=== PATIENT | female | born 1960 | race Caucasian/White ===

== ENCOUNTER → 2016-04-04 | Outpatient (CLI) | payer BC ==
[~2016-04-04] MED LIST: ACET-749 PO; ACET1TAB84 PO; ALBUAER2 INH; AMOX500C3 PO; ASCA500 PO; CALC500C3 PO; CEPH500C2 PO; CHOL2000 PO; CRAN1CAP15 PO; CYAN10005 SQ; DICL1GEL12 TOP; DIPH25CA65 PO; DULO60CA44 PO; FLUT0.15 NAE; FLVHFA110 INH; FRRG PO; IPRASOL4 INH; LEVO150T9 PO; LEVO1TAB34 PO; LVNIS30 PO; LVNIS30 SQ; MOME50SP5; OXYC-57 PO; PLMINSR25 INH; VITA400C49 PO
--- NOTE | 2016-04-04 11:36 | DIAGNOSTIC IMAGING REPORT ---
CHEST 2 VIEWS ROUTINE HISTORY: Atypical chest pain. COMPARISON: Chest 04/23/2011. FINDINGS: The lungs are clear. Cardiac silhouette is normal in size. No pleural effusions. No pneumothorax. IMPRESSION: No acute process. Electronically signed by: Parker Doan M.D. 04/04/2016 11:34 AM Dictated Date/Time: 04/04/2016 11:31 AM
== END | disposition home or self-care (01) ==
LOC: C.RAD1850 11:02
PROVIDERS: ATTEND Nurse Practitioner Family
DX: J45.41 Moderate persistent asthma with (acute) exacerbation (principal); R06.02 Shortness of breath; R05 Cough; R07.9 Chest pain, unspecified

== ENCOUNTER 2016-04-06 14:21 | Emergency (ER) | payer BC ==
[~2016-04-06] VITALS: Ht 180.3 cm; Wt 104.2 kg
[~2016-04-06 14:21] MED LIST changes: -ACET1TAB84 PO; -AMOX500C3 PO; -ASCA500 PO; -CALC500C3 PO; -CEPH500C2 PO; -CHOL2000 PO; -CRAN1CAP15 PO; -CYAN10005 SQ; -DICL1GEL12 TOP; -DULO60CA44 PO; -FLUT0.15 NAE; -FRRG PO; -IPRASOL4 INH; -LEVO150T9 PO; -LEVO1TAB34 PO; -LVNIS30 PO; -LVNIS30 SQ; -OXYC-57 PO; -PLMINSR25 INH; -VITA400C49 PO
[2016-04-06 14:25] VITALS: TEMP 36.6; Ht 180.3 cm; Wt 104.2 kg
[2016-04-06] MEDS ORDERED: MAGNESIUM SULFATE 1GM / D5W 1 GM BAG IV STA (15:32)
[2016-04-06] MEDS ORDERED: SODIUM CHLORIDE 0.9% 1000ML 1,000 ML IV STA (15:32)
[2016-04-06] MEDS ORDERED: METHYLPREDNISOLONE 125 MG VIAL IV STA (15:32)
--- NOTE | 2016-04-06 15:35 | EMERGENCY ROOM VISIT NOTE ---
History Report prepared by Manuel: Choco Gallo Under the Supervision of: Dr. Liam Quiñonez M.D. First contact with patient: 15:26 Chief Complaint: RESPIRATORY PROBLEMS Stated Complaint: DIAGNOSED WITH PNEUMONIA Nursing Triage Summary: left side pnemonia dx on , placed on antibiotics at that time. I dont feel like I am getting any better History of Present Illness The patient is a 56 year old female who presents to the Emergency Room with complaints of respiratory problems that began four days ago. The patient began having a fever, rhinorrhea, a cough, body aches, chest pain, and shortness of breath. The next day she was prescribed Levaquin 500 mg for ten days and Prednisone 40 mg. The patient states that she does not feel better. She thinks the medications are not helping. Her breathing worsens with deep breaths. She denies nausea, vomiting, and diarrhea. She took two Tylenol this morning without relief. Source of History: patient Onset: four days ago Position: other (lungs) Symptom Intensity: moderate Quality: other (shortness of breath) Timing: worsening Modifying Factors (Worsening): breathing (deep breaths) Associated Symptoms: + SOB, + chest pain, + cough, + fatigue, + fevers, + weakness, No diarrhea, No nausea, No vomiting Note: She has generalized aches and rhinorrhea. Review of Systems See HPI for pertinent positives & negatives. A total of 10 systems reviewed and were otherwise negative. Past Medical & Surgical Medical Problems: (1) Asthma, Unspecified (2) bladder tack (3) Depression (4) Esophageal Reflux (5) Hx Of Lymphoid Leukemia (6) Hypertension Nos (7) Vomiting Surgical Problems: (1) Cystocele with rectocele (2) Gastric bypass status for obesity (3) History of colonoscopy (4) History of esophagogastroduodenoscopy (5) History of hysterectomy (6) History of orthopedic surgery (7) History of tonsillectomy (8) Intestinal Bypass Status Social History Problems: (1) Gastric bypass status for obesity Family History Patient reports no known family medical history. Social History Smoking Status: Never Smoker Alcohol Use: none Drug Use: none Marital Status: Housing Status: lives with family Occupation Status: employed Current/Historical Medications Scheduled Amoxicillin (Amoxil), 500 MG PO TID Budesonide (Pulmicort Respules 0.25MG/2ML), 2 ML INH BID Duloxetine Hcl (Cymbalta), 60 MG PO DAILY Levofloxacin (Levaquin), 500 MG PO DAILY Levothyroxine Sodium (Levothyroxine Sodium), 1 TAB PO DAILY Scheduled PRN Acetaminophen (Tylenol Arthritis Ext Rel), 1,300 MG PO Q8H PRN for pain/fever/gomez Albuterol (Ventolin), 2 PUFFS INH QID PRN for SOB/Wheezing Diphenhydramine Hcl (Benadryl Allergy), 25 MG PO HS PRN for Sleep Fluticasone Propionate (Flovent Hfa), 2 PUFF INH BID PRN for SOB/Wheezing Fluticasone Propionate (Nasal) (Flonase Allergy Relief), 2 SPRAY TOMER DAILY PRN for allergies Ipratropium-Albuterol (Duoneb), 1 TREATMENT INH TID PRN for SOB/Wheezing Allergies Coded Allergies: Doxycycline (Verified Allergy, Mild, RASH, 03/17/15) Dextromethorphan (Verified Allergy, Unknown, ITCHY, REDNESS, 04/06/16) Doxylamine (Verified Allergy, Unknown, ITCHY, REDNESS, 04/06/16) NSAIDs (Verified Allergy, Unknown, itchy, stomach ulcers, 03/17/15) Pseudoephedrine (Verified Allergy, Unknown, ITCHY, REDNESS, 04/06/16) Soybean (Verified Allergy, Unknown, TESTING = ALLERGIC; PATIENT EATS SOYBEANS AND DOES OKAY., 02/23/14) Uncoded Allergies: NYQUIL (Allergy, Unknown, Anxiety, 10/21/13) Physical Exam Vital Signs Date Time Temp Pulse Resp B/P Pulse Ox O2 Delivery O2 Flow Rate FiO2 04/06/16 16:53 89 18 152/87 100 Room Air 04/06/16 16:11 73 04/06/16 15:54 68 16 99 Room Air 04/06/16 15:41 100 Room Air 04/06/16 14:27 99 Room Air 04/06/16 14:25 36.6 81 20 139/87 98 Physical Exam GENERAL: Patient is a healthy-appearing well-nourished HEAD: Normocephalic atraumatic EYES: Ocular movements intact pupils equal and react to light OROPHARYNX mucous membranes are moist no exudates present no erythema or edema present NECK: Supple no nuchal rigidity CHEST: Good equal expansion LUNGS: Distant breath sounds bilaterally. CARDIAC: Normal S1 and S2 ABDOMEN: Soft nontender no guarding BACK: No CVA tenderness EXTREMITIES: No pain upon palpation normal muscle strength in all groups no clubbing cyanosis or edema NEURO: Patient is following commands is answering questions appropriately. Alert and oriented x3 Cranial Nerves 2-12 grossly intact Medical Decision & Procedures ER Provider Diagnostic Interpretation: Radiology results are stated below per my review and radiologist interpretation: CHEST ONE VIEW PORTABLE CLINICAL HISTORY: Shortness of breath COMPARISON STUDY: 04/04/2016 FINDINGS: The cardiac and mediastinal contours are normal. There is no evidence of focal pulmonary consolidation. There is no evidence of failure. No pleural effusions are visualized.[ IMPRESSION: No active disease in the chest. Electronically signed by: Alex Cortes M.D. 04/06/2016 4:06 PM Dictated Date/Time: 04/06/2016 4:[address] ANGIOGRAM OF THE CHEST CLINICAL HISTORY: Shortness of breath. Suspected pulmonary embolism. COMPARISON STUDY: Chest x-ray dated 04/06/2016, CT scan of chest dated 12/10/2013 TECHNIQUE: Following the IV administration of 96 mL of Optiray-320, CT angiogram of the thorax was performed from the thoracic inlet to the lung bases utilizing the pulmonary embolus protocol. Images are reviewed in the axial, sagittal, and coronal planes. IV contrast was administered without complication. MIP imaging was performed. CT DOSE: 346.19 mGy.cm FINDINGS: There is a partially calcified 1 cm right lobe thyroid nodule, similar to the prior examination No pathologically enlarged axillary mediastinal or hilar lymph nodes were visualized. There was no evidence of thoracic aortic dilatation. There were no pulmonary artery filling defects to indicate acute pulmonary embolism. No pleural effusions are visualized. There is a stable 6 mm right lower lobe pulmonary nodule as visualized in image #[id number]. The stability indicates a benign process. IMPRESSION: 1. No CT evidence of acute pulmonary embolism 2. No evidence of pathologic adenopathy 3. No evidence of focal pulmonary consolidation Electronically signed by: Alxe Cortes M.D. 04/06/2016 5:31 PM Dictated Date/Time: 04/06/2016 5:26 PM Laboratory Results 04/06/16 15:45 Red Blood Count 4.82, Mean Corpuscular Volume 83.6, Mean Corpuscular Hemoglobin 27.4, Mean Corpuscular Hemoglobin Concent 32.8, Mean Platelet Volume 9.6, Neutrophils (%) (Auto) 34.1, Lymphocytes (%) (Auto) 58.4, Monocytes (%) (Auto) 4.3, Eosinophils (%) (Auto) 2.7, Basophils (%) (Auto) 0.3, Neutrophils # (Auto) 5.15, Lymphocytes # (Auto) 8.79, Monocytes # (Auto) 0.64, Eosinophils # (Auto) 0.40, Basophils # (Auto) 0.04 04/06/16 15:45 Test 04/06/16 15:45 04/06/16 15:47 04/06/16 15:52 04/06/16 16:10 White Blood Count 15.05 K/uL (4.8-10.8) Red Blood Count 4.82 M/uL (4.2-5.4) Hemoglobin 13.2 g/dL (12.0-16.0) Hematocrit 40.3 % (37-47) Mean Corpuscular Volume 83.6 fL (80-100) Mean Corpuscular Hemoglobin 27.4 pg (25-34) Mean Corpuscular Hemoglobin Concent 32.8 g/dl (32-36) Platelet Count 324 K/uL (130-400) Mean Platelet Volume 9.6 fL (7.4-10.4) Neutrophils (%) (Auto) 34.1 % Lymphocytes (%) (Auto) 58.4 % Monocytes (%) (Auto) 4.3 % Eosinophils (%) (Auto) 2.7 % Basophils (%) (Auto) 0.3 % Neutrophils # (Auto) 5.15 K/uL (1.4-6.5) Lymphocytes # (Auto) 8.79 K/uL (1.2-3.4) Monocytes # (Auto) 0.64 K/uL (0.11-0.59) Eosinophils # (Auto) 0.40 K/uL (0-0.5) Basophils # (Auto) 0.04 K/uL (0-0.2) RDW Standard Deviation 43.0 fL (36.4-46.3) RDW Coefficient of Variation 14.0 % (11.5-14.5) Immature Granulocyte % (Auto) 0.2 % Immature Granulocyte # (Auto) 0.03 K/uL (0.00-0.02) Nucleated RBC Absolute Count (auto) 0.18 K/uL (0-0) Nucleated Red Blood Cells % 1.2 % Smudge Cells PRESENT Ovalocytes 1+ Est Creatinine Clear Calc Drug Dose 113.9 ml/min Estimated GFR () 104.7 Estimated GFR (Non- 90.4 BUN/Creatinine Ratio 18.9 (10-20) Calcium Level 8.8 mg/dl (8.5-10.1) Total Bilirubin 0.2 mg/dl (0.2-1) Aspartate Amino Transf (AST/SGOT) 21 U/L (15-37) Alanine Aminotransferase (ALT/SGPT) 34 U/L (12-78) Alkaline Phosphatase 163 U/L (45-117) Total Creatine Kinase 68 U/L (26-192) Creatine Kinase MB < 0.5 ng/ml (0.5-3.6) Creatine Kinase MB Ratio (0-3.0) Troponin I < 0.015 ng/ml (0-0.045) Total Protein 7.3 gm/dl (6.4-8.2) Albumin 3.7 gm/dl (3.4-5.0) Globulin 3.6 gm/dl (2.5-4.0) Albumin/Globulin Ratio 1.0 (0.9-2) Bedside D-Dimer > 450 ng/mlFEU (0-450) Bedside Hemoglobin 13.9 g/dl (12.0-16.0) Bedside Hematocrit 41 % (37-47) Bedside Sodium 140 mEq/L (135-144) Bedside Potassium 4.4 mEq/L (3.3-5.0) Bedside Chloride 102 mEq/L (101-112) Bedside Total CO2 27 mEq/l (24-31) Anion Gap 17.0 mmol/L (16-25) Bedside Blood Urea Nitrogen 14 mg/dl (7-18) Bedside Creatinine 0.7 mg/dl (0.6-1.3) Bedside Glucose (other) 99 mg/dl (70-99) Bedside Ionized Calcium (Jen) 1.14 mmol/l (1.12-1.32) Influenza Type A (RT-PCR) Neg for Influ A (NEG) Influenza Type B (RT-PCR) Neg for Influ B (NEG) Test 04/06/16 17:15 Urine Color YELLOW Urine Appearance CLEAR (CLEAR) Urine pH 6.5 (4.5-7.5) Urine Specific [place] 1.004 (1.000-1.030) Urine Protein NEG (NEG) Urine Glucose (UA) NEG (NEG) Urine Ketones NEG (NEG) Urine Occult Blood NEG (NEG) Urine Nitrite NEG (NEG) Urine Bilirubin NEG (NEG) Urine Urobilinogen NEG (NEG) Urine Leukocyte Esterase NEG (NEG) Labs reviewed by ED physician. Medications Administered Medications (Trade) Dose Ordered Sig/Tariq Route Start Time Stop Time Status Last Admin Dose Admin Sodium Chloride (Nss 1000ml) 1,000 ml @ 999 mls/hr Q1H1M STAT IV 04/06/16 15:32 04/06/16 16:32 DC 04/06/16 15:48 999 MLS/HR Albuterol/ Ipratropium (Duoneb) 12 ml ONE ONCE INH 04/06/16 15:45 04/06/16 15:46 DC 04/06/16 15:53 12 ML Methylprednisolone Sodium Succinate (Solu-Medrol IV) 60 mg NOW STAT IV 04/06/16 15:32 04/06/16 15:37 DC 04/06/16 15:49 60 MG Magnesium Sulfate (Magnesium Sulfate) 1 gm NOW STAT IV 04/06/16 15:32 04/06/16 15:37 DC 04/06/16 15:49 1 GM Acetaminophen (Tylenol Tab) 1,000 mg NOW STAT PO 04/06/16 17:06 04/06/16 17:08 DC 04/06/16 17:15 1,000 MG Amoxicillin (Amoxil Cap) 1,000 mg NOW STAT PO 04/06/16 18:25 04/06/16 18:26 DC 04/06/16 18:52 1,000 MG ECG Indication: SOB/dyspnea Rate (beats per minute): 77 Rhythm: normal sinus Findings: no acute ischemic change, no ectopy ED Course 1526: Past medical records reviewed. The patient was evaluated in room A3. A complete history and physical examination was performed. 1532: Magnesium Sulfate 1 gm IV, Solu-Medrol IV 60 mg IV, Sodium Chloride 1000 ml @ 999 mls/hr 1545: Duoneb 12 ml 1706: Acetaminophen 1000 mg PO 1730: I offered the patient admission. She declined and stated that she would like to go home. 1824: Amoxil Cap 1000 mg PO 1833: Upon reexamination the patient is resting. I discussed results and treatment plan with the patient. She verbalizes agreement and understanding. The patient is ready for discharge. Medical Decision Etiologies such as infections, reactive airway disease, pneumonia, pneumothorax , COPD, CHF, cardiac ischemia, pulmonary embolism, musculoskeletal, gastrointestinal, as well as others were entertained. This is a 56-year-old female with a history of asthma who was placed on steroids as well as Levaquin 2 days ago. The patient reports emergency Department with worsening symptoms. She was given an hour-long breathing treatment in the emergency department and given more Tylenol as the patient is allergic to NSAIDs. Her last dose of Tylenol was at 11 AM therefore she was given more at 5 PM. The patient was also given normal saline bolus as well as magnesium. The patient does have an elevation in her d-dimer therefore sent for CAT scan of the chest has a chest x-ray is clear. I did give this patient the option of being admitted however she wishes to try it at home. As she is allergic to doxycycline I will place the patient on amoxicillin to open up her antibiotic coverage. She does have an elevation in her white blood count that will be consistent with starting steroids. Impression Primary Impression: Asthma exacerbation Scribe Attestation The scribe's documentation has been prepared under my direction and personally reviewed by me in its entirety. I confirm that the note above accurately reflects all work, treatment, procedures, and medical decision making performed by me. Departure Information Dispostion Home / Self-Care Prescriptions Amoxicillin (AMOXIL) 500 Mg Cap 500 MG PO TID, #30 CAP Prov: Liam Quiñonez MD 04/06/16 Referrals Teri Parker M.D. (PCP) Forms HOME CARE DOCUMENTATION FORM, IMPORTANT VISIT INFORMATION, WORK / SCHOOL INSTRUCTIONS Patient Instructions ED Bronchitis Asthmatic, My [facility] Additional Instructions Add amox to Levaquin Return if symptoms worsen You have been examined and treated today on an emergency basis only. This is not a substitute for, or an effort to provide, complete comprehensive medical care. It is impossible to recognize and treat all injuries or illnesses in a single emergency department visit. It is therefore important that you follow up closely with Dr Parker. Call as soon as possible for an appointment. Thank you for your time and consideration. I look forward to speaking with you again soon. Please don't hesitate to call us if you have any questions.
[2016-04-06] MEDS ORDERED: FLUT0.15 NAE (15:39)
[2016-04-06] MEDS ORDERED: LEVO150T9 PO (15:39)
[2016-04-06] MEDS ORDERED: PLMINSR25 INH (15:39)
[2016-04-06] MEDS ORDERED: ACET1TAB84 PO (15:39)
[2016-04-06] MEDS ORDERED: LEVO1TAB34 PO (15:39)
[2016-04-06] MEDS ORDERED: IPRASOL4 INH (15:39)
[2016-04-06] MEDS ORDERED: DULO60CA44 PO (15:39)
[2016-04-06 15:41] VITALS: O2SAT 100
[2016-04-06] MEDS ORDERED: ALBUT/IPRATROP 3MG/0.5MG NEB 3 ML VIAL INH ONE (15:45)
[2016-04-06 15:54] VITALS: PULSE 68; O2SAT 99
[2016-04-06 16:05] LABS: ISTAT CREATININE 0.7 mg/dl (0.6-1.3); ISTAT HEMOGLOBIN 13.9 g/dl (12.0-16.0); ISTAT IONIZED CALCIUM 1.14 mmol/l (1.12-1.32)
[2016-04-06 16:07] LABS: HEMATOCRIT 40.3 % (37-47); MEAN CELL VOLUME 83.6 fL (80-100); MEAN CORPUSCULAR HEMOGLOBIN 27.4 pg (25-34); MEAN CORPUSCULAR HGB CONC 32.8 g/dl (32-36); MEAN PLATELET VOLUME 9.6 fL (7.4-10.4); PLATELET COUNT 324 K/uL (130-400); RED BLOOD COUNT 4.82 M/uL (4.2-5.4); WHITE BLOOD COUNT 15.05 K/uL (4.8-10.8)
--- NOTE | 2016-04-06 16:08 | DIAGNOSTIC IMAGING REPORT ---
CHEST ONE VIEW PORTABLE CLINICAL HISTORY: Shortness of breath COMPARISON STUDY: 04/04/2016 FINDINGS: The cardiac and mediastinal contours are normal. There is no evidence of focal pulmonary consolidation. There is no evidence of failure. No pleural effusions are visualized.[ IMPRESSION: No active disease in the chest. Electronically signed by: Alex Cortes M.D. 04/06/2016 4:06 PM Dictated Date/Time: 04/06/2016 4:05 PM
[2016-04-06] MEDS ORDERED: OPTIRAY 320 IV PRN (16:15)
[2016-04-06 16:26] LABS: ALT/SGPT 34 U/L (12-78); AST/SGOT 21 U/L (15-37); BLOOD UREA NITROGEN 14 mg/dl (7-18); BUN/CREATININE RATIO 18.9 (10-20); CALCIUM 8.8 mg/dl (8.5-10.1); CARBON DIOXIDE 29 mmol/L (21-32); CHLORIDE 103 mmol/L (98-107); CREATININE 0.75 mg/dl (0.60-1.20); GLUCOSE 98 mg/dl (70-99); POTASSIUM 4.4 mmol/L (3.5-5.1); SODIUM 140 mmol/L (136-145)
[2016-04-06 16:31] LABS: ALKALINE PHOSPHATASE 163 U/L (45-117)
[2016-04-06] MEDS ORDERED: ACETAMINOPHEN 500 MG TAB PO STA (17:06)
[2016-04-06 17:11] LABS: BASO % 0.3 %; BASO ABS # 0.04 K/uL (0-0.2); COMPLETE YES; EOS % 2.7 %; IG% 0.2 %; LYMPH % 58.4 %; LYMPH ABS # 8.79 K/uL (1.2-3.4); MONO % 4.3 %; NEUT % 34.1 %; OVALOCYTES 1+; SMUDGE CELLS PRESENT
[2016-04-06 17:33] LABS: URINE APPEARANCE CLEAR (CLEAR); URINE BILIRUBIN NEG (NEG); URINE COLOR YELLOW; URINE NITRITE NEG (NEG); URINE PH 6.5 (4.5-7.5); URINE SPECIFIC GRAVITY 1.004 (1.000-1.030); UROBILINOGEN NEG (NEG)
--- NOTE | 2016-04-06 17:33 | DIAGNOSTIC IMAGING REPORT ---
CT ANGIOGRAM OF THE CHEST CLINICAL HISTORY: Shortness of breath. Suspected pulmonary embolism. COMPARISON STUDY: Chest x-ray dated 04/06/2016, CT scan of chest dated 12/10/2013 TECHNIQUE: Following the IV administration of 96 mL of Optiray-320, CT angiogram of the thorax was performed from the thoracic inlet to the lung bases utilizing the pulmonary embolus protocol. Images are reviewed in the axial, sagittal, and coronal planes. IV contrast was administered without complication. MIP imaging was performed. CT DOSE: 346.19 mGy.cm FINDINGS: There is a partially calcified 1 cm right lobe thyroid nodule, similar to the prior examination No pathologically enlarged axillary mediastinal or hilar lymph nodes were visualized. There was no evidence of thoracic aortic dilatation. There were no pulmonary artery filling defects to indicate acute pulmonary embolism. No pleural effusions are visualized. There is a stable 6 mm right lower lobe pulmonary nodule as visualized in image #[id number]. The stability indicates a benign process. IMPRESSION: 1. No CT evidence of acute pulmonary embolism 2. No evidence of pathologic adenopathy 3. No evidence of focal pulmonary consolidation Electronically signed by: Alex Cortes M.D. 04/06/2016 5:31 PM Dictated Date/Time: 04/06/2016 5:26 PM
[2016-04-06 17:40] LABS: MANUAL MICROSCOPIC REQUIRED? NO; REVIEW REQ? NO
[2016-04-06 17:57] LABS: INFLUENZA A PCR Neg for Influ A (NEG); INFLUENZA B PCR Neg for Influ B (NEG)
[2016-04-06] MEDS ORDERED: AMOXICILLIN 250 MG CAP PO STA (18:25)
[2016-04-06] MEDS ORDERED: AMOX500C3 PO (18:31)
[2016-04-06 19:10] VITALS: BP 122/71; PULSE 82; O2SAT 98
[2016-06-03] MEDS ORDERED: VITA400C49 PO (15:12)
[2016-06-03] MEDS ORDERED: DICL1GEL12 TOP (15:12)
[2016-06-03] MEDS ORDERED: CRAN1CAP15 PO (15:12)
[2016-06-03] MEDS ORDERED: CHOL2000 PO (15:12)
[2016-06-03] MEDS ORDERED: CALC500C3 PO (15:12)
[2016-06-03] MEDS ORDERED: CYAN10005 SQ (15:12)
== END 2016-04-06 19:11 | disposition home or self-care (01) ==
LOC: C.EDB 14:22 → C.EDA 19:11
DX: J45.901 Unspecified asthma with (acute) exacerbation (principal); R79.1 Abnormal coagulation profile; F32.9 Major depressive disorder, single episode, unspecified; K21.9 Gastro-esophageal reflux disease without esophagitis; E66.9 Obesity, unspecified; Z68.32 Body mass index [BMI] 32.0-32.9, adult; Z98.84 Bariatric surgery status; E04.1 Nontoxic single thyroid nodule; R91.1 Solitary pulmonary nodule; I10 Essential (primary) hypertension

== ENCOUNTER → 2016-05-07 | Outpatient (CLI) | payer BC ==
[~2016-05-07] MED LIST changes: -ACET-749 PO; +ACET1TAB84 PO; +ASCA500 PO; +CALC500C3 PO; +CEPH500C2 PO; +CHOL2000 PO; +CRAN1CAP15 PO; +CYAN10005 SQ; +DICL1GEL12 TOP; +DULO60CA44 PO; +FLUT0.15 NAE; +FRRG PO; +IPRASOL4 INH; +LEVO150T9 PO; +LEVO1TAB34 PO; +LVNIS30 PO; +LVNIS30 SQ; -MOME50SP5; +OXYC-57 PO; +PLMINSR25 INH; +VITA400C49 PO
--- NOTE | 2016-05-07 16:45 | MAMMOGRAPHY REPORT ---
BILATERAL DIGITAL SCREENING MAMMOGRAM TOMOSYNTHESIS WITH CAD: 05/07/2016 TECHNIQUE: Breast tomosynthesis in addition to standard 2D mammography was performed. Current study was also evaluated with a Computer Aided Detection (CAD) system. COMPARISON: Comparison is made to exams dated: 10/04/2014 mammogram, 09/17/2013 mammogram, 06/19/2012 mammogram, 06/19/2011 mammogram, and 05/15/2010 mammogram - [facility]. BREAST COMPOSITION: There are scattered areas of fibroglandular density in both breasts. FINDINGS: No suspicious masses, calcifications, or areas of architectural distortion are noted in e ither breast. There has been no significant interval change compared to prior exams. A biopsy marke r clip is again noted in the right central breast. Bilateral benign-appearing calcifications do not appear significantly changed when accounting for differences in mammographic technique between the current and prior exams. IMPRESSION: ACR BI-RADS CATEGORY 2: BENIGN There is no mammographic evidence of malignancy. A 1 year screening mammogram is recommended. The p atient will receive written notification of the results. Approximately 10% of breast cancers are not detected with mammography. A negative mammographic repor t should not delay biopsy if a clinically suggestive mass is present. Bibi Chu M.D. ah/:05/07/2016 14:47:12 Equal Employment Opportunity Officer: Debbie DANG)(Camille), [facility] letter sent: Normal 1/2 BI-RADS Code: ACR BI-RADS Category 2: Benign
--- NOTE | 2016-05-14 12:49 | CODING QUERY MEDICAL NECESSITY ---
SUPPORTING DIAGNOSIS NEEDED A supporting diagnosis is required for the test/procedure performed on this patient in order for us to be reimbursed by the patient's insurance. Please provide a supporting diagnosis for the following test/procedure listed below next to the test name along with your signature. *If there is no additional diagnosis for this patient that would support the following test/procedure please document that below next to the test/procedure. Test(s)/Procedure(s) that require a supporting diagnosis: * DXA BONE DENSITY DIAGNOSIS: * DOS: 05/07/16 Provider Signature: Date: Thank you Talisha Dale Health Information Management Once completed, please kindly fax back to [phone] For questions please call [phone]
== END | disposition home or self-care (01) ==
LOC: C.MAMM 13:48
PROVIDERS: ATTEND Family Medicine
DX: Z12.31 Encounter for screening mammogram for malignant neoplasm of breast (principal); M85.80 Other specified disorders of bone density and structure, unspecified site

== ENCOUNTER 2016-06-11 05:11 | Inpatient (IN) | payer BC ==
--- NOTE | 2016-05-30 17:14 | HISTORY & PHYSICAL EXAMINATION ---
DATE OF ADMISSION: 06/11/2016 ATTENDING PHYSICIAN: Dr. Marvin Huddleston from [facility]. CHIEF COMPLAINT: Left knee pain. HISTORY OF PRESENT ILLNESS: Gerda is a 56-year-old female patient of Dr. Betts from [facility] with a longstanding history of left knee pain that has failed conservative treatment such as intraarticular joint injections, physical therapy, clyn-bby-admulol analgesics, behavior modification, thermal modalities and rest. She admits to pain with activity and at rest. She states that her pain affects her life on a daily basis and with certain activities of daily living. She denies any recent injuries or falls. No numbness or tingling distally. Denies any calf pain. PAST MEDICAL HISTORY: 1. Asthma. 2. Hypothyroid. 3. Osteoarthritis. 4. Obesity. PAST SURGICAL HISTORY: 1. Tonsillectomy. 2. Right shoulder arthroscopy and rotator cuff repair. 3. Gastric bypass surgery. 4. Partial hysterectomy. 5. Bilateral bunionectomy. 6. Bladder surgery x2. 7. Right ankle ORIF. 8. LASIK surgery. SOCIAL HISTORY: The patient lives at home in a safe environment. Denies any alcohol, tobacco or illegal drug use. FAMILY HISTORY: Noncontributory. MEDICATIONS: 1. Calcium 500 mg tab daily. 2. Cymbalta 60 mg tab daily. 3. Voltaren gel 1% topically as needed for pain. 4. Flonase 50 mcg INH 2 sprays daily. 5. Levothyroxine 150 mcg daily. 6. Multivitamin daily. 7. ProAir HFA 90 mcg INH 2 puffs 4 times daily as needed for wheezing. 8. Tylenol 1000 mg q. 6 hours. 9. Vitamin D3. 10. Vitamin E daily. ALLERGIES: 1. DOXYCYCLINE. 2. NYQUIL. REVIEW OF SYSTEMS: The patient denies headache, chest pain, shortness of breath, fevers, chills or night sweats. PHYSICAL EXAMINATION: GENERAL: The patient is alert and oriented x3 female. She is in no acute distress, pleasant, appears her currently-stated age. HEENT: Head is atraumatic, normocephalic. Eyes are equal, round react to light and accommodation. NECK: Supple. No JVD. No lymphadenopathy. Oral and nasal cavities are patent without exudates or erythema. Good dentition. No obvious infections or dental caries or abscesses. CARDIAC: Regular rate and rhythm. S1 greater than S2. No murmurs, rubs or gallops appreciated. RESPIRATORY: Lungs are clear to auscultation bilaterally all lung veneg[place]. No rales, rhonchi or wheezing. GASTROINTESTINAL: Abdomen is soft, nontender, nondistended. Normal active bowel sounds all 4 quadrants. SKIN: Exam of the patient's left knee does not reveal any erythema, effusion, ecchymosis, abrasions, lacerations or skin breakdown. NEUROVASCULAR: Exam of the left lower extremity distally pulses +2. Capillary refill under 2 seconds. Good sensation with light touch. Toes freely mobile. +5 strength in dorsi and plantarflexion. Calf is supple, nontender. MUSCULOSKELETAL: Exam of the left knee reveals range of motion 0, 0, 110 degrees with pain at end points of flexion and extension. She has pain both medially and laterally. She has crepitation noted in the patellofemoral joint, ligamentously stable regarding cruciate and collateral ligaments. Extensor mechanism intact. No obvious cystic changes or masses in the popliteal fossa. She has an antalgic gait. RADIOGRAPHS: Plain film x-rays of the patient's left knee reveal advanced periarticular osteophytosis, joint space narrowing, sclerotic change; there is no obvious evidence of subchondral cyst formation fracture or dislocation. IMPRESSION: Left knee osteoarthritis. PLAN: Gerda will undergo a left total knee arthroplasty by Dr. Huddleston from [facility] at the [facility] on 06/11/2016. The patient has already obtained preoperative medical clearance through her PCP, Teri Parker on 05/23/2016 from [facility]. Gerda has a preadmission testing appointment at the [facility] on 06/04/2016 and will obtain preoperative labs, EKG, chest x-ray, CBC, electrolytes, BUN, creatinine, PT/INR, and urinalysis. Gerda will use a walker postoperatively for ambulation. At this point, she has outpatient physical therapy is scheduled 1 week postoperatively at [facility] on 06/18/2016. Will follow up with Dr. Huddleston on 06/25/2016 for staple removal. Gerda will use Lovenox 30 mg b.i.d. for 3 weeks for DVT prophylaxis followed by an additional 3 weeks of aspirin 325 mg b.i.d. Percocet will be used for pain control postoperatively and will be prescribed after once she is discharged from the hospital. Any other questions or concerns, notify [facility] at [phone].
[2016-06-03 15:12] VITALS: BMI 33.0
--- NOTE | 2016-06-03 15:47 | PAT Medication Instructions ---
Service Date Jun 03, 2016. Current Home Medication List Acetaminophen (Tylenol Arthritis Ext Rel), 1,300 MG PO Q8H PRN for pain/fever/gomez Albuterol (Ventolin), 2 PUFFS INH QID PRN for SOB/Wheezing Calcium Carbonate (Tums), 1 TAB PO BID Cholecalciferol (Vitamin D3), 1 CAP PO QAM Cranberry-Vitamin C-Vitamin E (Cranberry), 1 CAP PO QAM Cyanocobalamin (Vitamin B-12), 1,000 MCG SQ Q 3 MONTHS Diclofenac Sodium (Topical) (Voltaren 1% Top Gel), 1 DOSE TOP DAILY Duloxetine Hcl (Cymbalta), 60 MG PO QAM Fluticasone Propionate (Nasal) (Flonase Allergy Relief), 2 SPRAY TOMER DAILY PRN for allergies Levothyroxine Sodium (Levothyroxine Sodium), 1 TAB PO QAM Vitamin E (Vitamin E), 1 TAB PO QAM Medication Instructions For Your Scheduled Surgery Cyanocobalamin (Vitamin B-12), 1,000 MCG SQ Q 3 MONTHS (continue as directed) - Hold the following medications starting 06/04/16: Vitamin E (Vitamin E), 1 TAB PO QAM Cranberry-Vitamin C-Vitamin E (Cranberry), 1 CAP PO QAM - Hold the following medications 24 hours prior to surgery: Diclofenac Sodium (Topical) (Voltaren 1% Top Gel), 1 DOSE TOP DAILY - Hold the following medications the morning of surgery: Cholecalciferol (Vitamin D3), 1 CAP PO QAM Calcium Carbonate (Tums), 1 TAB PO BID - Take the following medications the morning of surgery with a sip of water: Levothyroxine Sodium (Levothyroxine Sodium), 1 TAB PO QAM Fluticasone Propionate (Nasal) (Flonase Allergy Relief), 2 SPRAY TOMER DAILY PRN for allergies Duloxetine Hcl (Cymbalta), 60 MG PO QAM Albuterol (Ventolin), 2 PUFFS INH QID PRN for SOB/Wheezing (bring with you to hospital morning of surgery) Acetaminophen (Tylenol Arthritis Ext Rel), 1,300 MG PO Q8H PRN for pain/fever/gomez - Take the following medications as scheduled the night before surgery: Fluticasone Propionate (Nasal) (Flonase Allergy Relief), 2 SPRAY TOMER DAILY PRN for allergies Calcium Carbonate (Tums), 1 TAB PO BID Albuterol (Ventolin), 2 PUFFS INH QID PRN for SOB/Wheezing Acetaminophen (Tylenol Arthritis Ext Rel), 1,300 MG PO Q8H PRN for pain/fever/gomez If you have any questions please call us at [phone] (Janene Engel PA-C ) or [phone] or [phone]
[2016-06-03 16:20] LABS: MEAN CELL VOLUME 82.8 fL (80-100); MEAN CORPUSCULAR HEMOGLOBIN 26.8 pg (25-34); MEAN CORPUSCULAR HGB CONC 32.4 g/dl (32-36); MEAN PLATELET VOLUME 9.6 fL (7.4-10.4); PLATELET COUNT 309 K/uL (130-400); RED BLOOD COUNT 4.47 M/uL (4.2-5.4); WHITE BLOOD COUNT 15.18 K/uL (4.8-10.8)
[2016-06-03 16:21] LABS: URINE APPEARANCE CLEAR (CLEAR); URINE BILIRUBIN NEG (NEG); URINE COLOR YELLOW; URINE NITRITE NEG (NEG); UROBILINOGEN NEG (NEG)
[2016-06-03 16:28] LABS: INR 0.9 (0.9-1.1); PARTIAL THROMBOPLASTIN RATIO 0.9; PROTHROMBIN TIME (PATIENT) 9.7 SECONDS (9.0-12.0)
[2016-06-03 16:44] LABS: MANUAL MICROSCOPIC REQUIRED? NO; REVIEW REQ? NO
[2016-06-03 16:46] LABS: CREATININE 0.7 mg/dl (0.60-1.20); POTASSIUM 4.2 mmol/L (3.5-5.1)
[2016-06-03 17:20] LABS: SMUDGE CELLS PRESENT
[2016-06-03 17:21] LABS: BASO % 0.4 %; BASO ABS # 0.06 K/uL (0-0.2); COMPLETE YES; IG% 0.1 %; LYMPH % 55.3 %; LYMPH ABS # 8.39 K/uL (1.2-3.4); MONO % 4.2 %
[2016-06-11] VITALS (7 sets, daily range): BP systolic 116–148; BP diastolic 74–96; PULSE 68–79; TEMP 36.4–37.1; O2SAT 98–100; Ht 180.3 cm; Wt 107.9 kg
[~2016-06-11] VITALS: Ht 180.3 cm; Wt 107.9 kg
[~2016-06-11 05:11] MED LIST changes: -ASCA500 PO; -CEPH500C2 PO; -DIPH25CA65 PO; -FLVHFA110 INH; -FRRG PO; -IPRASOL4 INH; -LEVO1TAB34 PO; -LVNIS30 PO; -LVNIS30 SQ; -OXYC-57 PO; -PLMINSR25 INH
[2016-06-11] MEDS ORDERED: LACTATED RINGER'S 1000ML 1,000 ML IV SCH (06:00)
[2016-06-11] MEDS ORDERED: CEFAZOLIN 2000 MG/60 ML D5W 60 ML IV SCH (06:00)
[2016-06-11] MEDS ORDERED: LACTATED RINGER'S 1000ML IV SCH (06:00)
[2016-06-11] MEDS ORDERED: TRANEXAMIC ACID INJ 1,000 MG in SODIUM CHLORIDE 0.9% 100ML 100 ML IV SCH ×2 (06:00→17:00)
[2016-06-11] MEDS ORDERED: ROPIVACAINE 5MG/ML 30 ML 150 MG, BUPIVACAINE 0.5% MPF INJ 30 ML, KETOROLAC TROMETHAMINE... INFIL SCH ×7 (06:00)
[2016-06-11] MEDS: TRANEXAMIC ACID INJ 1,000 MG in SODIUM CHLORIDE 0.9% 100ML 100 ML IV SCH ×2 (06:00→06:30)
[2016-06-11] MEDS ORDERED: LACTATED RINGER'S 1000ML 500 ML IV ONE (06:00)
[2016-06-11] MEDS ORDERED: BUPIVACAINE LIPOSOME 266 MG, BUPIVACAINE/EPINEPHRINE INJ 50 ML, SODIUM CHLORIDE 0.9% PF... INFIL SCH ×3 (06:00)
[2016-06-11] MEDS ORDERED: BUPIVACAINE 0.5 % 5 MG/1 ML PF 10ML VIAL ONE (06:29)
[2016-06-11] MEDS ORDERED: BUPIVACAINE 0.25% 30 ML VIAL ONE (06:29)
[2016-06-11] MEDS ORDERED: ORTHO JOINT ANESTHETIC ONE (06:30)
[2016-06-11] MEDS ORDERED: POVIDONE-IODINE OP SOLN 30 ML BTL ONE (06:30)
[2016-06-11] MEDS ORDERED: MIDAZOLAM HCL 1 MG/ML 2ML VIAL ONE ×2 (06:33→07:03)
[2016-06-11] MEDS ORDERED: FENTANYL CITRATE INJ 50 MCG/1 ML 2 ML VIAL ONE (06:33)
[2016-06-11] MEDS ORDERED: LIDOCAINE HCL 2% 2 ML VIAL (20MG/ML) ONE (06:33)
[2016-06-11] MEDS ORDERED: PROPOFOL IV EMULSION 10 MG/ML 20 ML VIAL IV ONE ×8 (06:33→10:43)
--- NOTE | 2016-06-11 06:40 | History & Physical Bridge Note ---
H&P Re-Evaluation Bridge Note: I have examined the patient, reviewed the History & Physical and in the interval since the performance of the History & Physical I have noted the following changes of clinical significance: No changes noted
[2016-06-11] MEDS ORDERED: ONDANSETRON INJ 2 MG/ML 2 ML VIAL ONE (07:45)
[2016-06-11] MEDS ORDERED: FENTANYL CITRATE INJ 50 MCG/1 ML 2 ML VIAL IV PRN (07:45)
[2016-06-11] MEDS ORDERED: ATROPINE SULFATE 0.1 MG/ML 5ML SYR IV PRN (07:45)
[2016-06-11] MEDS ORDERED: ONDANSETRON INJ 2 MG/ML 2 ML VIAL IV PRN ×2 (07:45→10:30)
[2016-06-11] MEDS ORDERED: BISACODYL 10 MG SUPP PR PRN (10:30)
[2016-06-11] MEDS ORDERED: METOCLOPRAMIDE HCL INJ 5 MG/ML 2 ML VIAL IV PRN (10:30)
[2016-06-11] MEDS ORDERED: ALUMINUM/MAGNESIUM/SIMETH (MAALOX MAX) 30 ML UDC PO PRN (10:30)
[2016-06-11] MEDS ORDERED: SOD PHOSPHATE/SOD BIPHOSPHATE ENEMA 132 ML BTL PR PRN (10:30)
[2016-06-11] MEDS ORDERED: ALBUTEROL HFA 8 GM INHALER INH PRN (10:45)
[2016-06-11] MEDS ORDERED: FLUTICASONE PROPIONATE NA SPR 16 GM BTL NAE PRN (10:45)
--- NOTE | 2016-06-11 10:47 | [facility] Post Operative Brief Note ---
Immediate Operative Summary Operative Date Jun 11, 2016. Pre-Operative Diagnosis Left knee osteoarthritis Post-Operative Diagnosis Left knee osteoarthritis Procedure(s) Performed Left Total Knee Arthroplasty, cemented Surgeon Dr Huddleston Facility Attendant Surgeon(s) Ronak Multani, Resident ; Adeel Golden PA-C, Valerio Cameron Estimated Blood Loss 220ML Findings same Specimens A: Left knee bone and tissue Drains none Anesthesia block, sedation Complication(s) None Disposition Recovery Room / PACU
--- NOTE | 2016-06-11 10:48 | [facility] Operative Report ---
Operative Report Operative Date Jun 11, 2016. Pre-Operative Diagnosis Left knee osteoarthritis Post-Operative Diagnosis same Procedure(s) Performed Left total knee arthroplasty Surgeon Dr Huddleston Applications Instructor Surgeon(s) Ronak Multani, Resident MD; Adeel Golden PA-C, Valerio Cameron Estimated Blood Loss 220ML Findings Left knee osteoarthritis Specimens A: Left knee bone and tissue Drains none Anesthesia block, sedation Complication(s) None Disposition Recovery Room / PACU Indications continued left knee pain that failed conservative treatment, surgery recommended , consents signed Description of Procedure taken to the OR, prepped and draped, I was present the entire case, please see Dr. Huddleston's op note for further detail I attest to the content of the Intraoperative Record and any orders documented therein. Any exceptions are noted below.
--- NOTE | 2016-06-11 10:56 | [facility] Operative Report ---
Operative Report Operative Date Jun 11, 2016. Pre-Operative Diagnosis Left knee osteoarthritis Post-Operative Diagnosis same Procedure(s) Performed Left Total knee Replacement, cemented Surgeon Dr Huddleston Municipal Firefighter Surgeon(s) Ronak Multani, Resident ; Adeel Golden PA-C, Valerio Cameron Estimated Blood Loss 220ML Findings Examined Under Anesthesia: ROM -- There was 2 degrees to 110 degrees of flexion Ligamentous examination -- revealed stable Rodney, posterior drawer, varus and valgus stress at 0 and 30 degrees. Outerbridge Type 4 changes of patellofemoral and medial compartments, with eburnation of the medial femoral condyle, and severe along the trochlea and patella. The lateral compartment mostly with type III changes, small area on the femur with type IV changes. Fluids 1600 Specimens A: Left knee bone and tissue Drains none Anesthesia block, sedation Complication(s) None Disposition Recovery Room / PACU Indications This is a 56-year-old female who has clinical and radiographic findings consistent with end-stage osteoarthritis of the a left knee. I recommended that a left total knee replacement be performed. The patient understands the risks of surgery, which include but not limited to: bleeding, infection, re- operation, damage to nerves and arteries, continued knee pain, knee stiffness, DVT, and . The patient understands all of these instructions and explanations, all of his questions have been satisfactorily addressed and the patient has elected to proceed. Informed consent was signed. Description of Procedure IMPLANTS: 1. Femur: Triathlon #5 Right PS. 2. Tibia: Triathlon #5 primary. 3. Insert: Triathlon #11 x 9 mm PS X3 poly. 4. Patella: Triathlon A35 x 10 mm X3 poly. 5. 3 batches Simplex, cement. PROCEDURE: The patient was taken to the Operating Room and placed in the supine position after spinal and adductor nerve block was administered. My initials and a multidisciplinary time-out were used to identify the left leg as the correct operative limb. A tourniquet was placed high in the thigh. Prior to the incision, 2 grams of intravenous Ancef were given. The left leg was then prepped and draped in a standard sterile fashion. An Esmarch was used to exsanguinate the leg and the tourniquet was inflated to 250 mmHg. The planned mid-line 12 cm incision was created exposing the extensor mechanism. The medial parapatellar arthrotomy was made and the patella was everted. The synovitis and large loose body in the suprapatellar pouch were removed with electrocautery and aqua mantis. There appeared to be a venous tourniquet and it was released. The patella was prepared first month to allow for better exposure of the femur. All osteophytes were removed after using the Bovie to remove any synovitis and to gain better exposure to the edges of the patella. By reaming from 22mm down to 12mm. A 35 button was found to fit best. The peg holes were made in the standard fashion. The femur was addressed next and the guide chuck was placed intramedullary. The initial cutting block was placed with 5 degrees of valgus and removing 8 mm for the anterior cut. The cut was made and the 4-in-1 cutting block for a size 5 femur was placed. These cuts and the cuts to place the box were made in the standard fashion. Our attention was then drawn to the tibia cut with the external cutting guide, taking 2mm from the medial, low side plus an additional 2 mm. A #5 Tibial baseplate fit well and was pinned in place. The baseplate was slightly lateralized to provide better patellar tracking and the excess bone medially was removed with a Rongeur. A trial with a 13mm spacer showed excellent stability in both flexion and extension, with good ligament balance. Range of motion of 0-130 degrees. The tibial baseplate was prepared for the keel. All the trial components were tested again, with good stability and thumbs free tracking of the patella. All components were removed. 80 ml of [facility] joint juice was injected into the soft tissues and periosteum. The limb was exsanguinated again and the tourniquet was re-inflated. All surfaces were copiously irrigated prior to placement of the components. The Tibial baseplate and patellar button were placed using the first batch of cement. A bone plug was placed in the femur and covered with bone wax. The femur was placed using the second batch. An 11mm trial poly was placed, as a 13 mm poly would not allow the knee to be reduced, and the range of motion was unchanged, and stability showed only minimal medial laxity. Once the cement had cured, the 11mm X3 poly was placed. The extensor mechanism was closed with 1-0 and 0 Vicryl with the knee bent approximately 60 degrees in a standard fashion. The peritenon and deep fascia was closed with 2-0 Vicryl. The subcutaneous layer was closed with 3-0 Vicryl. The skin was closed with paula. The limb was cleaned and dried. Xeroform was placed over top followed by 4x4's, ABDs, sterile Webril, and a foot to thigh Dagoberto bandage. The patient was then transferred to the Recovery Room in stable condition. The sponge and needle counts were correct. POST-OP INSTRUCTIONS: The patient will be WBAT. The patient will be admitted to the hospital. The patient will use the knee immobilizer when ambulating and standing until good quad control is achieved. Labs will be obtained during her stay. DVT prophylaxis will included Lovenox, starting tomorrow a.m., for 3 weeks then switching to aspirin for 3 more weeks, TEDs, and mechanical foot pumps. I attest to the content of the Intraoperative Record and any orders documented therein. Any exceptions are noted below.
--- NOTE | 2016-06-11 11:18 | DIAGNOSTIC IMAGING REPORT ---
LEFT KNEE 1 OR 2 VIEWS ROUTINE CLINICAL HISTORY: AP/LATERAL IN PACU LEFT KNEE joint replacement COMPARISON: None. DISCUSSION: Patient is status post total left knee replacement. There is good contact between prosthetic and the Bone. There is expected soft tissue postoperative change IMPRESSION: Anatomic alignment status post total left knee replacement Electronically signed by: Gunner Pearce M.D. 06/11/2016 11:16 AM Dictated Date/Time: 06/11/2016 11:13 AM
--- NOTE | 2016-06-11 11:51 | Anesthesiology Progress Note ---
Anesthesia Post Op Note Date & Time Jun 11, 2016 at 11:51 Vital Signs Pain Intensity: 0 Vital Signs Past 12 Hours Date Time Temp Pulse Resp B/P Pulse Ox O2 Delivery O2 Flow Rate FiO2 06/11/16 11:35 37.1 66 16 126/77 100 Nasal Cannula 2 06/11/16 11:25 65 16 132/80 100 Nasal Cannula 2 06/11/16 11:15 67 16 130/82 100 Nasal Cannula 2 06/11/16 11:06 36.7 66 16 141/70 100 Nasal Cannula 2 06/11/16 05:47 36.7 70 20 140/96 100 Room Air Notes Mental Status: alert / awake / arousable, participated in evaluation Pt Amnestic to Procedure: Yes Nausea / Vomiting: adequately controlled Pain: adequately controlled Airway Patency, RR, SpO2: stable & adequate BP & HR: stable & adequate Hydration State: stable & adequate Neuraxial Anesthesia: was administered, sensory block is resolving Anesthetic Complications: no major complications apparent
[2016-06-11] MEDS: FERROUS GLUCONATE 324 MG TAB PO SCH ×2 (14:12→19:12)
[2016-06-11] MEDS: D5W AND 1/2NSS + 20MEQ KCL 1,000 ML IV SCH ×2 (14:13→22:31)
[2016-06-11] MEDS: ACETAMINOPHEN 500 MG TAB PO SCH ×2 (14:13→21:26)
[2016-06-11] MEDS: CEFAZOLIN IV 2,000 MG in DEXTROSE 5% 50ML 50 ML IV SCH ×2 (14:14→22:31)
[2016-06-11] MEDS: MoRPHine SULFATE 4 MG/ML 1 ML CARP\\VIAL IV PRN (14:16)
--- NOTE | 2016-06-11 17:03 | Orthopedic Progress Note ---
Orthopedic Progress Note Date of Service Jun 11, 2016. Subjective Post OP Day: POD #0 Reports: feeling well, Denies: complaints Objective calves soft nontender, N/V intact, A&O x3 Dressing with evidence of bloody drainage. Able to perform straight leg raise. Date Time Temp Pulse Resp B/P Pulse Ox O2 Delivery O2 Flow Rate FiO2 06/11/16 15:09 36.5 73 16 147/83 100 Nasal Cannula 2.0 06/11/16 14:10 36.4 79 142/81 100 06/11/16 12:58 36.7 73 17 148/90 100 Nasal Cannula 06/11/16 12:00 36.7 68 16 145/79 100 Nasal Cannula 06/11/16 12:00 100 Nasal Cannula 2.0 06/11/16 12:00 100 Nasal Cannula 2.0 06/11/16 12:00 36.7 68 16 138/85 100 Nasal Cannula 2.0 06/11/16 11:35 37.1 66 16 126/77 100 Nasal Cannula 2 06/11/16 11:25 65 16 132/80 100 Nasal Cannula 2 06/11/16 11:15 67 16 130/82 100 Nasal Cannula 2 06/11/16 11:06 36.7 66 16 141/70 100 Nasal Cannula 2 06/11/16 05:47 36.7 70 20 140/96 100 Room Air Additional Notes: RADIOGRAPHS: AP & lat L knee, shows components in good position. Assessment & Plan Assessment: POD #0 s/p L TKA. Plan: Continue pain control. Resume diet. WBAT with immobilizer until demonstrates good quad control. PT/OT. OOB/Activity ad jefferson. Benadryl for itching and insomnia. Check labs in am. D/C Rizvi 3 am. Re-enforce dressing. Change dressing 3 am. DVT prophylaxis: TEDs and Foot pumps, start Lovenox 3 am and continue BID for 3 weeks, then convert to ASA 325 BID for another 3 weeks. D/C planning.
[2016-06-11] MEDS: OXYCODONE HCL IR 5 MG TAB (IMMEDIATE RELEASE) PO PRN ×2 (19:08→19:39)
[2016-06-11] MEDS: CALCIUM CARBONATE 500 MG CHEWABLE PO SCH (20:55)
[2016-06-11] MEDS: DOCUSATE SODIUM 100 MG CAP PO SCH (21:26)
[2016-06-11] MEDS: SENNA 8.6 MG TAB PO SCH (21:26)
[2016-06-12 03:15] VITALS: BP 147/81; PULSE 87; TEMP 36.9; O2SAT 99
[2016-06-12] MEDS: OXYCODONE HCL IR 5 MG TAB (IMMEDIATE RELEASE) PO PRN ×3 (05:35→22:31)
[2016-06-12] MEDS: LEVOTHYROXINE 150 MCG TAB PO SCH (05:41)
[2016-06-12] MEDS: ACETAMINOPHEN 500 MG TAB PO SCH ×3 (05:42→21:11)
[2016-06-12 06:40] LABS: HEMATOCRIT 25.3 % (37-47); MEAN CELL VOLUME 80.8 fL (80-100); MEAN CORPUSCULAR HEMOGLOBIN 26.2 pg (25-34); MEAN CORPUSCULAR HGB CONC 32.4 g/dl (32-36); MEAN PLATELET VOLUME 9.2 fL (7.4-10.4); PLATELET COUNT 247 K/uL (130-400); RED BLOOD COUNT 3.13 M/uL (4.2-5.4); WHITE BLOOD COUNT 17.22 K/uL (4.8-10.8)
[2016-06-12 07:10] LABS: BUN/CREATININE RATIO 10.6 (10-20); CALCIUM 7.9 mg/dl (8.5-10.1); CREATININE 0.64 mg/dl (0.60-1.20); POTASSIUM 3.8 mmol/L (3.5-5.1)
[2016-06-12] MEDS ORDERED: DEXAMETHASONE INJ 10 MG in SYRINGE 0 ML IV ONE (07:30)
[2016-06-12 07:58] VITALS: BP 141/82; PULSE 80; TEMP 37.4; O2SAT 97
--- NOTE | 2016-06-12 08:14 | Orthopedic Progress Note ---
Orthopedic Progress Note Date of Service Jun 12, 2016. Subjective Post OP Day: 1 Reports: feeling well, Denies: SOB, chest pain, complaints Objective calves soft nontender, dressing C/D/I, A&O x3 Date Time Temp Pulse Resp B/P Pulse Ox O2 Delivery O2 Flow Rate FiO2 06/12/16 07:58 37.4 80 20 141/82 97 Room Air 06/12/16 03:15 36.9 87 15 147/81 99 Room Air 06/12/16 00:15 Room Air 06/11/16 22:50 37.1 73 14 116/74 98 Room Air 06/11/16 19:10 36.7 70 16 121/80 100 Room Air 06/11/16 16:10 Nasal Cannula 2.0 06/11/16 15:09 36.5 73 16 147/83 100 Nasal Cannula 2.0 06/11/16 14:10 36.4 79 142/81 100 06/11/16 12:58 36.7 73 17 148/90 100 Nasal Cannula 06/11/16 12:00 36.7 68 16 145/79 100 Nasal Cannula 06/11/16 12:00 100 Nasal Cannula 2.0 06/11/16 12:00 100 Nasal Cannula 2.0 06/11/16 12:00 36.7 68 16 138/85 100 Nasal Cannula 2.0 06/11/16 11:35 37.1 66 16 126/77 100 Nasal Cannula 2 06/11/16 11:25 65 16 132/80 100 Nasal Cannula 2 06/11/16 11:15 67 16 130/82 100 Nasal Cannula 2 06/11/16 11:06 36.7 66 16 141/70 100 Nasal Cannula 2 Laboratory Results 24 Hours: Test 06/12/16 06:16 Hematocrit 25.3 % Hemoglobin 8.2 g/dL Assessment & Plan Assessment: POD #1 s/p L TKA. Acute anemia blood loss, Hgb 8.2. Plan: Continue pain control. Resume diet. WBAT with immobilizer until demonstrates good quad control. PT/OT. OOB/Activity ad jefferson. Benadryl for itching and insomnia. Labs: Hgb 8.2 will continue to monitor. D/C Rizvi 06/12/16 am. Change dressing 06/12/16 am, change daily as needed. DVT prophylaxis: TEDs and Foot pumps, start Lovenox 3/22/17 am and continue BID for 3 weeks, then convert to ASA 325 BID for another 3 weeks. D/C planning.
--- NOTE | 2016-06-12 08:24 | Progress Note ---
Orthopedic SOAP Note Subjective Date of Service: Jun 12, 2016. Post OP Day: 1 Reports: feeling well, pain controlled w PO medications (states she has some pain in the back of her knee but overall very pleased with how minimal her pain currently rates), Denies: SOB, calf pain, chest pain, complaints, light headedness, nausea / vomiting, using MEDICAL BILLING AND CODING SPECIALIST Problem List Medical Problems: (1) Asthma exacerbation Status: Acute (2) Asthma, Unspecified Status: Chronic (3) Depression Status: Chronic (4) Esophageal Reflux Status: Chronic Surgical Problems: (1) Intestinal Bypass Status Status: Chronic Objective calves soft nontender, N/V intact, capillary refill less than 2 sec., dressing C /D/I (dressing fairly saturated with blood, no current bleeding at this time, dressing changed and reinforced), incision C/D/I, A&O x3, toes mobile, CMS intact (patient is able to perform straight leg) Date Time Temp Pulse Resp B/P Pulse Ox O2 Delivery O2 Flow Rate FiO2 06/12/16 07:58 37.4 80 20 141/82 97 Room Air 06/12/16 03:15 36.9 87 15 147/81 99 Room Air 06/12/16 00:15 Room Air 06/11/16 22:50 37.1 73 14 116/74 98 Room Air 06/11/16 19:10 36.7 70 16 121/80 100 Room Air 06/11/16 16:10 Nasal Cannula 2.0 06/11/16 15:09 36.5 73 16 147/83 100 Nasal Cannula 2.0 06/11/16 14:10 36.4 79 142/81 100 06/11/16 12:58 36.7 73 17 148/90 100 Nasal Cannula 06/11/16 12:00 36.7 68 16 145/79 100 Nasal Cannula 06/11/16 12:00 100 Nasal Cannula 2.0 06/11/16 12:00 100 Nasal Cannula 2.0 06/11/16 12:00 36.7 68 16 138/85 100 Nasal Cannula 2.0 06/11/16 11:35 37.1 66 16 126/77 100 Nasal Cannula 2 06/11/16 11:25 65 16 132/80 100 Nasal Cannula 2 06/11/16 11:15 67 16 130/82 100 Nasal Cannula 2 06/11/16 11:06 36.7 66 16 141/70 100 Nasal Cannula 2 Laboratory Results 24 Hours: Test 06/12/16 06:16 Hematocrit 25.3 % Hemoglobin 8.2 g/dL Assessment POD #1 s/p L TKA. Acute anemia blood loss, Hgb 8.2. Plan Continue pain control. Resume diet. WBAT with immobilizer until demonstrates good quad control. PT/OT. OOB/Activity ad jefferson. Benadryl for itching and insomnia. Labs: Hgb 8.2 paige continue to monitor. D/C Rizvi 06/12/16 am. Changed dressing 06/12/16 am. DVT prophylaxis: TEDs and Foot pumps, start Lovenox 3 am and continue BID for 3 weeks, then convert to ASA 325 BID for another 3 weeks. D/C planning, home with outpatient physical therapy.
[2016-06-12] MEDS ORDERED: FRRG PO (08:27)
[2016-06-12] MEDS ORDERED: LVNIS30 PO (08:27)
[2016-06-12] MEDS ORDERED: OXYC-57 PO (08:27)
[2016-06-12] MEDS ORDERED: ASCA500 PO (08:27)
--- NOTE | 2016-06-12 08:33 | Discharge Instructions ---
Discharge Instructions Date of Service Jun 12, 2016. Admission Reason for Admission: Left Knee Osteoarthritis Discharge Discharge Diagnosis / Problem: s/p Left total knee arthroplasty Discharge Goals Goal(s): Decrease discomfort, Improve function, Increase independence Activity Recommendations Activity Limitations: as noted below Lifting Limitations: none Exercise/Sports Limitations: none May Resume Sexual Activity: when tolerated Shower/Bathe: keep incision dry Driving or Machine Use: when cleared by Dr. Huddleston Weightbearing Status: Left weightbearing (as tolerated) . Instructions / Follow-Up Instructions / Follow-Up New Medicine: * You will likely be taking one or more of these medications: 1. Percocet - Take, as directed, when you need it, every four to six hours to control your pain 2. Iron Sulfate - Take two times each day for 2 weeks after surgery to help you replace blood loss from surgery. 3. Lovenox - Thins your blood to lessen the chance of forming a blood clot. Please use twice daily for 3 weeks after surgery. After 3 weeks of lovenox, transition to Aspirin 325mg one tab every AM & PM for additional 3 weeks 4. Vitamin C - helps Iron Sulfate absorption * The most common side effects of pain medicine and iron are nausea and constipation. If nausea or constipation is too much of a problem or if you have any questions about your new medicines or doses, call [facility] at . We will try to help you manage these issues. Narcotic Pain Medication Post-Operatively has a high tendency to cause constipation. Signs, Symptoms, and Causes Constipation is when you are not passing stool as often as you normally do. Your stool becomes hard and dry, and it is difficult to pass. You might feel bloated and have pain, or you might have to strain when you try to go. Some medicines, including narcotics, can make you constipated. You can also get constipated if you are not getting enough fiber, using the bathroom as soon as you feel the urge to go, or getting enough exercise. Try to get to know your normal bowel movement pattern, so that you can keep constipation from getting worse. How to Prevent Constipation Drink more water and eat more fiber. Try these things to relieve your constipation: * Do not skip meals. * Avoid processed or fast foods, such as white breads, pastries, doughnuts, sausage. fast-food burgers, potato chips, and Scottish fries. Many foods are good natural "laxatives" that will help you move your bowels. High-fiber foods help waste move through your body. Add foods with fiber to your diet slowly because eating more fiber can cause gas Drink 8 to10 cups of liquids, especially water, every day. Most fruits will help ease constipation. Berries, peaches, apricots, plums, raisins, rhubarb, and prunes are just some that may help. Do not peel fruits that have edible skins, since a lot of the fiber is in their skins. Choose breads, crackers, pasta, pancakes, and waffles made with whole grains, or make your own. Use brown rice or wild rice instead of white rice. Eat high- fiber cereals. Vegetables can also add fiber to your diet. Some high-fiber vegetables are asparagus, broccoli, corn. squash, and potatoes (with the skin still on). Salads made with lettuce, spinach, and cabbage will also help. Legumes (navy beans, kidney beans, chick peas, soy beans, and lentils), peanuts , walnuts, and almonds will also add fiber to your diet. Other foods you can eat are: * Fish, chicken, turkey, or other lean meats. These do not have fiber, but they will not make constipation worse. * Snacks such as raisin cookies, fig bars, and popcorn. You can also sprinkle 1 or 2 teaspoons of bran flakes, ground flax seeds, wheat bran, or psyllium on foods such as yogurt, cereal, and soup. Or, add them to your smoothie. Immediately after surgery, if you are taking pain medications, we recommend that you start taking stool softeners and a gentle laxative. You can buy stool softeners at any pharmacy. They will help you pass stool more easily. Your doctor may prescribe a laxative to relieve your constipation. It may be a pill or liquid. Do NOT take it if you have severe stomach pain, nausea, or vomiting. Do NOT take it for more than 1 week. It should start to work in 2 to 5 days. * As long as you take pain medication you will most likely need a laxative. * Always drink plenty of water (8 to 10 cups a day) when you are using laxatives. * Store your laxative medicine safely in a medicine cabinet, where children cannot get to it. * Take the laxative as directed, daily as needed. Try to stop laxatives within 2-3 weeks after surgery. Some Examples: * Stool Softeners: Colace, vegetables, Metamucil, Citrucel, any type of food roughage. * Laxatives: Sennakot tablets, Miralax, Milk of Magnesia, Dulcolax, and so on. We recommend trying the gentle laxatives before going to the strong ones (i.e. ExLax). Some people get a rash, nausea, or sore throat while taking laxatives. Women who are or breast-feeding and children under age 6 should NOT take laxatives. Bulk-forming laxatives such as Metamucil or Perdiem can help pull water into your intestines and make your stools more bulky. VERY IMPORTANT TO READ AND REVIEW" Pain: * The immediate post-operative period after knee replacement surgery is often quite painful. * You are given a prescription for pain medicine. You should take it, as directed, when you need it, especially before physical therapy and before going to bed. Pain that interferes with sleep is very common and can last several months. * You will likely need pain medicine for the first four to six weeks. It will not stop all of the pain. The pain will lessen and as you feel better, you may change to milder pain medicine such as Tylenol. * The most common side effects of pain medicine are nausea and constipation, so don't take more than you need. Physical Therapy: * You will have physical therapy two or three times each week for four to six weeks after your surgery in order to regain your knee range of motion and to retrain your knee to work properly. * It is just as important to make sure you are getting your knee perfectly straight as it is to regain your knee bend. * Taking a pain pill an hour before therapy can help you have a more productive and comfortable therapy session if needed. Home Exercise: * You were shown a series of exercises (heel props, heel slides, etc.) in the hospital. Do these exercises three to four times each day including the exercises you were shown in physical therapy. Walking: * Get up and walk several times each day. For the first four weeks, try not to stand or walk for more than one hour at a time. If you do stand or walk for more than one hour, you will not hurt anything, but your knee and leg will likely swell. * As you feel comfortable, you may change from the walker or crutches to a cane and then to independent walking. SELF CARE INSTRUCTIONS AFTER TOTAL KNEE REPLACEMENT A. You may need to continue a physical therapy program after discharge from the hospital. There are several options available to you. Your doctor will assist you in selecting the best one for you. 1. An out-patient facility 2 to 3 times a week for therapy or home therapy. 2. Continue working on all exercises taught to you in the hospital. Your goals should be to increase bending of your knee to 90 degrees and beyond and to fully straighten your knee. B. You may progress at your own pace from walking with a walker or crutches to a cane; then to no assistive devices. C. Make walking a part of your daily routine. Be up as much as comfortable with rest periods throughout the day. Rest with leg elevation is very important. Use the ice wrap frequently for the first 3-4 weeks. D. There are no restrictions on activities. You may ride in a car, shop, participate in stone carver and all social activities. E. Do not place a pillow behind your knee when resting. A pillow at your ankle is okay. TEDs/Elastic Stockings: * The white elastic stockings help limit swelling and prevent blood clots from forming in your legs. The more you wear them, the more they work. * Wear them for two weeks after knee replacement surgery, approximately 20 hours per day. it is OK to remove them to rest your legs or bathe. Prevention of Infection: * Take antibiotics one hour before any dental cleaning, dental work, urological procedure, gastrointestinal procedure or any invasive surgery in order to prevent your new joint from getting infected. (See pre-op instruction sheet ) * You may get the antibiotics from the doctor performing the procedure or you may call our office at before and we will call in a prescription to the pharmacy of your choice. Things to Watch For: * Drainage from the incision site that starts three or more days after your surgery. * Severely increased knee/leg pain or swelling. * Increased redness at the incision site. * Fever above 102 degrees Fahrenheit. * Unusual chest pain or shortness of breath. * Unusual pain or burning with urination. Call [facility] at with any of the above problems or if you have any questions about your medicines or recovery. Follow-up Visit: Make an appointment to see your doctor about two weeks after surgery for a progress check and staple removal by calling the office at . PT: 06/18/16 Dr. Huddleston: 06/25/16 Avoid all tobacco products. If you need help to stop smoking, call [facility] FREE QUITLINE at . This is a free call. Current Hospital Diet Patient's current hospital diet: Regular Diet Discharge Diet Recommended Diet: Regular Diet Procedures Procedures Performed: Left Total Knee Arthroplasty, cemented Pending Studies Studies pending at discharge: no Medical Emergencies . Who to Call and When: Medical Emergencies: If at any time you feel your situation is an emergency, please call 911 immediately. . Non-Emergent Contact Non-Emergency issues call your: Primary Care Provider . "Provider Documentation" section prepared by Adeel Golden. VTE Core Measure Inpt VTE Proph given/why not?: Enoxaparin (Lovenox)Jony MACK Drug Monitoring Program Search Results: no issues identified
[2016-06-12] MEDS: FERROUS GLUCONATE 324 MG TAB PO SCH ×3 (09:05→17:42)
[2016-06-12] MEDS: D5W AND 1/2NSS + 20MEQ KCL 1,000 ML IV SCH (09:06)
[2016-06-12] MEDS: CALCIUM CARBONATE 500 MG CHEWABLE PO SCH ×2 (09:07→21:10)
[2016-06-12] MEDS: DULOXETINE HCL 60 MG CAP PO SCH (09:07)
[2016-06-12] MEDS: TOCOPHERYL, DL-ALPHA 400 INTER.UNIT CAP PO SCH (09:07)
[2016-06-12] MEDS: CHOLECALCIFEROL 1000 INTER.UNIT TAB PO SCH (09:08)
[2016-06-12] MEDS: ENOXAPARIN 30 MG/0.3 ML SYR SQ SCH ×2 (09:09→22:29)
[2016-06-12 09:19] VITALS: O2SAT 97
[2016-06-12] MEDS: PANTOprazole SOD 40 MG TAB PO SCH (10:54)
[2016-06-12] MEDS: DOCUSATE SODIUM 100 MG CAP PO SCH ×2 (10:54→21:09)
[2016-06-12] MEDS: ASCORBIC ACID 500 MG TAB PO SCH (10:54)
[2016-06-12] MEDS: MULTIVITAMIN TAB PO SCH (10:54)
[2016-06-12 11:53] VITALS: BP 153/91; PULSE 82; TEMP 37.1; O2SAT 97
--- NOTE | 2016-06-12 13:47 | Anesthesiology Progress Note ---
Anesthesia Post Op Note Date & Time Jun 12, 2016 at 13:47 Vital Signs Vital Signs Past 12 Hours Date Time Temp Pulse Resp B/P Pulse Ox O2 Delivery O2 Flow Rate FiO2 06/12/16 11:53 37.1 82 20 153/91 97 Room Air 06/12/16 09:19 97 Room Air 06/12/16 08:41 Room Air 06/12/16 07:58 37.4 80 20 141/82 97 Room Air 06/12/16 03:15 36.9 87 15 147/81 99 Room Air Notes Mental Status: alert / awake / arousable, participated in evaluation Pt Amnestic to Procedure: Yes Nausea / Vomiting: adequately controlled Pain: adequately controlled Airway Patency, RR, SpO2: stable & adequate BP & HR: stable & adequate Hydration State: stable & adequate Neuraxial Anesthesia: sensory block resolved Anesthetic Complications: no major complications apparent
[2016-06-12 16:12] VITALS: BP 128/81; PULSE 88; TEMP 36.3; O2SAT 96
[2016-06-12] MEDS: SENNA 8.6 MG TAB PO SCH (21:09)
[2016-06-12] MEDS: MAGNESIUM HYDROXIDE SUSP 30 ML UDC PO PRN (22:28)
[2016-06-12] MEDS: MoRPHine SULFATE 4 MG/ML 1 ML CARP\\VIAL IV PRN ×2 (23:15→23:52)
[2016-06-12 23:58] VITALS: BP 136/75; PULSE 84; TEMP 37; O2SAT 98
[2016-06-13] VITALS (13 sets, daily range): BP systolic 98–142; BP diastolic 57–83; PULSE 82–92; TEMP 36.6–37.2; O2SAT 93–100
[2016-06-13] MEDS: LEVOTHYROXINE 150 MCG TAB PO SCH (05:33)
[2016-06-13] MEDS: ACETAMINOPHEN 500 MG TAB PO SCH ×3 (05:34→21:56)
[2016-06-13 05:38] LABS: HEMATOCRIT 22.9 % (37-47); MEAN CELL VOLUME 82.1 fL (80-100); MEAN CORPUSCULAR HEMOGLOBIN 26.5 pg (25-34); MEAN CORPUSCULAR HGB CONC 32.3 g/dl (32-36); MEAN PLATELET VOLUME 9.5 fL (7.4-10.4); PLATELET COUNT 246 K/uL (130-400); RED BLOOD COUNT 2.79 M/uL (4.2-5.4); WHITE BLOOD COUNT 18.77 K/uL (4.8-10.8)
[2016-06-13 06:09] LABS: BUN/CREATININE RATIO 19.2 (10-20); CALCIUM 7.8 mg/dl (8.5-10.1); CREATININE 0.55 mg/dl (0.60-1.20); POTASSIUM 3.7 mmol/L (3.5-5.1)
[2016-06-13] MEDS: FERROUS GLUCONATE 324 MG TAB PO SCH ×3 (07:30→17:50)
[2016-06-13] MEDS: DULOXETINE HCL 60 MG CAP PO SCH (07:30)
[2016-06-13] MEDS: DOCUSATE SODIUM 100 MG CAP PO SCH ×2 (07:30→21:54)
[2016-06-13] MEDS: MULTIVITAMIN TAB PO SCH (07:30)
[2016-06-13] MEDS: PANTOprazole SOD 40 MG TAB PO SCH (07:31)
[2016-06-13] MEDS: CALCIUM CARBONATE 500 MG CHEWABLE PO SCH ×2 (07:31→21:55)
[2016-06-13] MEDS: CHOLECALCIFEROL 1000 INTER.UNIT TAB PO SCH (07:31)
[2016-06-13] MEDS: TOCOPHERYL, DL-ALPHA 400 INTER.UNIT CAP PO SCH (07:31)
[2016-06-13] MEDS: ASCORBIC ACID 500 MG TAB PO SCH (07:31)
[2016-06-13] MEDS: OXYCODONE HCL IR 5 MG TAB (IMMEDIATE RELEASE) PO PRN ×3 (07:33→19:10)
--- NOTE | 2016-06-13 08:24 | Progress Note ---
Orthopedic SOAP Note Subjective Date of Service: Jun 13, 2016. 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 denies any dizziness, SOB, weakness, or excessively tired when done walking visited in room, changed dressing, performed exam Date Time Temp Pulse Resp B/P Pulse Ox O2 Delivery O2 Flow Rate FiO2 06/13/16 08:08 Room Air 06/13/16 06:26 37.0 86 16 111/65 93 Room Air 06/12/16 23:58 37.0 84 16 136/75 98 Room Air 06/12/16 23:45 Room Air 06/12/16 16:12 36.3 88 16 128/81 96 Room Air 06/12/16 15:45 Room Air 06/12/16 11:53 37.1 82 20 153/91 97 Room Air 06/12/16 09:19 97 Room Air 06/12/16 08:41 Room Air Laboratory Results 24 Hours: Test 06/13/16 05:19 Hematocrit 22.9 % Hemoglobin 7.4 g/dL Assessment POD #2 s/p L TKA. Acute anemia blood loss, H&H 7.4 & 22.9 Plan Continue pain control. Resume diet. WBAT with immobilizer until demonstrates good quad control. PT/OT. OOB/Activity ad jefferson. Benadryl for itching and insomnia. Vitals stable, not tachycardic Labs: Hgb 7.4 will continue to monitor, will transfuse 2 units D/C Rizvi 06/12/16 am. Daily dressing changes DVT prophylaxis: TEDs and Foot pumps, start Lovenox 06/12/16 am and continue BID for 3 weeks, then convert to ASA 325 BID for another 3 weeks. D/C planning, most likely tomorrow 06/14/16 with outpatient services
[2016-06-13] MEDS: ENOXAPARIN 30 MG/0.3 ML SYR SQ SCH ×2 (10:16→21:57)
[2016-06-13] MEDS: MoRPHine SULFATE 4 MG/ML 1 ML CARP\\VIAL IV PRN (10:19)
[2016-06-13] MEDS ORDERED: NURSING VERBAL MED ORDER ONE (11:30)
--- NOTE | 2016-06-13 17:23 | Orthopedic Progress Note ---
Orthopedic Progress Note Date of Service Jun 13, 2016. Subjective Post OP Day: 2 Reports: complaints (feeling tired and stiffer getting into and out of bed.) Objective calves soft nontender, N/V intact, dressing C/D/I, A&O x3 Date Time Temp Pulse Resp B/P Pulse Ox O2 Delivery O2 Flow Rate FiO2 06/13/16 16:58 36.8 85 16 116/70 100 06/13/16 16:06 36.7 82 16 100/61 98 06/13/16 15:50 36.7 83 16 98/57 97 06/13/16 15:09 36.8 87 16 104/63 97 Room Air 06/13/16 12:57 36.8 91 18 132/77 06/13/16 12:10 36.9 89 20 116/73 100 06/13/16 11:48 36.6 92 20 110/70 98 06/13/16 08:08 Room Air 06/13/16 06:26 37.0 86 16 111/65 93 Room Air 06/12/16 23:58 37.0 84 16 136/75 98 Room Air 06/12/16 23:45 Room Air Laboratory Results 24 Hours: Test 06/13/16 05:19 Hematocrit 22.9 % Hemoglobin 7.4 g/dL Assessment & Plan Assessment: POD #2 s/p L TKA. Acute anemia blood loss, H&H 7.4 & 22.9 Plan: Continue pain control. Resume diet. WBAT with immobilizer until demonstrates good quad control. PT/OT. OOB/Activity ad jefferson. Benadryl for itching and insomnia. Vitals stable, not tachycardic Labs: Hgb 7.4 will continue to monitor, will transfuse 2 units, recheck labs in am. D/C Rizvi 06/12/16 am. Daily dressing changes DVT prophylaxis: TEDs and Foot pumps, start Lovenox 06/12/16 am and continue BID for 3 weeks, then convert to ASA 325 BID for another 3 weeks. D/C planning, possibly tomorrow 06/14/16, will re-evaluate, with outpatient services
[2016-06-13] MEDS: MAGNESIUM HYDROXIDE SUSP 30 ML UDC PO PRN (17:53)
[2016-06-13] MEDS: SENNA 8.6 MG TAB PO SCH (21:55)
[2016-06-14 02:07] VITALS: BP 123/75; PULSE 80; TEMP 37; O2SAT 100
[2016-06-14] MEDS: OXYCODONE HCL IR 5 MG TAB (IMMEDIATE RELEASE) PO PRN ×3 (02:10→12:33)
[2016-06-14 04:24] VITALS: TEMP 36.7
[2016-06-14] MEDS: ACETAMINOPHEN 500 MG TAB PO SCH ×2 (05:38→13:41)
[2016-06-14] MEDS: LEVOTHYROXINE 150 MCG TAB PO SCH (05:38)
[2016-06-14 06:12] LABS: HEMATOCRIT 27.8 % (37-47); MEAN CELL VOLUME 79.4 fL (80-100); MEAN CORPUSCULAR HGB CONC 32.7 g/dl (32-36); MEAN PLATELET VOLUME 9.3 fL (7.4-10.4); PLATELET COUNT 261 K/uL (130-400); WHITE BLOOD COUNT 16.07 K/uL (4.8-10.8)
[2016-06-14 06:28] VITALS: BP 103/63; PULSE 83; TEMP 36.3; O2SAT 95
[2016-06-14 06:49] LABS: CALCIUM 8.1 mg/dl (8.5-10.1); CREATININE 0.64 mg/dl (0.60-1.20); POTASSIUM 3.7 mmol/L (3.5-5.1)
[2016-06-14] MEDS: DOCUSATE SODIUM 100 MG CAP PO SCH (08:37)
[2016-06-14] MEDS: FERROUS GLUCONATE 324 MG TAB PO SCH ×2 (08:37→12:33)
[2016-06-14] MEDS: DULOXETINE HCL 60 MG CAP PO SCH (08:37)
[2016-06-14] MEDS: ASCORBIC ACID 500 MG TAB PO SCH (08:38)
[2016-06-14] MEDS: TOCOPHERYL, DL-ALPHA 400 INTER.UNIT CAP PO SCH (08:38)
[2016-06-14] MEDS: PANTOprazole SOD 40 MG TAB PO SCH (08:38)
[2016-06-14] MEDS: CHOLECALCIFEROL 1000 INTER.UNIT TAB PO SCH (08:38)
[2016-06-14] MEDS: MULTIVITAMIN TAB PO SCH (08:38)
[2016-06-14] MEDS: CALCIUM CARBONATE 500 MG CHEWABLE PO SCH (08:38)
--- NOTE | 2016-06-14 08:42 | Progress Note ---
Orthopedic SOAP Note Subjective Date of Service: Jun 14, 2016. Post OP Day: 3 Reports: complaints (of increased pain in the left knee today but the patient has been refusing pain medication and certainly explains the reason for her pain level. She also reports increased redness around the knee. Denies drainage or fevers. ), Denies: SOB, calf pain, chest pain, feeling well, light headedness, nausea / vomiting, pain controlled w PO medications, using LPN INSTRUCTOR Problem List Medical Problems: (1) Asthma exacerbation Status: Acute (2) Asthma, Unspecified Status: Chronic (3) Depression Status: Chronic (4) Esophageal Reflux Status: Chronic Surgical Problems: (1) Intestinal Bypass Status Status: Chronic Objective calves soft nontender, N/V intact, capillary refill less than 2 sec., incision C /D/I (no drainage at all at the incision. ), A&O x3, toes mobile Gerda does have some generalized swelling and erythema around the knee that is well demarcated and travels proximally on the medial and lateral aspect of the knee and thigh. Unsure if it is caused secondary to TEDs, she is not currently wearing them. Gerda is also rubbing in this generalized area and I question if her excessive rubbing and friction have caused this irritation and color change to the skin. Again, no fevers, chills, drainage, calf supple and nontender. Date Time Temp Pulse Resp B/P Pulse Ox O2 Delivery O2 Flow Rate FiO2 06/14/16 07:55 Room Air 06/14/16 06:28 36.3 83 16 103/63 95 Room Air 06/14/16 04:24 36.7 06/14/16 02:07 37.0 80 16 123/75 100 Room Air 06/14/16 00:00 Room Air 06/13/16 23:00 36.8 86 16 142/83 95 Room Air 06/13/16 18:50 36.9 86 18 123/78 98 06/13/16 17:45 36.9 84 16 108/66 98 06/13/16 16:58 36.8 85 16 116/70 100 06/13/16 16:20 37.2 83 16 103/58 96 06/13/16 16:06 36.7 82 16 100/61 98 06/13/16 15:50 36.7 83 16 98/57 97 06/13/16 15:20 97 Room Air 06/13/16 15:09 36.8 87 16 104/63 97 Room Air 06/13/16 12:57 36.8 91 18 132/77 06/13/16 12:10 36.9 89 20 116/73 100 06/13/16 11:48 36.6 92 20 110/70 98 Laboratory Results 24 Hours: Test 06/14/16 05:30 Hematocrit 27.8 % Hemoglobin 9.1 g/dL Assessment POD #3 s/p L TKA. Acute anemia blood loss, transfused 2 units, H&H 9.1 & 27.8 Plan Continue pain control. Resume diet. WBAT with immobilizer until demonstrates good quad control. PT/OT. OOB/Activity ad jefferson. Benadryl for itching and insomnia. Vitals stable, not tachycardic H&H improved s/p transfusing 2 units D/C Rizvi 06/12/16 am. Daily dressing changes DVT prophylaxis: TEDs and Foot pumps, start Lovenox 06/12/16 am and continue BID for 3 weeks, then convert to ASA 325 BID for another 3 weeks. D/C planning for today with outpatient services. I, Dr. Huddleston, saw and examined the patient and agree with the above findings and plan of care. Ok to D/C home today. F/U with Dr. Huddleston in 10-15 days. Start outpt PT early next week.
[2016-06-14] MEDS: ENOXAPARIN 30 MG/0.3 ML SYR SQ SCH (11:09)
[2016-06-14 15:09] VITALS: BP 118/72; PULSE 81; TEMP 36.9; O2SAT 95
[2016-06-14] MEDS ORDERED: LVNIS30 SQ (16:12)
[2016-06-14 16:31] VITALS: BP 118/72; PULSE 81; TEMP 36.9; O2SAT 95
--- NOTE | 2016-06-14 16:53 | DISCHARGE SUMMARY ---
ADMISSION DIAGNOSIS: Left knee degenerative joint disease. POSTOPERATIVE DIAGNOSIS: Status post left total knee arthroplasty performed by Dr. Huddleston from [facility] on 06/11/2016 at the [facility]. PERTINENT DISCHARGE MEDICATIONS: 1. Lovenox 30 mg q. 12 hours x3 weeks, followed by an additional 3 weeks of aspirin 325 mg tabs b.i.d. 2. Vitamin C 500 mg tab daily x30 days. 3. Ferrous gluconate 324 mg tab 3 times daily for 30 days. 4. Percocet 5/325 mg tab 1-2 every 4-6 hours as needed for pain. HOSPITAL COURSE: Gerda is a 56-year-old female patient of Dr. Huddleston's with longstanding history of left knee DJD, who has failed conservative treatment. She underwent left total knee arthroplasty on 06/11/[address] Huddleston from [facility]. She underwent the procedure very well, was tolerated very well and over the next several days, her medical status was optimized to the point where she was able to be discharged home on 06/14/2016 with outpatient services and physical therapy. During the patient's hospital stay, she did ultimately experience acute blood loss anemia with a low hemoglobin and hematocrit, requiring 2 units of transfusion. At that time, her H\T\H was 7.2 and 22.9. After 2 units, her hemoglobin, hematocrit increased to 9.1 and 27.8. Her pain level was well tolerated and she completed physical therapy in excellent fashion. VITAL SIGNS UPON DISCHARGE: Reveal a temperature of 36.9, pulse of 81, respiratory rate of 16, blood pressure of 118/72, pulse ox is 95% on room air. LABORATORY VALUES: Reveal a white count on 06/14/2016 of 16, hemoglobin 9.1, hematocrit of 27.8 and platelet count of 261. Chemistry on 06/14/2016 revealed sodium of 140, potassium 3.7, chloride of 103, carbon dioxide 29, BUN 12, creatinine is 0.64 and random glucose of 103. DISCHARGE INSTRUCTIONS: 1. Discharge home with outpatient services on 06/14/2016. 2. Pain control with prescribed medications, Percocet. 3. Deep venous thrombosis prophylaxis with Lovenox x3 weeks and aspirin full dose x3 weeks. 4. Continue weightbearing as tolerated, left lower extremity with walker. 5. Ice and elevate left lower extremity accordingly. 6. Resume previous diet. 7. Physical therapy and occupational therapy. 8. Follow up in 2 weeks [address] surgery [address] Dr. Huddleston at [facility] for staple removal. 9. Do not submerge in a bath. 10. Any other questions or concerns, notify [facility] at [phone].
== END 2016-06-14 17:18 | disposition home or self-care (01) | DRG 470 ==
LOC: ENRESERVTM → ENRESERVDT → C.ACU 05:11 → C.3E 06:13
PROVIDERS: ADMIT Orthopaedic Surgery Sports Medicine; ATTEND Orthopaedic Surgery Sports Medicine
PROC: 0SRD0J9 Replacement of Left Knee Joint with Synthetic Substitute, Cemented, Open Approach (ICD-10-PCS; principal; 2016-06-11 07:00)
DX: M17.12 Unilateral primary osteoarthritis, left knee (principal); D62 Acute posthemorrhagic anemia; M65.9 Synovitis and tenosynovitis, unspecified; M23.42 Loose body in knee, left knee; L29.9 Pruritus, unspecified; G47.00 Insomnia, unspecified; J45.909 Unspecified asthma, uncomplicated; I10 Essential (primary) hypertension; E03.9 Hypothyroidism, unspecified; F32.9 Major depressive disorder, single episode, unspecified; E66.9 Obesity, unspecified; Z68.33 Body mass index [BMI] 33.0-33.9, adult; Z98.84 Bariatric surgery status; Z92.84 Personal history of unintended awareness under general anesthesia; Z79.899 Other long term (current) drug therapy

== ENCOUNTER 2016-06-23 06:07 | Emergency (ER) | payer BC ==
[~2016-06-23] VITALS: Ht 180.3 cm; Wt 105.0 kg
[~2016-06-23 06:07] MED LIST changes: -ACET1TAB84 PO; +ASCA500 PO; -DICL1GEL12 TOP; +FRRG PO; +LVNIS30 SQ; +OXYC-57 PO
[2016-06-23 06:09] VITALS: TEMP 36.4; Ht 180.3 cm; Wt 105.0 kg
[2016-06-23] MEDS ORDERED: ONDANSETRON INJ 2 MG/ML 2 ML VIAL IV STA (06:59)
[2016-06-23] MEDS ORDERED: MoRPHine SULFATE 10 MG/ML CARP/VIAL IV STA (06:59)
[2016-06-23 07:39] LABS: HEMATOCRIT 30.9 % (37-47); MEAN CELL VOLUME 83.3 fL (80-100); MEAN CORPUSCULAR HEMOGLOBIN 26.7 pg (25-34); MEAN PLATELET VOLUME 8.7 fL (7.4-10.4); PLATELET COUNT 485 K/uL (130-400); RED BLOOD COUNT 3.71 M/uL (4.2-5.4); WHITE BLOOD COUNT 16.25 K/uL (4.8-10.8)
--- NOTE | 2016-06-23 07:45 | DIAGNOSTIC IMAGING REPORT ---
LEFT KNEE 1 OR 2 VIEWS ROUTINE CLINICAL HISTORY: Left knee pain COMPARISON: 06/11/2016 DISCUSSION: There are postsurgical changes of a total left knee arthroplasty and patellar resurfacing. No acute fractures or dislocations are visualized. There is mild anterior soft tissue edema. A small joint effusion is suspected. IMPRESSION: 1. Postsurgical change. No acute fractures or dislocations 2. Suspected joint effusion. Soft tissue swelling. Electronically signed by: Alex Cortes M.D. 06/23/2016 7:43 AM Dictated Date/Time: 06/23/2016 7:43 AM
[2016-06-23 07:48] LABS: BUN/CREATININE RATIO 16.8 (10-20); CALCIUM 9.1 mg/dl (8.5-10.1); CREATININE 0.69 mg/dl (0.60-1.20); POTASSIUM 3.9 mmol/L (3.5-5.1)
[2016-06-23 07:53] LABS: PROTHROMBIN TIME (PATIENT) 10.4 SECONDS (9.0-12.0)
--- NOTE | 2016-06-23 07:53 | DIAGNOSTIC IMAGING REPORT ---
ULTRASOUND LEFT VENOUS DOPP LOWER EXT UNILAT CLINICAL HISTORY: Left leg pain. Recent surgery. COMPARISON STUDY: No previous studies for comparison. FINDINGS: Real-time and color flow Doppler imaging were performed. Flow was seen within the femoral, popliteal and calf veins with no intraluminal thrombus demonstrated. The saphenous vein is patent. IMPRESSION: No evidence of left lower extremity DVT. Electronically signed by: Alex Cortes M.D. 06/23/2016 7:51 AM Dictated Date/Time: 06/23/2016 7:51 AM
[2016-06-23] MEDS ORDERED: CEFTRIAXONE SOD INJ 1 GM ADDVIAL IV STA (08:49)
[2016-06-23] MEDS ORDERED: OXYC-57 PO (09:06)
[2016-06-23] MEDS ORDERED: CEPH500C2 PO (09:06)
--- NOTE | 2016-06-23 09:07 | EMERGENCY ROOM VISIT NOTE ---
History First contact with patient: 06:42 Chief Complaint: KNEEPAIN Stated Complaint: LEFT KNEE ISSUES History of Present Illness The patient is a 56 year old female who presents to the Emergency Room with complaints of left posterior leg pain. The patient had a total left hip done knee replacement performed on June [address] Huddleston. The patient states that yesterday she went to stand up and felt a pain behind her knee that radiated all the way up to her hip. She now has calf pain as well. The patient is currently on Lovenox to prevent DVT. The patient denies any tobacco use or any hormone use. The patient has never had a clot in the past. The patient also states that she has increased pain with flexion of the knee. She denies any giving out or locking of the knee. The patient has a follow-up appointment with Dr. Huddleston on Friday. She is currently doing physical therapy. The patient denies any chest pain or shortness of breath. Review of Systems 10 system review was performed and was negative unless stated otherwise history of present illness. Past Medical/Surgical History Medical Problems: (1) Asthma, Unspecified (2) bladder tack (3) Depression (4) Esophageal Reflux (5) Hx Of Lymphoid Leukemia (6) Hypertension Nos (7) Vomiting Surgical Problems: (1) Cystocele with rectocele (2) Gastric bypass status for obesity (3) History of colonoscopy (4) History of esophagogastroduodenoscopy (5) History of hysterectomy (6) History of orthopedic surgery (7) History of tonsillectomy (8) Intestinal Bypass Status (9) Status post total knee replacement, left Social History Problems: (1) Gastric bypass status for obesity Family History Patient reports no known family medical history. Social History Smoking Status: Never Smoker Alcohol Use: none Drug Use: none Marital Status: Housing Status: lives with family Occupation Status: employed Current/Historical Medications Scheduled Ascorbic Acid (Vitamin C), 500 MG PO DAILY Calcium Carbonate (Tums), 1 TAB PO BID Cholecalciferol (Vitamin D3), 1 CAP PO QAM Cranberry-Vitamin C-Vitamin E (Cranberry), 1 CAP PO QAM Cyanocobalamin (Vitamin B-12), 1,000 MCG SQ Q 3 MONTHS Duloxetine Hcl (Cymbalta), 60 MG PO QAM Enoxaparin (Lovenox), 30 MG SQ Q12 Ferrous Gluconate (Ferrous Gluconate), 32 MG PO TIDM Levothyroxine Sodium (Levothyroxine Sodium), 1 TAB PO QAM Vitamin E (Vitamin E), 1 TAB PO QAM Scheduled PRN Albuterol (Ventolin), 2 PUFFS INH QID PRN for SOB/Wheezing Fluticasone Propionate (Nasal) (Flonase Allergy Relief), 2 SPRAY TOMER DAILY PRN for allergies Oxycodone/Acetaminophen 5MG/325MG (Percocet 5MG/325MG), 1-2 TABLETS PO Q4H PRN for Pain Allergies Coded Allergies: Doxycycline (Verified Allergy, Intermediate, RASH, 06/11/16) Dextromethorphan (Verified Allergy, Unknown, ITCHY, REDNESS, 06/11/16) Doxylamine (Verified Allergy, Unknown, ITCHY, REDNESS, 06/11/16) NSAIDs (Verified Allergy, Unknown, itchy, stomach ulcers, 06/11/16) Pseudoephedrine (Verified Allergy, Unknown, ITCHY, REDNESS, 06/11/16) Soybean (Verified Allergy, Unknown, TESTING = ALLERGIC; PATIENT EATS SOYBEANS AND DOES OKAY., 06/11/16) Physical Exam Vital Signs Date Time Temp Pulse Resp B/P Pulse Ox O2 Delivery O2 Flow Rate FiO2 06/23/16 07:54 73 16 158/91 99 Room Air 06/23/16 06:09 36.4 91 18 145/92 100 Room Air Physical Exam GENERAL: 56-year-old white female appears in no acute distress. MENTAL Status: Alert and oriented 3. NECK: Supple, no lymphadenopathy noted. No carotid bruits noted. LUNGS: Clear auscultation without wheezes rales or rhonchi. CARDIAC: Regular rate and rhythm without murmur. Pulses is full and equal throughout. LEFT KNEE: Vertical incision noted consistent with recent knee replacement. There is no erythema. There is slight increased temperature to touch over the entire knee joint. Generalized edema over the entire knee joint. Limited range of motion secondary to pain. LEFT LOWER LEG: No palpable cords noted. The patient has Tenderness. No erythema noted. Negative Homans. Medical Decision & Procedures ER Provider Diagnostic Interpretation: LEFT KNEE 1 OR 2 VIEWS ROUTINE CLINICAL HISTORY: Left knee pain COMPARISON: 06/11/2016 DISCUSSION: There are postsurgical changes of a total left knee arthroplasty and patellar resurfacing. No acute fractures or dislocations are visualized. There is mild anterior soft tissue edema. A small joint effusion is suspected. IMPRESSION: 1. Postsurgical change. No acute fractures or dislocations 2. Suspected joint effusion. Soft tissue swelling. Electronically signed by: Alex Cortes M.D. 06/23/2016 7:43 AM ULTRASOUND LEFT VENOUS DOPP LOWER EXT UNILAT CLINICAL HISTORY: Left leg pain. Recent surgery. COMPARISON STUDY: No previous studies for comparison. FINDINGS: Real-time and color flow Doppler imaging were performed. Flow was seen within the femoral, popliteal and calf veins with no intraluminal thrombus demonstrated. The saphenous vein is patent. IMPRESSION: No evidence of left lower extremity DVT. Electronically signed by: Alex Cortes M.D. 06/23/2016 7:51 AM Laboratory Results 06/23/16 07:14 Red Blood Count 3.71, Mean Corpuscular Volume 83.3, Mean Corpuscular Hemoglobin 26.7, Mean Corpuscular Hemoglobin Concent 32.0, Mean Platelet Volume 8.7 06/23/16 07:14 Test 06/23/16 07:14 White Blood Count 16.25 K/uL (4.8-10.8) Red Blood Count 3.71 M/uL (4.2-5.4) Hemoglobin 9.9 g/dL (12.0-16.0) Hematocrit 30.9 % (37-47) Mean Corpuscular Volume 83.3 fL (80-100) Mean Corpuscular Hemoglobin 26.7 pg (25-34) Mean Corpuscular Hemoglobin Concent 32.0 g/dl (32-36) Platelet Count 485 K/uL (130-400) Mean Platelet Volume 8.7 fL (7.4-10.4) RDW Standard Deviation 45.8 fL (36.4-46.3) RDW Coefficient of Variation 15.0 % (11.5-14.5) Nucleated RBC Absolute Count (auto) 0.09 K/uL (0-0) Nucleated Red Blood Cells % 0.6 % Prothrombin Time 10.4 SECONDS (9.0-12.0) Prothromb Time International Ratio 1.0 (0.9-1.1) Activated Partial Thromboplast Time 25.2 SECONDS (21.0-31.0) Partial Thromboplastin Ratio 1.0 Anion Gap 8.0 mmol/L (3-11) Est Creatinine Clear Calc Drug Dose 124.3 ml/min Estimated GFR () 114.4 Estimated GFR (Non- 98.7 BUN/Creatinine Ratio 16.8 (10-20) Calcium Level 9.1 mg/dl (8.5-10.1) Medications Administered Medications (Trade) Dose Ordered Sig/Tariq Route Start Time Stop Time Status Last Admin Dose Admin Ondansetron HCl (Zofran Inj) 4 mg NOW STAT IV 06/23/16 06:59 06/23/16 07:02 DC 06/23/16 07:17 4 MG Morphine Sulfate (MoRPHine SULFATE INJ) 6 mg NOW STAT IV 06/23/16 06:59 06/23/16 07:02 DC 06/23/16 07:17 6 MG ED Course The patient was evaluated. IV access was obtained. The patient was given morphine 6 mg IV and Zofran 4 mg IV push. CBC and differential, renal profile, coags were ordered. X-ray of the left knee was ordered and interpreted by the radiologist and myself as above without any acute findings. Venous Doppler of the left lower extremity was ordered and interpreted by the radiologist as above without any evidence of DVT. Labs are reviewed. The patient's white count was elevated at 16,000. Reviewed the patient's EMR her white count has been elevated over 16,000 since her surgery. The patient was given Rocephin 1 g IV. The patient was reevaluated was feeling better. The patient was discharged home in stable condition. Medical Decision Differential diagnosis include hardware disruption, cellulitis, DVT, superficial phlebitis, muscular strain Impression Primary Impression: Leg pain, left Departure Information Dispostion Being Evaluated By Surgeon Condition GOOD Prescriptions Oxycodone/Acetaminophen 5MG/325MG (PERCOCET 5MG/325MG) Tab 1-2 TABS PO Q6 Y for Pain, #20 TAB For Initial Treatment Prov: Maribel Pearce PA-C 06/23/16 Cephalexin Monohydrate (KEFLEX) 500 Mg Cap 500 MG PO QID for 5 Days, #20 CAP Prov: Maribel Pearec PA-C 06/23/16 Referrals Teri Parker M.D. (PCP) Forms HOME CARE DOCUMENTATION FORM, IMPORTANT VISIT INFORMATION Patient Instructions [facility] Additional Instructions Take Percocet as needed for pain. Do not drive while taking the Percocet. Keep leg elevated whenever possible. Take Keflex as prescribed. Follow-up with Dr. Huddleston on Friday as previously scheduled. If symptoms should worsen in the interim, return to ER.
[2016-06-23 09:13] LABS: BASO % 0.3 %; BASO ABS # 0.05 K/uL (0-0.2); COMPLETE YES; EOS % 2.5 %; IG% 0.1 %; LYMPH % 59.6 %; LYMPH ABS # 9.69 K/uL (1.2-3.4); MONO % 3.7 %; NEUT % 33.8 %
[2016-06-23 09:59] VITALS: BP 147/86; PULSE 79; O2SAT 98
== END 2016-06-23 10:00 | disposition home or self-care (01) ==
LOC: C.EDB 06:08
DX: M79.662 Pain in left lower leg (principal); I10 Essential (primary) hypertension; K21.9 Gastro-esophageal reflux disease without esophagitis; F32.9 Major depressive disorder, single episode, unspecified; J45.909 Unspecified asthma, uncomplicated; Z85.6 Personal history of leukemia; Z90.710 Acquired absence of both cervix and uterus; Z98.84 Bariatric surgery status; Z98.890 Other specified postprocedural states; Z96.652 Presence of left artificial knee joint; Z79.899 Other long term (current) drug therapy; Z88.8 Allergy status to other drugs, medicaments and biological substances

== ENCOUNTER → 2016-07-19 | Outpatient (CLI) | payer BC ==
[~2016-07-19] MED LIST changes: +AMT25 PO; +CELE1CAP30 PO; +LEVO175T PO; +VNTHFA/IN INH
== END | disposition home or self-care (01) ==
LOC: C.RDSM 13:35
PROVIDERS: ATTEND Orthopaedic Surgery Sports Medicine
DX: Z09 Encounter for follow-up examination after completed treatment for conditions other than malignant neoplasm (principal)

== ENCOUNTER → 2016-08-15 | Outpatient (CLI) | payer BC ==
--- NOTE | 2016-08-15 14:21 | DIAGNOSTIC IMAGING REPORT ---
LEFT KNEE RADIOGRAPHS WITH COMPARISON STANDING AP RADIOGRAPHS OF THE RIGHT KNEE CLINICAL HISTORY: Left knee pain status post total knee arthroplasty. COMPARISON: Knee radiographs July 19, 2016. FINDINGS: Comparison AP view of the right knee demonstrates moderate osteophytosis. Alignment of the total left knee arthroplasty is anatomic. There is lucency with apparent fragmentation within the inferior pole of the patella shown on lateral and sunrise views. This has developed since exam of July 19, 2016. There is soft tissue edema and a left knee joint effusion. IMPRESSION: 1. Status post total left knee arthroplasty. No periprosthetic lucency. Persistent soft tissue edema and left knee joint effusion. 2. Multiple development of fragmentation with associated lucency of the inferior pole of the patella which is nonspecific but could reflect a fracture. Electronically signed by: Cash Mccormack M.D. 08/15/2016 2:20 PM Dictated Date/Time: 08/15/2016 2:12 PM
== END | disposition home or self-care (01) ==
LOC: C.RDSM 13:17
PROVIDERS: ATTEND Physician Assistant
DX: Z47.1 Aftercare following joint replacement surgery (principal); Z96.652 Presence of left artificial knee joint

== ENCOUNTER → 2016-12-17 | Outpatient (CLI) | payer BC | END | disposition home or self-care (01) | LOC: C.RDSM 14:34 | PROVIDERS: ATTEND Orthopaedic Surgery Sports Medicine | DX: Z96.652 Presence of left artificial knee joint (principal) ==

== ENCOUNTER 2016-12-27 07:10 | Emergency (ER) | payer BC ==
[~2016-12-27] VITALS: Ht 180.3 cm; Wt 110.9 kg
[~2016-12-27 07:10] MED LIST changes: -AMT25 PO; -CELE1CAP30 PO; -LEVO175T PO; -OXYC-57 PO; -VNTHFA/IN INH
[2016-12-27 07:12] VITALS: TEMP 36.6; Ht 180.3 cm; Wt 110.9 kg
[2016-12-27] MEDS ORDERED: SODIUM CHLORIDE 0.9% 1000ML 1,000 ML IV STA (07:54)
[2016-12-27] MEDS ORDERED: ASPIRIN 81 MG CHEW PO STA (07:54)
[2016-12-27] MEDS ORDERED: NITROGLYCERIN 0.4 MG SL PER TAB CHARGE SL PRN (08:00)
--- NOTE | 2016-12-27 08:16 | DIAGNOSTIC IMAGING REPORT ---
SINGLE VIEW CHEST CLINICAL HISTORY: Atypical chest pain. FINDINGS: An AP, portable, upright chest radiograph is compared to chest x-ray and chest CT dated 04/06/2016. The examination is degraded by portable technique and patient rotation. The cardiomediastinal silhouette is unremarkable. There is mild chronic elevation of the right hemidiaphragm. The lungs and pleural spaces are clear. No pneumothorax is seen. The skeletal structures are osteopenic. The bony thorax is grossly intact. IMPRESSION: No active disease in the chest. Electronically signed by: Desmond Tena M.D. 12/27/2016 8:15 AM Dictated Date/Time: 12/27/2016 8:15 AM
[2016-12-27 08:19] LABS: HEMATOCRIT 36.5 % (37-47); MEAN CELL VOLUME 78.7 fL (80-100); MEAN CORPUSCULAR HEMOGLOBIN 25.4 pg (25-34); MEAN CORPUSCULAR HGB CONC 32.3 g/dl (32-36); MEAN PLATELET VOLUME 9.3 fL (7.4-10.4); PLATELET COUNT 351 K/uL (130-400); RED BLOOD COUNT 4.64 M/uL (4.2-5.4); WHITE BLOOD COUNT 15.34 K/uL (4.8-10.8)
[2016-12-27 08:31] LABS: ALT/SGPT 20 U/L (12-78); BLOOD UREA NITROGEN 7 mg/dl (7-18); BUN/CREATININE RATIO 9.9 (10-20); CALCIUM 8.9 mg/dl (8.5-10.1); CARBON DIOXIDE 28 mmol/L (21-32); CHLORIDE 106 mmol/L (98-107); CREATININE 0.75 mg/dl (0.60-1.20); GLUCOSE 81 mg/dl (70-99); POTASSIUM 3.8 mmol/L (3.5-5.1); SODIUM 142 mmol/L (136-145)
[2016-12-27 08:36] LABS: ALKALINE PHOSPHATASE 179 U/L (45-117); AST/SGOT 21 U/L (15-37)
[2016-12-27 08:40] LABS: URINE APPEARANCE CLEAR (CLEAR); URINE BILIRUBIN NEG (NEG); URINE COLOR YELLOW; URINE NITRITE NEG (NEG); UROBILINOGEN NEG (NEG)
[2016-12-27 08:43] LABS: MANUAL MICROSCOPIC REQUIRED? NO; REVIEW REQ? NO
[2016-12-27] MEDS ORDERED: VNTHFA/IN INH (08:59)
[2016-12-27] MEDS ORDERED: LEVO175T PO (08:59)
[2016-12-27] MEDS ORDERED: CELE1CAP30 PO (09:03)
[2016-12-27] MEDS ORDERED: AMT25 PO (09:03)
[2016-12-27 09:38] LABS: BASO % 0.5 %; BASO ABS # 0.08 K/uL (0-0.2); COMPLETE YES; EOS % 2.8 %; IG% 0.2 %; LYMPH % 73.3 %; LYMPH ABS # 11.25 K/uL (1.2-3.4); MICROCYTOSIS PRESENT; MONO % 3.1 %; NEUT % 20.1 %; OVALOCYTES 1+
[2016-12-27] MEDS ORDERED: OPTIRAY 320 IV PRN (11:45)
--- NOTE | 2016-12-27 13:51 | DIAGNOSTIC IMAGING REPORT ---
CT ANGIOGRAM OF THE CHEST CLINICAL HISTORY: Atypical chest pain. COMPARISON STUDY: Chest CT scans dated 04/06/2016 and 03/04/2010. Chest x-ray dated 12/27/2016. TECHNIQUE: Following the IV administration of 92 cc of Optiray 320, CT angiogram of the chest was performed from the upper abdomen to the thoracic inlet utilizing the pulmonary embolus protocol. Images are reviewed in the axial, sagittal, and coronal planes. 3-D MIPS images are created and assessed. IV contrast was administered without complication. A dose lowering technique was utilized adhering to the principles of ALARA. The examination is significant by streak artifact from the body wall abutting the CT gantry as well as by motion. CT DOSE: 643.38 mGy.cm FINDINGS: Thyroid: Imaged portions of the thyroid gland are normal in size and attenuation. Calcifications are noted in the right thyroid lobe. Thoracic aorta: The thoracic aorta is normal in caliber and demonstrates standard 3-vessel arch anatomy. No dissection is seen. Pulmonary vasculature: The main pulmonary arteries appear dilated suggesting pulmonary artery hypertension. There are no filling defects identified in main, lobar, or segmental pulmonary branches to suggest pulmonary embolus. Heart: The heart is enlarged and without pericardial effusion. Lungs and pleural spaces: Evaluation of the lung parenchyma is degraded by respiratory motion artifact. There is dependent atelectasis. No airspace consolidation or pleural effusion is seen. There is a 7 mm pulmonary nodule at the right lung base seen on image #54. The trachea and central airways Are clear. Mediastinum: There is no mediastinal lymphadenopathy. Clara: Clear. Axillae: There is no axillary lymphadenopathy. Upper abdomen: Postoperative change is seen in the stomach. Partially visualized upper abdominal viscera is within normal limits. Skeletal structures: The skeletal structures are osteopenic. Degenerative change is noted in the thoracic spine and shoulders. No lytic or blastic bony lesions are seen. IMPRESSION: 1. Motion and streak artifact degraded examination. 2. There is no evidence of pulmonary embolus in the main, lobar, or segmental pulmonary arteries. 3. There is no airspace consolidation or pleural effusion. 4. Cardiomegaly with evidence of pulmonary artery hypertension. 5. There is a 7 mm pulmonary nodule at the right lung base which has been present dating back to 2009. 6. Additional findings as above. Electronically signed by: Desmond Tena M.D. 12/27/2016 1:49 PM Dictated Date/Time: 12/27/2016 1:37 PM
[2016-12-27 14:48] VITALS: BP 119/92; PULSE 72; O2SAT 99
--- NOTE | 2016-12-27 14:58 | DIAGNOSTIC IMAGING REPORT ---
ANGIOGRAPHY NECK COMBO HISTORY: 56 years-old Female presents with acute chest pain and left sided visual changes with ringing of the ears. COMPARISON: Head CT 12/28/2014 TECHNIQUE: CT angiogram of the neck was obtained following the intravenous administration of 92 mL Optiray 320. 3-D coronal and sagittal MIPS were obtained from the axial data set and submitted for review. Measurements were obtained according to NASCET criteria. A dose lowering technique was used consistent with the principals of RYAN. FINDINGS: The opacified pulmonary arterial tree is unremarkable. A three-vessel aortic arch is present. The imaged bilateral subclavian arteries are patent. The imaged bilateral common carotid and internal carotid arteries are patent. No significant atherosclerotic plaquing. The imaged bilateral middle and anterior cerebral arteries appear patent. Imaged bilateral vertebral arteries are codominant and patent.. The basilar artery is also patent as are the bilateral posterior cerebral arteries. No high-grade stenosis, aneurysm, proximal branch occlusion or dissection identified. Imaged lung apices are clear. The thyroid is heterogeneous with scattered calcifications seen within the right thyroid lobe. Soft tissues are unremarkable. No acute intracranial abnormality identified. Mastoid air cells are clear. Mild mucosal thickening of the ethmoid and maxillary sinuses. Multilevel facet arthropathy and intervertebral disc space narrowing. Please see chest findings dictated separately on the CTA of the chest. IMPRESSION: 1. No evidence of high-grade stenosis, proximal branch occlusion, aneurysm or dissection. No significant atherosclerotic vascular disease. 2. Multilevel facet arthropathy and intervertebral disc space narrowing of the cervical spine. 3. Mild paranasal sinus disease. The above report was generated using voice recognition software. It may contain grammatical, syntax or spelling errors. Electronically signed by: Julian Howard M.D. 12/27/2016 2:57 PM Dictated Date/Time: 12/27/2016 2:42 PM
--- NOTE | 2016-12-27 16:32 | EMERGENCY ROOM VISIT NOTE ---
ED Visit Note First contact with patient: 07:22 Chief Complaint: I'm having a pressure sensation on the left side of my chest. History of Present Illness: Ms. Chambers is a 56 year-old white female who ambulates into the ED complaining of chest pain. Historically patient reports she does not have a history of coronary artery disease and has no history of diabetes, hypertension, dyslipidemia or tobacco use. She does report her grandfather had coronary artery disease and had a triple bypass. Additionally she reports her father had heart disease and was evaluated for bypass but was then subsequently find have counselor and a bypass was not performed. Patient reports last week she was diagnosed with urinary tract infection and she finished a ten-day course of Bactrim. Yesterday she reports she developed diarrhea that lasted for a proximally 12 hours; she reports she had 10-11 bouts of a combination of watery and partially formed stool without blood, and the diarrhea resolved. She did have some crampy abdominal pain with her diarrhea but required no medications. Patient goes on to report that approximately 3 AM this morning, approximately 4.5 hours ago, she was awoken from sleep with left-sided sharp chest pain. She reports the sharp chest pain lasted for only a few minutes and then she developed a pressure sensation over the left chest. Since that time her pain has been constant. She describes it as someone sitting on her chest. She rates this discomfort 3/10. The pain is nonradiating but does report she has a warmth sensation in the left upper extremity. She has not identified any aggravating or alleviating factors related to her discomforts. She has not taken any medications for her discomfort prior to arrival at the hospital. Patient denies fevers, chills, sweats, skin eruptions, skin color changes, upper respiratory tract symptoms, wheezing, cough shortness of breath, orthopnea , dependent edema, previous clots, claudication, cramping, recent surgery/ inactivity/extended travel, abdominal pain, nausea, vomiting, constipation, rectal bleeding, black/tarry stools, urinary symptoms, back/flank pain. Lastly patient reports yesterday she noted some ringing in the left ear during her diarrhea. Since that time its been constant she also reports she feels like she is listening through water out of the left ear. She also reports that while she was filling out her past medical history said in the emergency department just a few minutes ago she noted some mild blurry vision in the right eye. She denies any previous similar symptoms and she denies any associated symptoms of headache, dizziness, lightheadedness, recent head trauma , difficulty speaking, difficulty swallowing, difficulty ambulating/ coordinating body movements. Review of Systems: As noted above in history of present illness. All body systems were reviewed and found to be negative as noted above. Past Medical History: Asthma, bronchitis, pneumonia, Current Medications: Medications Dose Route/Sig Max Daily Dose Days Date Category Dose Instructions Celecoxib 200 Mg Cap 200 Mg PO DAILY 12/27/16 Reported DAILY @1200 Amitriptyline HCl 25 Mg Tab 25 Mg PO HS 12/27/16 Reported Synthroid (Levothyroxine Sodium) 175 Mcg Tab 175 Mcg PO DAILY 12/27/16 Reported Ventolin Hfa (Albuterol) 200 Puffs/06678 Mcg Aers 2-4 Puffs INH Q6H PRN 12/27/16 Reported Vitamin B-12 (Cyanocobalamin) 1,000 Mcg Tab 1,000 Mcg SQ Q 3 MONTHS 06/03/16 Reported Vitamin D3 (Cholecalciferol) 2,000 Unit Cap 2,000 Units PO QAM 06/03/16 Reported Cymbalta (Duloxetine Hcl) 60 Mg Cap 60 Mg PO QAM 04/06/16 Reported Flonase Allergy Relief (Fluticasone Propionate (Nasal)) 50 Mcg/Act Spr 2 [place] TOMER DAILY PRN 04/06/16 Reported Allergies to Medications: Dextromethorphan, doxycycline, doxylamine, NSAIDS, pseudoephedrine. Social History: Patient is currently employed; she feels safe in her home environment; she denies tobacco use and admits to alcohol use. Physical Examination: Vital Signs: Date Time Temp Pulse Resp B/P (MAP) Pulse Ox O2 Delivery O2 Flow Rate FiO2 12/27/16 14:48 72 16 119/92 99 Room Air 12/27/16 11:53 64 18 149/91 99 Room Air 12/27/16 09:40 68 16 174/106 100 Room Air 12/27/16 07:41 72 12/27/16 07:12 36.6 78 18 154/94 98 Room Air 12/27/16 07:12 99 Room Air GENERAL: 56-year-old female in mild distress due to pain, nontoxic-appearing, afebrile and hemodynamically stable. NEUROLOGICAL: Awake, alert and oriented to person, place and time. Answering questions appropriately and following commands. Cranial nerves II through XII grossly intact. Good hand eye coordination. Short-term and long-term recall. Normal rapid alternate means of the hands and fingers. SKIN: Warm, dry and pink. No soft tissue eruptions or trauma noted. HEENT: Atraumatic and normocephalic. PERRLA. EOMI without nystagmus. Sclera white and conjunctiva pink. No foreign debris were noted under the eyelids are embedded in the cornea. Anterior chamber was clear. Funduscopic examination is unremarkable with no signs of increased intracranial pressure. Oral cavity moist and pink. Pharynx is nonerythematous or edematous. Speech normal. No lymphadenopathy. Trachea midline. No jugular venous distention. No carotid bruits. BACK: No tenderness over the bony spine. No CVA tenderness. THORAX: Lungs sounds are clear to auscultation and equal bilaterally with symmetrical chest wall. No wheezing, rales or rhonchi. No crepitus, tenderness , subcutaneous air or deformities noted. HEART: Regular rate and rhythm. No gallops, rubs or murmurs are appreciated. No lifts, heaves or thrills. PMI is not displaced. ABDOMEN: Flat, soft and nontender. Positive bowel sounds in all quadrants. No guarding, rigidity or organomegaly. EXTREMITIES: Moves all extremities well on command and with purpose. All distal neurovascular statuses are intact and equal bilaterally. No dependent edema or calf tenderness/cords. ED Course: Patient is assessed as noted above. Laboratory Testing: Test 12/27/16 07:25 12/27/16 08:10 12/27/16 10:26 Range/Units White Blood Count 15.34 4.8-10.8 K/uL Red Blood Count 4.64 4.2-5.4 M/uL Hemoglobin 11.8 12.0-16.0 g/dL Hematocrit 36.5 37-47 % Mean Corpuscular Volume 78.7 80-100 fL Mean Corpuscular Hemoglobin 25.4 25-34 pg Mean Corpuscular Hemoglobin Concent 32.3 32-36 g/dl Platelet Count 351 130-400 K/uL Mean Platelet Volume 9.3 7.4-10.4 fL Neutrophils (%) (Auto) 20.1 % Lymphocytes (%) (Auto) 73.3 % Monocytes (%) (Auto) 3.1 % Eosinophils (%) (Auto) 2.8 % Basophils (%) (Auto) 0.5 % Neutrophils # (Auto) 3.08 1.4-6.5 K/uL Lymphocytes # (Auto) 11.25 1.2-3.4 K/uL Monocytes # (Auto) 0.47 0.11-0.59 K/uL Eosinophils # (Auto) 0.43 0-0.5 K/uL Basophils # (Auto) 0.08 0-0.2 K/uL RDW Standard Deviation 42.7 36.4-46.3 fL RDW Coefficient of Variation 14.8 11.5-14.5 % Immature Granulocyte % (Auto) 0.2 % Immature Granulocyte # (Auto) 0.03 0.00-0.02 K/uL Nucleated RBC Absolute Count (auto) 0.11 0-0 K/uL Nucleated Red Blood Cells % 0.7 % Microcytosis PRESENT Ovalocytes 1+ Sodium Level 142 136-145 mmol/L Potassium Level 3.8 3.5-5.1 mmol/L Chloride Level 106 98-107 mmol/L Carbon Dioxide Level 28 21-32 mmol/L Anion Gap 8.0 3-11 mmol/L Blood Urea Nitrogen 7 7-18 mg/dl Creatinine 0.75 0.60-1.20 mg/dl Est Creatinine Clear Calc Drug Dose 117.5 ml/min Estimated GFR () 104.7 Estimated GFR (Non- 90.4 BUN/Creatinine Ratio 9.9 10-20 Random Glucose 81 70-99 mg/dl Calcium Level 8.9 8.5-10.1 mg/dl Total Bilirubin 0.4 0.2-1 mg/dl Direct Bilirubin < 0.1 0-0.2 mg/dl Aspartate Amino Transf (AST/SGOT) 21 15-37 U/L Alanine Aminotransferase (ALT/SGPT) 20 12-78 U/L Alkaline Phosphatase 179 45-117 U/L Troponin I < 0.015 < 0.015 0-0.045 ng/ml Total Protein 7.3 6.4-8.2 gm/dl Albumin 3.7 3.4-5.0 gm/dl Lipase 248 73-393 U/L Urine Color YELLOW Urine Appearance CLEAR CLEAR Urine pH 7.0 4.5-7.5 Urine Specific [place] 1.010 1.000-1.030 Urine Protein NEG NEG Urine Glucose (UA) NEG NEG Urine Ketones NEG NEG Urine Occult Blood NEG NEG Urine Nitrite NEG NEG Urine Bilirubin NEG NEG Urine Urobilinogen NEG NEG Urine Leukocyte Esterase NEG NEG C.difficile Toxin B Gene (PCR): Not run. Shiga Toxin Test: Pending. Stool Culture: Pending. Radiological Testing: EKG #1: 0720 Was read by myself and reviewed with Dr. Laguna; shows normal sinus rhythm with ventricular rate of 73 bpm. Normal axis, intervals and complexes. No acute ST changes indicating ischemia, injury or infarction. This was compared to a previous from March 2016 in no acute changes were noted. EKG #2: 1048: Normal sinus rhythm with ventricular rate of 63 bpm. Normal axis , no levels and complexes. No acute ST changes indicating ischemia, injury or infarction. This was compared to previous and no acute changes were noted. Chest X-Rays: Were read by myself and the radiologist showing no acute infiltrates, effusions or pneumothorax. Normal heart silhouette and bony anatomy. Chest CTA: Was reviewed by myself and read by the radiologist and notes a graded study due to artifact no evidence of pulmonary emboli, airspace consolidation, pleural effusion. Radiologist notes cardiomegaly with evidence of pulmonary arterial hypertension and a 7 mm pulmonary nodule in the right base that has been present since 2009 Neck CTA: Was reviewed by myself and read by the radiologist showing no evidence of high-grade stenosis, proximal branch occlusion, aneurysm or dissection; no significant atherosclerotic vascular disease. Multiple facet arthropathy and intervertebral disc space narrowing of the cervical spine. Mild paranasal sinus disease. Patient was hydrated with normal saline and received 324 mg of aspirin by mouth. Patient was reassessed multiple times during her stay in the emergency department. Patient's case was reviewed with Dr. Laguna; we agreed on diagnostic approach, treatment, disposition and plan. Patient was educated about today's findings and instructed on her treatment plan ; she verbalizes understanding and agreement with this plan. Clinical Impression: Left-sided chest pain. Left-sided visual changes. Decision-Making: Initially my differential diagnosis I considered acute coronary syndrome, thoracic aneurysm, pneumothorax, pulmonary embolism, musculoskeletal disorder, pneumonia, CVA, TIA and other causes. Disposition: Patient discharged home in stable condition; prior to departure she was reassessed and subjectively reported she was pain-free and reported that she only had minimal cloudiness in her left vision. Plan: Patient was encouraged to continue her current medications as prescribed. Patient was encouraged use 81 mg of aspirin daily. Patient was encouraged use ibuprofen or acetaminophen as needed for pain every 6 hours. Patient is encouraged to stay well-hydrated. Patient was encouraged to rest for the next 48 hours. Patient was signed off of work for 48 hours. Patient is encouraged to follow-up with her family physician for follow-up care and treatment. Patient was encouraged return ED for worsening pain, worsening visual changes, shortness of breath, wheezing, nausea/vomiting, any abnormal neurological symptoms or any new/concerning symptoms.
== END 2016-12-27 15:15 | disposition home or self-care (01) ==
LOC: C.EDB 07:11 → C.EDA 15:15
DX: R07.9 Chest pain, unspecified (principal); H53.9 Unspecified visual disturbance; J45.909 Unspecified asthma, uncomplicated; Z87.01 Personal history of pneumonia (recurrent); Z87.440 Personal history of urinary (tract) infections; Z82.49 Family history of ischemic heart disease and other diseases of the circulatory system

== ENCOUNTER → 2017-01-06 | Outpatient (CLI) | payer BC ==
[~2017-01-06] MED LIST changes: -ALBUAER2 INH; +AMT25 PO; -ASCA500 PO; -CALC500C3 PO; +CELE1CAP30 PO; -CRAN1CAP15 PO; -FRRG PO; -LEVO150T9 PO; +LEVO175T PO; -LVNIS30 SQ; -VITA400C49 PO; +VNTHFA/IN INH
[2017-01-06 09:44] LABS: MEAN CELL VOLUME 79.1 fL (80-100); MEAN CORPUSCULAR HEMOGLOBIN 24.2 pg (25-34); MEAN CORPUSCULAR HGB CONC 30.6 g/dl (32-36); MEAN PLATELET VOLUME 9.7 fL (7.4-10.4); PLATELET COUNT 339 K/uL (130-400); RED BLOOD COUNT 4.55 M/uL (4.2-5.4); WHITE BLOOD COUNT 13.58 K/uL (4.8-10.8)
[2017-01-06 10:08] LABS: CHOLESTEROL/HDL RATIO 2.3
[2017-01-06 10:25] LABS: THYROID STIMULATING HORMONE 0.119 uIu/ml (0.300-4.500)
== END | disposition home or self-care (01) ==
LOC: C.LAB1850 07:11
PROVIDERS: ATTEND Internal Medicine Endocrinology, Diabetes & Metabolism
DX: R53.83 Other fatigue (principal); E04.2 Nontoxic multinodular goiter; E03.8 Other specified hypothyroidism; Z13.220 Encounter for screening for lipoid disorders; Z13.1 Encounter for screening for diabetes mellitus

== ENCOUNTER → 2017-02-17 | Outpatient (CLI) | payer BC | END | disposition home or self-care (01) | LOC: C.RDSM 10:51 | PROVIDERS: ATTEND Podiatrist | DX: M79.671 Pain in right foot (principal); M79.672 Pain in left foot ==

== ENCOUNTER 2017-04-04 17:38 | Emergency (ER) | payer OTHER, BC ==
[~2017-04-04] VITALS: Ht 180.3 cm; Wt 104.0 kg
[2017-04-04 17:47] VITALS: Ht 180.3 cm; Wt 104.0 kg
[2017-04-04] MEDS ORDERED: KETOROLAC TROMETHAMINE 30 MG/ML VIAL IV STA (18:03)
[2017-04-04] MEDS ORDERED: FLNIN/ NAE (18:18)
[2017-04-04] MEDS ORDERED: CPR/500 PO (18:18)
[2017-04-04 18:40] LABS: HEMOGLOBIN 10.4 g/dL (12.0-16.0); MEAN CELL VOLUME 76.7 fL (80-100); MEAN CORPUSCULAR HEMOGLOBIN 24.9 pg (25-34); MEAN CORPUSCULAR HGB CONC 32.5 g/dl (32-36); MEAN PLATELET VOLUME 9.1 fL (7.4-10.4); PLATELET COUNT 316 K/uL (130-400); RED CELL DISTRIBUTION WIDTH CV 14.7 % (11.5-14.5); RED CELL DISTRIBUTION WIDTH SD 41.7 fL (36.4-46.3); WHITE BLOOD COUNT 18.63 K/uL (4.8-10.8)
[2017-04-04 19:04] LABS: ALBUMIN 3.2 gm/dl (3.4-5.0); CALCIUM 8.7 mg/dl (8.5-10.1); CREATININE 0.71 mg/dl (0.60-1.20); POTASSIUM 3.7 mmol/L (3.5-5.1)
[2017-04-04 19:08] LABS: INFLUENZA B ANTIGEN Neg for Influ B (NEG)
--- NOTE | 2017-04-04 19:12 | DIAGNOSTIC IMAGING REPORT ---
CHEST ONE VIEW PORTABLE HISTORY: fevers, bodyaches COMPARISON: Chest 12/27/2016. FINDINGS: The lungs are clear. Cardiac silhouette is normal in size. No pleural effusions. No pneumothorax. IMPRESSION: No acute process. Electronically signed by: Parker Doan M.D. 04/04/2017 7:10 PM Dictated Date/Time: 04/04/2017 7:09 PM
[2017-04-04 19:15] LABS: TOTAL PROTEIN 6.8 gm/dl (6.4-8.2)
[2017-04-04] MEDS ORDERED: SODIUM CHLORIDE 0.9% 1000ML 1,000 ML IV STA (19:34)
[2017-04-04] MEDS ORDERED: ACETAMINOPHEN 500 MG TAB PO STA (19:34)
[2017-04-04 19:42] LABS: BASO % 0.2 %; BASO ABS # 0.04 K/uL (0-0.2); EOS % 0.6 %; EOS ABS # 0.12 K/uL (0-0.5); IG# 0.05 K/uL (0.00-0.02); LYMPH ABS # 7.46 K/uL (1.2-3.4); MONO % 4.3 %; MONO ABS # 0.81 K/uL (0.11-0.59); NEUT % 54.6 %; NEUT ABS # 10.15 K/uL (1.4-6.5)
--- NOTE | 2017-04-04 20:32 | EMERGENCY ROOM VISIT NOTE ---
History First contact with patient: 17:50 Chief Complaint: FLU LIKE SX Stated Complaint: PAIN LEG/ARMS NECK,HANDS History of Present Illness The patient is a 56 year old female who presents to the Emergency Room with complaints of generalized body aches. The patient reports that she has pain all over her body, specifically in her neck, right hand and right knee. She states that all of her joints have been achy. She states the symptoms started this morning. She reports she has also had a sore throat and feeling like her ears are clogged. She rates the discomfort a 9/10. She took Tylenol this morning without relief. She reports she has had a low-grade fever. She does state she has been taking ciprofloxacin for a urinary tract infection for the past few days. She states her urinary symptoms seem to be improving. She reports a history of thyroid disorder and rheumatoid arthritis. She denies any history of similar symptoms. She denies abdominal pain, nausea/vomiting, diarrhea, chest pain, cough or shortness of breath. Review of Systems A complete 10 point review of systems was reviewed with the patient with pertinent positives and negatives as per history of present illness. All else were negative. Past Medical/Surgical History Medical Problems: (1) Asthma, Unspecified (2) bladder tack (3) Depression (4) Esophageal Reflux (5) Hx Of Lymphoid Leukemia (6) Hypertension Nos (7) Vomiting Surgical Problems: (1) Cystocele with rectocele (2) Gastric bypass status for obesity (3) History of colonoscopy (4) History of esophagogastroduodenoscopy (5) History of hysterectomy (6) History of orthopedic surgery (7) History of tonsillectomy (8) Intestinal Bypass Status (9) Status post total knee replacement, left Social History Problems: (1) Gastric bypass status for obesity Family History Patient reports no known family medical history. Social History Smoking Status: Never Smoker Alcohol Use: none Drug Use: none Marital Status: Housing Status: lives with family Occupation Status: employed Current/Historical Medications Scheduled Amitriptyline HCl (Amitriptyline HCl), 25 MG PO HS Celecoxib (Celecoxib), 200 MG PO DAILY Cholecalciferol (Vitamin D3), 2,000 INTER.UNIT PO QAM Ciprofloxacin (Ciprofloxacin HCl), 500 MG PO BID Duloxetine Hcl (Cymbalta), 60 MG PO QAM Levothyroxine Sodium (Synthroid), 175 MCG PO DAILY Scheduled PRN Albuterol Hfa (Ventolin Hfa), 2-4 PUFFS INH Q6H PRN for Wheezing Fluticasone Propionate (Fluticasone Propionate), 2 SPRAYS TOMER DAILY PRN for Allergy Symptoms Physical Exam Vital Signs Date Time Temp Pulse Resp B/P (MAP) Pulse Ox O2 Delivery O2 Flow Rate FiO2 04/04/17 20:51 37.1 82 18 102/43 96 Room Air 04/04/17 19:34 37.6 85 20 127/73 95 Room Air 04/04/17 17:47 37.6 96 16 139/86 99 Room Air Physical Exam VITALS: Vitals are noted on the nurse's note and reviewed by myself. Vital signs stable. GENERAL: This is a 56-year-old female, in no acute distress, nondiaphoretic, well-developed well-nourished. SKIN: The skin was without rashes. HEAD: Normocephalic atraumatic. EARS: External auditory canals clear, tympanic membranes pearly santoro without erythema or effusion bilaterally. EYES: Pupils equal round and reactive to light and accommodation. NOSE: Patent, turbinates without inflammation or discharge. MOUTH: Mucous membranes moist. Tonsils are not enlarged. Pharynx without erythema or exudate. NECK: Supple without nuchal rigidity. Bilateral mild anterior cervical lymphadenopathy. No meningismus. HEART: Regular rate and rhythm without murmurs gallops or rubs. LUNGS: Clear to auscultation bilaterally without wheezes, rales or rhonchi. ABDOMEN: Positive bowel sounds x 4. Soft, nontender to palpation. NEURO: Patient was alert and oriented to person place and time. Medical Decision & Procedures ER Provider Diagnostic Interpretation: CHEST ONE VIEW PORTABLE HISTORY: fevers, bodyaches COMPARISON: Chest 12/27/2016. FINDINGS: The lungs are clear. Cardiac silhouette is normal in size. No pleural effusions. No pneumothorax. IMPRESSION: No acute process. Laboratory Results 04/04/17 18:25 Red Blood Count 4.17, Mean Corpuscular Volume 76.7, Mean Corpuscular Hemoglobin 24.9, Mean Corpuscular Hemoglobin Concent 32.5, Mean Platelet Volume 9.1, Neutrophils (%) (Auto) 54.6, Lymphocytes (%) (Auto) 40.0, Monocytes (%) (Auto) 4.3, Eosinophils (%) (Auto) 0.6, Basophils (%) (Auto) 0.2, Neutrophils # (Auto) 10.15, Lymphocytes # (Auto) 7.46, Monocytes # (Auto) 0.81, Eosinophils # (Auto) 0.12, Basophils # (Auto) 0.04 04/04/17 18:25 Test 04/04/17 00:00 04/04/17 18:25 Urine Color YELLOW Urine Appearance CLEAR (CLEAR) Urine pH 6.5 (4.5-7.5) Urine Specific [place] 1.009 (1.000-1.030) Urine Protein NEG (NEG) Urine Glucose (UA) NEG (NEG) Urine Ketones NEG (NEG) Urine Occult Blood NEG (NEG) Urine Nitrite NEG (NEG) Urine Bilirubin NEG (NEG) Urine Urobilinogen NEG (NEG) Urine Leukocyte Esterase NEG (NEG) White Blood Count 18.63 K/uL (4.8-10.8) Red Blood Count 4.17 M/uL (4.2-5.4) Hemoglobin 10.4 g/dL (12.0-16.0) Hematocrit 32.0 % (37-47) Mean Corpuscular Volume 76.7 fL (80-100) Mean Corpuscular Hemoglobin 24.9 pg (25-34) Mean Corpuscular Hemoglobin Concent 32.5 g/dl (32-36) Platelet Count 316 K/uL (130-400) Mean Platelet Volume 9.1 fL (7.4-10.4) Neutrophils (%) (Auto) 54.6 % Lymphocytes (%) (Auto) 40.0 % Monocytes (%) (Auto) 4.3 % Eosinophils (%) (Auto) 0.6 % Basophils (%) (Auto) 0.2 % Neutrophils # (Auto) 10.15 K/uL (1.4-6.5) Lymphocytes # (Auto) 7.46 K/uL (1.2-3.4) Monocytes # (Auto) 0.81 K/uL (0.11-0.59) Eosinophils # (Auto) 0.12 K/uL (0-0.5) Basophils # (Auto) 0.04 K/uL (0-0.2) RDW Standard Deviation 41.7 fL (36.4-46.3) RDW Coefficient of Variation 14.7 % (11.5-14.5) Immature Granulocyte % (Auto) 0.3 % Immature Granulocyte # (Auto) 0.05 K/uL (0.00-0.02) Ovalocytes 1+ Anion Gap 7.0 mmol/L (3-11) Est Creatinine Clear Calc Drug Dose 120.2 ml/min Estimated GFR () 111.9 Estimated GFR (Non- 96.6 BUN/Creatinine Ratio 12.6 (10-20) Calcium Level 8.7 mg/dl (8.5-10.1) Total Bilirubin 0.3 mg/dl (0.2-1) Aspartate Amino Transf (AST/SGOT) 15 U/L (15-37) Alanine Aminotransferase (ALT/SGPT) 16 U/L (12-78) Alkaline Phosphatase 143 U/L (45-117) Total Protein 6.8 gm/dl (6.4-8.2) Albumin 3.2 gm/dl (3.4-5.0) Globulin 3.6 gm/dl (2.5-4.0) Albumin/Globulin Ratio 0.9 (0.9-2) Thyroid Stimulating Hormone (TSH) 0.036 uIu/ml (0.300-4.500) Lyme Disease IgG Antibody NEG (NEG) Lyme Disease IgM Antibody NEG (NEG) Influenza Type A Antigen Neg for Influ A (NEG) Influenza Type B Antigen Neg for Influ B (NEG) Medications Administered Medications (Trade) Dose Ordered Sig/Tarqi Route Start Time Stop Time Status Last Admin Dose Admin Ketorolac Tromethamine (Toradol Inj) 30 mg NOW STAT IV 04/04/17 18:03 04/04/17 18:07 DC 04/04/17 18:38 30 MG Acetaminophen (Tylenol Tab) 1,000 mg NOW STAT PO 04/04/17 19:34 04/04/17 19:36 DC 04/04/17 19:46 1,000 MG Sodium Chloride 1,000 ml @ 999 mls/hr Q1H1M STAT IV 04/04/17 19:34 04/04/17 20:34 DC 04/04/17 19:48 999 MLS/HR Medical Decision Differential diagnosis includes influenza, pneumonia, viral infection, meningitis, sepsis, lyme disease, among others. The patient is a 56-year-old female who presents today complaining of flulike symptoms. Labs revealed a leukocytosis of 18,000. However, on review of previous visits it appears that the patient chronically has a leukocytosis and her baseline WBC count seems to be around 15,000. TSH is low, and patient's Synthroid may need to be adjusted. Urinalysis is not suggestive of infection. Chest x-ray negative. Influenza A and Lyme testing are negative. The patient has diffuse body aches and slight elevation of temperature with no true fever. She likely has a viral illness. The patient has been complaining of some neck pain, however this seems to be in conjunction with her general body aches. It is certainly not a classic presentation of meningitis, however the patient was offered lumbar puncture to definitively rule this out. The patient declined. She was feeling better after receiving fluids, Toradol and Tylenol. She was instructed to continue Tylenol and ibuprofen at home and follow-up with her primary care provider for recheck. Return here for worsening or new/symptoms. The patient's case was reviewed with Dr. Connor, ED attending physician, who agreed with my assessment and treatment plan. Based on the patient's presentation and work up, I feel the patient is stable for outpatient treatment. The patient was educated to return to the emergency department for any worsening of their current condition or new/concerning symptoms. She will follow up with her PCP. Medication Reconcilliation Current Medication List: was personally reviewed by me Blood Pressure Screening Patient's blood pressure: Normal blood pressure Impression Primary Impression: Influenza-like symptoms Departure Information Dispostion Home / Self-Care Condition GOOD Referrals Teri Parker M.D. (PCP) Patient Instructions My [facility] Additional Instructions For pain/fever control, you can use the following [id number] medicines ( if >12 yo): -Extra strength (500mg/tab) Tylenol (acetaminophen) 2 tabs every 4-6 hours as needed. Do not exceed 12 tablets in a 24 hour period. Avoid taking more than 4 grams (4000 mg) of Tylenol per day. This includes any other sources of acetaminophen you may take on a regular basis. - Regular strength (200 mg/tab) Advil (ibuprofen) 2-3 tabs every 6 hours as needed. Do not exceed a dose of 3200 mg per day. You may alternate these medications for better pain/fever control. Make sure to rest and drink plenty of fluids. Follow-up with your primary care provider within 2-3 days for a recheck. Return to the emergency department with any worsening or new/concerning symptoms.
[2017-04-04 20:51] VITALS: BP 102/43; PULSE 82; TEMP 37.1; O2SAT 96
== END 2017-04-04 20:52 | disposition home or self-care (01) ==
LOC: C.EDB 17:39
DX: J11.1 Influenza due to unidentified influenza virus with other respiratory manifestations (principal); D72.829 Elevated white blood cell count, unspecified; I10 Essential (primary) hypertension; F32.9 Major depressive disorder, single episode, unspecified; K21.9 Gastro-esophageal reflux disease without esophagitis; J45.909 Unspecified asthma, uncomplicated; Z85.6 Personal history of leukemia; Z90.710 Acquired absence of both cervix and uterus; Z98.84 Bariatric surgery status; Z79.899 Other long term (current) drug therapy; Z96.652 Presence of left artificial knee joint; Z98.890 Other specified postprocedural states

== ENCOUNTER → 2017-07-02 | Outpatient (CLI) | payer OTHER, BC ==
[~2017-07-02] MED LIST changes: +CPR/500 PO; -CYAN10005 SQ; +FLNIN/ NAE; -FLUT0.15 NAE
== END | disposition home or self-care (01) ==
LOC: C.RDSM 11:44
PROVIDERS: ATTEND Orthopaedic Surgery Sports Medicine
DX: Z96.652 Presence of left artificial knee joint (principal)

== ENCOUNTER → 2017-10-16 | Outpatient (CLI) | payer OTHER, BC ==
[~2017-10-16] MED LIST changes: -CPR/500 PO; +LEVO125T5 PO; -LEVO175T PO
== END | disposition home or self-care (01) ==
LOC: C.RDSM 13:40
PROVIDERS: ATTEND Orthopaedic Surgery Sports Medicine
DX: M25.561 Pain in right knee (principal); Z88.1 Allergy status to other antibiotic agents; Z88.8 Allergy status to other drugs, medicaments and biological substances

== ENCOUNTER 2019-06-03 21:49 | Inpatient (IN) ==
[2019-06-03] MEDS ORDERED: SODIUM CHLORIDE 0.9% 1000ML 1,000 ML IV ONE (22:23)
[2019-06-03] MEDS ORDERED: ALBUTEROL HFA 8 GM INHALER INH ONE (22:28)
--- NOTE | 2019-06-03 22:36 | Emergency Department Note ---
History of Present Illness General Chief complaint: Shortness of Breath/Dyspnea Stated complaint: SOB PROBLEMS BREATHING CHILLS History of Present Illness Maximum Pain Intensity: 4 This 59 yo presents to the ER complaining of fever, cough, difficulty breathing for the past 4 days Location: Chest Quality: Hard to breathe Severity: Moderate Duration: 4 days Timing: Started 4 days ago Context: Symptoms got worse and patient came in Modifying factors: better with nothing; worse with coughing Patient has traveled from [place] to [facility] within the past 14 days. She states she has been around other sick people in the airports. She states her just returned home from [facility] over the weekend and possibly was around sick people with the coronavirus as he had to shut down his company up there secondary to the outbreak as some of his e mployees did have the coronavirus per the patient. No one in the family is symptomatic. She did receive her flu vaccine. She has a history of seasonal asthma. Patient has thyroid disease. She does not smoke. Patient denies vomiting, diarrhea, neck stiffness, body aches. Patient went to urgent care last night was started on amoxicillin for ear infection. Home Medications Home Medications Medication Instructions Recorded Confirmed Type albuterol sulfate 90 mcg/actuation 2 puff INHALATION QID PRN 10/20/18 06/04/19 History aerosol inhaler fluticasone propionate 50 2 sprays INTRANASAL DAILY PRN #0 gm 10/20/18 06/04/19 History mcg/actuation nasal spray,suspension multivitamin 1 tab PO DAILY 10/20/18 06/04/19 History celecoxib 200 mg capsule 200 mg PO HS PRN 11/04/18 06/04/19 History cyanocobalamin (vitamin B-12) 1,000 mcg IM .COMPLEX 11/04/18 06/04/19 History 1,000 mcg/mL injection solution diclofenac sodium 1 % topical gel See Rx Instructions TOP DAILY PRN 11/04/18 06/04/19 History gm mirabegron 25 mg tablet,extended 25 mg PO QAM 11/04/18 06/04/19 History release 24 hr blood sugar diagnostic #600 ea 11/05/18 04/10/19 Rx Accu-Chek Fastclix Lancet Drum #600 ea NS 11/12/18 04/10/19 Rx Tirosint 175 mcg capsule 175 mcg PO DAILY #90 cap NS 02/03/19 06/04/19 Rx amitriptyline 25 mg tablet 25 mg PO HS PRN tab 04/10/19 06/04/19 History cholecalciferol (vitamin D3) 1,250 50,000 units PO WEEKLY #12 tab 05/18/19 06/04/19 Rx mcg (50,000 unit) tablet duloxetine 60 mg PO DAILY 06/04/19 06/04/19 History Allergies Allergy/AdvReac Type Severity Reaction Status Date / Time doxycycline Allergy Intermediate RASH Verified 06/04/19 01:38 doxylamine Allergy Intermediate ITCHY, Verified 06/04/19 01:38 REDNESS pseudoephedrine Allergy Intermediate ITCHY, Verified 06/04/19 01:38 REDNESS dextromethorphan Allergy Mild ITCHY, Verified 06/04/19 01:38 REDNESS NSAIDS (Non-Steroidal Allergy Unknown TOLD NOT Verified 06/04/19 01:38 Anti-Inflamma TAKE D/T GASTRIC BYPASS thyroid, pork AdvReac Intermediate nausea, Verified 06/04/19 01:38 [From Reading Thyroid] palpitations Past Med/Surg History Medical History Asthma describes as seasonal History of anemia History of urinary frequency aslo has incontinence Hypothyroidism Obesity (BMI 35.0-39.9 without comorbidity) Osteoarthritis Seasonal allergies Surgical History H/O bladder repair surgery X 2 H/O endoscopic sinus surgery (Acute) H/O exploratory laparotomy (Acute) H/O foot surgery RIGHT FOOT OPEN BUNIONECTOMY 03/11/18 H/O: hysterectomy (Acute) History of colonoscopy History of gastric bypass History of laparoscopy History of open reduction and internal fixation (ORIF) procedure RT ANKLE History of tonsillectomy History of tooth extraction History of total knee replacement LEFT Hx of LASIK Hx of repair of right rotator cuff Family History Father Family history of diabetes mellitus Father No problems noted. 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 Required: No Beliefs That Will Affect Care: None Current Living Situation: Spouse Feels Safe at Home: Yes Smoking Status: Never smoker Second Hand Exposure: No ; Hx Alcohol Use: Yes Alcohol type: beer Hx Substance Use: No Review of Systems A total of 10 systems reviewed and were otherwise negative Physical Exam Vital Signs Vital Signs - 24 hr 06/03/19 21:53 06/03/19 22:38 06/03/19 22:40 Temperature 37.0 C Temperature Source Oral Pulse Rate 87 87 88 Pulse Rate [Exercises] Pulse Rate [Recovery] Pulse Rate [Right Finger] Pulse Rate from SpO2 Sensor 87 89 Respiratory Rate 22 27 H 25 H Respiratory Rate [Exercises] Respiratory Rate [Recovery] Respiratory Effort / Characteristics Respiratory Depth Respiratory Pattern Blood Pressure 166/97 H 163/106 H Blood Pressure [Right Arm] Blood Pressure Mean 120 128 Blood Pressure Mean [Right Arm] Pulse Oximetry 98 100 100 Pulse Oximetry [Exercises] Pulse Oximetry [Recovery] Oxygen Delivery Method Room Air Sepsis Recent Fever Within 48 Hours No Sepsis New/Unexplained Change in Mental Status No Sepsis Action Taken by Nursing No Action Required Pulse Oximetry Post Tiitration 06/03/19 22:57 06/03/19 23:00 06/03/19 23:01 Temperature Temperature Source Pulse Rate 96 H 93 H Pulse Rate [Exercises] Pulse Rate [Recovery] Pulse Rate [Right Finger] Pulse Rate from SpO2 Sensor 94 H 93 H Respiratory Rate 20 24 Respiratory Rate [Exercises] Respiratory Rate [Recovery] Respiratory Effort / Characteristics Non-Labored Respiratory Depth Normal Respiratory Pattern Regular Blood Pressure 157/94 H Blood Pressure [Right Arm] 157/84 H Blood Pressure Mean 122 Blood Pressure Mean [Right Arm] 108 Pulse Oximetry 95 91 98 Pulse Oximetry [Exercises] Pulse Oximetry [Recovery] Oxygen Delivery Method Room Air Sepsis Recent Fever Within 48 Hours Sepsis New/Unexplained Change in Mental Status Sepsis Action Taken by Nursing Pulse Oximetry Post Tiitration 95 06/03/19 23:34 06/03/19 23:35 06/04/19 00:00 Temperature 37.8 C H Temperature Source Pulse Rate Pulse Rate [Exercises] Pulse Rate [Recovery] Pulse Rate [Right Finger] Pulse Rate from SpO2 Sensor 102 H 103 H 98 H Respiratory Rate 18 Respiratory Rate [Exercises] Respiratory Rate [Recovery] Respiratory Effort / Characteristics Respiratory Depth Respiratory Pattern Blood Pressure 151/93 H 168/112 H Blood Pressure [Right Arm] Blood Pressure Mean 113 135 Blood Pressure Mean [Right Arm] Pulse Oximetry 97 97 96 Pulse Oximetry [Exercises] Pulse Oximetry [Recovery] Oxygen Delivery Method Sepsis Recent Fever Within 48 Hours Sepsis New/Unexplained Change in Mental Status Sepsis Action Taken by Nursing Pulse Oximetry Post Tiitration 06/04/19 00:01 06/04/19 00:19 06/04/19 00:30 Temperature Temperature Source Pulse Rate 103 H Pulse Rate [Exercises] Pulse Rate [Recovery] Pulse Rate [Right Finger] 101 H Pulse Rate from SpO2 Sensor 97 H 101 H Respiratory Rate 22 Respiratory Rate [Exercises] Respiratory Rate [Recovery] Respiratory Effort / Characteristics Spontaneous Short of Breath SOB on Exertion Respiratory Depth Respiratory Pattern Blood Pressure 167/95 H Blood Pressure [Right Arm] Blood Pressure Mean 140 Blood Pressure Mean [Right Arm] Pulse Oximetry 96 95 100 Pulse Oximetry [Exercises] Pulse Oximetry [Recovery] Oxygen Delivery Method Room Air Sepsis Recent Fever Within 48 Hours Sepsis New/Unexplained Change in Mental Status Sepsis Action Taken by Nursing Pulse Oximetry Post Tiitration 06/04/19 00:31 06/04/19 01:00 06/04/19 01:13 Temperature Temperature Source Pulse Rate 102 H 103 H Pulse Rate [Exercises] Pulse Rate [Recovery] Pulse Rate [Right Finger] Pulse Rate from SpO2 Sensor 103 H 102 H 98 H Respiratory Rate 17 23 Respiratory Rate [Exercises] Respiratory Rate [Recovery] Respiratory Effort / Characteristics Respiratory Depth Respiratory Pattern Blood Pressure 150/76 H Blood Pressure [Right Arm] Blood Pressure Mean 96 Blood Pressure Mean [Right Arm] Pulse Oximetry 100 97 96 Pulse Oximetry [Exercises] Pulse Oximetry [Recovery] Oxygen Delivery Method Sepsis Recent Fever Within 48 Hours Sepsis New/Unexplained Change in Mental Status Sepsis Action Taken by Nursing Pulse Oximetry Post Tiitration 06/04/19 01:20 Temperature Temperature Source Pulse Rate Pulse Rate [Exercises] 120 H Pulse Rate [Recovery] 105 H Pulse Rate [Right Finger] Pulse Rate from SpO2 Sensor Respiratory Rate Respiratory Rate [Exercises] 29 H Respiratory Rate [Recovery] 24 Respiratory Effort / Characteristics Respiratory Depth Respiratory Pattern Blood Pressure Blood Pressure [Right Arm] Blood Pressure Mean Blood Pressure Mean [Right Arm] Pulse Oximetry Pulse Oximetry [Exercises] 88 L Pulse Oximetry [Recovery] 94 Oxygen Delivery Method Room Air Sepsis Recent Fever Within 48 Hours Sepsis New/Unexplained Change in Mental Status Sepsis Action Taken by Nursing Pulse Oximetry Post Tiitration VITALS: Vitals are noted on the nurse's note and reviewed by myself. Vital si gns stable. GENERAL: Pleasant female mildly ill-appearing, in no acute distress SKIN: The skin was without rashes, erythema, edema, or bruising. There is no tenting of the skin. Capillary reflex less than 2 seconds. HEAD: Normocephalic atraumatic. EARS: External auditory canals clear, tympanic membranes pearly santoro without erythema or effusion bilaterally. EYES: Pupils equal round and reactive to light and accommodation. Conjunctivae without injection, sclerae without icterus. Extraocular movements intact. NOSE: Patent, turbinates without inflammation or discharge. No sinus tendernes s. MOUTH: Mucous membranes mildly dry. Pharynx without erythema or exudate. Uvula midline. Airway patent. Tongue does not deviate. NECK: Supple without nuchal rigidity. No lymphadenopathy. No thyromegaly. Cervical spine is nontender. No JVD. HEART: Regular rate and rhythm LUNGS: Mild diffuse end expiratory wheezes, without rales or rhonchi. No retractions or accessory muscle use. ABDOMEN: Positive bowel sounds x 4. Normal tympanic percussion. Soft, nontender, without masses or organomegaly. Sandhu sign negative. No guarding or rebound tenderness. No CVA tenderness MUSCULOSKELETAL: No muscle atrophy, erythema, or edema noted. NEURO: Patient was alert and oriented to person place and time. Normal sensation to light and sharp touch. No focal neurological deficits. Course Administered Medications Ioversol (Optiray 320 125ml) 119 ml IV ONCE PRN PRN Reason: Interaction Checking Stop: 06/07/19 23:22 Last Admin: 06/03/19 23:24 Dose: 119 ml Documented by: [id number] Discontinued Medications Albuterol (Ventolin Hfa) 2 puffs INH NOW ONE Stop: 06/03/19 22:29 Last Admin: 06/03/19 23:03 Dose: 2 puffs Documented by: [id number] Albuterol (Duoneb) 3 ml NEB NOW STA Stop: 06/04/19 00:04 Last Admin: 06/04/19 00:17 Dose: 3 ml Documented by: [id number] Azithromycin (Zithromax) 500 mg PO NOW ONE Stop: 06/04/19 00:04 Last Admin: 06/04/19 00:17 Dose: 500 mg Documented by: [id number] Dexamethasone Sodium Phosphate (Decadron Pf) 10 mg IV NOW ONE Stop: 06/04/19 00:04 Last Admin: 06/04/19 00:17 Dose: 10 mg Documented by: [id number] Sodium Chloride (Nss 1000ml) 1,000 mls @ 999 mls/hr IV .Q1H1M ONE Stop: 06/03/19 23:23 Last Infusion: 06/04/19 00:49 Dose: 0 mls/hr Documented by: [id number] Admin: 06/03/19 23:03 Dose: 999 mls/hr Documented by: [id number] Ceftriaxone Sodium (Rocephin) 2,000 mg in 70 mls @ 140 mls/hr IV NOW STA Stop: 06/04/19 00:32 Last Infusion: 06/04/19 00:49 Dose: 0 mls/hr Documented by: [id number] Admin: 06/04/19 00:17 Dose: 140 mls/hr Documented by: [id number] Acetaminophen (Ofirmev) 1,000 mg in 100 mls @ 400 mls/hr IV NOW STA Stop: 06/04/19 00:38 Last Infusion: 06/04/19 01:22 Dose: 0 mls/hr Documented by: [id number] Admin: 06/04/19 00:37 Dose: 400 mls/hr Documented by: [id number] Ketorolac Tromethamine (Toradol) 10 mg IV NOW STA Stop: 06/04/19 01:57 Last Admin: 06/04/19 02:08 Dose: 10 mg Documented by: [id number] Medical Decision Making Medical Records Attestation: I reviewed the patient's medical records. Home Medications Current Medication List: was personally reviewed by me Laboratory Data Attestation: I reviewed the patient's lab results. Result diagrams: 06/03/19 22:38 06/03/19 22:38 Lab Results 06/03/19 06/03/19 06/03/19 Range/Units 22:38 22:38 22:38 WBC 18.85 H (4.8-10.8) K/uL RBC 4.44 (4.2-5.4) M/uL Hgb 13.3 (12.0-16.0) g/dL Hct 39.9 (37-47) % MCV 89.9 (80-100) fL MCH 30.0 (25-34) pg MCHC 33.3 (32-36) g/dL RDW Std Deviation 44.0 (36.4-46.3) fL RDW Coeff of [place]il[place] 13.3 (11.5-14.5) % Plt Count 261 (130-400) K/uL MPV 9.4 (7.4-10.4) fL Immature Gran % (Auto) 0.2 % Neut % (Auto) 25.2 % Lymph % (Auto) 69.9 % [place] % (Auto) 4.5 % Eos % (Auto) 0.1 % Baso % (Auto) 0.1 % Immature Gran # (Auto) 0.04 H (0.00-0.02) K/uL Neut # (Auto) 4.75 (1.4-6.5) K/uL Lymph # (Auto) 13.18 H (1.2-3.4) K/uL [place] # (Auto) 0.84 H (0.11-0.59) K/uL Eos # (Auto) 0.02 (0-0.5) K/uL Baso # (Auto) 0.02 (0-0.2) K/uL Smudge Cells Present PT 10.3 (9.0-12.0) Seconds INR 1.0 (0.9-1.1) APTT 26.5 (21.0-31.0) Seconds PTT Ratio 0.9 Sodium 140 (136-145) mmol/L Potassium 3.9 (3.5-5.1) mmol/L Chloride 107 (98-107) mmol/L Carbon Dioxide 30 (21-32) mmol/L Anion Gap 3.0 (3-11) BUN 9 (7-18) mg/dl Creatinine 0.75 (0.6-1.2) mg/dl Est Cr Clr Drug Dosing 102.1 ml/min Est GFR ( Amer) 102.6 Est GFR (Non-Af Amer) 88.5 BUN/Creatinine Ratio 11.6 (10-20) Glucose 96 (70-99) mg/dl Lactate (0.4-2.0) mmol/L Calcium 9.4 (8.5-10.1) mg/dl Magnesium 2.0 (1.8-2.4) mg/dl Total Bilirubin 0.2 (0.2-1) mg/dl AST 27 (15-37) U/L ALT 30 (12-78) U/L Alkaline Phosphatase 167 H (45-117) U/L Lactate Dehydrogenase (84-246) U/L Troponin I < 0.015 (0-0.045) ng/ml Total Protein 7.6 (6.4-8.2) gm/dl Albumin 3.6 (3.4-5.0) gm/dl Globulin 4.0 (2.5-4.0) gm/dl Albumin/Globulin Ratio 0.9 (0.9-2) Procalcitonin (0-0.5) ng/ml Adenovirus (PCR) (NotDetected) B. pertussis DNA (PCR) (NotDetected) B.parapertussis DNA PCR (NotDetected) C. pneumoniae DNA (PCR) (NotDetected) Coronavirus OC43 (PCR) (NotDetected) Coronavirus HKU1 (PCR) (NotDetected) Coronavirus 229E (PCR) (NotDetected) Coronavirus NL63 (PCR) (NotDetected) Human Metapneumovir PCR (NotDetected) Influenza Type A (PCR) Influenza Type B (PCR) M. pneumoniae (PCR) (NotDetected) Parainfluenza 1 (PCR) (NotDetected) Parainfluenza 2 (PCR) (NotDetected) Parainfluenza 3 (PCR) (NotDetected) Parainfluenza 4 (PCR) (NotDetected) RSV (PCR) (NotDetected) Entero/Rhino (PCR) (NotDetected) 06/03/19 06/03/19 06/03/19 Range/Units 22:38 22:38 22:38 WBC (4.8-10.8) K/uL RBC (4.2-5.4) M/uL Hgb (12.0-16.0) g/dL Hct (37-47) % MCV (80-100) fL MCH (25-34) pg MCHC (32-36) g/dL RDW Std Deviation (36.4-46.3) fL RDW Coeff of Akilah (11.5-14.5) % Plt Count (130-400) K/uL MPV (7.4-10.4) fL Immature Gran % (Auto) % Neut % (Auto) % Lymph % (Auto) % [place] % (Auto) % Eos % (Auto) % Baso % (Auto) % Immature Gran # (Auto) (0.00-0.02) K/uL Neut # (Auto) (1.4-6.5) K/uL Lymph # (Auto) (1.2-3.4) K/uL [place] # (Auto) (0.11-0.59) K/uL Eos # (Auto) (0-0.5) K/uL Baso # (Auto) (0-0.2) K/uL Smudge Cells PT (9.0-12.0) Seconds INR (0.9-1.1) APTT (21.0-31.0) Seconds PTT Ratio Sodium (136-145) mmol/L Potassium (3.5-5.1) mmol/L Chloride (98-107) mmol/L Carbon Dioxide (21-32) mmol/L Anion Gap (3-11) BUN (7-18) mg/dl Creatinine (0.6-1.2) mg/dl Est Cr Clr Drug Dosing ml/min Est GFR ( Amer) Est GFR (Non-Af Amer) BUN/Creatinine Ratio (10-20) Glucose (70-99) mg/dl Lactate 1.3 (0.4-2.0) mmol/L Calcium (8.5-10.1) mg/dl Magnesium (1.8-2.4) mg/dl Total Bilirubin (0.2-1) mg/dl AST (15-37) U/L ALT (12-78) U/L Alkaline Phosphatase (45-117) U/L Lactate Dehydrogenase 226 (84-246) U/L Troponin I (0-0.045) ng/ml Total Protein (6.4-8.2) gm/dl Albumin (3.4-5.0) gm/dl Globulin (2.5-4.0) gm/dl Albumin/Globulin Ratio (0.9-2) Procalcitonin < 0.05 (0-0.5) ng/ml Adenovirus (PCR) (NotDetected) B. pertussis DNA (PCR) (NotDetected) B.parapertussis DNA PCR (NotDetected) C. pneumoniae DNA (PCR) (NotDetected) Coronavirus OC43 (PCR) (NotDetected) Coronavirus HKU1 (PCR) (NotDetected) Coronavirus 229E (PCR) (NotDetected) Coronavirus NL63 (PCR) (NotDetected) Human Metapneumovir PCR (NotDetected) Influenza Type A (PCR) Influenza Type B (PCR) M. pneumoniae (PCR) (NotDetected) Parainfluenza 1 (PCR) (NotDetected) Parainfluenza 2 (PCR) (NotDetected) Parainfluenza 3 (PCR) (NotDetected) Parainfluenza 4 (PCR) (NotDetected) RSV (PCR) (NotDetected) Entero/Rhino (PCR) (NotDetected) 06/03/19 06/03/19 Range/Units 22:39 Unknown WBC (4.8-10.8) K/uL RBC (4.2-5.4) M/uL Hgb (12.0-16.0) g/dL Hct (37-47) % MCV (80-100) fL MCH (25-34) pg MCHC (32-36) g/dL RDW Std Deviation (36.4-46.3) fL RDW Coeff of Akilah (11.5-14.5) % Plt Count (130-400) K/uL MPV (7.4-10.4) fL Immature Gran % (Auto) % Neut % (Auto) % Lymph % (Auto) % [place] % (Auto) % Eos % (Auto) % Baso % (Auto) % Immature Gran # (Auto) (0.00-0.02) K/uL Neut # (Auto) (1.4-6.5) K/uL Lymph # (Auto) (1.2-3.4) K/uL [place] # (Auto) (0.11-0.59) K/uL Eos # (Auto) (0-0.5) K/uL Baso # (Auto) (0-0.2) K/uL Smudge Cells PT (9.0-12.0) Seconds INR (0.9-1.1) APTT (21.0-31.0) Seconds PTT Ratio Sodium (136-145) mmol/L Potassium (3.5-5.1) mmol/L Chloride (98-107) mmol/L Carbon Dioxide (21-32) mmol/L Anion Gap (3-11) BUN (7-18) mg/dl Creatinine (0.6-1.2) mg/dl Est Cr Clr Drug Dosing ml/min Est GFR ( Amer) Est GFR (Non-Af Amer) BUN/Creatinine Ratio (10-20) Glucose (70-99) mg/dl Lactate (0.4-2.0) mmol/L Calcium (8.5-10.1) mg/dl Magnesium (1.8-2.4) mg/dl Total Bilirubin (0.2-1) mg/dl AST (15-37) U/L ALT (12-78) U/L Alkaline Phosphatase (45-117) U/L Lactate Dehydrogenase (84-246) U/L Troponin I (0-0.045) ng/ml Total Protein (6.4-8.2) gm/dl Albumin (3.4-5.0) gm/dl Globulin (2.5-4.0) gm/dl Albumin/Globulin Ratio (0.9-2) Procalcitonin (0-0.5) ng/ml Adenovirus (PCR) Not Detected (NotDetected) B. pertussis DNA (PCR) Not Detected (NotDetected) B.parapertussis DNA PCR Not Detected (NotDetected) C. pneumoniae DNA (PCR) Not Detected (NotDetected) Coronavirus OC43 (PCR) Not Detected (NotDetected) Coronavirus HKU1 (PCR) Not Detected (NotDetected) Coronavirus 229E (PCR) Not Detected (NotDetected) Coronavirus NL63 (PCR) Not Detected (NotDetected) Human Metapneumovir PCR DETECTED A* (NotDetected) Influenza Type A (PCR) Cancelled Not Detected Influenza Type B (PCR) Cancelled Not Detected M. pneumoniae (PCR) Not Detected (NotDetected) Parainfluenza 1 (PCR) Not Detected (NotDetected) Parainfluenza 2 (PCR) Not Detected (NotDetected) Parainfluenza 3 (PCR) Not Detected (NotDetected) Parainfluenza 4 (PCR) Not Detected (NotDetected) RSV (PCR) Not Detected (NotDetected) Entero/Rhino (PCR) Not Detected (NotDetected) Imaging Data Attestation: I personally reviewed and interpreted this imaging study as follows: MDM Narrative Prior records/ancillary studies reviewed. Triage Nursing notes reviewed. The patient's history was concerning for fever, cough, shortness of breath with recent travel Differential diagnosis: Etiologies such as viral syndrome, otitis, pharyngitis, pneumonia, influenza, meningitis, urinary tract infection, sepsis, bacteremia, PE, as well as others were entertained. Physical examination: as above ER treatment provided: Isolation precautions per the recommendations of the CDC and [facility] for possible coronavirus exposure was implemented immediately. My attending was made aware. The public health office of [place] was contacted immediately. An order was placed for continuous cardiac monitoring. The monitor shows a rate of normal sinus with a 60-100 rhythm. IV fluids, albuterol On reassessment the patient felt better. Diagnostics interpreted by me: ECG: Ordered for dyspnea EKG: Normal sinus, normal intervals, no acute ST-T wave changes, rate of 90. Impression normal sinus rhythm interpreted by myself I think arrhythmia is unlikely. EKG shows normal sinus rhythm with no interval abnormalities such as QT prolongation or WPW. There are no findings to suggest Brugada syndrome. Cardiac monitoring in the emergency department reveals no tachycardic or bradycardic dysrhythmia. Hypertrophic cardiomyopathy was considered but there are no clear historical elements pointing toward this. EKG is not suggestive. The QRS voltage is not extremely large and there are no suggestive Q waves. The labs revealed leukocytosis, blood cultures pending Negative lactic acid. Negative troponin. Covid 19 pending + human Metapneumo Imaging studies: CTA CHEST: Compared to 12/27/16 Somewhat limited due to bolus timing and motion artifact. No clear pulmonary embolism. No aortic dissection. Left upper lobe airspace infiltrate suggesting pneumonitis. 6 mm right lower lobe nodule is stable, felt to be benign. Gastric bypass. Radiologist: Mu Hodge M.D. Consultation: A consultation was placed with [facility]. The case was discussed and diagnostics were reviewed. The on-call provider states he believes this is low risk. His concern would be the 's exposure up in [facility]. A consultation was placed with hospitalist, Dr. Abraham. The case was discussed and diagnostics were reviewed. She will evaluate the patient for admission. This appears to be consistent with pneumonitis with being hypoxic and unable to ambulate. Medicine was consulted. She was started on antibiotics. She was positive for the human Metapneumovir. Negative lactic acid. Elevated leukocytosis which appears chronic as patient is currently being worked up for CLL. Patient's walking pulse ox is 88%. Patient is agreeable to treatment plan of admission. By the evaluation outlined above emergent etiologies such as otitis, pharyngitis, meningitis, urinary tract infection, sepsis, bacteremia, as well as others were deemed relatively unlikely. The pt informed about the findings as listed above. All questions were answered and pleased with the treatment. Case reviewed with my attending The chart was completed utilizing [email or web address] Speech voice recognition software. Grammatical errors, random word insertions, pronoun errors, and incomplete sentences are an occassional consequence of this system due to software limitations, ambient noise, and hardware issues. Any formal questions or concerns about the content, text, or information contained within the body of this dictation should be directly addressed to the physician marketing operations assistant for clarification. Impression & Plan Pneumonitis, Pneumonia due to human metapneumovirus (hMPV), Hypoxemia Discharge Plan Visit Data Chief Complaint: Shortness of Breath/Dyspnea Stated Complaint: SOB PROBLEMS BREATHING CHILLS ED Provider: Liam Quiñonez ED Midlevel Provider: Inez Chávez Discharge Problem: Pneumonitis, Pneumonia due to human metapneumovirus (hMPV), Hypoxemia Patient Disposition: Being Evaluated by Hospitalist Condition: Fair Forms Stand Alone Forms: My [facility] [email or web address] Prescriptions Prescriptions: No Action fluticasone propionate 50 mcg/actuation spray,suspension 2 sprays intranasal DAILY PRN (Reason: Pain) Qty: 0 RF: 0 (DME) lancets [Accu-Chek Fastclix Lancet Drum] misc See Dose Instructions .ROUTE .MEDSUPPLY Qty: 600 RF: 3 Tirosint 175 mcg capsule 175 mcg PO DAILY Qty: 90 RF: 3 cholecalciferol (vitamin D3) 1,250 mcg (50,000 unit) tablet 50,000 units PO WEEKLY Qty: 12 RF: 3 amitriptyline 25 mg tablet 25 mg PO HS PRN (Reason: Pain) RF: 0 multivitamin [Daily Multi-Vitamin] tablet 1 tab PO DAILY RF: 0 diclofenac sodium [Voltaren] 1 % gel See Rx Instructions TOP DAILY PRN (Reason: Pain) RF: 0 celecoxib 200 mg capsule 200 mg PO HS PRN (Reason: Pain) RF: 0 Myrbetriq 25 mg tablet extended release 24 hr 25 mg PO QAM RF: 0 (DME) Accu-Chek Guide strip See Dose Instructions .ROUTE .MEDSUPPLY Qty: 600 RF: 3 cyanocobalamin (vitamin B-12) 1,000 mcg/mL solution 1,000 mcg IM .COMPLEX RF: 0 duloxetine 60 mg capsule,delayed release(DR/EC) 60 mg PO DAILY RF: 0 albuterol sulfate [ProAir HFA] 90 mcg/actuation HFA aerosol inhaler 2 puff INHALATION QID PRN (Reason: Shortness Of Breath) RF: 0 Referrals Referrals: Beth Keith CRNP [Primary Care Provider] -
[2019-06-03 22:57] LABS: Hematocrit (blood only) 39.9 % (37-47); Hemoglobin 13.3 g/dL (12.0-16.0); Mean Corpuscular Hgb Conc 33.3 g/dL (32-36); Mean Corpuscular Volume 89.9 fL (80-100); Mean Platelet Volume 9.4 fL (7.4-10.4); Platelet Count 261 K/uL (130-400); RDW Coefficient of Variation 13.3 % (11.5-14.5); Red Blood Count 4.44 M/uL (4.2-5.4); White Blood Count 18.85 K/uL (4.8-10.8)
[2019-06-03 23:11] LABS: Partial Thromboplastin Ratio 0.9; Partial Thromboplastin Time 26.5 Seconds (21.0-31.0); Prothrombin Time 10.3 Seconds (9.0-12.0)
[2019-06-03 23:14] LABS: Alanine Aminotransferase 30 U/L (12-78); Albumin Level 3.6 gm/dl (3.4-5.0); Aspartate Aminotransferase 27 U/L (15-37); BUN Creatinine Ratio 11.6 (10-20); Blood Urea Nitrogen 9 mg/dl (7-18); Calcium 9.4 mg/dl (8.5-10.1); Carbon Dioxide 30 mmol/L (21-32); Chloride 107 mmol/L (98-107); Creatinine Clr Calc Pharmacy 102.1 ml/min; Est GFR (African American) 102.6; Est GFR (Non-African American) 88.5; Glucose 96 mg/dl (70-99); Potassium 3.9 mmol/L (3.5-5.1); Sodium 140 mmol/L (136-145)
[2019-06-03 23:19] LABS: Albumin Globulin Ratio 0.9 (0.9-2); Alkaline Phosphatase 167 U/L (45-117); Bilirubin,Total 0.2 mg/dl (0.2-1); Total Protein 7.6 gm/dl (6.4-8.2); Troponin I < 0.015 ng/ml (0-0.045)
[2019-06-03] MEDS ORDERED: OPTIRAY 320 125ml IV PRN (23:23)
[2019-06-03 23:45] LABS: Basophils # (auto) 0.02 K/uL (0-0.2); Basophils % (auto) 0.1 %; Eosinophils # (auto) 0.02 K/uL (0-0.5); Eosinophils % (auto) 0.1 %; Immature Granulocytes # (auto) 0.04 K/uL (0.00-0.02); Immature Granulocytes % (auto) 0.2 %; Lymphocytes # (auto) 13.18 K/uL (1.2-3.4); Lymphocytes % (auto) 69.9 %; Monocytes # (auto) 0.84 K/uL (0.11-0.59); Monocytes % (auto) 4.5 %; Neutrophils # (auto) 4.75 K/uL (1.4-6.5); Neutrophils % (auto) 25.2 %; Smudge Cells Present
[2019-06-03 23:58] LABS: Adenovirus PCR Not Detected (NotDetected); Coronavirus 229E PCR Not Detected (NotDetected); Coronavirus HKU1 PCR Not Detected (NotDetected); Coronavirus NL63 PCR Not Detected (NotDetected)
[2019-06-03 23:59] LABS: Bordetella parapertussis PCR Not Detected (NotDetected); Bordetella pertussis PCR Not Detected (NotDetected); Chlamydia pneumoniae PCR Not Detected (NotDetected); Coronavirus OC43PCR Not Detected (NotDetected); Influenza A PCR Not Detected (NotDetected); Influenza B PCR Not Detected (NotDetected); Mycoplasma pneumoniae PCR Not Detected (NotDetected); Parainfluenza Virus 1 PCR Not Detected (NotDetected); Parainfluenza Virus 2 PCR Not Detected (NotDetected); Parainfluenza Virus 3 PCR Not Detected (NotDetected); Parainfluenza Virus 4 PCR Not Detected (NotDetected); Respiratory Syncytial VirusPCR Not Detected (NotDetected); Rhinovirus/Enterovirus PCR Not Detected (NotDetected)
[2019-06-04] LABS: Human Metapneumovirus PCR DETECTED (NotDetected)
[2019-06-04] MEDS ORDERED: DEXAMETHASONE **PF** INJ 10 MG/ML VIAL IV ONE (00:03)
[2019-06-04] MEDS ORDERED: AZITHROMYCIN 250 MG TAB PO ONE (00:03)
[2019-06-04] MEDS ORDERED: ALBUT/IPRATROP 3MG/0.5MG NEB 3 ML VIAL NEB STA (00:03)
[2019-06-04] MEDS ORDERED: cefTRIAXone SODIUM 2,000 MG/70 ML BAG IV STA (00:03)
[2019-06-04] MEDS ORDERED: ACETAMINOPHEN 1,000 MG/100 ML VIAL IV STA (00:24)
[2019-06-04] MEDS ORDERED: KETOROLAC TROMETHAMINE 15 MG/ML VIAL IV STA (01:56)
--- NOTE | 2019-06-04 02:43 | History & Physical Report ---
Date of Service June 04, 2019 Assessment & Plan (1) Pneumonitis: Patient with pneumonitis per CT. Afebrile at present, tachycardic and tachypneic. Hypoxic to 88% with ambulation. + Cough. Patient with marked leukocytosis with WBC = 18.85, lymphocyte predominant. Possible CLL being foll owed by hematology. Her LDH and coags are normal as are her LFTs with exception of elevated alk phos = 167, patient with history of the same. Procalcitonin negative. Bio fire respiratory panel performed by ER which was positive for human [place] pneumo virus. However, given patient's travel history and possible exposure to Covid-19 a coronavirus test per [facility] labs was sent. Admit to medical floor with telemetry monitoring Supplemental oxygen as needed Symptomatic care with albuterol HFA as needed for shortness of breath or wheeze, Tylenol as needed for pain or fever and Toradol as needed for pain -Mucinex 1200 mg p.o. twice daily Tessalon 3 times daily We will continue with isolation precautionsAIRBORNE AND CONTACT, negative pressure isolation. Personal protective equipment should include hat, face shield, N95, gown, gloves and isolation stethoscope until coronavirus ruled out SARS CoV-2 RNA test pending Present on Admission?: Yes (2) Pneumonia due to human metapneumovirus (hMPV): Patient presently afebrile, hemodynamically stable. She was hypoxic to 80% on room air with ambulation Management as above Present on Admission?: Yes (3) Leukocytosis: Patient with lymphocyte predominant leukocytosis with WBC = 18.85. She reports that she is suspected to have CLL and is currently following with hematology/oncology. No formal diagnosis has been made yet. Continue to monitor Patient should continue regular outpatient heme-onc follow-up as scheduled Present on Admission?: Yes (4) Central hypothyroidism: Chronic. Continue levothyroxine 175 mcg daily Present on Admission?: Yes (5) Asthma: Patient with history of well-controlled asthma. Presently with diffuse end expiratory wheezing in the setting of acute viral pneumonia/pneumonitis. Adequate oxygenation on room air Albuterol HFA every 4 hours as needed Would avoid nebs if possible due to concern for coronavirus FENLR at 80 mL/h x 2 L, monitor electrolytes and replete as needed, regular diet as tolerated ProphylaxisLovenox 40 mg subcu daily Codefull per discussion with patient Dispositionadmission to medical floor telemetry monitoring Present on Admission?: Yes History of Present Illness Chief Complaint: SOB, cough, hypoxia Primary Care Provider: CHRISTIANO Pruitt Gerda Chambers is a 59yo C female with history of well controlled asthma, hypothyroidism presenting with cough/shortness of breath/hypoxia/fever/chills. Symptoms have been ongoing and progressively worsening over the last 4 days. She has been taking Mucinex at home with minimal relief. She has some chest discomfort with her cough otherwise no chest pain. Denies palpitations/abdomin al pain/nausea/vomiting/diarrhea/constipation. She received her seasonal flu vaccine this year. Patient with recent air travel from [place] to [place] in [place] in [place] within the past 2 weeks. + Sick contacts. 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 Patient's however is asymptomatic at this time. ER course: Ceftriaxone, azithromycin, Tylenol, albuterol, dexamethasone, Toradol, normal saline Allergies Allergy/AdvReac Type Severity Reaction Status Date / Time doxycycline Allergy Intermediate RASH Verified 06/04/19 01:38 doxylamine Allergy Intermediate ITCHY, Verified 06/04/19 01:38 REDNESS pseudoephedrine Allergy Intermediate ITCHY, Verified 06/04/19 01:38 REDNESS dextromethorphan Allergy Mild ITCHY, Verified 06/04/19 01:38 REDNESS NSAIDS (Non-Steroidal Allergy Unknown TOLD NOT Verified 06/04/19 01:38 Anti-Inflamma TAKE D/T GASTRIC BYPASS thyroid, pork AdvReac Intermediate nausea, Verified 06/04/19 01:38 [From [place] Thyroid] palpitations Home Medications Home Medications Medication Instructions Recorded Confirmed Type albuterol sulfate 90 mcg/actuation 2 puff INHALATION QID PRN 10/20/18 06/04/19 History aerosol inhaler fluticasone propionate 50 2 sprays INTRANASAL DAILY PRN #0 gm 10/20/18 06/04/19 History mcg/actuation nasal spray,suspension multivitamin 1 tab PO DAILY 10/20/18 06/04/19 History celecoxib 200 mg capsule 200 mg PO HS PRN 11/04/18 06/04/19 History cyanocobalamin (vitamin B-12) 1,000 mcg IM .COMPLEX 11/04/18 06/04/19 History 1,000 mcg/mL injection solution diclofenac sodium 1 % topical gel See Rx Instructions TOP DAILY PRN 11/04/18 06/04/19 History gm mirabegron 25 mg tablet,extended 25 mg PO QAM 11/04/18 06/04/19 History release 24 hr blood sugar diagnostic #600 ea 11/05/18 04/10/19 Rx Accu-Chek Fastclix Lancet Drum #600 ea NS 11/12/18 04/10/19 Rx Tirosint 175 mcg capsule 175 mcg PO DAILY #90 cap NS 02/03/19 06/04/19 Rx amitriptyline 25 mg tablet 25 mg PO HS PRN tab 04/10/19 06/04/19 History cholecalciferol (vitamin D3) 1,250 50,000 units PO WEEKLY #12 tab 05/18/1905/22 Rx mcg (50,000 unit) tablet duloxetine 60 mg PO DAILY 06/04/19 06/04/19 History Past Med/Surg History Medical History Asthma describes as seasonal History of anemia History of urinary frequency aslo has incontinence Hypothyroidism Obesity (BMI 35.0-39.9 without comorbidity) Osteoarthritis Seasonal allergies Surgical History H/O bladder repair surgery X 2 H/O endoscopic sinus surgery (Acute) H/O exploratory laparotomy (Acute) H/O foot surgery RIGHT FOOT OPEN BUNIONECTOMY 03/11/18 H/O: hysterectomy (Acute) History of colonoscopy History of gastric bypass History of laparoscopy History of open reduction and internal fixation (ORIF) procedure RT ANKLE History of tonsillectomy History of tooth extraction History of total knee replacement LEFT Hx of LASIK Hx of repair of right rotator cuff Family History Father Family history of diabetes mellitus Father No problems noted. Grandmother (Paternal) Family history of diabetes mellitus Aunt Family history of diabetes mellitus Social History Preferred Language: Serbian Communication Ability: Effective Validation Software Facilitator Required: No Beliefs That Will Affect Care: None Current Living Situation: Spouse Feels Safe at Home: Yes Smoking Status: Never smoker Second Hand Exposure: No ; Hx Alcohol Use: Yes Alcohol type: beer Hx Substance Use: No Review of Systems Review of Systems: All systems reviewed & are unremarkable except as noted in HPI & below Physical Exam Physical Exam: General: patient resting comfortably, NAD, ill in appearance, AA&O x 4, N-95 mask on patient Skin: warm, dry, intact, no rashes or lesions HEENT: NC/AT, PERRL, EOMI, anicteric sclera, conjunctiva without injection, external ear normal to inspection and nontender, nares patent, moist mucus membranes, dentition intact, no oropharyngeal lesions, neck supple, trachea midline, no LAD, no thyromegaly, no JVD Heart: +S1/S2, regular, tachycardic, no m/r/g Lungs: equal air entry bilaterally, coarse breath sounds in upper lung [place], diffuse end expiratory wheezing throughout Abd: +BS, soft, NT/ND, no masses/organomegaly/ascites Ext: warm, 2+ pulses in UE/LE bilaterally, no clubbing/cyanosis or edema Neuro: nonfocal, patient AA&O x 4, speech intact, no facial droop, moving all extremities on command with equal strength 5/5 Results & Data Vital Signs (Past 12 Hours) Vital Signs Temp Pulse Pulse Pulse Pulse Resp Resp 06/04/19 01:20 120 H 105 H 29 H 06/04/19 01:13 06/04/19 01:00 103 H 23 06/04/19 00:31 102 H 17 06/04/19 00:30 103 H 06/04/19 00:19 101 H 22 06/04/19 00:01 06/04/19 00:00 37.8 C H 18 06/03/19 23:35 06/03/19 23:34 06/03/19 23:01 93 H 24 06/03/19 23:00 96 H 20 06/03/19 22:57 06/03/19 22:40 88 25 H 06/03/19 22:38 87 27 H 06/03/19 21:53 37.0 C 87 22 Resp BP BP Pulse Ox Pulse Ox Pulse Ox 06/04/19 01:20 24 88 L 94 06/04/19 01:13 96 06/04/19 01:00 150/76 H 97 06/04/19 00:31 100 06/04/19 00:30 167/95 H 100 06/04/19 00:19 95 06/04/19 00:01 96 06/04/19 00:00 168/112 H 96 06/03/19 23:35 97 06/03/19 23:34 151/93 H 97 06/03/19 23:01 98 06/03/19 23:00 157/94 H 91 06/03/19 22:57 157/84 H 95 06/03/19 22:40 100 06/03/19 22:38 163/106 H 100 06/03/19 21:53 166/97 H 98 Laboratory Results Lab Results 06/03/19 06/03/19 06/03/19 Range/Units 22:38 22:38 22:38 WBC 18.85 H (4.8-10.8) K/uL RBC 4.44 (4.2-5.4) M/uL Hgb 13.3 (12.0-16.0) g/dL Hct 39.9 (37-47) % MCV 89.9 (80-100) fL MCH 30.0 (25-34) pg MCHC 33.3 (32-36) g/dL RDW Std Deviation 44.0 (36.4-46.3) fL RDW Coeff of [place]il[place] 13.3 (11.5-14.5) % Plt Count 261 (130-400) K/uL MPV 9.4 (7.4-10.4) fL Immature Gran % (Auto) 0.2 % Neut % (Auto) 25.2 % Lymph % (Auto) 69.9 % [place] % (Auto) 4.5 % Eos % (Auto) 0.1 % Baso % (Auto) 0.1 % Immature Gran # (Auto) 0.04 H (0.00-0.02) K/uL Neut # (Auto) 4.75 (1.4-6.5) K/uL Lymph # (Auto) 13.18 H (1.2-3.4) K/uL [place] # (Auto) 0.84 H (0.11-0.59) K/uL Eos # (Auto) 0.02 (0-0.5) K/uL Baso # (Auto) 0.02 (0-0.2) K/uL Smudge Cells Present PT 10.3 (9.0-12.0) Seconds INR 1.0 (0.9-1.1) APTT 26.5 (21.0-31.0) Seconds PTT Ratio 0.9 Sodium 140 (136-145) mmol/L Potassium 3.9 (3.5-5.1) mmol/L Chloride 107 (98-107) mmol/L Carbon Dioxide 30 (21-32) mmol/L Anion Gap 3.0 (3-11) BUN 9 (7-18) mg/dl Creatinine 0.75 (0.6-1.2) mg/dl Est Cr Clr Drug Dosing 102.1 ml/min Est GFR ( Amer) 102.6 Est GFR (Non-Af Amer) 88.5 BUN/Creatinine Ratio 11.6 (10-20) Glucose 96 (70-99) mg/dl Lactate (0.4-2.0) mmol/L Calcium 9.4 (8.5-10.1) mg/dl Magnesium 2.0 (1.8-2.4) mg/dl Total Bilirubin 0.2 (0.2-1) mg/dl AST 27 (15-37) U/L ALT 30 (12-78) U/L Alkaline Phosphatase 167 H (45-117) U/L Lactate Dehydrogenase (84-246) U/L Troponin I < 0.015 (0-0.045) ng/ml Total Protein 7.6 (6.4-8.2) gm/dl Albumin 3.6 (3.4-5.0) gm/dl Globulin 4.0 (2.5-4.0) gm/dl Albumin/Globulin Ratio 0.9 (0.9-2) Procalcitonin (0-0.5) ng/ml Adenovirus (PCR) (NotDetected) B. pertussis DNA (PCR) (NotDetected) B.parapertussis DNA PCR (NotDetected) C. pneumoniae DNA (PCR) (NotDetected) Coronavirus OC43 (PCR) (NotDetected) Coronavirus HKU1 (PCR) (NotDetected) Coronavirus 229E (PCR) (NotDetected) Coronavirus NL63 (PCR) (NotDetected) Human Metapneumovir PCR (NotDetected) Influenza Type A (PCR) Influenza Type B (PCR) M. pneumoniae (PCR) (NotDetected) Parainfluenza 1 (PCR) (NotDetected) Parainfluenza 2 (PCR) (NotDetected) Parainfluenza 3 (PCR) (NotDetected) Parainfluenza 4 (PCR) (NotDetected) RSV (PCR) (NotDetected) Entero/Rhino (PCR) (NotDetected) 06/03/19 06/03/19 06/03/19 Range/Units 22:38 22:38 22:38 WBC (4.8-10.8) K/uL RBC (4.2-5.4) M/uL Hgb (12.0-16.0) g/dL Hct (37-47) % MCV (80-100) fL MCH (25-34) pg MCHC (32-36) g/dL RDW Std Deviation (36.4-46.3) fL RDW Coeff of Akilah (11.5-14.5) % Plt Count (130-400) K/uL MPV (7.4-10.4) fL Immature Gran % (Auto) % Neut % (Auto) % Lymph % (Auto) % [place] % (Auto) % Eos % (Auto) % Baso % (Auto) % Immature Gran # (Auto) (0.00-0.02) K/uL Neut # (Auto) (1.4-6.5) K/uL Lymph # (Auto) (1.2-3.4) K/uL [place] # (Auto) (0.11-0.59) K/uL Eos # (Auto) (0-0.5) K/uL Baso # (Auto) (0-0.2) K/uL Smudge Cells PT (9.0-12.0) Seconds INR (0.9-1.1) APTT (21.0-31.0) Seconds PTT Ratio Sodium (136-145) mmol/L Potassium (3.5-5.1) mmol/L Chloride (98-107) mmol/L Carbon Dioxide (21-32) mmol/L Anion Gap (3-11) BUN (7-18) mg/dl Creatinine (0.6-1.2) mg/dl Est Cr Clr Drug Dosing ml/min Est GFR ( Amer) Est GFR (Non-Af Amer) BUN/Creatinine Ratio (10-20) Glucose (70-99) mg/dl Lactate 1.3 (0.4-2.0) mmol/L Calcium (8.5-10.1) mg/dl Magnesium (1.8-2.4) mg/dl Total Bilirubin (0.2-1) mg/dl AST (15-37) U/L ALT (12-78) U/L Alkaline Phosphatase (45-117) U/L Lactate Dehydrogenase 226 (84-246) U/L Troponin I (0-0.045) ng/ml Total Protein (6.4-8.2) gm/dl Albumin (3.4-5.0) gm/dl Globulin (2.5-4.0) gm/dl Albumin/Globulin Ratio (0.9-2) Procalcitonin < 0.05 (0-0.5) ng/ml Adenovirus (PCR) (NotDetected) B. pertussis DNA (PCR) (NotDetected) B.parapertussis DNA PCR (NotDetected) C. pneumoniae DNA (PCR) (NotDetected) Coronavirus OC43 (PCR) (NotDetected) Coronavirus HKU1 (PCR) (NotDetected) Coronavirus 229E (PCR) (NotDetected) Coronavirus NL63 (PCR) (NotDetected) Human Metapneumovir PCR (NotDetected) Influenza Type A (PCR) Influenza Type B (PCR) M. pneumoniae (PCR) (NotDetected) Parainfluenza 1 (PCR) (NotDetected) Parainfluenza 2 (PCR) (NotDetected) Parainfluenza 3 (PCR) (NotDetected) Parainfluenza 4 (PCR) (NotDetected) RSV (PCR) (NotDetected) Entero/Rhino (PCR) (NotDetected) 06/03/19 06/03/19 Range/Units 22:39 Unknown WBC (4.8-10.8) K/uL RBC (4.2-5.4) M/uL Hgb (12.0-16.0) g/dL Hct (37-47) % MCV (80-100) fL MCH (25-34) pg MCHC (32-36) g/dL RDW Std Deviation (36.4-46.3) fL RDW Coeff of Akilah (11.5-14.5) % Plt Count (130-400) K/uL MPV (7.4-10.4) fL Immature Gran % (Auto) % Neut % (Auto) % Lymph % (Auto) % [place] % (Auto) % Eos % (Auto) % Baso % (Auto) % Immature Gran # (Auto) (0.00-0.02) K/uL Neut # (Auto) (1.4-6.5) K/uL Lymph # (Auto) (1.2-3.4) K/uL [place] # (Auto) (0.11-0.59) K/uL Eos # (Auto) (0-0.5) K/uL Baso # (Auto) (0-0.2) K/uL Smudge Cells PT (9.0-12.0) Seconds INR (0.9-1.1) APTT (21.0-31.0) Seconds PTT Ratio Sodium (136-145) mmol/L Potassium (3.5-5.1) mmol/L Chloride (98-107) mmol/L Carbon Dioxide (21-32) mmol/L Anion Gap (3-11) BUN (7-18) mg/dl Creatinine (0.6-1.2) mg/dl Est Cr Clr Drug Dosing ml/min Est GFR ( Amer) Est GFR (Non-Af Amer) BUN/Creatinine Ratio (10-20) Glucose (70-99) mg/dl Lactate (0.4-2.0) mmol/L Calcium (8.5-10.1) mg/dl Magnesium (1.8-2.4) mg/dl Total Bilirubin (0.2-1) mg/dl AST (15-37) U/L ALT (12-78) U/L Alkaline Phosphatase (45-117) U/L Lactate Dehydrogenase (84-246) U/L Troponin I (0-0.045) ng/ml Total Protein (6.4-8.2) gm/dl Albumin (3.4-5.0) gm/dl Globulin (2.5-4.0) gm/dl Albumin/Globulin Ratio (0.9-2) Procalcitonin (0-0.5) ng/ml Adenovirus (PCR) Not Detected (NotDetected) B. pertussis DNA (PCR) Not Detected (NotDetected) B.parapertussis DNA PCR Not Detected (NotDetected) C. pneumoniae DNA (PCR) Not Detected (NotDetected) Coronavirus OC43 (PCR) Not Detected (NotDetected) Coronavirus HKU1 (PCR) Not Detected (NotDetected) Coronavirus 229E (PCR) Not Detected (NotDetected) Coronavirus NL63 (PCR) Not Detected (NotDetected) Human Metapneumovir PCR DETECTED A* (NotDetected) Influenza Type A (PCR) Cancelled Not Detected Influenza Type B (PCR) Cancelled Not Detected M. pneumoniae (PCR) Not Detected (NotDetected) Parainfluenza 1 (PCR) Not Detected (NotDetected) Parainfluenza 2 (PCR) Not Detected (NotDetected) Parainfluenza 3 (PCR) Not Detected (NotDetected) Parainfluenza 4 (PCR) Not Detected (NotDetected) RSV (PCR) Not Detected (NotDetected) Entero/Rhino (PCR) Not Detected (NotDetected) Diagnostic Findings CTA chestcompared to study from 12/27/2016Per stat read: Somewhat limited due to bolus timing and motion artifact. No clear pulmonary embolism. No aortic dissection. Left upper lobe airspace infiltrate suggesting pneumonitis. 6 mm right lower lobe nodule stable, felt to be benign. Gastric bypass ECG Additional Comments: Study shows sinus rhythm at 90 bpm, normal axis, [place] = 140, QRS = 92, QTc = 423, no acute ischemic changes, occasional PACs Code Status & VTE Plan Code Status Full code VTE Prophylaxis Plan VTE Prophylaxis will be ordered: Yes PG Care Time/CCT Total # of Minutes Spent Total Time Spent with Patient: Total time spent is greater than 50% in coordination of care (as documented) at patient's floor/unit and/or counseling patient: Coding Level of Care Code 78595 Initial Inpt Care Lvl 3 Diagnoses Pneumonitis J18.9 Pneumonia due to human metapneumovirus (hMPV) J12.3 Leukocytosis D72.820 Leukocytosis type: lymphocytosis Central hypothyroidism E03.8 Asthma J45.20 Asthma severity: mild Asthma persistence: intermittent Asthma complication type: uncomplicated (1) Asthma Asthma severity: mild Asthma persistence: intermittent Asthma complication type: uncomplicated Qualified Code(s): J45.20 - Mild intermittent asthma, uncomplicated (2) Leukocytosis Leukocytosis type: lymphocytosis Qualified Code(s): D72.820 - Lymphocytosis (symptomatic)
[2019-06-04 04:25] LABS: Appearance Urine Clear (Clear); Bilirubin Urine Negative (Negative); Blood Urine Negative (Negative); Color Urine Yellow; Glucose Urine UA Negative (Negative); Ketones Urine Negative (Negative); Leukocyte Esterase Urine Negative (Negative); Nitrite Urine Negative (Negative); Protein Urine Negative (Negative); Specific Gravity Urine 1.033 (1.000-1.030); Urobilinogen Urine Negative (Negative); pH Urine 6.5 (4.5-7.5)
[2019-06-04] MEDS ORDERED: ACETAMINOPHEN 325 MG TAB PO PRN (05:16)
[2019-06-04] MEDS ORDERED: FLUTICASONE PROPIONATE NA SPR 16 GM BTL PRN (05:16)
[2019-06-04] MEDS ORDERED: ONDANSETRON INJ 2 MG/ML 2 ML VIAL IV PRN (05:16)
[2019-06-04] MEDS ORDERED: ALBUTEROL HFA 8 GM INHALER INH PRN (05:37)
[2019-06-04] MEDS: LACTATED RINGER'S 1,000 ML IV SCH ×2 (05:44→18:30)
[2019-06-04] MEDS ORDERED: LEVOTHYROXINE SODIUM 175 MCG TABLET PO SCH (06:30)
--- NOTE | 2019-06-04 06:51 | CT Scan Report ---
CT angio chest PE protocol CT DOSE: 626.02 mGycm HISTORY: 59 years-old Female with cp/sob, fever, recent travel. Acute atypical chest pain with shor tness of breath and fever TECHNIQUE: Multiple CTA images of the chest were obtained after the intravenous administration of ml Optiray 320. Coronal and sagittal MIPS were obtained from the axial data set and were submitted for review. All measurements were obtained according to NASCET criteria. A dose lowering technique was u tilized adhering to the principles of ALARA. COMPARISON: CTA of the chest 12/27/2016, chest CT 03/04/2010 FINDINGS: CTA: The heart is mildly enlarged. No pericardial effusion. Thoracic aorta is normal in course and caliber without aneurysm or dissection. Patency of the imaged great vessels. Large portion of the contrast b olus is present within the SVC which results in streak artifact. The pulmonary arterial tree is opaci fied to the level of the lobar branches. No filling defects identified to suggest pulmonary thromboem bolic disease. CT CHEST: Partially calcified right thyroid nodule. Prominent AP window and prevascular lymph nodes with mildly enlarged paratracheal and subcarinal lymph nodes measuring up to 10 mm. There is no pneumothorax or pleural effusion. 7 mm solid pulmonary nodule of the basal right lower lobe is unchanged dating back to thousand and 10 compatible with benign etiology. Mild bibasilar groundglass densities suggest atel ectasis. Patchy consolidative and nodular groundglass densities are most pronounced in the lingula an d left upper lobe and to a lesser extent within the left lower lobe. Mild bilateral bronchial wall th ickening suggests bronchitis. The central airways appear patent. There is decreased AP dimension of t he trachea which may reflect tracheomalacia. Prior gastric bypass. Mildly distended distal esophagus. No acute processes of the imaged upper abdom en. Soft tissues and breast parenchyma appear unremarkable. Degenerative changes of the shoulders and spine. IMPRESSION: 1. Limited evaluation of the pulmonary arterial tree secondary to contrast bolus timing. Within the l imitations of the study, no pulmonary emboli identified. 2. Patchy consolidative and nodular groundglass densities are most pronounced the lingula and left up per lobe and to a lesser extent within the left lower lobe suggestive of pneumonia. 3. Mild reactive mediastinal adenopathy. 4. No pleural effusion. ACT 112: Negative or not required by law. The above report was generated using voice recognition software. It may contain grammatical, syntax o r spelling errors. Electronically signed by: Julian Howard M.D. 06/04/2019 6:50 AM
[2019-06-04] MEDS: MIRABEGRON ER 25 MG TAB PO SCH (09:39)
[2019-06-04] MEDS: DULOXETINE HCL 60 MG CAP PO SCH (09:39)
[2019-06-04] MEDS: guaiFENesin 600 MG TABCR PO SCH ×2 (09:39→20:35)
[2019-06-04] MEDS: ENOXAPARIN INJ 40 MG/0.4 ML SYR SQ SCH (09:39)
[2019-06-04] MEDS: BENZONATATE 100 MG CAPSULE PO SCH ×3 (09:39→20:35)
[2019-06-04] MEDS: KETOROLAC TROMETHAMINE 15 MG/ML VIAL IV PRN ×2 (09:52→20:59)
--- NOTE | 2019-06-04 16:25 | Electrocardiogram Report ---
Test Reason : Blood Pressure : / mmHG Vent. Rate : 090 BPM Atrial Rate : 090 BPM P-R Int : 140 ms QRS Dur : 092 ms QT Int : 346 ms P-R-T Axes : 061 057 021 degrees QTc Int : 423 ms Sinus rhythm with Premature atrial complexes Otherwise normal ECG When compared with ECG of 27-DEC-2016 10:48, Premature atrial complexes are now Present Confirmed by Oscar Yu ([id number]) on 06/04/2019 4:24:59 PM Referred By: REFERRED SELF Confirmed By:Oscar Yu
[2019-06-04] MEDS: ALBUTEROL HFA 8 GM INHALER INH SCH (17:45)
[2019-06-04] MEDS ORDERED: SODIUM CHLORIDE 0.65% NA SOLN 45 ML (OCEAN) PRN (18:56)
--- NOTE | 2019-06-04 18:59 | Hospitalist Progress Note ---
Date of Service June 04, 2019 Assessment & Plan (1) Pneumonitis: Patient presented with 4 days of worsening cough, shortness of breath, hypoxia, and fever at home. She had a travel history to [facility]. Her also may have had exposure to his employees in [facility] with positive testing for CoVid-19 Patient with pneumonitis of lingula, left upper lobe, and some left lower lobe as per chest CT. Remains afebrile, and tachycardia and tachypnea have resolved Hypoxia is improved now 99-100% at rest but still dropping to 88% with ambulation Patient with marked leukocytosis with WBC = 18.85, lymphocyte predominant, however has a history of likely CLL being followed by hematology. Her LDH and coags are normal as are her LFTs with exception of elevated alk phos = 167, patient with history of the same. Procalcitonin negative. [facility] respiratory panel performed by ER which was positive for Human Metapneumovirus. However, given patient's travel history and possible exposure to CoVid-19, a coronavirus test per [facility] was sent. Overall minor improvement since yesterday -Antibiotics are not necessary in this situation -Continue supportive care Supplemental oxygen as needed to keep pulse ox greater than 88-90% Continue albuterol HFA but changed to 2 puffs every 6 hours on a scheduled basis given her history of asthma with exacerbation ongoing -Would avoid steroids in the setting of a viral pneumonia-of note, she did rec eive 1 dose of dexamethasone 10 mg IV on the day of admission -Continue Tylenol as needed for pain or fever but will discontinue IV Toradol/NSAIDs as she has a history of gastric bypass and is at risk for anastomotic ulcers -Continue Mucinex 1200 mg p.o. twice daily Continue scheduled Tessalon 3 times daily but will increase dose to 200 mg to help with cough -Add nasal saline for ear pressure and sinus congestion We will continue with isolation precautionsAIRBORNE AND CONTACT, negative pressure isolation. Personal protective equipment should include hat, face shield, N95, gown, gloves and isolation stethoscope until coronavirus ruled out SARS CoV-2 RNA test pending-will follow -Continue IV fluids until taking better p.o. (2) Pneumonia due to human metapneumovirus (hMPV): Management as above Symptoms would be expected to last approximately 1 week There is no specific antiviral treatment for this (3) Hypoxemia: Acute respiratory failure with hypoxia-secondary to human metapneumovirus pneumonia and asthma exacerbation -Improving, weaned to room air at rest but still requiring oxygen with a mbulation -Continue supplemental O2 as above (4) Leukocytosis: Patient with lymphocyte predominant leukocytosis with WBC = 18.85. She reports that she is suspected to have CLL and is currently following with hematology/oncology. No formal diagnosis has been made yet. Continue to monitor Patient should continue regular outpatient heme-onc follow-up as scheduled (5) Central hypothyroidism: Chronic. Last TSH was undetectable in 04/2019 She follows with endocrinology Continue levothyroxine 175 mcg daily (6) Asthma: Patient with history of well-controlled asthma. Had diffuse end expiratory wheezing in the setting of acute viral pneumonia/pneumonitis upon ad mission which is now improving with bronchodilators. Continue albuterol HFA every 6 hours-changed to scheduled Would avoid nebs if possible due to concern for coronavirus to reduce risk of aerosolization of viral particles -Avoiding prednisone as above in the setting of a viral pneumonia as this could prolong the course (7) Gastric bypass status for obesity: Noted -Avoid NSAIDs (8) DVT prophylaxis: ProphylaxisLovenox 40 mg subcu daily Codefull code Dispositioncontinued stay Admission and Anticipated Discharge Date Admission Date: June 04, 2019 Anticipated date of discharge: 06/06/19 Subjective Patient reports continued nonproductive cough and dyspnea with exertion. She is now off oxygen at rest but still is requiring some oxygen with ambulation to the bathroom. She reports constant pains across her anterior chest wall that are worse with taking deep breaths and with coughing. She is also having diffuse myalgias and arthralgias, mild headache, and poor appetite. She thinks that her wheezing and breathing have improved somewhat with making the albuterol inhaler scheduled. No abdominal pains. She is having some small amounts of loose stool. She is making plenty of urine. Telemetry with normal sinus rhythm with rates in the 70s to 80s Review of Systems Review of Systems: All systems reviewed & are unremarkable except as noted in HPI & below Physical Exam Constitutional: + ill appearing (Mild) and average body habitus; no acute distress and not lethargic Eyes: + anicteric sclerae ENMT: external ear and nose normal, oropharynx normal Neck: trachea midline, no thyromegaly Respiratory: normal respiratory effort Auscultation: + crackles (Left upper and middle lung ven[place]); no rhonchi and no wheezes Cardiovascular: RRR, no murmur, no edema Chest (Breasts): Chest: normal inspection of chest Gastrointestinal (Abdomen): normal bowel sounds, soft, nontender, no hepatosplenomegaly Musculoskeletal: Extremities: extremities normal to inspection; no cyanosis and no clubbing Skin: no rashes, warm and dry Neurologic: moves all extremities and awake; no focal motor deficits Psychiatric: A+Ox3, euthymic affect Lymphatic: no lymphedema Results & Data ([facility]) Vital Signs (Past 12 Hours) Vital Signs Temp Pulse Pulse Resp BP Pulse Ox 06/04/19 16:00 76 06/04/19 11:18 36.7 C 73 18 136/81 93 06/04/19 08:00 98 06/04/19 07:53 74 Laboratory Results 06/04/19 06/03/19 06/03/19 Range/Units 04:05 Unknown 22:39 WBC (4.8-10.8) K/uL RBC (4.2-5.4) M/uL Hgb (12.0-16.0) g/dL Hct (37-47) % MCV (80-100) fL MCH (25-34) pg MCHC (32-36) g/dL RDW Std Deviation (36.4-46.3) fL RDW Coeff of Akilah (11.5-14.5) % Plt Count (130-400) K/uL MPV (7.4-10.4) fL Immature Gran % (Auto) % Neut % (Auto) % Lymph % (Auto) % [place] % (Auto) % Eos % (Auto) % Baso % (Auto) % Immature Gran # (Auto) (0.00-0.02) K/uL Neut # (Auto) (1.4-6.5) K/uL Lymph # (Auto) (1.2-3.4) K/uL [place] # (Auto) (0.11-0.59) K/uL Eos # (Auto) (0-0.5) K/uL Baso # (Auto) (0-0.2) K/uL Smudge Cells PT (9.0-12.0) Seconds INR (0.9-1.1) APTT (21.0-31.0) Seconds PTT Ratio Sodium (136-145) mmol/L Potassium (3.5-5.1) mmol/L Chloride (98-107) mmol/L Carbon Dioxide (21-32) mmol/L Anion Gap (3-11) BUN (7-18) mg/dl Creatinine (0.6-1.2) mg/dl Est Cr Clr Drug Dosing ml/min Est GFR ( Amer) Est GFR (Non-Af Amer) BUN/Creatinine Ratio (10-20) Glucose (70-99) mg/dl Lactate (0.4-2.0) mmol/L Calcium (8.5-10.1) mg/dl Phosphorus (2.5-4.9) mg/dl Magnesium (1.8-2.4) mg/dl Total Bilirubin (0.2-1) mg/dl AST (15-37) U/L ALT (12-78) U/L Alkaline Phosphatase (45-117) U/L Lactate Dehydrogenase (84-246) U/L Troponin I (0-0.045) ng/ml Total Protein (6.4-8.2) gm/dl Albumin (3.4-5.0) gm/dl Globulin (2.5-4.0) gm/dl Albumin/Globulin Ratio (0.9-2) Procalcitonin (0-0.5) ng/ml Urine Color Yellow Urine Appearance Clear (Clear) Urine pH 6.5 (4.5-7.5) Ur Specific Gerton 1.033 H (1.000-1.030) Urine Protein Negative (Negative) Urine Glucose (UA) Negative (Negative) Urine Ketones Negative (Negative) Urine Blood Negative (Negative) Urine Nitrite Negative (Negative) Urine Bilirubin Negative (Negative) Urine Urobilinogen Negative (Negative) Ur Leukocyte Esterase Negative (Negative) Adenovirus (PCR) Not Detected (NotDetected) B. pertussis DNA (PCR) Not Detected (NotDetected) B.parapertussis DNA PCR Not Detected (NotDetected) C. pneumoniae DNA (PCR) Not Detected (NotDetected) Coronavirus (PCR) Pending Coronavirus OC43 (PCR) Not Detected (NotDetected) Coronavirus HKU1 (PCR) Not Detected (NotDetected) Coronavirus 229E (PCR) Not Detected (NotDetected) Coronavirus NL63 (PCR) Not Detected (NotDetected) Human Metapneumovir PCR DETECTED A* (NotDetected) Influenza Type A (PCR) Not Detected Influenza Type B (PCR) Not Detected M. pneumoniae (PCR) Not Detected (NotDetected) Parainfluenza 1 (PCR) Not Detected (NotDetected) Parainfluenza 2 (PCR) Not Detected (NotDetected) Parainfluenza 3 (PCR) Not Detected (NotDetected) Parainfluenza 4 (PCR) Not Detected (NotDetected) RSV (PCR) Not Detected (NotDetected) Respiratory Virus Sourc Pending Entero/Rhino (PCR) Not Detected (NotDetected) Misc Test Comment Pending 06/03/19 06/03/19 06/03/19 Range/Units 22:39 22:38 22:38 WBC (4.8-10.8) K/uL RBC (4.2-5.4) M/uL Hgb (12.0-16.0) g/dL Hct (37-47) % MCV (80-100) fL MCH (25-34) pg MCHC (32-36) g/dL RDW Std Deviation (36.4-46.3) fL RDW Coeff of Akilah (11.5-14.5) % Plt Count (130-400) K/uL MPV (7.4-10.4) fL Immature Gran % (Auto) % Neut % (Auto) % Lymph % (Auto) % [place] % (Auto) % Eos % (Auto) % Baso % (Auto) % Immature Gran # (Auto) (0.00-0.02) K/uL Neut # (Auto) (1.4-6.5) K/uL Lymph # (Auto) (1.2-3.4) K/uL [place] # (Auto) (0.11-0.59) K/uL Eos # (Auto) (0-0.5) K/uL Baso # (Auto) (0-0.2) K/uL Smudge Cells PT (9.0-12.0) Seconds INR (0.9-1.1) APTT (21.0-31.0) Seconds PTT Ratio Sodium (136-145) mmol/L Potassium (3.5-5.1) mmol/L Chloride (98-107) mmol/L Carbon Dioxide (21-32) mmol/L Anion Gap (3-11) BUN (7-18) mg/dl Creatinine (0.6-1.2) mg/dl Est Cr Clr Drug Dosing ml/min Est GFR ( Amer) Est GFR (Non-Af Amer) BUN/Creatinine Ratio (10-20) Glucose (70-99) mg/dl Lactate (0.4-2.0) mmol/L Calcium (8.5-10.1) mg/dl Phosphorus 2.6 (2.5-4.9) mg/dl Magnesium (1.8-2.4) mg/dl Total Bilirubin (0.2-1) mg/dl AST (15-37) U/L ALT (12-78) U/L Alkaline Phosphatase (45-117) U/L Lactate Dehydrogenase 226 (84-246) U/L Troponin I (0-0.045) ng/ml Total Protein (6.4-8.2) gm/dl Albumin (3.4-5.0) gm/dl Globulin (2.5-4.0) gm/dl Albumin/Globulin Ratio (0.9-2) Procalcitonin (0-0.5) ng/ml Urine Color Urine Appearance (Clear) Urine pH (4.5-7.5) Ur Specific Gerton (1.000-1.030) Urine Protein (Negative) Urine Glucose (UA) (Negative) Urine Ketones (Negative) Urine Blood (Negative) Urine Nitrite (Negative) Urine Bilirubin (Negative) Urine Urobilinogen (Negative) Ur Leukocyte Esterase (Negative) Adenovirus (PCR) (NotDetected) B. pertussis DNA (PCR) (NotDetected) B.parapertussis DNA PCR (NotDetected) C. pneumoniae DNA (PCR) (NotDetected) Coronavirus (PCR) Coronavirus OC43 (PCR) (NotDetected) Coronavirus HKU1 (PCR) (NotDetected) Coronavirus 229E (PCR) (NotDetected) Coronavirus NL63 (PCR) (NotDetected) Human Metapneumovir PCR (NotDetected) Influenza Type A (PCR) Cancelled Influenza Type B (PCR) Cancelled M. pneumoniae (PCR) (NotDetected) Parainfluenza 1 (PCR) (NotDetected) Parainfluenza 2 (PCR) (NotDetected) Parainfluenza 3 (PCR) (NotDetected) Parainfluenza 4 (PCR) (NotDetected) RSV (PCR) (NotDetected) Respiratory Virus Sourc Entero/Rhino (PCR) (NotDetected) Misc Test Comment 06/03/19 06/03/19 06/03/19 Range/Units 22:38 22:38 22:38 WBC (4.8-10.8) K/uL RBC (4.2-5.4) M/uL Hgb (12.0-16.0) g/dL Hct (37-47) % MCV (80-100) fL MCH (25-34) pg MCHC (32-36) g/dL RDW Std Deviation (36.4-46.3) fL RDW Coeff of Akilah (11.5-14.5) % Plt Count (130-400) K/uL MPV (7.4-10.4) fL Immature Gran % (Auto) % Neut % (Auto) % Lymph % (Auto) % [place] % (Auto) % Eos % (Auto) % Baso % (Auto) % Immature Gran # (Auto) (0.00-0.02) K/uL Neut # (Auto) (1.4-6.5) K/uL Lymph # (Auto) (1.2-3.4) K/uL [place] # (Auto) (0.11-0.59) K/uL Eos # (Auto) (0-0.5) K/uL Baso # (Auto) (0-0.2) K/uL Smudge Cells PT (9.0-12.0) Seconds INR (0.9-1.1) APTT (21.0-31.0) Seconds PTT Ratio Sodium 140 (136-145) mmol/L Potassium 3.9 (3.5-5.1) mmol/L Chloride 107 (98-107) mmol/L Carbon Dioxide 30 (21-32) mmol/L Anion Gap 3.0 (3-11) BUN 9 (7-18) mg/dl Creatinine 0.75 (0.6-1.2) mg/dl Est Cr Clr Drug Dosing 102.1 ml/min Est GFR ( Amer) 102.6 Est GFR (Non-Af Amer) 88.5 BUN/Creatinine Ratio 11.6 (10-20) Glucose 96 (70-99) mg/dl Lactate 1.3 (0.4-2.0) mmol/L Calcium 9.4 (8.5-10.1) mg/dl Phosphorus (2.5-4.9) mg/dl Magnesium 2.0 (1.8-2.4) mg/dl Total Bilirubin 0.2 (0.2-1) mg/dl AST 27 (15-37) U/L ALT 30 (12-78) U/L Alkaline Phosphatase 167 H (45-117) U/L Lactate Dehydrogenase (84-246) U/L Troponin I < 0.015 (0-0.045) ng/ml Total Protein 7.6 (6.4-8.2) gm/dl Albumin 3.6 (3.4-5.0) gm/dl Globulin 4.0 (2.5-4.0) gm/dl Albumin/Globulin Ratio 0.9 (0.9-2) Procalcitonin < 0.05 (0-0.5) ng/ml Urine Color Urine Appearance (Clear) Urine pH (4.5-7.5) Ur Specific Gerton (1.000-1.030) Urine Protein (Negative) Urine Glucose (UA) (Negative) Urine Ketones (Negative) Urine Blood (Negative) Urine Nitrite (Negative) Urine Bilirubin (Negative) Urine Urobilinogen (Negative) Ur Leukocyte Esterase (Negative) Adenovirus (PCR) (NotDetected) B. pertussis DNA (PCR) (NotDetected) B.parapertussis DNA PCR (NotDetected) C. pneumoniae DNA (PCR) (NotDetected) Coronavirus (PCR) Coronavirus OC43 (PCR) (NotDetected) Coronavirus HKU1 (PCR) (NotDetected) Coronavirus 229E (PCR) (NotDetected) Coronavirus NL63 (PCR) (NotDetected) Human Metapneumovir PCR (NotDetected) Influenza Type A (PCR) Influenza Type B (PCR) M. pneumoniae (PCR) (NotDetected) Parainfluenza 1 (PCR) (NotDetected) Parainfluenza 2 (PCR) (NotDetected) Parainfluenza 3 (PCR) (NotDetected) Parainfluenza 4 (PCR) (NotDetected) RSV (PCR) (NotDetected) Respiratory Virus Sourc Entero/Rhino (PCR) (NotDetected) Misc Test Comment 06/03/19 06/03/19 Range/Units 22:38 22:38 WBC 18.85 H (4.8-10.8) K/uL RBC 4.44 (4.2-5.4) M/uL Hgb 13.3 (12.0-16.0) g/dL Hct 39.9 (37-47) % MCV 89.9 (80-100) fL MCH 30.0 (25-34) pg MCHC 33.3 (32-36) g/dL RDW Std Deviation 44.0 (36.4-46.3) fL RDW Coeff of Akilah 13.3 (11.5-14.5) % Plt Count 261 (130-400) K/uL MPV 9.4 (7.4-10.4) fL Immature Gran % (Auto) 0.2 % Neut % (Auto) 25.2 % Lymph % (Auto) 69.9 % [place] % (Auto) 4.5 % Eos % (Auto) 0.1 % Baso % (Auto) 0.1 % Immature Gran # (Auto) 0.04 H (0.00-0.02) K/uL Neut # (Auto) 4.75 (1.4-6.5) K/uL Lymph # (Auto) 13.18 H (1.2-3.4) K/uL [place] # (Auto) 0.84 H (0.11-0.59) K/uL Eos # (Auto) 0.02 (0-0.5) K/uL Baso # (Auto) 0.02 (0-0.2) K/uL Smudge Cells Present PT 10.3 (9.0-12.0) Seconds INR 1.0 (0.9-1.1) APTT 26.5 (21.0-31.0) Seconds PTT Ratio 0.9 Sodium (136-145) mmol/L Potassium (3.5-5.1) mmol/L Chloride (98-107) mmol/L Carbon Dioxide (21-32) mmol/L Anion Gap (3-11) BUN (7-18) mg/dl Creatinine (0.6-1.2) mg/dl Est Cr Clr Drug Dosing ml/min Est GFR ( Amer) Est GFR (Non-Af Amer) BUN/Creatinine Ratio (10-20) Glucose (70-99) mg/dl Lactate (0.4-2.0) mmol/L Calcium (8.5-10.1) mg/dl Phosphorus (2.5-4.9) mg/dl Magnesium (1.8-2.4) mg/dl Total Bilirubin (0.2-1) mg/dl AST (15-37) U/L ALT (12-78) U/L Alkaline Phosphatase (45-117) U/L Lactate Dehydrogenase (84-246) U/L Troponin I (0-0.045) ng/ml Total Protein (6.4-8.2) gm/dl Albumin (3.4-5.0) gm/dl Globulin (2.5-4.0) gm/dl Albumin/Globulin Ratio (0.9-2) Procalcitonin (0-0.5) ng/ml Urine Color Urine Appearance (Clear) Urine pH (4.5-7.5) Ur Specific Gerton (1.000-1.030) Urine Protein (Negative) Urine Glucose (UA) (Negative) Urine Ketones (Negative) Urine Blood (Negative) Urine Nitrite (Negative) Urine Bilirubin (Negative) Urine Urobilinogen (Negative) Ur Leukocyte Esterase (Negative) Adenovirus (PCR) (NotDetected) B. pertussis DNA (PCR) (NotDetected) B.parapertussis DNA PCR (NotDetected) C. pneumoniae DNA (PCR) (NotDetected) Coronavirus (PCR) Coronavirus OC43 (PCR) (NotDetected) Coronavirus HKU1 (PCR) (NotDetected) Coronavirus 229E (PCR) (NotDetected) Coronavirus NL63 (PCR) (NotDetected) Human Metapneumovir PCR (NotDetected) Influenza Type A (PCR) Influenza Type B (PCR) M. pneumoniae (PCR) (NotDetected) Parainfluenza 1 (PCR) (NotDetected) Parainfluenza 2 (PCR) (NotDetected) Parainfluenza 3 (PCR) (NotDetected) Parainfluenza 4 (PCR) (NotDetected) RSV (PCR) (NotDetected) Respiratory Virus Sourc Entero/Rhino (PCR) (NotDetected) Misc Test Comment PG Care Time/CCT Total # of Minutes Spent Total Time Spent with Patient: Total time spent is greater than 50% in coordination of care (as documented) at patient's floor/unit and/or counseling patient: Coding Level of Care Code 78683 Subseq Hosp Care Lvl 3 Diagnoses Pneumonitis J18.9 Pneumonia due to human metapneumovirus (hMPV) J12.3 Hypoxemia R09.02 Leukocytosis D72.820 Leukocytosis type: lymphocytosis Central hypothyroidism E03.8 Asthma J45.20 Asthma complication type: uncomplicated Asthma persistence: intermittent Asthma severity: mild Gastric bypass status for obesity Z98.84 DVT prophylaxis Z29.9 (1) Leukocytosis Leukocytosis type: lymphocytosis Qualified Code(s): D72.820 - Lymphocytosis (symptomatic) (2) Asthma Asthma complication type: uncomplicated Asthma persistence: intermittent Asthma severity: mild Qualified Code(s): J45.20 - Mild intermittent asthma, uncomplicated
[2019-06-04] MEDS ORDERED: ZOLPIDEM TARTRATE 5 MG TAB PO STA (21:32)
[2019-06-04] MEDS: AMITRIPTYLINE HCL 25 MG TAB PO PRN (22:19)
[2019-06-05] MEDS: ALBUTEROL HFA 8 GM INHALER INH SCH ×2 (02:04→05:32)
[2019-06-05] MEDS ORDERED: ZOLPIDEM TARTRATE 5 MG TAB PO ONE (02:12)
[2019-06-05] MEDS ORDERED: guaiFENesin SUGAR FREE 100 MG/5 ML UDC PO STA (03:26)
[2019-06-05] MEDS: ACETAMINOPHEN 500 MG TAB PO PRN ×3 (03:36→19:02)
[2019-06-05] MEDS: LEVOTHYROXINE SODIUM 175 MCG TABLET PO SCH (05:35)
[2019-06-05 06:48] LABS: Hematocrit (blood only) 34.1 % (37-47); Hemoglobin 11.1 g/dL (12.0-16.0); Mean Corpuscular Hemoglobin 29.4 pg (25-34); Mean Corpuscular Hgb Conc 32.6 g/dL (32-36); Mean Corpuscular Volume 90.2 fL (80-100); Mean Platelet Volume 9.4 fL (7.4-10.4); Platelet Count 194 K/uL (130-400); RDW Coefficient of Variation 13.7 % (11.5-14.5); RDW Standard Deviation 45.4 fL (36.4-46.3); Red Blood Count 3.78 M/uL (4.2-5.4)
[2019-06-05 07:29] LABS: Alanine Aminotransferase 26 U/L (12-78); Albumin Level 2.7 gm/dl (3.4-5.0); Alkaline Phosphatase 122 U/L (45-117); Aspartate Aminotransferase 28 U/L (15-37); BUN Creatinine Ratio 14.5 (10-20); Bilirubin Direct < 0.1 mg/dl (0-0.2); Bilirubin,Total 0.3 mg/dl (0.2-1); Blood Urea Nitrogen 10 mg/dl (7-18); Calcium 8.2 mg/dl (8.5-10.1); Carbon Dioxide 27 mmol/L (21-32); Chloride 106 mmol/L (98-107); Creatinine Clr Calc Pharmacy 110.9 ml/min; Est GFR (Non-African American) 96.6; Glucose 93 mg/dl (70-99); Potassium 3.3 mmol/L (3.5-5.1); Sodium 139 mmol/L (136-145); Total Protein 5.9 gm/dl (6.4-8.2)
[2019-06-05 07:51] LABS: Basophils # (auto) 0.02 K/uL (0-0.2); Basophils % (auto) 0.2 %; Eosinophils # (auto) 0.01 K/uL (0-0.5); Eosinophils % (auto) 0.1 %; Immature Granulocytes # (auto) 0.02 K/uL (0.00-0.02); Immature Granulocytes % (auto) 0.2 %; Lymphocytes # (auto) 7.82 K/uL (1.2-3.4); Lymphocytes % (auto) 62.6 %; Monocytes # (auto) 0.51 K/uL (0.11-0.59); Monocytes % (auto) 4.1 %; Neutrophils # (auto) 4.12 K/uL (1.4-6.5); Neutrophils % (auto) 32.8 %; Smudge Cells Present
[2019-06-05] MEDS ORDERED: POTASSIUM CHLORIDE 20 MEQ TABCR PO STA (08:04)
[2019-06-05] MEDS: MIRABEGRON ER 25 MG TAB PO SCH (08:11)
[2019-06-05] MEDS: DULOXETINE HCL 60 MG CAP PO SCH (08:11)
[2019-06-05] MEDS: BENZONATATE 100 MG CAPSULE PO SCH ×3 (08:11→21:04)
[2019-06-05] MEDS: ENOXAPARIN INJ 40 MG/0.4 ML SYR SQ SCH (08:11)
[2019-06-05] MEDS: guaiFENesin 600 MG TABCR PO SCH ×2 (08:11→21:03)
--- NOTE | 2019-06-05 09:36 | XRay Report ---
XR chest 1V portable CLINICAL HISTORY: f/u pneumonia dyspnea COMPARISON STUDY: CT 06/03/2019 FINDINGS: Parenchymal infiltrates throughout the left mid to lower lung as well as right base. Pulmon anuradha apices are clear. Diaphragms are smooth. IMPRESSION: Bilateral parenchymal infiltrates similar to the prior CT study. ACT 112: Negative or not required by law. The above report was generated using voice recognition software. It may contain grammatical, syntax or spelling errors. Electronically signed by: Gunner Pearce M.D. 06/05/2019 9:35 AM
[2019-06-05] MEDS: ALBUT/IPRATROP 3MG/0.5MG NEB 3 ML VIAL NEB SCH ×3 (12:28→19:28)
[2019-06-05] MEDS ORDERED: AZITHROMYCIN 500 MG in DEXTROSE 5% 250 ML IV ONE (12:30)
[2019-06-05] MEDS: HYDROCODONE/HOMATROPINE SYRUP 5MG/1.5MG 5ML UDP PO PRN ×2 (12:58→21:26)
[2019-06-05] MEDS: predniSONE 20 MG TAB PO SCH (12:58)
[2019-06-05] MEDS ORDERED: IPRATROPIUM BROMIDE/ALBUTEROL respimat INH INH SCH (13:00)
[2019-06-05] MEDS: cefTRIAXone SODIUM 2,000 MG in DEXTROSE 5% 50 ML IV SCH (13:00)
--- NOTE | 2019-06-05 15:09 | Hospitalist Progress Note ---
Date of Service June 05, 2019 Assessment & Plan (1) Pneumonitis: Patient presented with 4 days of worsening cough, shortness of breath, hypoxia, and fever at home. She had a travel history to [facility] through various airports. Her also may have had exposure to his employees in [facility] with positive testing for CoVid-19 Patient with pneumonitis of lingula, left upper lobe, and some left lower lobe as per chest CT upon admission. Fevers have started back up again on 06/04 and tachycardia and tachypnea remain intermittent Hypoxia is improved now 99-100% at rest but still dropping to 88% with ambulation Patient with marked leukocytosis with WBC = 18.85, lymphocyte predominant, however has a history of likely CLL being followed by hematology. Leukocytosis improved today down to 12 Her LDH and coags are normal as are her LFTs with exception of elevated alk phos = 167, patient with history of the same. Procalcitonin negative on admission and again on repeat on 06/04 [facility] respiratory panel performed by ER which was positive for Human Metapneumovirus. However, given patient's travel history and possible exposure to CoVid-19, a coronavirus test per [employer] was sent. Given no improvement in respiratory status, worsening lung exam, chest x-ray appears with worse infiltrate then CT chest on admission, and recurrence of fever, will treat for secondary bacterial infection as per my discussion with pulmonology MRSA swab negative -Start ceftriaxone and azithromycin -Continue supportive care Supplemental oxygen as needed to keep pulse ox greater than 88-90% Change albuterol HFA to DuoNebs every 6 hours given her history of asthma with exacerbation ongoing -Would ordinarily avoid steroids in the setting of a viral pneumonia-however, with increased wheezing today, will start prednisone 40 mg daily for 5-day co urse as per pulmonary recommendation -Continue Tylenol as needed for pain or fever-avoid NSAIDs as she has a history of gastric bypass and is at risk for anastomotic ulcers -Continue Mucinex 1200 mg p.o. twice daily Continue scheduled Tessalon 3 times daily and add Hycodan as needed for cough -Continue nasal saline for ear pressure and sinus congestion We will continue with isolation precautionsAIRBORNE AND CONTACT, negative pressure isolation. Personal protective equipment should include hat, face shield, N95, gown, gloves and isolation stethoscope until coronavirus ruled out SARS CoV-2 RNA test pending-will follow -Continue IV fluids until taking better p.o. (2) Pneumonia due to human metapneumovirus (hMPV): Management as above Symptoms would be expected to last approximately 1 week There is no specific antiviral treatment for this (3) Hypoxemia: Acute respiratory failure with hypoxia-secondary to human metapneumovirus pneumonia and asthma exacerbation -Improving, weaned to room air at rest but still requiring oxygen with ambulation -Continue supplemental O2 as above (4) Leukocytosis: Patient with lymphocyte predominant leukocytosis with WBC = 18.85 and now is improved down to 12. She reports that she is suspected to have CLL and is currently following with hematology/oncology. No formal diagnosis has been made yet. Is also likely contributes to her immunosuppression Continue to monitor Patient should continue regular outpatient heme-onc follow-up as scheduled (5) Central hypothyroidism: Chronic. Last TSH was undetectable in 04/2019 She follows with endocrinology Continue levothyroxine 175 mcg daily (6) Asthma: Patient with history of well-controlled asthma. Had diffuse end expiratory wheezing in the setting of acute viral pneumonia/pneumonitis upon admission which remains Changed to scheduled duo nebs from HFA as above Starting prednisone as above (7) Gastric bypass status for obesity: Noted -Avoid NSAIDs (8) Hypokalemia: Replace with p.o. potassium -Follow BMP in the morning (9) Overactive bladder: Continue Myrbetriq (10) Insomnia: Continue amitriptyline as needed (11) DVT prophylaxis: ProphylaxisLovenox 40 mg subcu daily Codefull code Dispositioncontinued stay Admission and Anticipated Discharge Date Admission Date: June 04, 2019 Anticipated date of discharge: 06/08/19 Subjective Patient still feeling short of breath with exertion, feels heaviness in her chest all the time and increased pain in the chest with deep breathing. Still coughing but finally bringing up sputum. Wheezing more today. Spiking fevers again. Still has aches all over her body, some mild generalized abdominal pain and a couple loose stools. She is making plenty of urine Telemetry with normal sinus rhythm and sinus tachycardia with rates in the 90s to 100s I discussed the case with the on-call lymphedema therapist and reviewed the chest x-ray and the clinical picture-recommendations and assessment and plan as below Patient reports feeling very tired today and has not slept much at all the last 2 nights due to coughing. She did just receive a dose of Hycodan before I saw her and was drowsy throughout her interview Review of Systems Review of Systems: All systems reviewed & are unremarkable except as noted in HPI & below Physical Exam Constitutional: + ill appearing (Mild) and average body habitus; no acute distress and not lethargic Eyes: + anicteric sclerae Neck: trachea midline, no thyromegaly Respiratory: normal respiratory effort Auscultation: + crackles (Left upper and middle lung veneg[place] and right lower lung field), + rhonchi (Left middle and upper lung veneg[place]) and + wheezes (Occasional faint expiratory wheeze) Cardiovascular: RRR, no murmur, no edema Chest (Breasts): Chest: normal inspection of chest Gastrointestinal (Abdomen): normal bowel sounds, soft, nontender, no hepatosplenomegaly Musculoskeletal: Extremities: extremities normal to inspection; no cyanosis and no clubbing Skin: no rashes, warm and dry Neurologic: moves all extremities and awake; no focal motor deficits Psychiatric: Orientation: alert and oriented x 3 Affect: + flat affect Lymphatic: no lymphedema Results & Data ([facility]) Vital Signs (Past 12 Hours) Vital Signs Temp Pulse Resp BP Pulse Ox 06/05/19 12:28 87 18 91 06/05/19 11:30 37.8 C H 06/05/19 11:00 37.3 C 93 H 18 148/79 H 96 06/05/19 07:00 37.0 C 84 18 132/77 96 Laboratory Results 06/05/19 06/05/19 06/05/19 Range/Units 13:15 12:09 06:17 WBC (4.8-10.8) K/uL RBC (4.2-5.4) M/uL Hgb (12.0-16.0) g/dL Hct (37-47) % MCV (80-100) fL MCH (25-34) pg MCHC (32-36) g/dL RDW Std Deviation (36.4-46.3) fL RDW Coeff of Akilah (11.5-14.5) % Plt Count (130-400) K/uL MPV (7.4-10.4) fL Immature Gran % (Auto) % Neut % (Auto) % Lymph % (Auto) % Stone % (Auto) % Eos % (Auto) % Baso % (Auto) % Immature Gran # (Auto) (0.00-0.02) K/uL Neut # (Auto) (1.4-6.5) K/uL Lymph # (Auto) (1.2-3.4) K/uL Stone # (Auto) (0.11-0.59) K/uL Eos # (Auto) (0-0.5) K/uL Baso # (Auto) (0-0.2) K/uL Smudge Cells Blood Smear Review Sodium 139 (136-145) mmol/L Potassium 3.3 L D (3.5-5.1) mmol/L Chloride 106 (98-107) mmol/L Carbon Dioxide 27 (21-32) mmol/L Anion Gap 5.0 (3-11) BUN 10 (7-18) mg/dl Creatinine 0.69 (0.6-1.2) mg/dl Est Cr Clr Drug Dosing 110.9 ml/min Est GFR ( Amer) 112.0 Est GFR (Non-Af Amer) 96.6 BUN/Creatinine Ratio 14.5 (10-20) Glucose 93 (70-99) mg/dl Calcium 8.2 L (8.5-10.1) mg/dl Total Bilirubin 0.3 (0.2-1) mg/dl Direct Bilirubin < 0.1 (0-0.2) mg/dl AST 28 (15-37) U/L ALT 26 (12-78) U/L Alkaline Phosphatase 122 H (45-117) U/L Total Protein 5.9 L D (6.4-8.2) gm/dl Albumin 2.7 L (3.4-5.0) gm/dl Procalcitonin < 0.05 (0-0.5) ng/ml Nasal Screen MRSA (PCR) Negative (Negative) 06/05/19 Range/Units 06:17 WBC 12.50 H (4.8-10.8) K/uL RBC 3.78 L (4.2-5.4) M/uL Hgb 11.1 L (12.0-16.0) g/dL Hct 34.1 L (37-47) % MCV 90.2 (80-100) fL MCH 29.4 (25-34) pg MCHC 32.6 (32-36) g/dL RDW Std Deviation 45.4 (36.4-46.3) fL RDW Coeff of Akilah 13.7 (11.5-14.5) % Plt Count 194 (130-400) K/uL MPV 9.4 (7.4-10.4) fL Immature Gran % (Auto) 0.2 % Neut % (Auto) 32.8 % Lymph % (Auto) 62.6 % Stone % (Auto) 4.1 % Eos % (Auto) 0.1 % Baso % (Auto) 0.2 % Immature Gran # (Auto) 0.02 (0.00-0.02) K/uL Neut # (Auto) 4.12 (1.4-6.5) K/uL Lymph # (Auto) 7.82 H (1.2-3.4) K/uL Stone # (Auto) 0.51 (0.11-0.59) K/uL Eos # (Auto) 0.01 (0-0.5) K/uL Baso # (Auto) 0.02 (0-0.2) K/uL Smudge Cells Present Blood Smear Review Pending Sodium (136-145) mmol/L Potassium (3.5-5.1) mmol/L Chloride (98-107) mmol/L Carbon Dioxide (21-32) mmol/L Anion Gap (3-11) BUN (7-18) mg/dl Creatinine (0.6-1.2) mg/dl Est Cr Clr Drug Dosing ml/min Est GFR ( Amer) Est GFR (Non-Af Amer) BUN/Creatinine Ratio (10-20) Glucose (70-99) mg/dl Calcium (8.5-10.1) mg/dl Total Bilirubin (0.2-1) mg/dl Direct Bilirubin (0-0.2) mg/dl AST (15-37) U/L ALT (12-78) U/L Alkaline Phosphatase (45-117) U/L Total Protein (6.4-8.2) gm/dl Albumin (3.4-5.0) gm/dl Procalcitonin (0-0.5) ng/ml Nasal Screen MRSA (PCR) (Negative) Blood cultures-no growth to date Sputum culture pending Diagnostic Findings Chest x-ray image personally reviewed by me and agree with the following report: XR chest 1V portable CLINICAL HISTORY: f/u pneumonia dyspnea COMPARISON STUDY: CT 06/03/2019 FINDINGS: Parenchymal infiltrates throughout the left mid to lower lung as well as right base. Pulmonary apices are clear. Diaphragms are smooth. IMPRESSION: Bilateral parenchymal infiltrates similar to the prior CT study. PG Care Time/CCT Total # of Minutes Spent Total Time Spent with Patient: Total time spent is greater than 50% in coordination of care (as documented) at patient's floor/unit and/or counseling patient: Coding Level of Care Code 23563 Subseq Hosp Care Lvl 3 Diagnoses Pneumonitis J18.9 Pneumonia due to human metapneumovirus (hMPV) J12.3 Hypoxemia R09.02 Leukocytosis D72.820 Leukocytosis type: lymphocytosis Central hypothyroidism E03.8 Asthma J45.20 Asthma complication type: uncomplicated Asthma persistence: intermittent Asthma severity: mild Gastric bypass status for obesity Z98.84 Hypokalemia E87.6 Overactive bladder N32.81 Insomnia G47.00 DVT prophylaxis Z29.9 (1) Leukocytosis Leukocytosis type: lymphocytosis Qualified Code(s): D72.820 - Lymphocytosis (symptomatic) (2) Asthma Asthma complication type: uncomplicated Asthma persistence: intermittent Asthma severity: mild Qualified Code(s): J45.20 - Mild intermittent asthma, uncomplicated
[2019-06-05] MEDS: AMITRIPTYLINE HCL 25 MG TAB PO PRN (21:26)
[2019-06-06] MEDS: ACETAMINOPHEN 500 MG TAB PO PRN ×3 (04:01→21:42)
[2019-06-06] MEDS: LEVOTHYROXINE SODIUM 175 MCG TABLET PO SCH (06:27)
[2019-06-06 06:32] LABS: Hematocrit (blood only) 40.9 % (37-47); Hemoglobin 13.3 g/dL (12.0-16.0); Mean Corpuscular Hemoglobin 29.2 pg (25-34); Mean Corpuscular Hgb Conc 32.5 g/dL (32-36); Mean Corpuscular Volume 89.7 fL (80-100); Mean Platelet Volume 9.4 fL (7.4-10.4); Platelet Count 221 K/uL (130-400); RDW Coefficient of Variation 13.6 % (11.5-14.5); RDW Standard Deviation 44.7 fL (36.4-46.3); Red Blood Count 4.56 M/uL (4.2-5.4); White Blood Count 14.71 K/uL (4.8-10.8)
[2019-06-06 07:22] LABS: Alanine Aminotransferase 29 U/L (12-78); Albumin Level 3.3 gm/dl (3.4-5.0); Alkaline Phosphatase 140 U/L (45-117); Aspartate Aminotransferase 28 U/L (15-37); BUN Creatinine Ratio 13.3 (10-20); Bilirubin Direct < 0.1 mg/dl (0-0.2); Bilirubin,Total 0.3 mg/dl (0.2-1); Blood Urea Nitrogen 10 mg/dl (7-18); Calcium 9.4 mg/dl (8.5-10.1); Carbon Dioxide 29 mmol/L (21-32); Chloride 103 mmol/L (98-107); Creatine Kinase 169 U/L (26-192); Est GFR (African American) 102.6; Est GFR (Non-African American) 88.5; Glucose 94 mg/dl (70-99); Magnesium 2.1 mg/dl (1.8-2.4); Phosphorus 3.3 mg/dl (2.5-4.9); Potassium 3.8 mmol/L (3.5-5.1); Sodium 138 mmol/L (136-145); Total Protein 7.2 gm/dl (6.4-8.2)
[2019-06-06 07:28] LABS: Basophils # (auto) 0.02 K/uL (0-0.2); Basophils % (auto) 0.1 %; Eosinophils # (auto) 0.03 K/uL (0-0.5); Eosinophils % (auto) 0.2 %; Immature Granulocytes # (auto) 0.03 K/uL (0.00-0.02); Immature Granulocytes % (auto) 0.2 %; Lymphocytes # (auto) 9.41 K/uL (1.2-3.4); Monocytes # (auto) 0.63 K/uL (0.11-0.59); Monocytes % (auto) 4.3 %; Neutrophils # (auto) 4.59 K/uL (1.4-6.5); Neutrophils % (auto) 31.2 %; Smudge Cells Present
[2019-06-06] MEDS: ALBUT/IPRATROP 3MG/0.5MG NEB 3 ML VIAL NEB SCH ×4 (07:37→19:44)
[2019-06-06] MEDS: MIRABEGRON ER 25 MG TAB PO SCH (09:44)
[2019-06-06] MEDS: guaiFENesin 600 MG TABCR PO SCH ×2 (09:44→21:41)
[2019-06-06] MEDS: DULOXETINE HCL 60 MG CAP PO SCH (09:44)
[2019-06-06] MEDS: BENZONATATE 100 MG CAPSULE PO SCH ×3 (09:44→21:41)
[2019-06-06] MEDS: predniSONE 20 MG TAB PO SCH (09:44)
[2019-06-06] MEDS: ENOXAPARIN INJ 40 MG/0.4 ML SYR SQ SCH (09:47)
[2019-06-06] MEDS: cefTRIAXone SODIUM 2,000 MG in DEXTROSE 5% 50 ML IV SCH (12:15)
[2019-06-06] MEDS: HYDROCODONE/HOMATROPINE SYRUP 5MG/1.5MG 5ML UDP PO PRN (15:44)
--- NOTE | 2019-06-06 16:18 | Hospitalist Progress Note ---
Date of Service June 06, 2019 Assessment & Plan (1) Pneumonitis: Patient presented with 4 days of worsening cough, shortness of breath, hypoxia, and fever at home. She had a travel history to [place], and [place] through various airports. Her also may have had exposure to his employees in [facility] with positive testing for CoVid-19 although her still has no symptoms at home currently. Patient with pneumonitis of lingula, left upper lobe, and some left lower lobe as per chest CT upon admission. [facility] respiratory panel performed by ER which was positive for Human Metapneumovirus. However, given patient's travel history and possible exposure to CoVid-19, a coronavirus test per [employer] [facility] was sent. Her LDH and coags are normal as are her LFTs with exception of elevated alk phos = 167, patient with history of the same. Procalcitonin negative on admission and again on repeat on 06/04 Fevers had resolved and then started back up again on 06/04 with recurrent tachycardia, hypoxia, and tachypnea-added on Rocephin and azithromycin on 06/04 for suspected secondary bacterial pneumonia with worsening infiltrates on chest x-ray as per my discussion with pulmonology Hypoxia is now improved-was previously requiring 2 L at all times and is now 95% on room air at rest and 91% on room air with minimal exertion Patient with marked leukocytosis with WBC = 18.85, lymphocyte predominant, however has a history of likely CLL being followed by hematology. Leukocytosis improved back to baseline, however now trending back upward on prednisone MRSA swab negative -Continue ceftriaxone and azithromycin x7 and 5-day course respectively-end dates would be 06/10 and 06/08 -Continue supportive care Continue supplemental oxygen as needed to keep pulse ox greater than 88-90% Continue DuoNebs every 6 hours given her history of asthma with exacerbation ongoing -Would ordinarily avoid steroids in the setting of a viral pneumonia-however, with increased wheezing on 06/04, started prednisone 40 mg daily for 5-day course as per pulmonary recommendation-end date would be 06/08 -Continue Tylenol as needed for pain or fever-avoid NSAIDs as she has a history of gastric bypass and is at risk for anastomotic ulcers -Continue Mucinex 1200 mg p.o. twice daily Continue scheduled Tessalon 3 times daily and Hycodan as needed for cough -Continue nasal saline for ear pressure and sinus congestion We will continue with isolation precautionsAIRBORNE AND CONTACT, negative pressure isolation. Personal protective equipment should include hat, face shield, N95, gown, gloves and isolation stethoscope until coronavirus ruled out SARS CoV-2 RNA test pending-will follow (2) Pneumonia due to human metapneumovirus (hMPV): Management as above Symptoms would be expected to last approximately 1 week There is no specific antiviral treatment for this (3) Hypoxemia: Acute respiratory failure with hypoxia-secondary to human metapneumovirus pneumonia and asthma exacerbation -Improving, weaned to room air both at rest and with ambulation as above (4) Leukocytosis: Patient with lymphocyte predominant leukocytosis with WBC = 18.85 and now is improved down baseline of 12-14. She reports that she is suspected to have CLL and is currently following with hematology/oncology. No formal diagnosis has been made yet. Is also now on steroids which will likely make her WBC count go back up Her condition likely contributes to her immunosuppression Continue to monitor CBC Patient should continue regular outpatient heme-onc follow-up as scheduled (5) Central hypothyroidism: Chronic. Last TSH was undetectable in 04/2019 She follows with endocrinology Continue levothyroxine 175 mcg daily (6) Asthma: Patient with history of well-controlled asthma. Had diffuse end ex piratory wheezing in the setting of acute viral pneumonia/pneumonitis which is now improving Continue scheduled duo nebs Continue prednisone burst as above (7) Gastric bypass status for obesity: Noted -Avoid NSAIDs (8) Hypokalemia: Replaced with p.o. potassium and now resolved Is taking in more p.o., appetite improved -Follow BMP in the morning (9) Overactive bladder: Continue Myrbetriq (10) Insomnia: Continue amitriptyline as needed (11) Constipation: Add on senna/docusate at bedtime -Add on daily MiraLAX Likely secondary to ileus from viral illness -Encouraged ambulation within her isolation room (12) DVT prophylaxis: ProphylaxisLovenox 40 mg subcu daily Codefull code Dispositioncontinued stay, but finally turning the corner on 06/05, and expect continued hospital stay for at least 1-2 more days Admission and Anticipated Discharge Date Admission Date: June 04, 2019 Anticipated date of discharge: 06/08/19 Subjective Feeling better today, cough is much less. She got a shower and got cleaned up and feels better. Still having the chest heaviness as before but is slightly improved. Still having dyspnea with exertion but improved from previous and only dropping to 91% with ambulation on pulse ox and remaining up to 95% at rest which is an improvement. Reports constipation and some mild abdominal discomfort. She is increasing her appetite today and eating more. Drinking plenty of fluids and making plenty of urine. Still with generalized body aches but seems improved overall. Telemetry with normal sinus rhythm with rates in the 60s- 70s Review of Systems Review of Systems: All systems reviewed & are unremarkable except as noted in HPI & below Physical Exam Constitutional: average body habitus; no acute distress and not ill appearing (Appears much improved today) Eyes: + anicteric sclerae Neck: trachea midline, no thyromegaly Respiratory: normal respiratory effort Auscultation: + crackles (Left upper and middle lung [place], now clear in the right); no rhonchi and no wheezes (Resolved) Cardiovascular: RRR, no murmur, no edema Chest (Breasts): Chest: normal inspection of chest Gastrointestinal (Abdomen): normal bowel sounds, soft, nontender, no hepatosplenomegaly Musculoskeletal: Extremities: extremities normal to inspection; no cyanosis and no clubbing Skin: no rashes, warm and dry Neurologic: moves all extremities and awake; no focal motor deficits Psychiatric: A+Ox3, euthymic affect Orientation: alert and oriented x 3 Lymphatic: no lymphedema Results & Data ([facility]) Vital Signs (Past 12 Hours) Vital Signs Temp Pulse Pulse Resp BP Pulse Ox 06/06/19 15:46 36.9 C 79 20 120/70 96 06/06/19 15:05 89 20 95 06/06/19 12:18 37.3 C 85 20 130/78 91 06/06/19 11:48 88 20 97 06/06/19 08:00 75 06/06/19 07:40 90 20 90 06/06/19 06:59 36.9 C 97 H 20 134/72 93 Laboratory Results 06/06/19 06/06/19 Range/Units 06:08 06:08 WBC 14.71 H (4.8-10.8) K/uL RBC 4.56 (4.2-5.4) M/uL Hgb 13.3 (12.0-16.0) g/dL Hct 40.9 (37-47) % MCV 89.7 (80-100) fL MCH 29.2 (25-34) pg MCHC 32.5 (32-36) g/dL RDW Std Deviation 44.7 (36.4-46.3) fL RDW Coeff of Akilah 13.6 (11.5-14.5) % Plt Count 221 (130-400) K/uL MPV 9.4 (7.4-10.4) fL Immature Gran % (Auto) 0.2 % Neut % (Auto) 31.2 % Lymph % (Auto) 64.0 % [place] % (Auto) 4.3 % Eos % (Auto) 0.2 % Baso % (Auto) 0.1 % Immature Gran # (Auto) 0.03 H (0.00-0.02) K/uL Neut # (Auto) 4.59 (1.4-6.5) K/uL Lymph # (Auto) 9.41 H (1.2-3.4) K/uL [place] # (Auto) 0.63 H (0.11-0.59) K/uL Eos # (Auto) 0.03 (0-0.5) K/uL Baso # (Auto) 0.02 (0-0.2) K/uL Smudge Cells Present Sodium 138 (136-145) mmol/L Potassium 3.8 D (3.5-5.1) mmol/L Chloride 103 (98-107) mmol/L Carbon Dioxide 29 (21-32) mmol/L Anion Gap 6.0 (3-11) BUN 10 (7-18) mg/dl Creatinine 0.75 (0.6-1.2) mg/dl Est Cr Clr Drug Dosing 102.0 ml/min Est GFR ( Amer) 102.6 Est GFR (Non-Af Amer) 88.5 BUN/Creatinine Ratio 13.3 (10-20) Glucose 94 (70-99) mg/dl Calcium 9.4 (8.5-10.1) mg/dl Phosphorus 3.3 (2.5-4.9) mg/dl Magnesium 2.1 (1.8-2.4) mg/dl Total Bilirubin 0.3 (0.2-1) mg/dl Direct Bilirubin < 0.1 (0-0.2) mg/dl AST 28 (15-37) U/L ALT 29 (12-78) U/L Alkaline Phosphatase 140 H (45-117) U/L Total Creatine Kinase 169 (26-192) U/L Total Protein 7.2 D (6.4-8.2) gm/dl Albumin 3.3 L (3.4-5.0) gm/dl PG Care Time/CCT Total # of Minutes Spent Total Time Spent with Patient: Total time spent is greater than 50% in coordination of care (as documented) at patient's floor/unit and/or counseling patient: Coding Level of Care Code 71534 Subseq Hosp Care Lvl 3 Diagnoses Pneumonitis J18.9 Pneumonia due to human metapneumovirus (hMPV) J12.3 Hypoxemia R09.02 Leukocytosis D72.820 Leukocytosis type: lymphocytosis Central hypothyroidism E03.8 Asthma J45.20 Asthma complication type: uncomplicated Asthma persistence: intermittent Asthma severity: mild Gastric bypass status for obesity Z98.84 Hypokalemia E87.6 Overactive bladder N32.81 Insomnia G47.00 Constipation K59.00 DVT prophylaxis Z29.9 (1) Leukocytosis Leukocytosis type: lymphocytosis Qualified Code(s): D72.820 - Lymphocytosis (symptomatic) (2) Asthma Asthma complication type: uncomplicated Asthma persistence: intermittent Asthma severity: mild Qualified Code(s): J45.20 - Mild intermittent asthma, uncomplicated
[2019-06-06] MEDS: POLYETHYLENE (MIRALAX) 17 GM PACK PO SCH (17:38)
[2019-06-06] MEDS: DOCUSATE SODIUM/SENNA 50/8.6MG TAB PO SCH (21:40)
[2019-06-06] MEDS ORDERED: AZITHROMYCIN 250 MG in DEXTROSE 5% 250 ML IV SCH (22:00)
[2019-06-06] MEDS: AMITRIPTYLINE HCL 25 MG TAB PO PRN (23:00)
[2019-06-07] MEDS: HYDROCODONE/HOMATROPINE SYRUP 5MG/1.5MG 5ML UDP PO PRN ×3 (01:07→22:27)
[2019-06-07] MEDS: ACETAMINOPHEN 500 MG TAB PO PRN ×2 (06:13→13:22)
[2019-06-07] MEDS: LEVOTHYROXINE SODIUM 175 MCG TABLET PO SCH (06:15)
[2019-06-07] MEDS: ALBUT/IPRATROP 3MG/0.5MG NEB 3 ML VIAL NEB SCH ×4 (07:38→20:58)
[2019-06-07] MEDS: guaiFENesin 600 MG TABCR PO SCH ×2 (08:04→20:17)
[2019-06-07] MEDS: predniSONE 20 MG TAB PO SCH (08:04)
[2019-06-07] MEDS: ENOXAPARIN INJ 40 MG/0.4 ML SYR SQ SCH (08:04)
[2019-06-07] MEDS: MIRABEGRON ER 25 MG TAB PO SCH (08:04)
[2019-06-07] MEDS: DULOXETINE HCL 60 MG CAP PO SCH (08:05)
[2019-06-07] MEDS: POLYETHYLENE (MIRALAX) 17 GM PACK PO SCH (08:06)
[2019-06-07] MEDS: BENZONATATE 100 MG CAPSULE PO SCH ×3 (08:06→20:17)
[2019-06-07 09:00] LABS: Hematocrit (blood only) 39.5 % (37-47); Hemoglobin 12.9 g/dL (12.0-16.0); Mean Corpuscular Hemoglobin 29.7 pg (25-34); Mean Corpuscular Hgb Conc 32.7 g/dL (32-36); Mean Platelet Volume 9.3 fL (7.4-10.4); Platelet Count 210 K/uL (130-400); RDW Coefficient of Variation 13.3 % (11.5-14.5); RDW Standard Deviation 44.4 fL (36.4-46.3); Red Blood Count 4.34 M/uL (4.2-5.4); White Blood Count 11.87 K/uL (4.8-10.8)
[2019-06-07 09:21] LABS: BUN Creatinine Ratio 13.7 (10-20); Calcium 8.8 mg/dl (8.5-10.1); Creatinine Clr Calc Pharmacy 119.5 ml/min; Est GFR (African American) 109.6; Est GFR (Non-African American) 94.6; Potassium 3.5 mmol/L (3.5-5.1)
[2019-06-07 10:41] LABS: Basophils # (auto) 0.02 K/uL (0-0.2); Basophils % (auto) 0.2 %; Eosinophils # (auto) 0.09 K/uL (0-0.5); Eosinophils % (auto) 0.8 %; Immature Granulocytes # (auto) 0.02 K/uL (0.00-0.02); Immature Granulocytes % (auto) 0.2 %; Lymphocytes # (auto) 9.01 K/uL (1.2-3.4); Lymphocytes % (auto) 75.9 %; Monocytes # (auto) 0.72 K/uL (0.11-0.59); Monocytes % (auto) 6.1 %; Neutrophils # (auto) 2.01 K/uL (1.4-6.5); Neutrophils % (auto) 16.8 %
[2019-06-07] MEDS: cefTRIAXone SODIUM 2,000 MG in DEXTROSE 5% 50 ML IV SCH (13:12)
--- NOTE | 2019-06-07 14:45 | Hospitalist Progress Note ---
Date of Service June 07, 2019 Assessment & Plan (1) Pneumonitis: Patient presented with 4 days of worsening cough, shortness of breath, hypoxia, and fever at home. She had a travel history to [place] and [place] through various airports. Her also may have had exposure to his em ployees in [facility] with positive testing for CoVid-19 although her still has no symptoms at home currently. - [employer] respiratory panel performed by ER which was positive for Human [place] pneumovirus. However, given patient's travel history and possible exposure to CoVid-19, a coronavirus test per [employer] was sent. - Procalcitonin negative on admission and again on repeat on 06/04 - Fevers had resolved and then started back up again on 06/04 with recurrent tachycardia, hypoxia, and tachypnea-added on Rocephin and azithromycin on 06/04 for suspected secondary bacterial pneumonia with worsening infiltrates on chest x-ray as per discussion with pulmonology. - Patient with marked leukocytosis with WBC = 18.85, lymphocyte predominant, however has a history of likely CLL being followed by hematology. Leukocytosis improved back to baseline, however now trending back upward on prednisone SARS CoV-2 RNA test pending-will follow - Continue conservative care with DuoNebs, steroids, Mucinex, Tessalon Perles (2) Pneumonia due to human metapneumovirus (hMPV): Management as above. Symptoms would be expected to last approximately 1 week. There is no specific antiviral treatment for this. (3) Hypoxemia: Acute respiratory failure with hypoxia - secondary to human metap neumovirus pneumonia and asthma exacerbation. - Improving, weaned to room air both at rest and with ambulation as above (4) Leukocytosis: Patient with lymphocyte predominant leukocytosis with WBC = 18.85 and now is improved down baseline of 12-14. She reports that she is suspected to have CLL and is currently following with hematology/oncology. No formal diagnosis has been made yet. Is also now on steroids which will likely make her WBC count go back up. Continue to monitor CBC Patient should continue regular outpatient heme-onc follow-up as scheduled (5) Central hypothyroidism: Chronic. Last TSH was undetectable in 04/2019. She follows with endocrinology. Continue levothyroxine 175 mcg daily (6) Asthma: Patient with history of well-controlled asthma. Had diffuse end expiratory wheezing in the setting of acute viral pneumonia/pneumonitis which is now improving. Continue scheduled duo nebs Continue prednisone burst as above - Today has no wheezing on exam. (7) Gastric bypass status for obesity: Noted. - Avoid NSAIDs (8) Overactive bladder: Continue Myrbetriq (9) Insomnia: - Continue amitriptyline as needed (10) Constipation: Add on senna/docusate at bedtime. - Add on daily MiraLAX - Encouraged ambulation within her isolation room (11) DVT prophylaxis: Lovenox 40 mg subcu daily Admission and Anticipated Discharge Date Admission Date: June 04, 2019 Anticipated date of discharge: 06/08/19 Subjective Some improvement today. Still coughing. Feels "wiped out" today. Tired. Still with dry cough. Reports no fevers/chills, chest pain, abdominal pain, nausea, or vomiting. Physical Exam Constitutional: WD/WN, vitals as above Eyes: EOM intact bilaterally; no conjunctival abnormality ENMT: external ear and nose normal, oropharynx normal Neck: trachea midline, no thyromegaly normal visual inspection Respiratory: + labored breathing Auscultation: + diminished lung sounds and + rhonchi Cardiovascular: RRR, no murmur, no edema Gastrointestinal (Abdomen): Inspection/Auscultation: abdomen normal to inspection; abdomen not distended Musculoskeletal: no cyanosis or clubbing, extremities motor strength 5/5 Skin: no rashes, warm and dry Neurologic: moves all extremities and awake Psychiatric: Orientation: alert, oriented to person and cooperative Results & Data ([facility]) Vital Signs (Past 12 Hours) Vital Signs Temp Pulse Pulse Resp BP BP Pulse Ox 06/07/19 14:19 37 C 77 16 135/75 96 06/07/19 11:47 37.0 C 72 19 112/66 98 06/07/19 11:32 92 H 18 98 06/07/19 08:15 36.9 C 71 18 135/80 98 06/07/19 08:00 81 06/07/19 07:40 65 18 96 06/07/19 06:10 36.7 C 67 18 135/80 98 PG Care Time/CCT Total # of Minutes Spent Total Time Spent with Patient: Total time spent is greater than 50% in coordination of care (as documented) at patient's floor/unit and/or counseling patient: Coding Level of Care Code 06110 Subseq Hosp Care Lvl 3 Diagnoses Pneumonitis J18.9 Pneumonia due to human metapneumovirus (hMPV) J12.3 Hypoxemia R09.02 Leukocytosis D72.820 Leukocytosis type: lymphocytosis Central hypothyroidism E03.8 Asthma J45.20 Asthma severity: mild Asthma persistence: intermittent Asthma complication type: uncomplicated Gastric bypass status for obesity Z98.84 Overactive bladder N32.81 Insomnia G47.00 Constipation K59.00 DVT prophylaxis Z29.9 (1) Leukocytosis Leukocytosis type: lymphocytosis Qualified Code(s): D72.820 - Lymphocytosis (symptomatic) (2) Asthma Asthma severity: mild Asthma persistence: intermittent Asthma complication type: uncomplicated Qualified Code(s): J45.20 - Mild intermittent asthma, uncomplicated
[2019-06-07] MEDS: DOCUSATE SODIUM/SENNA 50/8.6MG TAB PO SCH (20:18)
[2019-06-07] MEDS: AZITHROMYCIN 250 MG TAB PO SCH (20:18)
[2019-06-07] MEDS: AMITRIPTYLINE HCL 25 MG TAB PO PRN (21:11)
[2019-06-08] MEDS: ACETAMINOPHEN 500 MG TAB PO PRN ×2 (01:43→12:55)
[2019-06-08] MEDS: LEVOTHYROXINE SODIUM 175 MCG TABLET PO SCH (06:12)
[2019-06-08 07:10] LABS: Hematocrit (blood only) 42.7 % (37-47); Hemoglobin 13.8 g/dL (12.0-16.0); Mean Corpuscular Hemoglobin 29.2 pg (25-34); Mean Corpuscular Hgb Conc 32.3 g/dL (32-36); Mean Corpuscular Volume 90.3 fL (80-100); RDW Coefficient of Variation 13.2 % (11.5-14.5); RDW Standard Deviation 43.9 fL (36.4-46.3); Red Blood Count 4.73 M/uL (4.2-5.4); White Blood Count 17.72 K/uL (4.8-10.8)
[2019-06-08 07:11] LABS: Mean Platelet Volume 9.4 fL (7.4-10.4); Platelet Count 256 K/uL (130-400)
[2019-06-08] MEDS: ALBUT/IPRATROP 3MG/0.5MG NEB 3 ML VIAL NEB SCH ×2 (07:11→11:13)
[2019-06-08 07:51] LABS: BUN Creatinine Ratio 10.3 (10-20); Calcium 9.1 mg/dl (8.5-10.1); Creatinine Clr Calc Pharmacy 103.5 ml/min; Est GFR (African American) 92.1; Est GFR (Non-African American) 79.4; Magnesium 2.4 mg/dl (1.8-2.4); Potassium 3.7 mmol/L (3.5-5.1)
[2019-06-08] MEDS: ENOXAPARIN INJ 40 MG/0.4 ML SYR SQ SCH (08:08)
[2019-06-08] MEDS: guaiFENesin 600 MG TABCR PO SCH ×2 (08:09→21:47)
[2019-06-08] MEDS: BENZONATATE 100 MG CAPSULE PO SCH ×3 (08:09→21:46)
[2019-06-08] MEDS: MIRABEGRON ER 25 MG TAB PO SCH (08:09)
[2019-06-08] MEDS: POLYETHYLENE (MIRALAX) 17 GM PACK PO SCH (08:12)
[2019-06-08] MEDS: predniSONE 20 MG TAB PO SCH (08:18)
[2019-06-08] MEDS: DULOXETINE HCL 60 MG CAP PO SCH (08:18)
[2019-06-08] MEDS: HYDROCODONE/HOMATROPINE SYRUP 5MG/1.5MG 5ML UDP PO PRN ×2 (08:19→21:46)
[2019-06-08] MEDS: cefTRIAXone SODIUM 2,000 MG in DEXTROSE 5% 50 ML IV SCH (12:55)
[2019-06-08 13:46] LABS: Appearance Urine Clear (Clear); Bilirubin Urine Negative (Negative); Blood Urine Negative (Negative); Color Urine Yellow; Glucose Urine UA Negative (Negative); Ketones Urine Negative (Negative); Leukocyte Esterase Urine Negative (Negative); Nitrite Urine Negative (Negative); Protein Urine Negative (Negative); Specific Gravity Urine 1.008 (1.000-1.030); Urobilinogen Urine Negative (Negative); pH Urine 5.5 (4.5-7.5)
[2019-06-08] MEDS ORDERED: FLUCONAZOLE 50 MG TAB PO STA (14:43)
--- NOTE | 2019-06-08 14:45 | Hospitalist Progress Note ---
Date of Service June 08, 2019 Assessment & Plan (1) Pneumonitis: Patient presented with 4 days of worsening cough, shortness of breath, hypoxia, and fever at home. She had a travel history to [place] and [place] through various airports. Her also may have had exposure to his em ployees in [facility] with positive testing for CoVid-19 although her still has no symptoms at home currently. - [employer] respiratory panel performed by ER which was positive for Human [place] pneumovirus. However, given patient's travel history and possible exposure to CoVid-19, a coronavirus test per [employer] was sent. - Procalcitonin negative on admission and again on repeat on 06/04 - Fevers had resolved and then started back up again on 06/04 with recurrent tachycardia, hypoxia, and tachypnea-added on ceftriaxone and azithromycin on 06/04 for suspected secondary bacterial pneumonia with worsening infiltrates on chest x-ray as per discussion with pulmonology. - Patient with marked leukocytosis with WBC = 18.85, lymphocyte predominant, however has a history of likely CLL being followed by hematology. Leukocytosis improved back to baseline, however now trending back upward on prednisone. SARS CoV-2 RNA test pending-will follow - Continue conservative care with DuoNebs, steroids, Mucinex, Tessalon Perles -> Improving from a clinical standpoint. Spacing breathing treatments. (2) Pneumonia due to human metapneumovirus (hMPV): Management as above. Symptoms would be expected to last approximately 1 week. There is no specific antiviral treatment for this. (3) Hypoxemia: Acute respiratory failure with hypoxia - secondary to human metapneumovirus pneumonia and asthma exacerbation. - Improving, weaned to room air both at rest and with ambulation as above (4) Leukocytosis: Patient with lymphocyte predominant leukocytosis with WBC = 18.85 and now is improved down baseline of 12-14. She reports that she is suspected to have CLL and is currently following with hematology/oncology. No formal diagnosis has been made yet. Is also now on steroids which will likely make her WBC count go back up. Continue to monitor CBC Patient should continue regular outpatient heme-onc follow-up as scheduled (5) Central hypothyroidism: Chronic. Last TSH was undetectable in 04/2019. She follows with endocrinology. Continue levothyroxine 175 mcg daily (6) Asthma: Patient with history of well-controlled asthma. Had diffuse end expiratory wheezing in the setting of acute viral pneumonia/pneumonitis which is now improving. Continue scheduled duo nebs Continue prednisone burst as above - Today has no wheezing on exam. (7) Gastric bypass status for obesity: Noted. - Avoid NSAIDs (8) Overactive bladder: Continue Myrbetriq (9) Insomnia: - Continue amitriptyline as needed (10) Constipation: Add on senna/docusate at bedtime. - Add on daily MiraLAX - Encouraged ambulation within her isolation room (11) DVT prophylaxis: Lovenox 40 mg subcu daily Admission and Anticipated Discharge Date Admission Date: June 04, 2019 Anticipated date of discharge: 06/08/19 Subjective Some discomfort with urination. Overall, she is breathing better. Less cough. Reports no fevers/chills, chest pain, shortness of breath, abdominal pain, nausea, or vomiting. Physical Exam Constitutional: WD/WN, vitals as above Eyes: EOM intact bilaterally; no conjunctival abnormality ENMT: external ear and nose normal, oropharynx normal Neck: trachea midline, no thyromegaly normal visual inspection Respiratory: + labored breathing Auscultation: + diminished lung sounds and + rhonchi Cardiovascular: RRR, no murmur, no edema Gastrointestinal (Abdomen): Inspection/Auscultation: abdomen normal to inspection; abdomen not distended Musculoskeletal: no cyanosis or clubbing, extremities motor strength 5/5 Skin: no rashes, warm and dry Neurologic: moves all extremities and awake Psychiatric: Orientation: alert, oriented to person and cooperative Results & Data ([facility]) Vital Signs (Past 12 Hours) Vital Signs Temp Pulse Pulse Resp BP BP Pulse Ox 06/08/19 13:17 37.3 C 73 18 138/82 96 06/08/19 11:15 79 18 95 06/08/19 08:06 36.6 C 72 18 138/83 99 06/08/19 08:00 70 06/08/19 07:14 66 18 98 06/08/19 06:12 36.9 C 73 18 132/79 96 PG Care Time/CCT Total # of Minutes Spent Total Time Spent with Patient: Total time spent is greater than 50% in coordination of care (as documented) at patient's floor/unit and/or counseling patient: Coding Level of Care Code 04348 Subseq Hosp Care Lvl 2 Diagnoses Pneumonitis J18.9 Pneumonia due to human metapneumovirus (hMPV) J12.3 Hypoxemia R09.02 Leukocytosis D72.820 Leukocytosis type: lymphocytosis Central hypothyroidism E03.8 Asthma J45.20 Asthma severity: mild Asthma persistence: intermittent Asthma complication type: uncomplicated Gastric bypass status for obesity Z98.84 Overactive bladder N32.81 Insomnia G47.00 Constipation K59.00 DVT prophylaxis Z29.9 (1) Leukocytosis Leukocytosis type: lymphocytosis Qualified Code(s): D72.820 - Lymphocytosis (symptomatic) (2) Asthma Asthma severity: mild Asthma persistence: intermittent Asthma complication type: uncomplicated Qualified Code(s): J45.20 - Mild intermittent asthma, uncomplicated
[2019-06-08] MEDS: ALBUT/IPRATROP 3MG/0.5MG NEB 3 ML VIAL NEB PRN (20:02)
[2019-06-08] MEDS: DOCUSATE SODIUM/SENNA 50/8.6MG TAB PO SCH (21:45)
[2019-06-08] MEDS: AZITHROMYCIN 250 MG TAB PO SCH (21:47)
[2019-06-08] MEDS: AMITRIPTYLINE HCL 25 MG TAB PO PRN (22:43)
[2019-06-09] MEDS ORDERED: ZOLPIDEM TARTRATE 5 MG TAB PO PRN (01:07)
[2019-06-09] MEDS: LEVOTHYROXINE SODIUM 175 MCG TABLET PO SCH (05:58)
[2019-06-09 06:47] LABS: Mean Corpuscular Hemoglobin 29.4 pg (25-34); Mean Corpuscular Hgb Conc 32.5 g/dL (32-36); Mean Corpuscular Volume 90.5 fL (80-100); Mean Platelet Volume 9.5 fL (7.4-10.4); Platelet Count 263 K/uL (130-400); RDW Coefficient of Variation 13.1 % (11.5-14.5); RDW Standard Deviation 43.7 fL (36.4-46.3); Red Blood Count 4.42 M/uL (4.2-5.4); White Blood Count 18.78 K/uL (4.8-10.8)
[2019-06-09 07:27] LABS: BUN Creatinine Ratio 14.1 (10-20); Calcium 8.8 mg/dl (8.5-10.1); Creatinine Clr Calc Pharmacy 114.5 ml/min; Est GFR (African American) 104.2; Est GFR (Non-African American) 89.9; Magnesium 2.2 mg/dl (1.8-2.4); Phosphorus 4.1 mg/dl (2.5-4.9); Potassium 3.9 mmol/L (3.5-5.1)
[2019-06-09] MEDS: POLYETHYLENE (MIRALAX) 17 GM PACK PO SCH (09:00)
[2019-06-09] MEDS ORDERED: CEFDINIR 300 MG CAP PO SCH (09:00)
[2019-06-09] MEDS: ENOXAPARIN INJ 40 MG/0.4 ML SYR SQ SCH (09:02)
[2019-06-09] MEDS: DULOXETINE HCL 60 MG CAP PO SCH (09:02)
[2019-06-09] MEDS: guaiFENesin 600 MG TABCR PO SCH (09:03)
[2019-06-09] MEDS: MIRABEGRON ER 25 MG TAB PO SCH (09:03)
[2019-06-09] MEDS: BENZONATATE 100 MG CAPSULE PO SCH (09:04)
[2019-06-09] MEDS: predniSONE 20 MG TAB PO SCH (09:04)
[2019-06-09] MEDS: HYDROCODONE/HOMATROPINE SYRUP 5MG/1.5MG 5ML UDP PO PRN (09:57)
[2019-06-09] MEDS: ACETAMINOPHEN 500 MG TAB PO PRN (09:57)
[2019-06-09] MEDS: ALBUT/IPRATROP 3MG/0.5MG NEB 3 ML VIAL NEB PRN (11:28)
[2019-06-09 15:48] LABS: COVID-19 Patient Symptomatic? YES
--- NOTE | 2019-06-09 15:50 | Discharge Summary ---
Date of Service June 09, 2019 Admission HPI Per Admitting Provider Gerda Chambers is a 59yo C female with history of well controlled asthma, hypothyroidism presenting with cough/shortness of breath/hypoxia/fever/chills. Symptoms have been ongoing and progressively worsening over the last 4 days. She has been taking Mucinex at home with minimal relief. She has some chest discomfort with her cough otherwise no chest pain. Denies palpitations/abdominal pain/nausea/vomiting/diarrhea/constipation. She received her seasonal flu vaccine this year. Patient with recent air travel from [place] to [place] in [place] in [place] within the past 2 weeks. + Sick contacts. 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 Patient's however is asymptomatic at this time. ER course: Ceftriaxone, azithromycin, Tylenol, albuterol, dexamethasone, Toradol, normal saline Principal Diagnosis Viral and superimposed bacterial pneumonia Discharge Exam Constitutional WD/WN, vitals as above Eyes EOM intact bilaterally; no conjunctival abnormality ENMT external ear and nose normal, oropharynx normal Neck trachea midline, no thyromegaly normal visual inspection Respiratory + labored breathing Auscultation: + diminished lung sounds and + rhonchi Cardiovascular RRR, no murmur, no edema Gastrointestinal (Abdomen) Inspection/Auscultation: abdomen normal to inspection; abdomen not distended Musculoskeletal no cyanosis or clubbing, extremities motor strength 5/5 Skin no rashes, warm and dry Neurologic moves all extremities and awake Psychiatric Orientation: alert, oriented to person and cooperative Discharge Data Allergies Allergy/AdvReac Type Severity Reaction Status Date / Time doxycycline Allergy Intermediate RASH Verified 06/04/19 01:38 doxylamine Allergy Intermediate ITCHY, Verified 06/04/19 01:38 REDNESS pseudoephedrine Allergy Intermediate ITCHY, Verified 06/04/19 01:38 REDNESS dextromethorphan Allergy Mild ITCHY, Verified 06/04/19 01:38 REDNESS NSAIDS (Non-Steroidal Allergy Unknown TOLD NOT Verified 06/04/19 01:38 Anti-Inflamma TAKE D/T GASTRIC BYPASS thyroid, pork AdvReac Intermediate nausea, Verified 06/04/19 01:38 [From [place] Thyroid] palpitations Consultations 06/04/19 01:13 ED Decision to Admit Stat Ordered Studies 06/03/19 22:23 CT angio chest PE protocol Urgent Hospital Course (1) Pneumonitis: Patient presented with 4 days of worsening cough, shortness of breath, hypoxia, and fever at home. She had a travel history to [place] and [place] through various airports. Her also may have had exposure to his employees in [facility] with positive testing for CoVid-19 although her still has no symptoms at home currently. - [employer] respiratory panel performed by ER which was positive for Human Metapneumovirus. However, given patient's travel history and possible exposure to CoVid-19, a coronavirus test per [employer] was sent. - Procalcitonin negative on admission and again on repeat on 06/04 - Fevers had resolved and then started back up again on 06/04 with recurrent tachycardia, hypoxia, and tachypnea-added on ceftriaxone and azithromycin on 06/04 for suspected secondary bacterial pneumonia with worsening infiltrates on chest x-ray as per discussion with pulmonology. - Patient with marked leukocytosis with WBC = 18.85, lymphocyte predominant, however has a history of likely CLL being followed by hematology. SARS CoV-2 RNA test negative! - Discharged on a few more days of antibiotics and supportive cough medicines and albuterol. (2) Pneumonia due to human metapneumovirus (hMPV): Management as above. Symptoms would be expected to last approximately 1 week. There is no specific antiviral treatment for this. (3) Hypoxemia: Acute respiratory failure with hypoxia - secondary to human metapneumovirus pneumonia and asthma exacerbation. - Improving, weaned to room air both at rest and with ambulation as above (4) Leukocytosis: Patient with lymphocyte predominant leukocytosis with WBC = 18.85 and now is improved down baseline of 12-14. She reports that she is suspected to have CLL and is currently following with hematology/oncology. No formal diagnosis has been made yet. Is also now on steroids which will likely make her WBC count go back up. Continue to monitor CBC Patient should continue regular outpatient heme-onc follow-up as scheduled (5) Central hypothyroidism: Chronic. Last TSH was undetectable in 04/2019. She follows with endocrinology. Continue levothyroxine 175 mcg daily (6) Asthma: Patient with history of well-controlled asthma. Had diffuse end expiratory wheezing in the setting of acute viral pneumonia/pneumonitis which is now improving. By discharge, was just having some cough, but no wheezing. Weaned DuoNebs to as needed. Finished steroids in the hospital. Sent spacer home to help improve inhaler effectiveness. (7) Gastric bypass status for obesity: Noted. - Avoid NSAIDs (8) Overactive bladder: Continue Myrbetriq (9) Insomnia: - Continue amitriptyline as needed (10) Constipation: Add on senna/docusate at bedtime. - Add on daily MiraLAX - Encouraged ambulation within her isolation room (11) DVT prophylaxis: Lovenox 40 mg subcu daily Total Time Total Time Spent Total Time Spent (In Minutes): 35 Discharge Plan Discharge Items Patient Disposition: Home - Self-Care Reason For Visit: COUGH/SOB Discharge Diagnosis: Viral and superimposed bacterial bronchitis & pneumonia Condition on Discharge: Good Activity: Resume your previous activity Non-emergency contact: Primary Care Provider Call non-emergency contact if: your symptoms worsen and your temperature is above 101 Follow-up/Referrals: Beth Keith CRNP [Primary Care Provider] - Diet: Regular Addtl Attending Provider Instructions: You were admitted to the hospital with cough and shortness of breath. We were concerned about Covid-19/coronavirus infection due to prior exposures, but you tested negative! This is great. You did test positive for a virus called metapneumovirus which can cause colds and bronchitis. On June 04, your white count went up and your chest x-ray indicated a possible bacterial pneumonia on top of the viral symptoms. We started you on antibiotics, and you have slowly improved to the point that we feel you can be discharged today. We will give you Pending Studies at Discharge: No Stand-Alone Forms: My [facility], Work/School Release (Inpt), Smoking Cessation Medications and DC Order Prescriptions: New (DME) Spacer for Inhaler Misc See Rx Instructions .ROUTE .MEDSUPPLY Qty: 1 RF: 0 cefdinir 300 mg Capsule 300 mg PO BID Qty: 3 RF: 0 benzonatate [Tessalon Perles] 100 mg Capsule 200 mg PO TID PRN (Reason: cough) Qty: 20 RF: 0 hydrocodone-homatropine [Hydromet] 5-1.5 mg/5 mL Syrup 5 ml PO Q8 PRN (Reason: cough) Qty: 473 RF: 0 guaifenesin [Mucinex] 600 mg Tablet Extended Release 12hr 1,200 mg PO Q12 Qty: 8 RF: 0 Continued fluticasone propionate 50 mcg/actuation spray,suspension 2 sprays intranasal DAILY PRN (Reason: Pain) Qty: 0 RF: 0 (DME) lancets [Accu-Chek Fastclix Lancet Drum] misc See Dose Instructions .ROUTE .MEDSUPPLY Qty: 600 RF: 3 Tirosint 175 mcg capsule 175 mcg PO DAILY Qty: 90 RF: 3 cholecalciferol (vitamin D3) 1,250 mcg (50,000 unit) tablet 50,000 units PO WEEKLY Qty: 12 RF: 3 amitriptyline 25 mg tablet 25 mg PO HS PRN (Reason: Pain) RF: 0 multivitamin [Daily Multi-Vitamin] tablet 1 tab PO DAILY RF: 0 diclofenac sodium [Voltaren] 1 % gel See Rx Instructions TOP DAILY PRN (Reason: Pain) RF: 0 celecoxib 200 mg capsule 200 mg PO HS PRN (Reason: Pain) RF: 0 Myrbetriq 25 mg tablet extended release 24 hr 25 mg PO QAM RF: 0 (DME) Accu-Chek Guide strip See Dose Instructions .ROUTE .MEDSUPPLY Qty: 600 RF: 3 cyanocobalamin (vitamin B-12) 1,000 mcg/mL solution 1,000 mcg IM .COMPLEX RF: 0 duloxetine 60 mg capsule,delayed release(DR/EC) 60 mg PO DAILY RF: 0 Changed albuterol sulfate [ProAir HFA] 90 mcg/actuation HFA aerosol inhaler 2 puff INHALATION Q4H PRN (Reason: Shortness Of Breath) Qty: 6.7 RF: 0 Discharge Orders: Discharge Order (Routine); Ordered 06/09/19 Ordered By: Orlando Ledesma Admission Data Admit Date/Time: 06/04/19 02:20 Attending Provider: Orlando Ledesma Admit Provider: Rachele Abraham Primary Care Provider: Beth Keith Other Providers: Orlando Ledesma Other Interventions: Discharge Summary Assessment (RN) Last Done: 06/09/19 12:53 DC Date/Time DO NOT enter until pt leaves facility: 06/09/19 13:10 Coding Level of Care Code D/C Day Management >30 mins Diagnoses Pneumonitis J18.9 Pneumonia due to human metapneumovirus (hMPV) J12.3 Hypoxemia R09.02 Leukocytosis D72.820 Leukocytosis type: lymphocytosis Central hypothyroidism E03.8 Asthma J45.20 Asthma severity: mild Asthma persistence: intermittent Asthma complication type: uncomplicated Gastric bypass status for obesity Z98.84 Overactive bladder N32.81 Insomnia G47.00 Constipation K59.00 DVT prophylaxis Z29.9
--- NOTE | 2019-06-11 17:01 | Coding Query ---
LABORATORY To promote full compliance with coding requirements relating to patient care, physician participation is requested in all cases of food and nutrition services assistant uncertainty. Please assist us with the question(s) below: Please review the Laboratory report by [employer] for COVID-19 and please document any relevant diagnosis(es) below. Thank you ! XAVI Thomas [facility] Diagnosis(es): Negative for Covid-19. MTDD
== END 2019-06-09 13:10 | disposition home or self-care (01) | DRG 193 ==
LOC: ED 21:49 → SUATTDRO 06-04 02:20 → 2N 06-04 02:20

== ENCOUNTER 2019-09-07 05:11 | Inpatient (IN) ==
--- NOTE | 2019-08-19 15:26 | PAT Medication Instructions ---
Medication Instructions Date of Service August 19, 2019 Home Medications Medication Instructions Recorded blood sugar diagnostic #600 ea 11/05/18 Accu-Chek Fastclix Lancet Drum #600 ea NS 11/12/18 cholecalciferol (vitamin D3) 1,250 50,000 units PO WEEKLY #12 tab 05/18/19 mcg (50,000 unit) tablet Spacer for Inhaler #1 ea 06/09/19 albuterol sulfate [ProAir HFA] 2 puff INHALATION Q4H PRN #6.7 gm 06/09/19 fluticasone propionate 50 mcg/actuation nasal spray,suspension 2 sprays INTRANASAL DAILY PRN celecoxib 200 mg capsule 200 mg PO HS PRN diclofenac sodium 1 % topical gel 1 g TOP DAILY PRN mirabegron 25 mg tablet,extended release 24 hr 25 mg PO QAM amitriptyline 25 mg tablet 25 mg PO HS PRN cholecalciferol (vitamin D3) 1,250 mcg (50,000 unit) tablet 50,000 units PO WEEKLY duloxetine 60 mg PO QAM albuterol sulfate [ProAir HFA] 2 puff INHALATION Q4H PRN calcium carbonate [Calcium 500] 1,000 mg PO QAM cetirizine [Zyrtec] 10 mg PO QAM cranberry 400 mg PO QAM cyanocobalamin (vitamin B-12) 500 mcg SUBLINGUAL QAM levothyroxine [Tirosint] 175 mcg PO QAM pedi multivit no.7-folic acid [Flintstones Tab Chew] 200 mcg PO BID acetaminophen [Tylenol Extra Strength] 1,000 mg PO Q6H PRN ASK your surgeon for instructions celecoxib 200 mg capsule 200 mg PO HS PRN STOP taking 2 weeks before surgery (or as soon as possible if surgery is within 2 weeks) cranberry 400 mg PO QAM STOP taking 24 hours before surgery diclofenac sodium 1 % topical gel 1 g TOP DAILY PRN DO NOT take the morning of surgery mirabegron 25 mg tablet,extended release 24 hr 25 mg PO QAM cholecalciferol (vitamin D3) 1,250 mcg (50,000 unit) tablet 50,000 units PO WEEKLY calcium carbonate [Calcium 500] 1,000 mg PO QAM cetirizine [Zyrtec] 10 mg PO QAM cyanocobalamin (vitamin B-12) 500 mcg SUBLINGUAL QAM pedi multivit no.7-folic acid [Flintstones Tab Chew] 200 mcg PO BID Take morning of surgery With a small sip of water, OTHERWISE NOTHING TO EAT OR DRINK AFTER MIDNIGHT: fluticasone propionate 50 mcg/actuation nasal spray,suspension 2 sprays INTRANASAL DAILY PRN (if needed) duloxetine 60 mg PO QAM albuterol sulfate [ProAir HFA] 2 puff INHALATION Q4H PRN (use if needed; please bring with you to hospital day of surgery if possible) levothyroxine [Tirosint] 175 mcg PO QAM acetaminophen [Tylenol Extra Strength] 1,000 mg PO Q6H PRN (okay to take up to 4 hours prior to surgery if needed) Take evening before surgery fluticasone propionate 50 mcg/actuation nasal spray,suspension 2 sprays INTRANASAL DAILY PRN (if needed) amitriptyline 25 mg tablet 25 mg PO HS PRN (if needed) albuterol sulfate [ProAir HFA] 2 puff INHALATION Q4H PRN (if needed) pedi multivit no.7-folic acid [Flintstones Tab Chew] 200 mcg PO BID acetaminophen [Tylenol Extra Strength] 1,000 mg PO Q6H PRN (if needed) Other Notes If you have any questions please call us at [phone] or [phone] or [phone] or [phone]
--- NOTE | 2019-08-26 09:02 | Anesthesiology Consultation ---
Date of Service August 26, 2019 Assessment & Plan (1) Encounter for pre-operative examination: - Surgery was originally scheduled for 08/11/19. Per previous anesthesia consult "Patient had routine preop covid test done on 08/05/2019. Subsequently, it was discovered patient went to an area near [facility] and watched her grandchildren. Given that this area has high rate of infection, the scenario was passed along to Dr. Coughlin. He stated patient is to be delayed for 30 days as procedure was at surgery center and is non-emergent. Patient likely will need retested and ensure she quarantines prior to her surgery." Surgery now rescheduled to 09/07/19.* Patient seen at PAT 08/26/19. She states travel screen negative since watching grandchildren mid July 2019 in [place] (reason for delay of initial surgery). No known COVID-19 positive contacts. No current COVID-19 related symptoms. Patient reports she has been self-quarantining since surgery was canceled 07/2019. She states surgeon-ordered COVID-19 testing per protocol will be scheduled approximately 3 days prior to surgery. Awaiting results. - PCP note: 07/13/19: Medically cleared for surgery- "YES" Chart Review Chart Review: Acceptable Risk for Surgery (pending COVID-19 test) and Patient seen in Pre Admission Testing Teaching & Discussion Pre-Anesthesia Teaching/Discussion Notes: Instructed NPO after midnight before surgery,except medications with 15 cc of water. Medication instructions provided according to the [facility] guidelines. History Surgery Operation Date: 09/07/19 07:00 Proposed Procedures p Right Total Knee Arthroplasty - Marvin Huddleston MD s Right Foot Hardware Removal, Arthrex Screw from 1st MPJ Fusion Set - Shilpa Miller DPM Height/Weight Height: 5 ft 11 in Weight: 113.7 kg Allergies Allergy/AdvReac Type Severity Reaction Status Date / Time thyroid, pork Allergy Intermediate nausea, Verified 08/19/19 08:42 [From [place] Thyroid] palpitations doxycycline Allergy Mild RASH Verified 08/19/19 08:42 NSAIDS (Non-Steroidal Allergy Unknown TOLD NOT Verified 08/19/19 08:42 Anti-Inflamma TAKE D/T GASTRIC BYPASS Medications Home Medications Medication Instructions Recorded Confirmed Last Taken fluticasone propionate 50 2 sprays INTRANASAL DAILY PRN #0 gm 10/20/18 08/19/19 Unknown mcg/actuation nasal spray,suspension celecoxib 200 mg capsule 200 mg PO HS PRN 11/04/18 08/19/19 Unknown diclofenac sodium 1 % topical gel 1 g TOP DAILY PRN gm 11/04/18 08/19/19 Unknown mirabegron 25 mg tablet,extended 25 mg PO QAM 11/04/18 08/19/19 06/03/19 release 24 hr blood sugar diagnostic #600 ea 11/05/18 08/06/19 Unknown Accu-Chek Fastclix Lancet Drum #600 ea NS 11/12/18 08/06/19 Unknown amitriptyline 25 mg tablet 25 mg PO HS PRN tab 04/10/19 08/19/19 Unknown cholecalciferol (vitamin D3) 1,250 50,000 units PO WEEKLY #12 tab 05/18/19 08/19/19 05/31/19 mcg (50,000 unit) tablet duloxetine 60 mg PO QAM 06/04/19 08/19/19 Unknown Spacer for Inhaler #1 ea 06/09/19 08/06/19 Unknown albuterol sulfate [ProAir HFA] 2 puff INHALATION Q4H PRN #6.7 gm 06/09/19 08/19/19 Unknown calcium carbonate [Calcium 500] 1,000 mg PO QAM 07/12/19 08/19/19 Unknown cetirizine [Zyrtec] 10 mg PO QAM 07/12/19 08/19/19 Unknown cranberry 400 mg PO QAM 07/12/19 08/19/19 Unknown cyanocobalamin (vitamin B-12) 500 mcg SUBLINGUAL QAM 07/12/19 08/19/19 Unknown levothyroxine [Tirosint] 175 mcg PO QAM 07/12/19 08/19/19 Unknown pedi multivit no.7-folic acid 200 mcg PO BID 07/12/19 08/19/19 Unknown [Flintstones Tab Chew] acetaminophen [Tylenol Extra 1,000 mg PO Q6H PRN 08/19/19 08/19/19 Unknown Strength] Past Medical History Medical History Asthma seasonal, well controlled Herniated cervical disc no ROM limitations History of anemia History of dumping syndrome History of urinary frequency + incontinence Hypothyroidism Insomnia Leukocytosis suspected CLL, follows with [facility] annually, under surveillance/no treatment indicated at this time Obesity Osteoarthritis Overactive bladder Peptic ulcer disease hx Rheumatoid arthritis Seasonal allergies Exercise / Class Metabolic Activity II 4-5 Yardwork/Stairs/Walk up hill Past Family History Family History Father Family history of diabetes mellitus Anxiety Grandmother (Paternal) Family history of diabetes mellitus Aunt Family history of diabetes mellitus Past Surgical History Surgical History H/O bladder repair surgery X 3 H/O endoscopic sinus surgery (Acute) H/O exploratory laparotomy (Acute) H/O foot surgery RIGHT FOOT OPEN BUNIONECTOMY X2 /DIGIT STRAIGHTENING 03/11/18 H/O: hysterectomy (Acute) History of colonoscopy History of esophagogastroduodenoscopy (EGD) History of gastric bypass History of laparoscopy History of open reduction and internal fixation (ORIF) procedure RT ANKLE History of tonsillectomy History of tooth extraction History of total knee replacement LEFT-2018 Hx of LASIK Hx of repair of right rotator cuff Past Anesthesia History No Hx of Anesthesia Complications and No Family Hx of Anesthesia Complications History of PONV No Hx of PONV and No Hx of Motion Sickness Social History Smoking Status: Never smoker Do You Dip or Chew Tobacco: No Hx Alcohol Use: Yes Alcohol type: beer alcohol intake frequency: holidays/special occasions only Hx Substance Use: No substance use type: does not use Review of Systems Patient denies chest pain, shortness of breath, dyspnea on exertion, cough, wheezing, palpitations. Physical Exam PHYSICAL Full neck and c-spine range of motion. Full TMJ range of motion. TMD 3.5 finger breaths Mallampati Score 2 Dentition: intact Lungs: clear throughout to auscultation Cardiac: regular rate and rhythm, no murmurs noted Spine: normal Carotid arteries: negative bruit Extremities: no edema Testing Laboratory Results 08/26/19 09:37 08/26/19 09:37 PT 10.3 Seconds (9.0-12.0) 08/26/19 09:37 INR 1.0 (0.9-1.1) 08/26/19 09:37 APTT 26.0 Seconds (21.0-31.0) 08/26/19 09:37 Blood Type B Positive 08/26/19 09:37 Antibody Screen NEGATIVE 08/26/19 09:37 Elevated WBC (at 20.70 on preop labs, known hx leukocytosis, suspected CLL (follows with heme/onc). Left message to make surgeon's office aware). Electrocardiogram Date: 06/03/19 + NSR @ (90bpm with PACs) Chest X-Ray Date: 08/26/19 Findings: + NAD Stress Test Date: 02/22/10 Type: exercise Normal stress echo at 10.4 METS. 88% MPHR. No induced chest pain. No EKG changes. Baseline echo with normal LV systolic function. Mild TR. Cervical Spine Date: 07/28/18 No acute bony abnormality is seen involving the cervical spine. Osteopenia and spondylotic change as above. There is no inducible bony subluxation on the flexion/extension views.
--- NOTE | 2019-08-26 09:59 | XRay Report ---
XR chest 2V PA/lateral CLINICAL HISTORY: PREOP COMPARISON STUDY: 06/05/2019 FINDINGS: The bones soft tissues and hemidiaphragms are normal. The cardiomediastinal silhouette is n ormal. The lungs are clear. The pulmonary vasculature is normal. IMPRESSION: Negative chest. The lungs are considered clear ACT 112: Negative or not required by law. The above report was generated using voice recognition software. It may contain grammatical, syntax or spelling errors. Electronically signed by: Gunner Pearce M.D. 08/26/2019 9:57 AM
[2019-08-26 10:42] LABS: Hematocrit (blood only) 43.9 % (37-47); Mean Corpuscular Hemoglobin 28.9 pg (25-34); Mean Corpuscular Hgb Conc 31.9 g/dL (32-36); Mean Corpuscular Volume 90.7 fL (80-100); Mean Platelet Volume 9.7 fL (7.4-10.4); Platelet Count 294 K/uL (130-400); RDW Coefficient of Variation 12.9 % (11.5-14.5); RDW Standard Deviation 43.2 fL (36.4-46.3); Red Blood Count 4.84 M/uL (4.2-5.4)
[2019-08-26 10:52] LABS: Alanine Aminotransferase 31 U/L (12-78); Albumin Level 3.7 gm/dl (3.4-5.0); Aspartate Aminotransferase 19 U/L (15-37); BUN Creatinine Ratio 16.8 (10-20); Bilirubin Direct < 0.1 mg/dl (0-0.2); Blood Urea Nitrogen 11 mg/dl (7-18); Carbon Dioxide 32 mmol/L (21-32); Chloride 107 mmol/L (98-107); Creatinine Clr Calc Pharmacy 130.6 ml/min; Est GFR (African American) 113.7; Est GFR (Non-African American) 98.1; Glucose 104 mg/dl (70-99); Potassium 4.4 mmol/L (3.5-5.1); Sodium 141 mmol/L (136-145)
[2019-08-26 10:54] LABS: Alkaline Phosphatase 156 U/L (45-117); Bilirubin,Total 0.3 mg/dl (0.2-1); Globulin 3.7 gm/dl (2.5-4.0); Total Protein 7.4 gm/dl (6.4-8.2)
[2019-08-26 11:02] LABS: Partial Thromboplastin Ratio 0.9; Prothrombin Time 10.3 Seconds (9.0-12.0)
[2019-08-26 11:40] LABS: Basophils # (auto) 0.05 K/uL (0-0.2); Basophils % (auto) 0.2 %; Eosinophils # (auto) 0.46 K/uL (0-0.5); Eosinophils % (auto) 2.2 %; Immature Granulocytes # (auto) 0.03 K/uL (0.00-0.02); Immature Granulocytes % (auto) 0.1 %; Lymphocytes # (auto) 15.59 K/uL (1.2-3.4); Lymphocytes % (auto) 75.3 %; Monocytes # (auto) 0.71 K/uL (0.11-0.59); Monocytes % (auto) 3.4 %; Neutrophils # (auto) 3.86 K/uL (1.4-6.5); Neutrophils % (auto) 18.8 %; RBC Morphology Unremarkable
[2019-09-07] MEDS ORDERED: LR 60ML/HR IV SCH (06:00)
[2019-09-07] MEDS ORDERED: TRANEXAMIC ACID 1,000 MG **IV Intra-op IV SCH (06:00)
[2019-09-07] MEDS ORDERED: ROPIVACAINE 0.5% HCL/PF 150 MG, BUPIVACAINE 0.5% MPF 30 ML, EPINEPHrine 0.15 MG, Ketoro... INFIL SCH (06:00)
[2019-09-07] MEDS ORDERED: LR 500ML BOLUS, THEN 15ML/HR IV SCH (06:00)
[2019-09-07] MEDS ORDERED: CeleBREX 200 MG CAP PO SCH (06:00)
[2019-09-07] MEDS ORDERED: TRANEXAMIC ACID 1,000 MG **IV Pre-op IV SCH (06:00)
[2019-09-07] MEDS ORDERED: SCOPOLAMINE 1.5 MG TDSY TD SCH (06:00)
[2019-09-07] MEDS ORDERED: CEFAZOLIN 2000MG 2,000 MG/15 ML SYR IV SCH (06:00)
[2019-09-07] MEDS ORDERED: ROPIVACAINE 0.5% 5 MG/ML 30 ML VIAL ONE (06:28)
[2019-09-07] MEDS ORDERED: BUPIVACAINE 0.5 % 5 MG/1 ML PF 10ML VIAL ONE (06:28)
[2019-09-07] MEDS ORDERED: EPINEPHrine INJ 1 MG/ML AMP ONE (06:28)
--- NOTE | 2019-09-07 06:33 | History & Physical Bridge Note ---
Date of Service September 07, 2019 History & Physical Bridge Note I have examined the patient, reviewed the History & Physical and in the interval since the performance of the History & Physical I have noted the following changes of clinical significance: no changes noted right foot surgery.
[2019-09-07] MEDS ORDERED: MIDAZOLAM HCL 1 MG/ML 2ML VIAL ONE ×3 (06:36→07:47)
[2019-09-07] MEDS ORDERED: fentaNYL citrate 100 MCG/2 ML VIAL ONE ×2 (06:36→11:10)
--- NOTE | 2019-09-07 06:45 | History & Physical Bridge Note ---
Date of Service September 07, 2019 History & Physical Bridge Note I have examined the patient, reviewed the History & Physical and in the interval since the performance of the History & Physical I have noted the following changes of clinical significance: no changes noted Patient is aware of the risk due to COVID-19. She is asymptomatic and tested negative for COVID-19.
[2019-09-07] MEDS ORDERED: ORTHO JOINT ANESTHETIC ONE (06:47)
[2019-09-07] MEDS ORDERED: BUPIVACAINE 0.5 % 5 MG/1 ML MPF 30ML VIAL ONE (06:49)
[2019-09-07] MEDS ORDERED: LIDOCAINE HCL 1% 20 ML VIAL ONE (07:27)
[2019-09-07] MEDS ORDERED: LIDOCAINE HCL 2% 2 ML VIAL/AMP(20MG/ML) INFIL ONE (07:51)
[2019-09-07] MEDS ORDERED: PROPOFOL IV EMULSION 10 MG/ML 20 ML VIAL IV ONE ×4 (07:51→11:28)
[2019-09-07] MEDS ORDERED: fentaNYL citrate 100 MCG/2 ML VIAL IV PRN (08:13)
[2019-09-07] MEDS ORDERED: ePHEDrine sulfate 50 MG/ML AMP IV PRN (08:13)
[2019-09-07] MEDS ORDERED: FLUMAZENIL 0.1 MG/1 ML 10 ML VIAL IV PRN (08:13)
[2019-09-07] MEDS ORDERED: HYDROmorphone INJ 1 MG/ML SYRINGE IV PRN (08:13)
[2019-09-07] MEDS ORDERED: LABETALOL HCL IV 5 MG/ML 20ML IV PRN (08:13)
[2019-09-07] MEDS ORDERED: ONDANSETRON INJ 2 MG/ML 2 ML VIAL IV PRN ×2 (08:13→13:28)
[2019-09-07] MEDS ORDERED: PROMETHAZINE HCL 12.5 MG in SODIUM CHLORIDE 0.9% 50 ML IV PRN (08:13)
[2019-09-07] MEDS ORDERED: NALOXONE HCL 0.4 MG/1 ML VIAL/CARP IV PRN ×2 (08:13→13:28)
[2019-09-07] MEDS ORDERED: ATROPINE SULFATE 0.1 MG/ML 10ML SYR IV PRN (08:13)
[2019-09-07] MEDS ORDERED: ONDANSETRON INJ 2 MG/ML 2 ML VIAL ONE (11:28)
--- NOTE | 2019-09-07 12:07 | Post Operative Brief Note ---
Immediate Post Op Note v1 Date of Surgery September 07, 2019 Pre & Post Diagnosis Operation Date: 09/07/19 07:00 Pre-Op Diagnosis: Right Knee Osteoarthritis, Right Foot Painful Hardware Post-Op Diagnosis: Right Knee Osteoarthritis, Right Foot Painful Hardware I identified the patient and participated in the time-out.: Yes Procedure Operation Date: 09/07/19 07:00 Actual Procedures p Right Total Knee Arthroplasty(Right) - Marvin Huddleston MD s Right Foot Hardware Removal, Arthrex Screw from 1st MPJ Fusion Set(Right) - Shilpa Miller DPM Surgeon Marvin Huddleston MD Practice Specialist Magen Humphries PA-C (No fellow avail) Estimated Blood Loss 123 Findings Consistent with Post-Op Diagnosis Fluids 1300 cc Specimens R knee contents Anesthesia Type MAC Spinal Regional Complications none
--- NOTE | 2019-09-07 12:08 | Operative Report ---
Post Operative Report Pre & Post Diagnosis Operation Date: 09/07/19 07:00 Pre-Op Diagnosis: Right Knee Osteoarthritis, Right Foot Painful Hardware Post-Op Diagnosis: Right Knee Osteoarthritis, Right Foot Painful Hardware I identified the patient and participated in the time-out.: Yes Procedure Operation Date: 09/07/19 07:00 Actual Procedures p Right Total Knee Arthroplasty(Right) - Marvin Huddleston MD s Right Foot Hardware Removal, Arthrex Screw from 1st MPJ Fusion Set(Right) - Shilpa Miller DPM Surgeon Marvin Huddleston MD Director Of Math Magen Humphries PA-C (No fellow avail) Estimated Blood Loss 123 Findings See Below Examined Under Anesthesia: ROM -- There was 0 degrees to 125 degrees of flexion Ligamentous examination -- revealed stable Rodney, posterior drawer, varus and valgus stress at 0 and 30 degrees. Outerbridge Type IV changes of patellofemoral, lateral compartment, and medial femoral condyle. Fluids 1300 cc Specimens R knee contents Anesthesia Type MAC Spinal Regional Complications none Indications This is a 59-year-old female who has clinical and radiographic findings consistent with osteoarthritis of the a right knee. I recommended that a right total knee replacement be performed. The patient understands the risks of surgery, which include but not limited to: bleeding, infection, re-operation, damage to nerves and arteries, continued knee pain, knee stiffness, DVT, and . The patient understands all of these instructions and explanations, all of his questions have been satisfactorily addressed and the patient has elected to proceed. Informed consent was signed. Description of Procedure IMPLANTS: 1. Femur: Triathlon #5 Right PS. 2. Tibia: Triathlon #5 [place]. 3. Insert: Triathlon #5 x 9 mm PS X3 poly. 4. Patella: Triathlon A32 x 9 mm X3 poly. 5. Simplex cement. PROCEDURE: The patient was taken to the Operating Room and placed in the supine position after spinal and adductor canal nerve block was administered. Due to the length of the prior hardware removal, the spinal was wearing off and anesthesia placed an LMA. Please refer to Dr. Mercedes's operative report for full details of the hardware removal for the right great toe. Dr. Mercedes scrubbed out after completing her portion of the case. The right foot and toe were further covered following application of the dressing for the right toe. My initials and a multidisciplinary time-out were used to identify the right leg as the correct operative limb. A tourniquet was placed high in the thigh. Prior to the incision, 2 grams of intravenous Ancef were given. The right leg was then prepped and draped in a standard sterile fashion. An Esmarch was used to exsanguinate the leg and the tourniquet was inflated to 250 mmHg. The planned mid-line 20 cm incision was created exposing the extensor mechanism. The medial parapatellar arthrotomy was made and the patella was everted. The patella was addressed first. It was prepared by reaming from 24 mm down to 12 mm. The excessive osteophytes were removed with a rongeur. An A32 button was found to fit best. The peg holes were made in the standard fashion. The femur was addressed next and the guide chuck was placed intramedullary. The initial cutting block was placed with 5 degrees of valgus and removing 8 mm for the distal cut. The cut was made and the 4-in-1 cutting block for a size 5 femur was placed. These cuts were completed and the cuts to place the box were made in the standard fashion after completing the tibial cut. Our attention was then drawn to the tibia cut with the external cutting guide, taking 4 mm from the lateral low side. There was sufficient extension and flexion gap to fit a 9 mm spacer. A #5 Tibial baseplate fit well. After completing the box cut for the femur and placing the trial femur. A tibial trial with a 9 mm spacer showed excellent stability in both flexion and extension, with good ligament balance and thumbs free tracking of the patella. Range of motion of 0-125 degrees. The tibial baseplate was pinned and the final preparation for the keel and stem was made. All components were removed. The tourniquet was deflated. Hemostasis was obtained. 90 ml of total knee cocktail were injected into the soft tissues and periosteum. A bone plug was placed in the femur and covered with bone wax. After a 15 minute break, the limb was exsanguinated again and the tourniquet was re-inflated. All surfaces were copiously irrigated prior to placement of the components. The femoral component and Tibial baseplate were placed followed by the 9 mm X3 poly was placed. Then the patellar button was placed also using the Simplex cement. All excess cement was removed. The knee was copiously irrigated. Again the range of motion and stability were unchanged. The extensor mechanism was closed with 1-0 and 0 Vicryl with the knee bent approximately 60 degrees in a standard fashion. The peritenon and deep fascia was closed with 2-0 Vicryl. The subcutaneous layer was closed with 3-0 Vicryl. The skin was closed with Zipline and shield. The limb was cleaned and dried. 4x4 dressing was placed over top followed by ABDs, sterile Webril, and a foot to thigh Dagoberto bandage. The patient was then transferred to the Recovery Room in stable condition. The sponge and needle counts were correct. POST-OP INSTRUCTIONS: The patient will be WBAT. The patient will be admitted to the hospital. The patient will use the knee immobilizer when ambulating and standing until good quad control is achieved. Labs will be obtained during the stay. DVT prophylaxis will included aspirin for 6 weeks, TEDs, and mechanical foot pumps. The dressing will be changed prior to their discharge or postop day #2 and covered with a Silverlon dressing, whichever comes first. I attest to the content of the Intraoperative Record and any orders documented therein. Any exceptions are noted below.
--- NOTE | 2019-09-07 12:24 | Operative Report ---
Post Operative Report Pre & Post Diagnosis Operation Date: 09/07/19 07:00 Pre-Op Diagnosis: Right Knee Osteoarthritis, Right Foot Painful Hardware Post-Op Diagnosis: Right Knee Osteoarthritis, Right Foot Painful Hardware I identified the patient and participated in the time-out.: Yes Procedure Operation Date: 09/07/19 07:00 Actual Procedures p Right Total Knee Arthroplasty(Right) - MD teresa Nava Right Foot Hardware Removal, Arthrex Screw from 1st MPJ Fusion Set(Right) - Shilpa Miller DPM Surgeon Marvin Huddleston Shipping Lead Magen Humphries PA-C (No fellow avail) Estimated Blood Loss 123 Findings Consistent with Post-Op Diagnosis Specimens bone and soft tissue Complications none Indications See Dr Huddleston operative report for full details Description of Procedure See Dr Huddleston operative report for full details. I was welder first class during entire case to include prepping, draping, limb and instrument handling, wound closure, dressings. I attest to the content of the Intraoperative Record and any orders documented therein. Any exceptions are noted below.
[2019-09-07] MEDS ORDERED: DEXAMETHASONE SOD INJ 4 MG/ML VIAL ONE (12:30)
--- NOTE | 2019-09-07 12:59 | XRay Report ---
TWO VIEWS RIGHT KNEE CLINICAL HISTORY: Postoperative examination. FINDINGS: AP and crosstable lateral portable views of the right knee are obtained. A right knee arthr oplasty is in near anatomic alignment. There has been undersurface remodeling of the patella. No acut e fracture is seen. There are expected postoperative changes around the knee including soft tissue e angela and subcutaneous gas. IMPRESSION: Expected postoperative changes status post right knee arthroplasty. No acute fracture is seen. ACT 112: Negative or not required by law. Electronically signed by: Desmond Tena M.D. 09/07/2019 12:57 PM
--- NOTE | 2019-09-07 13:11 | XRay Report ---
XR foot RT 2V CLINICAL HISTORY: S/P HARDWARE REMOVAL RIGHT FOOT COMPARISON: 08/03/2019 DISCUSSION: Considerable degenerative and postoperative changes throughout the right foot. There has been removal of the metallic plates traversing the first metatarsophalangeal joint. There is a small residual orthogonal screw at the first metatarsal phalangeal joint as well as distal aspect of the second metatarsal. Generalized degenerative change persists. There is no evidence for soft tissue swelling. IMPRESSION: Unremarkable exam post hardware removal at the first metatarsophalangeal joint. ACT 112: Negative or not required by law. The above report was generated using voice recognition software. It may contain grammatical, syntax or spelling errors. Electronically signed by: Gunner Pearce M.D. 09/07/2019 1:10 PM
--- NOTE | 2019-09-07 13:16 | Operative Report (OR) ---
DATE OF OPERATION: 09/07/2019 A 59-year-old female. ATTENDING PHYSICIAN: Shilpa Miller DPM. PREOPERATIVE DIAGNOSIS: Painful right foot hardware from previous surgery. POSTOPERATIVE DIAGNOSIS: Painful right foot hardware from previous surgery. PROCEDURE: Right foot hardware removal from first metatarsophalangeal joint. BLOOD LOSS: 3 mL. HEMOSTASIS: Esmarch held in place at ankle. ANESTHESIA: Local with spinal and block. DESCRIPTION OF PROCEDURE FOLLOWS: The patient was brought in the operating room and placed in the supine position. The right lower extremity was prepped and draped in the usual sterile manner. A 1:1 mix of 1% lidocaine plain and 0.5% Marcaine was utilized to anesthetize the right foot in the area of the right first metatarsophalangeal joint. At this point, anesthesia was induced, a timeout was taken. The patient was identified, procedure verified and the procedure began. A dorsal linear incision was made in line with the original incision over the area of the plate. Dissection was carried through the subcutaneous tissues to the level of the joint capsule, which was transcribed in line with the original incision and dissected both medially and laterally to expose the first metatarsophalangeal joint fusion plate, 6 screws and 1 crossing screw that was prominent. All were visibly present. There was no failure of hardware. CT scan was performed prior to surgery. There were six 2.7 fully threaded screws within the plate. They were all removed in toto and sent to pathology for permanent specimen. Next, the plate was removed in toto and sent to pathology for permanent specimen with no breakage noted. Next, the crossing screw from proximal to distal across the first metatarsophalangeal joint was removed and sent to pathology for permanent specimen. This was a 3.0 partially threaded cannulated Arthrex screw. All hardware was removed. The area was flushed with copious amounts of normal saline. Next, the subcutaneous tissues were closed with 3-0 Vicryl and the skin was closed with 3-0 nylon in a series of horizontal mattress and simple interrupted sutures. The patient then had the Esmarch lowered, dressings were applied consisting of Adaptic, gauze, roll gauze and Coban and the patient then had the remainder of her surgery, which is the right total knee replacement by my colleague, Dr. Marvin Huddleston and that portion of the surgery will be found in his operative report. I attest to the content of the Intraoperative Record and any orders documented therein. Any exception s are noted below.
[2019-09-07] MEDS ORDERED: METOCLOPRAMIDE HCL INJ 5 MG/ML 2 ML VIAL IV PRN (13:28)
[2019-09-07] MEDS ORDERED: AMITRIPTYLINE HCL 25 MG TAB PO PRN (13:28)
[2019-09-07] MEDS ORDERED: FLUTICASONE PROPIONATE NA SPR 16 GM BTL PRN (13:28)
[2019-09-07] MEDS ORDERED: DiphenhydrAMINE HCL 50 MG/ML VIAL IV PRN (13:28)
[2019-09-07] MEDS ORDERED: bisacodyL 10 MG SUPP PR PRN (13:28)
[2019-09-07] MEDS ORDERED: SODIUM CHLORIDE 0.9% 1000ML 1,000 ML IV SCH (13:28)
[2019-09-07] MEDS ORDERED: MAGNESIUM HYDROXIDE SUSP 30 ML UDC PO PRN (13:28)
[2019-09-07] MEDS ORDERED: ALUMINUM/MAGNESIUM SUSP 30 ML UDC PO PRN (13:28)
[2019-09-07] MEDS ORDERED: ALBUTEROL HFA 8 GM INHALER INH PRN (13:41)
[2019-09-07] MEDS: ACETAMINOPHEN 500 MG TAB PO SCH ×2 (14:07→22:01)
[2019-09-07] MEDS: HYDROmorphone INJ 0.5 MG/0.5 ML SYR IV PRN ×2 (14:08→23:56)
--- NOTE | 2019-09-07 14:39 | Anesthesiology Progress Note ---
Date of Service September 07, 2019 Anesthesia Post Procedure Vital Signs Vital Signs: Temp Pulse Pulse Resp BP Pulse Ox 09/07/19 14:24 74 14 163/84 H 100 09/07/19 14:01 71 16 161/80 H 100 09/07/19 13:10 36.7 C 76 17 166/94 H 100 09/07/19 13:00 36.7 C 72 15 154/93 H 100 09/07/19 12:50 73 19 154/93 H 100 09/07/19 12:40 69 18 155/91 H 100 09/07/19 12:30 67 16 153/94 H 100 09/07/19 12:23 37.4 C 70 14 157/93 H 100 09/07/19 06:10 71 20 161/90 H 100 09/07/19 05:39 36.7 C 72 18 151/104 H 100 Pain Intensity Right Knee: Pain Intensity: 0 Transfer of Care Handoff Completed per policy Notes Mental Status: alert / awake / arousable Patient Amnestic to Procedure: Yes Nausea / Vomiting: adequately controlled Pain: adequately controlled Airway Patency, RR, SpO2: stable & adequate BP & HR: stable & adequate Hydration State: stable & adequate Neuraxial Anesthesia: was administered and sensory block is resolving Anesthetic Complications: no major complications apparent
[2019-09-07] MEDS: CHECK SCOPOLAMINE PATCH PLACEMENT SCH ×2 (15:25→23:50)
[2019-09-07] MEDS: CEFAZOLIN 2000MG 2,000 MG/15 ML SYR IV SCH ×2 (15:25→22:26)
--- NOTE | 2019-09-07 16:19 | Orthopedic Progress Note ---
Date of Service September 07, 2019 Assessment & Plan (1) Osteoarthritis of right knee: POD # 0 s/p Right TKA, doing very well. Resume diet. Continue pain control. WBAT with knee immobilizer for 48 hrs or when demonstrates excellent quad control, use walker and post-op shoe. Dressing change POD 2 or 3. Would like changed to Silverlon when able. PT/OT. DVT prophylaxis: TEDs 3 weeks, foot pumps while in hospital, ASA 81 mg BID for 6 weeks. Ancef for 24 hrs. D/C planning. Present on Admission?: Yes Admission and Anticipated Discharge Date Admission Date: September 07, 2019 Subjective Feel better than before surgery. Review of Systems Review of Systems: All systems reviewed & are unremarkable except as noted in HPI & below Physical Exam Physical Exam: RLE: dressing is clean, dry, intact. calf soft and non-tender. Able to preform straight leg raise. Resting comfortably with knee flexed 60 degree. BCR < 2 sec. sensation to light touch is intact. Wiggling toes. Results & Data ([facility]) Vital Signs (Past 12 Hours) Vital Signs Temp Pulse Pulse Resp BP Pulse Ox 09/07/19 15:25 72 14 131/76 100 09/07/19 14:24 74 14 163/84 H 09/07/19 14:01 71 16 161/80 H 09/07/19 13:25 37.0 C 72 16 158/88 H 09/07/19 13:10 36.7 C 76 17 166/94 H 09/07/19 13:00 36.7 C 72 15 154/93 H 09/07/19 12:50 73 19 154/93 H 09/07/19 12:40 69 18 155/91 H 09/07/19 12:30 67 16 153/94 H 09/07/19 12:23 37.4 C 70 14 157/93 H 100 09/07/19 06:10 71 20 161/90 H 09/07/19 05:39 36.7 C 72 18 151/104 H 100
[2019-09-07] MEDS: ASCORBIC ACID 500 MG TAB PO SCH (17:28)
[2019-09-07] MEDS: FERROUS GLUCONATE 324 MG TAB PO SCH (17:28)
[2019-09-07] MEDS: OXYCODONE HCL IR 5 MG TAB (IMMEDIATE RELEASE) PO PRN ×2 (17:42→22:25)
[2019-09-07] MEDS: DOCUSATE SODIUM 100 MG CAP PO SCH (22:01)
[2019-09-07] MEDS: FLINTSTONES COMPLETE CHEWABLE TAB PO SCH (22:25)
[2019-09-07] MEDS: SENNA 8.6 MG TAB PO SCH (22:25)
[2019-09-08] MEDS: OXYCODONE HCL IR 5 MG TAB (IMMEDIATE RELEASE) PO PRN ×5 (02:50→20:54)
[2019-09-08] MEDS ORDERED: COUGH DROP (SUGAR FREE) LOZ 24 LOZ/1 BOX BUCCAL ONE (03:13)
[2019-09-08] MEDS: LEVOTHYROXINE SODIUM 175 MCG TABLET PO SCH (05:55)
[2019-09-08] MEDS: ACETAMINOPHEN 500 MG TAB PO SCH ×3 (05:55→20:56)
[2019-09-08] MEDS: HYDROmorphone INJ 0.5 MG/0.5 ML SYR IV PRN ×3 (05:58→19:44)
[2019-09-08 06:09] LABS: Hematocrit (blood only) 36.4 % (37-47); Hemoglobin 11.3 g/dL (12.0-16.0); Mean Corpuscular Hemoglobin 28.4 pg (25-34); Mean Corpuscular Volume 91.5 fL (80-100); Mean Platelet Volume 9.4 fL (7.4-10.4); Platelet Count 288 K/uL (130-400); RDW Coefficient of Variation 12.9 % (11.5-14.5); RDW Standard Deviation 43.3 fL (36.4-46.3); Red Blood Count 3.98 M/uL (4.2-5.4); White Blood Count 29.92 K/uL (4.8-10.8)
[2019-09-08 06:36] LABS: BUN Creatinine Ratio 14.4 (10-20); Calcium 8.5 mg/dl (8.5-10.1); Creatinine Clr Calc Pharmacy 124.1 ml/min; Est GFR (Non-African American) 96.6; Potassium 4.4 mmol/L (3.5-5.1)
[2019-09-08] MEDS: CHECK SCOPOLAMINE PATCH PLACEMENT SCH ×3 (08:00→23:25)
--- NOTE | 2019-09-08 08:11 | Anesthesiology Progress Note ---
Date of Service September 08, 2019 Anesthesia Post Procedure Vital Signs Vital Signs: Temp Pulse Pulse Resp BP Pulse Ox 09/08/19 07:54 37.0 C 71 18 108/70 09/08/19 03:31 36.7 C 74 18 106/68 98 09/08/19 00:30 36.7 C 85 18 112/65 99 09/07/19 19:14 36.4 C L 70 16 126/72 97 09/07/19 16:35 36.8 C 81 16 119/71 100 09/07/19 15:25 72 14 131/76 100 09/07/19 14:24 74 14 163/84 H 100 09/07/19 14:01 71 16 161/80 H 100 09/07/19 13:25 37.0 C 72 16 158/88 H 100 09/07/19 13:10 36.7 C 76 17 166/94 H 100 09/07/19 13:00 36.7 C 72 15 154/93 H 100 09/07/19 12:50 73 19 154/93 H 100 09/07/19 12:40 69 18 155/91 H 100 09/07/19 12:30 67 16 153/94 H 100 09/07/19 12:23 37.4 C 70 14 157/93 H 100 Pain Intensity Right Knee: Pain Intensity: 0 Right Leg: Pain Intensity: 7 Notes Mental Status: alert / awake / arousable and participated in evaluation Patient Amnestic to Procedure: Yes Nausea / Vomiting: adequately controlled Pain: adequately controlled Airway Patency, RR, SpO2: stable & adequate BP & HR: stable & adequate Hydration State: stable & adequate Neuraxial Anesthesia: was administered and sensory block resolved Anesthetic Complications: no major complications apparent Notes: Patient did c/o of the right tip of her tongue being numb. Dr. Steward made aware. Patient told (per Nichelle instructions)that it was most likely from LMA placement and should be self-limiting and resolve on its own. Patient verbalized understanding and had no additional concerns/ questions.
[2019-09-08] MEDS ORDERED: NON-FORMULARY MEDICATION (Cranberry 400 MG) PO SCH (09:00)
[2019-09-08] MEDS: CYANOCOBALAMIN 500 MCG TABLET (VITAMIN B-12) PO SCH (09:55)
[2019-09-08] MEDS: MIRABEGRON ER 25 MG TAB PO SCH (09:56)
[2019-09-08] MEDS: ASCORBIC ACID 500 MG TAB PO SCH ×2 (09:56→15:59)
[2019-09-08] MEDS: FERROUS GLUCONATE 324 MG TAB PO SCH ×2 (09:56→19:47)
[2019-09-08] MEDS: ASPIRIN 81 MG ECTAB PO SCH ×2 (09:56→20:55)
[2019-09-08] MEDS: DOCUSATE SODIUM 100 MG CAP PO SCH ×2 (09:56→20:55)
[2019-09-08] MEDS: MULTIVITAMIN TAB PO SCH (09:56)
[2019-09-08] MEDS: FLINTSTONES COMPLETE CHEWABLE TAB PO SCH ×2 (09:57→20:55)
[2019-09-08] MEDS: CETIRIZINE HCL 10 MG TABLET PO SCH (09:57)
[2019-09-08] MEDS: DULOXETINE HCL 60 MG CAP PO SCH (09:57)
[2019-09-08] MEDS: CALCIUM CARBONATE 1250MG TAB PO SCH (10:02)
--- NOTE | 2019-09-08 10:12 | Orthopedic Progress Note ---
Date of Service September 08, 2019 Assessment & Plan (1) Osteoarthritis of right knee: POD # 1 s/p Right TKA, doing well as expected. Also s/p Right foot hardware removal by Dr Mcdonough doing well. Continue regular diet. Continue pain control. Encourage PO pain meds. Quad pain possibly from tourniquet. Recommend ice. WBAT with knee immobilizer for 48 hrs or when demonstrates excellent quad control, use walker and post-op shoe. Dressing change to be done by PA or MD on POD 2 based on drainage if still in house. If continued drainage POD 2 will replace with DSD dressings and schedule appt in office for change to Silverlon this Friday. PT/OT. DVT prophylaxis: TEDs 3 weeks, foot pumps while in hospital, ASA 81 mg BID for 6 weeks. D/C planning to home with HHPT. I, Dr. Huddleston, saw and examined the patient and discussed the management with my PA. I reviewed my PAs note and agree with the documented findings and the plan of care I developed. Patient was continuing to utilize IV narcotics. Will keep overnight and reassess tomorrow. Admission and Anticipated Discharge Date Admission Date: September 07, 2019 Subjective Patient sitting in chair. Finished breakfast. Tolerating PO diet and fluids. Has been up with nursing to use bathroom. Says she is having pain to mid thigh. Pain medication includes PO and IV when needed. States has had numbness to a small area of her tongue since surgery. Saw anesthesia this am. They are aware. She denies difficulty eating, swallowing, breathing, or talking. Denies f/c/s, CP, SOB, B/B issues, N/V, lightheadedness or dizziness. Case management has seen patient and she would liket HHPT upon discharge. Review of Systems Review of Systems: All systems reviewed & are unremarkable except as noted in HPI & below Physical Exam Physical Exam: Sitting in recliner chair. Right leg with immobilizer and post-op shoe elevated on stool. Left leg with TEDS. Right knee and foot dressing C/D/I. B LE calves soft. Nontender to palpation. Neg homans. Sensation intact. Palpable DP and PT pulses. Able to wiggle toes and ankles. Discomfort to right toe however. Results & Data ([facility]) Vital Signs (Past 12 Hours) Vital Signs Temp Pulse Resp BP Pulse Ox 09/08/19 07:54 37.0 C 71 18 108/70 09/08/19 03:31 36.7 C 74 18 106/68 98 09/08/19 00:30 36.7 C 85 18 112/65 99 Laboratory Results 09/08/19 09/08/19 09/08/19 Range/Units 05:47 05:47 05:47 WBC 29.92 H (4.8-10.8) K/uL RBC 3.98 L (4.2-5.4) M/uL Hgb 11.3 L (12.0-16.0) g/dL Hct 36.4 L (37-47) % MCV 91.5 (80-100) fL MCH 28.4 (25-34) pg MCHC 31.0 L (32-36) g/dL RDW Std Deviation 43.3 (36.4-46.3) fL RDW Coeff of Akilah 12.9 (11.5-14.5) % Plt Count 288 (130-400) K/uL MPV 9.4 (7.4-10.4) fL Sodium 139 (136-145) mmol/L Potassium 4.4 (3.5-5.1) mmol/L Chloride 107 (98-107) mmol/L Carbon Dioxide 28 (21-32) mmol/L Anion Gap 4.0 (3-11) BUN 10 (7-18) mg/dl Creatinine 0.69 (0.6-1.2) mg/dl Est Cr Clr Drug Dosing 124.1 ml/min Est GFR ( Amer) 112.0 Est GFR (Non-Af Amer) 96.6 BUN/Creatinine Ratio 14.4 (10-20) Glucose 134 H (70-99) mg/dl Calcium 8.5 (8.5-10.1) mg/dl Hepatitis C Ab Screen Neg (Neg)
[2019-09-08] MEDS: SENNA 8.6 MG TAB PO SCH (20:55)
[2019-09-09] MEDS: OXYCODONE HCL IR 5 MG TAB (IMMEDIATE RELEASE) PO PRN ×5 (01:40→20:19)
[2019-09-09] MEDS: HYDROmorphone INJ 0.5 MG/0.5 ML SYR IV PRN (04:41)
[2019-09-09] MEDS: ACETAMINOPHEN 500 MG TAB PO SCH ×3 (05:53→21:16)
[2019-09-09] MEDS: LEVOTHYROXINE SODIUM 175 MCG TABLET PO SCH (05:53)
[2019-09-09] MEDS: CHECK SCOPOLAMINE PATCH PLACEMENT SCH ×3 (07:41→23:40)
[2019-09-09] MEDS: MIRABEGRON ER 25 MG TAB PO SCH (07:42)
[2019-09-09] MEDS: MULTIVITAMIN TAB PO SCH (07:42)
[2019-09-09] MEDS: CETIRIZINE HCL 10 MG TABLET PO SCH (07:42)
[2019-09-09] MEDS: ASCORBIC ACID 500 MG TAB PO SCH ×2 (07:42→18:04)
[2019-09-09] MEDS: ASPIRIN 81 MG ECTAB PO SCH ×2 (07:43→21:15)
[2019-09-09] MEDS: CYANOCOBALAMIN 500 MCG TABLET (VITAMIN B-12) PO SCH (07:43)
[2019-09-09] MEDS: CALCIUM CARBONATE 1250MG TAB PO SCH (07:43)
[2019-09-09] MEDS: FLINTSTONES COMPLETE CHEWABLE TAB PO SCH ×2 (07:43→21:14)
[2019-09-09] MEDS: DOCUSATE SODIUM 100 MG CAP PO SCH ×2 (07:43→21:15)
[2019-09-09] MEDS: DULOXETINE HCL 60 MG CAP PO SCH (07:43)
[2019-09-09] MEDS: FERROUS GLUCONATE 324 MG TAB PO SCH ×2 (07:44→18:05)
--- NOTE | 2019-09-09 10:17 | Communication Note ---
Date of Service: September 09, 2019 Pt still w/ numbness at /in the tip of her tongue 2ndary to LMA. I have reassured her that this should be self-limiting and should resolve. If it doesn't I have explained to her that she should call the Dept of Anesthesiology and we shall address it. She understands and is appreciative.
[2019-09-09] MEDS ORDERED: DEXAMETHASONE SOD PHOSPHATE 10 MG in SYRINGE 0 ML IV ONE (10:37)
--- NOTE | 2019-09-09 14:10 | Anesthesia Procedure Note ---
Date of Service September 09, 2019 Anesthesia Post Epidural Note Vital Signs Vital Signs: Temp Pulse Resp BP Pulse Ox 37.0 C 87 16 117/70 90 09/09/19 07:39 09/09/19 07:39 09/09/19 07:39 09/09/19 07:39 09/09/19 07:39 Pain Intensity Right Knee: Pain Intensity: 8 Right Leg: Pain Intensity: 6 Notes Mental Status: alert / awake / arousable Nausea / Vomiting: adequately controlled Pain: adequately controlled Airway Patency, RR, SpO2: stable & adequate BP & HR: stable & adequate Hydration State: stable & adequate Neuraxial Anesthesia: was administered and sensory block is resolving Anesthetic Complications: no major complications apparent Epidural: Removed without complications and With tip intact
--- NOTE | 2019-09-09 17:02 | Orthopedic Progress Note ---
Date of Service September 09, 2019 Assessment & Plan (1) Osteoarthritis of right knee: POD # 2 s/p Right TKA, doing well, with continued postoperative pain requiring IV narcotics. Also s/p Right foot hardware removal by Dr Mcdonough doing well. Continue regular diet. Continue pain control. Encourage PO pain meds.Will give a dose of Decadron. Continue ice. WBAT with knee immobilizer for 48 hrs or when demonstrates excellent quad control, use walker and post-op shoe. Dressing changed to Silverlon 09/09/2019. PT/OT. DVT prophylaxis: TEDs 3 weeks, foot pumps while in hospital, ASA 81 mg BID for 6 weeks. D/C planning to home with HHPT, will reevaluate tomorrow in the a.m. Admission and Anticipated Discharge Date Admission Date: September 07, 2019 Subjective Right knee pain Review of Systems Review of Systems: All systems reviewed & are unremarkable except as noted in HPI & below Physical Exam Physical Exam: RLE: Dressing had been switched to Silverlon, and is clean, dry, intact. Calf is soft and nontender. Neurovascularly intact. Results & Data ([facility]) Vital Signs (Past 12 Hours) Vital Signs Temp Pulse Pulse Resp BP Pulse Ox 09/09/19 15:38 37.1 C 88 16 117/70 93 09/09/19 07:39 37.0 C 87 16 117/70 90
[2019-09-09] MEDS: SENNA 8.6 MG TAB PO SCH (21:14)
[2019-09-10] MEDS: OXYCODONE HCL IR 5 MG TAB (IMMEDIATE RELEASE) PO PRN ×2 (02:47→11:58)
[2019-09-10] MEDS: LEVOTHYROXINE SODIUM 175 MCG TABLET PO SCH (05:55)
[2019-09-10] MEDS: ACETAMINOPHEN 500 MG TAB PO SCH (05:55)
[2019-09-10] MEDS: MIRABEGRON ER 25 MG TAB PO SCH (07:28)
[2019-09-10] MEDS: MULTIVITAMIN TAB PO SCH (07:28)
[2019-09-10] MEDS: FLINTSTONES COMPLETE CHEWABLE TAB PO SCH (07:28)
[2019-09-10] MEDS: DULOXETINE HCL 60 MG CAP PO SCH (07:28)
[2019-09-10] MEDS: FERROUS GLUCONATE 324 MG TAB PO SCH (07:28)
[2019-09-10] MEDS: CYANOCOBALAMIN 500 MCG TABLET (VITAMIN B-12) PO SCH (07:28)
[2019-09-10] MEDS: CETIRIZINE HCL 10 MG TABLET PO SCH (07:28)
[2019-09-10] MEDS: ASPIRIN 81 MG ECTAB PO SCH (07:28)
[2019-09-10] MEDS: ASCORBIC ACID 500 MG TAB PO SCH (07:28)
[2019-09-10] MEDS: CALCIUM CARBONATE 1250MG TAB PO SCH (07:29)
[2019-09-10] MEDS: DOCUSATE SODIUM 100 MG CAP PO SCH (07:29)
--- NOTE | 2019-09-10 10:18 | Discharge Summary ---
Date of Service September 10, 2019 Principal Diagnosis Right Knee DJD, Retained Painful Hardware Right Foot Discharge Data Allergies Allergy/AdvReac Type Severity Reaction Status Date / Time thyroid, pork Allergy Intermediate nausea, Verified 09/07/19 06:01 [From [place] Thyroid] palpitations doxycycline Allergy Mild RASH Verified 09/07/19 06:01 NSAIDS (Non-Steroidal Allergy Unknown TOLD NOT Verified 09/07/19 06:01 Anti-Inflamma TAKE D/T GASTRIC BYPASS Consultations 09/07/19 13:28 Consult Case Management - Discharge Planning Routine Procedures Performed Operation Date: 09/07/19 07:00 Actual Procedures p Right Total Knee Arthroplasty(Right) - Marvin Huddleston MD s Right Foot Hardware Removal, Arthrex Screw from 1st MPJ Fusion Set(Right) - Shilpa Miller DPM Ordered Studies 09/07/19 05:00 US - OR guided needle placemen Routine Hospital Course (1) Osteoarthritis of right knee: 59 year old female underwent RTK by Dr Huddleston and Hardware Removal to Right Foot by Dr Mcdonough. Surgery was without complications. She was admitted to the floor. Labs on POD 1 were WNL. She had some complaints of numbness to area of tongue. Anesthesia was aware and recommended observation. Throughout her stay pain control was an issue, mainly to thigh. She required IV pain medication as well as PO pain medication until POD #2. At that time a dose decadron was added which significantly improved her pain. On POD #3 AM she was deemed stable to discharge to home. She tolerated a PO diet and fluids. No issues with bowel or bladder. Her dressings were changed to silverlon on POD #2. She has been able to participate in PT during hospital stay, WBAT R LE with post-op shoe and right knee immobilizer. Her right foot post-op dressings have remained C/D/I. Hospital course for DVT prophylaxis consisted of ASA 81mg BID, TEDS, and foot pumps. Patient being discharged to home with HHPT. Right knee waterproof dressing to remain on until follow-up. Right foot post-op dressings to remain on until follow-up with Dr Mcdonough. Patient to discontinue right knee immobilizer, WBAT with walker and post-op shoe. Home DVT prophylaxis to consist of B knee high TEDS and ASA 81mg BID x 6wks. New medications on discharge include ASA, Tylenol, Oxycodone, Iron, and Vitamin C. Patient to call the office with any questions or concerns. She was provided with extensive discharge instructions. See below. Total Time Total Time Spent Total Time Spent (In Minutes): 20 Discharge Plan Discharge Items Patient Disposition: Home - Self-Care Reason For Visit: Right Knee Osteoarthritis, Rt Foot Painful Hardwar Discharge Diagnosis: Right knee osteoarthritis, Right foot painful hardware Condition on Discharge: Fair Activity: Per Instructions section Lifting: Wait until after follow-up appointment Bathing: Keep incision dry Exercise/Sports: Wait until after follow-up appointment Driving/Machine Use: no driving until cleared by surgeon Weightbearing: Right weightbearing Weightbearing Comment: as tolerated with walker Non-emergency contact: Surgeon Call non-emergency contact if: your pain is not controlled, your temperature is above 101.5, your wound has increased redness and your wound has increased drainage Follow-up/Referrals: Marvin Huddleston MD [Physician] - 09/22/19 10:45 am (with Ariadna Humphries PA-C for right knee wound check; F/U with Dr Mcdonough for right foot to be scheduled ) Beth Keith CRNP [Primary Care Provider] - Diet: Regular Addtl Attending Provider Instructions: Post-operative Instructions Pain Expect to be in a fair amount of pain after surgery. Remember, our goal is not to eliminate your pain, but to make it tolerable. It is a good idea to stay ahead of your pain by taking the medications you were prescribed once you get home. Typically, the pain starts improving 3-7 days after surgery. You should start weaning off the narcotic pain medication (oxycodone) as soon as your pain improves. Please call our office if your pain is not adequately controlled. You can take tylenol 1000mg every 8hrs for mild to moderate pain. Ice Ice your operative site at least 5 times a day for 15-30 minutes at a time. Make sure you have a thin cloth between the ice or cooling unit and your skin to prevent dillard bite. This is especially important if you received a nerve block. Continue icing your operative site for the first 5-7 days after surgery, then as needed. Diet/Nausea/Vomiting Start by drinking clear liquids and eating crackers. If you can tolerate this, then you may resume your normal diet. If you feel nauseated or vomit, take Zofran/ondansetron (if prescribed). Please call our office if you have intractable nausea or vomiting, or, if after hours, you may go to the Emergency Room for help. Constipation Constipation is a common side effect of narcotic pain medication. If you have not had a bowel movement within 2 days after surgery, we recommend purchasing an over the counter laxative such as Milk of Magnesia, Dulcolax, or Miralax from a local pharmacy, and taking it as instructed. Call our clinic if any questions. Weight bearing and Range of Motion. Weightbearing as tolerated with walker. No restrictions with range of motion. *KNEE IMMOBILIZER x 48hrs AFTER SURGERY WHILE AMBULATING AND THEN CAN STOP (CONTINUE IF YOU DO NOT HAVE GOOD QUAD CONTROL)* Physical therapy Initially you will start with home health physical therapy. At our first visit with at our office we will provide you with script for outpatient physical therapy. Wound care and showering We will inspect your knee wound at your first post-operative visit. Most patients will be in a water-proof dressing (silverlon) that is removed 14 days after surgery. It is normal to see some dried blood on the dressing. Do not remove your dressing, paper strips or sutures yourself unless you are given permission. Showering is allowed the day after surgery. Do not scrub or remove any dressings. The wound should not be submerged underwater (i.e. in a bathtub or pool) until 4 weeks after surgery (KEEP RIGHT FOOT DRESSINGS CLEAN AND DRY WELL) KAROL stockings If you were given white stockings, these are to be worn at all times except to shower and sleep (on both legs) for the first 2 weeks after surgery. We will discuss removal at your first follow-up appointment. Driving You may not drive while taking narcotic pain medication. We will discuss return to driving at your first follow-up appointment. Return To Work Your return to work depends on what surgery was done and what type of work you do. Please bring any paperwork your employer needs completed to your first post-operative visit. Also, bring a description of your job duties, as this helps us to understand what risks you may face at work. Travel Avoid long distance travel (greater than 1 hour) in airplanes and cars for the first 6 weeks after surgery if possible. If you must travel, please let us know so we can discuss additional measures to prevent blood clots. Follow-up You should have a follow-up appointment already scheduled for 2 weeks after surgery. If not, please contact our office to make this appointment before you leave the hospital. When to call the office [phone] It is normal to have swelling and bruising in the limb that was operated on. This will improve with time. It is also normal to have fevers for the first 2 days after surgery. Reasons you should call your doctor include: Uncontrolled pain; Nausea, vomiting, or constipation that does not improve with medication; Fevers over 101.5, chills, sweats; Drainage or bleeding from the wound; Foul odor; Spreading areas of redness; Any other concerns. NEW MEDICATIONS: new medications will be sent to your pharmacy: oxycodone, iron, vit c, tylenol, aspirin. Pending Studies at Discharge: No Stand-Alone Forms: [facility] [employer], Smoking Cessation Medications and DC Order Prescriptions: New oxycodone 5 mg Tablet 5 - 10 mg PO Q4H PRN (Reason: pain) Qty: 30 RF: 0 ferrous gluconate 324 mg (38 mg iron) Tablet 324 mg PO BIDM Qty: 60 RF: 0 ascorbic acid (vitamin C) [Vitamin C] 500 mg Tablet 500 mg PO BIDM Qty: 60 RF: 0 aspirin 81 mg Tablet,Delayed Release (Dr/Ec) 81 mg PO BID 42 Days Qty: 84 RF: 0 acetaminophen 500 mg Tablet 1,000 mg PO Q8 Qty: 60 RF: 0 Continued fluticasone propionate 50 mcg/actuation spray,suspension 2 sprays intranasal DAILY PRN (Reason: Congestion) Qty: 0 RF: 0 (DME) lancets [Accu-Chek Fastclix Lancet Drum] misc See Dose Instructions .ROUTE .MEDSUPPLY Qty: 600 RF: 3 cholecalciferol (vitamin D3) 1,250 mcg (50,000 unit) tablet 50,000 units PO WEEKLY Qty: 12 RF: 3 amitriptyline 25 mg tablet 25 mg PO HS PRN (Reason: Pain) RF: 0 Myrbetriq 25 mg tablet extended release 24 hr 25 mg PO QAM RF: 0 (DME) Accu-Chek Guide test strips strip See Dose Instructions .ROUTE .MEDSUPPLY Qty: 600 RF: 3 calcium carbonate [Calcium 500] 500 mg calcium (1,250 mg) Tablet 1,000 mg PO QAM RF: 0 cranberry 400 mg Capsule 400 mg PO QAM RF: 0 cyanocobalamin (vitamin B-12) 1,000 mcg Tablet, Sublingual 500 mcg SUBLINGUAL QAM RF: 0 Flintstones Tab Chew 100 mcg Tablet,Chewable 200 mcg PO BID RF: 0 Zyrtec 10 mg Capsule 10 mg PO QAM RF: 0 Tirosint 175 mcg capsule 175 mcg PO QAM RF: 0 acetaminophen [Tylenol Extra Strength] 500 mg Tablet 1,000 mg PO Q6H PRN (Reason: Pain) RF: 0 duloxetine 60 mg capsule,delayed release(DR/EC) 60 mg PO QAM RF: 0 (DME) Spacer for Inhaler Misc See Rx Instructions .ROUTE .MEDSUPPLY Qty: 1 RF: 0 albuterol sulfate [ProAir HFA] 90 mcg/actuation HFA aerosol inhaler 2 puff INHALATION Q4H PRN (Reason: Shortness Of Breath) Qty: 6.7 RF: 0 Discontinued diclofenac sodium [Voltaren] 1 % gel 1 g TOP DAILY PRN (Reason: Pain) RF: 0 celecoxib 200 mg capsule 200 mg PO HS PRN (Reason: Pain) RF: 0 Discharge Orders: Discharge Order (Routine); Ordered 09/10/19 Ordered By: Angela Humphries Admission Data Admit Date/Time: 09/07/19 12:30 Attending Provider: Marvin Huddleston Admit Provider: Marvin Huddleston Primary Care Provider: Beth Keith Other Providers: Shilpa Miller
--- NOTE | 2019-09-10 11:07 | Orthopedic Progress Note ---
Date of Service September 10, 2019 Assessment & Plan (1) Osteoarthritis of right knee: POD # 3 s/p Right TKA, doing well, with concern for UTI. Also s/p Right foot hardware removal by Dr Mcdonough doing well. Continue regular diet. Continue pain control. Continue ice. WBAT : (No longer requires knee immobilizer as demonstrates excellent quad control) use walker and post-op shoe. Dressing changed to Silverlon 09/09/2019. PT/OT. DVT prophylaxis: TEDs 3 weeks, foot pumps while in hospital, ASA 81 mg BID for 6 weeks. D/C planning to home with HHPT, today. Will start Bactrim DS as an outpatient, if symptoms do not resolve the patient will contact her PCP. Rx sent to pharmacy through [facility] EMR. Admission and Anticipated Discharge Date Admission Date: September 07, 2019 Subjective Feeling much better. Concerned she might be developing an UTI, which is common for her when she takes antibiotics. Notes burning with urination. Review of Systems Review of Systems: All systems reviewed & are unremarkable except as noted in HPI & below Physical Exam Physical Exam: RLE: Dressing had been switched to Silverlon, and is clean, dry, intact. Calf is soft and nontender. Neurovascularly intact. Able to preform a straight leg raise. Results & Data ([facility]) Vital Signs (Past 12 Hours) Vital Signs Temp Pulse Pulse Resp BP Pulse Ox 09/10/19 07:49 37.1 C 79 16 108/63 99 09/09/19 23:35 37.0 C 81 18 123/76 95
--- NOTE | 2019-09-10 11:59 | Orthopedic Progress Note ---
Date of Service September 10, 2019 Assessment & Plan (1) Osteoarthritis of right knee: POD # 3 s/p Right TKA, doing well, with concern for UTI. Also s/p Right foot hardware removal by Dr Mcdonough doing well. Continue regular diet. Continue pain control. Continue ice. WBAT : (No longer requires knee immobilizer as demonstrates excellent quad control) use walker and post-op shoe. Dressing changed to Silverlon 09/09/2019. PT/OT. DVT prophylaxis: TEDs 3 weeks, foot pumps while in hospital, ASA 81 mg BID for 6 weeks. D/C planning to home with HHPT, today. Will start Bactrim DS as an outpatient, if symptoms do not resolve the patient will contact her PCP. Rx sent to pharmacy through [facility] EMR. Admission and Anticipated Discharge Date Admission Date: September 07, 2019 Subjective This 59 yo F is day 3 s/p Right Total Knee arthroplasty. Today she is doing very well with no pain. She stated that the IV steroid given yesterday alleviated her pain completely. She has done well with PT/OT. She is ready to be discharged home. She denies CP, SOB, nausea, vomiting, fever, chills, sweats or lethargy. Review of Systems Review of Systems: All systems reviewed & are unremarkable except as noted in Subjective Physical Exam Physical Exam: Right knee: dressings clean, dry and intact. No clunking with light varus/valgus stress. Able to actively SLRT and dorsi/plantar flex foot. Calf soft and supple. Mild edema. No fluctuance. NV intact. Quad strength 3/5. Results & Data ([facility]) Vital Signs (Past 12 Hours) Vital Signs Temp Pulse Pulse Resp BP Pulse Ox 09/10/19 11:20 37.1 C 79 81 16 108/63 99 09/10/19 07:49 37.1 C 79 16 108/63 99 Laboratory Results Lab Results 08/26/19 08/26/19 08/26/19 Range/Units 09:37 09:37 09:37 WBC 20.70 H (4.8-10.8) K/uL RBC 4.84 (4.2-5.4) M/uL Hgb 14.0 (12.0-16.0) g/dL Hct 43.9 (37-47) % MCV 90.7 (80-100) fL MCH 28.9 (25-34) pg MCHC 31.9 L (32-36) g/dL RDW Std Deviation 43.2 (36.4-46.3) fL RDW Coeff of Akilah 12.9 (11.5-14.5) % Plt Count 294 (130-400) K/uL MPV 9.7 (7.4-10.4) fL Immature Gran % (Auto) 0.1 % Neut % (Auto) 18.8 % Lymph % (Auto) 75.3 % Nye % (Auto) 3.4 % Eos % (Auto) 2.2 % Baso % (Auto) 0.2 % Immature Gran # (Auto) 0.03 H (0.00-0.02) K/uL Neut # (Auto) 3.86 (1.4-6.5) K/uL Lymph # (Auto) 15.59 H (1.2-3.4) K/uL Nye # (Auto) 0.71 H (0.11-0.59) K/uL Eos # (Auto) 0.46 (0-0.5) K/uL Baso # (Auto) 0.05 (0-0.2) K/uL RBC Morphology Unremarkable PT 10.3 (9.0-12.0) Seconds INR 1.0 (0.9-1.1) APTT 26.0 (21.0-31.0) Seconds PTT Ratio 0.9 Sodium (136-145) mmol/L Potassium (3.5-5.1) mmol/L Chloride (98-107) mmol/L Carbon Dioxide (21-32) mmol/L Anion Gap (3-11) BUN (7-18) mg/dl Creatinine (0.6-1.2) mg/dl Est Cr Clr Drug Dosing ml/min Est GFR ( Amer) Est GFR (Non-Af Amer) BUN/Creatinine Ratio (10-20) Glucose (70-99) mg/dl Calcium (8.5-10.1) mg/dl Total Bilirubin (0.2-1) mg/dl Direct Bilirubin (0-0.2) mg/dl AST (15-37) U/L ALT (12-78) U/L Alkaline Phosphatase (45-117) U/L Total Protein (6.4-8.2) gm/dl Albumin (3.4-5.0) gm/dl Globulin (2.5-4.0) gm/dl Albumin/Globulin Ratio (0.9-2) Hepatitis C Ab Screen (Neg) Blood Type B Positive Antibody Screen NEGATIVE 08/26/19 09/08/19 09/08/19 Range/Units 09:37 05:47 05:47 WBC 29.92 H (4.8-10.8) K/uL RBC 3.98 L (4.2-5.4) M/uL Hgb 11.3 L (12.0-16.0) g/dL Hct 36.4 L (37-47) % MCV 91.5 (80-100) fL MCH 28.4 (25-34) pg MCHC 31.0 L (32-36) g/dL RDW Std Deviation 43.3 (36.4-46.3) fL RDW Coeff of Akilah 12.9 (11.5-14.5) % Plt Count 288 (130-400) K/uL MPV 9.4 (7.4-10.4) fL Immature Gran % (Auto) % Neut % (Auto) % Lymph % (Auto) % Nye % (Auto) % Eos % (Auto) % Baso % (Auto) % Immature Gran # (Auto) (0.00-0.02) K/uL Neut # (Auto) (1.4-6.5) K/uL Lymph # (Auto) (1.2-3.4) K/uL Nye # (Auto) (0.11-0.59) K/uL Eos # (Auto) (0-0.5) K/uL Baso # (Auto) (0-0.2) K/uL RBC Morphology PT (9.0-12.0) Seconds INR (0.9-1.1) APTT (21.0-31.0) Seconds PTT Ratio Sodium 141 (136-145) mmol/L Potassium 4.4 (3.5-5.1) mmol/L Chloride 107 (98-107) mmol/L Carbon Dioxide 32 (21-32) mmol/L Anion Gap 2.0 L (3-11) BUN 11 (7-18) mg/dl Creatinine 0.66 (0.6-1.2) mg/dl Est Cr Clr Drug Dosing 130.6 ml/min Est GFR ( Amer) 113.7 Est GFR (Non-Af Amer) 98.1 BUN/Creatinine Ratio 16.8 (10-20) Glucose 104 H (70-99) mg/dl Calcium 9.0 (8.5-10.1) mg/dl Total Bilirubin 0.3 (0.2-1) mg/dl Direct Bilirubin < 0.1 (0-0.2) mg/dl AST 19 (15-37) U/L ALT 31 (12-78) U/L Alkaline Phosphatase 156 H (45-117) U/L Total Protein 7.4 (6.4-8.2) gm/dl Albumin 3.7 (3.4-5.0) gm/dl Globulin 3.7 (2.5-4.0) gm/dl Albumin/Globulin Ratio 1.0 (0.9-2) Hepatitis C Ab Screen Neg (Neg) Blood Type Antibody Screen 09/08/19 Range/Units 05:47 WBC (4.8-10.8) K/uL RBC (4.2-5.4) M/uL Hgb (12.0-16.0) g/dL Hct (37-47) % MCV (80-100) fL MCH (25-34) pg MCHC (32-36) g/dL RDW Std Deviation (36.4-46.3) fL RDW Coeff of Akilah (11.5-14.5) % Plt Count (130-400) K/uL MPV (7.4-10.4) fL Immature Gran % (Auto) % Neut % (Auto) % Lymph % (Auto) % Nye % (Auto) % Eos % (Auto) % Baso % (Auto) % Immature Gran # (Auto) (0.00-0.02) K/uL Neut # (Auto) (1.4-6.5) K/uL Lymph # (Auto) (1.2-3.4) K/uL Nye # (Auto) (0.11-0.59) K/uL Eos # (Auto) (0-0.5) K/uL Baso # (Auto) (0-0.2) K/uL RBC Morphology PT (9.0-12.0) Seconds INR (0.9-1.1) APTT (21.0-31.0) Seconds PTT Ratio Sodium 139 (136-145) mmol/L Potassium 4.4 (3.5-5.1) mmol/L Chloride 107 (98-107) mmol/L Carbon Dioxide 28 (21-32) mmol/L Anion Gap 4.0 (3-11) BUN 10 (7-18) mg/dl Creatinine 0.69 (0.6-1.2) mg/dl Est Cr Clr Drug Dosing 124.1 ml/min Est GFR ( Amer) 112.0 Est GFR (Non-Af Amer) 96.6 BUN/Creatinine Ratio 14.4 (10-20) Glucose 134 H (70-99) mg/dl Calcium 8.5 (8.5-10.1) mg/dl Total Bilirubin (0.2-1) mg/dl Direct Bilirubin (0-0.2) mg/dl AST (15-37) U/L ALT (12-78) U/L Alkaline Phosphatase (45-117) U/L Total Protein (6.4-8.2) gm/dl Albumin (3.4-5.0) gm/dl Globulin (2.5-4.0) gm/dl Albumin/Globulin Ratio (0.9-2) Hepatitis C Ab Screen (Neg) Blood Type Antibody Screen
[2019-09-11] MEDS ORDERED: [UNRECOGNIZED DRUG - REMARK] SCH (08:00)
== END 2019-09-10 13:47 | disposition home or self-care (01) | DRG 470 ==
LOC: ASU 05:11 → 3E 12:30

== ENCOUNTER 2022-02-22 03:57 | Inpatient (IN) ==
[2022-02-22] MEDS ORDERED: cefTRIAXone SODIUM 2,000 MG/70 ML BAG IV STA (04:10)
[2022-02-22] MEDS ORDERED: VANCOMYCIN CONSULT ACTIVE PRN ×2 (04:10→07:58)
[2022-02-22] MEDS ORDERED: VANCOMYCIN HCL 1,250 MG in SODIUM CHLORIDE 0.9% 500 ML IV STA (04:10)
[2022-02-22] MEDS ORDERED: SODIUM CHLORIDE 0.9% 1000ML 1,000 ML IV ONE (04:10)
[2022-02-22] MEDS ORDERED: ONDANSETRON INJ 2 MG/ML 2 ML VIAL IV STA (04:13)
[2022-02-22] MEDS ORDERED: MoRPHine SULFATE 4 MG/ML 1 ML CARP\\VIAL IV STA (04:13)
--- NOTE | 2022-02-22 04:19 | Emergency Department Note ---
History of Present Illness General Chief complaint: Hand Injury/Pain Stated complaint: HAND PAIN AND SWELLING Time Seen by Provider: 02/22/22 04:04 History of Present Illness Maximum Pain Intensity: 6 This 61-year-old presents to the ER complaining of right hand infection Location: Right hand middle finger Quality: Painful Severity: Moderate Duration: Today Timing: Today Context: Patient was in severe pain and came in Modifying factors: better with rest; worse with movement Patient denies trauma, fever, chills, direct injury to the finger. She is not on any immunosuppressants per patient. Home Medications Medication Instructions Recorded Confirmed Type fluticasone propionate 50 2 sprays intranasal DAILY PRN 10/20/18 01/30/22 History mcg/actuation nasal Congestion #0 grams spray,suspension amitriptyline 25 mg tablet 25 mg PO HS PRN Pain 04/10/19 01/30/22 History Spacer for Inhaler #1 ea 06/09/19 01/30/22 Rx albuterol sulfate 90 mcg/actuation 2 puff inhalation Q4H PRN 06/09/19 01/30/22 Rx aerosol inhaler (ProAir HFA) Shortness Of Breath #6.7 grams calcium carbonate 500 mg calcium 1,000 mg PO QAM 07/12/19 01/30/22 History (1,250 mg) tablet (Calcium 500) cetirizine 10 mg capsule (Zyrtec) 10 mg PO QAM 07/12/19 01/30/22 History cranberry 400 mg capsule 400 mg PO QAM 07/12/19 01/30/22 History pediatric multivitamin no.7-folic 200 mcg PO BID 07/12/19 01/30/22 History acid 100 mcg chewable tablet (Flintstones Tab Chew) acetaminophen 500 mg tablet 1,000 mg PO Q6H PRN Pain 08/19/19 01/30/22 History (Tylenol Extra Strength) Accu-Chek Fastclix Lancet Drum #600 ea 11/03/19 01/30/22 Rx (lancets) blood sugar diagnostic (Accu-Chek #600 ea 11/03/19 01/30/22 Rx Guide test strips) liraglutide 0.6 mg/0.1 mL (18 mg/3 1.8 mg subcut QAM 01/11/21 01/30/22 History mL) subcutaneous pen injector (Victoza 2-Milo) mecobalamin (vitamin B12) See Rx Instructions IM .COMPLEX 01/11/21 01/30/22 History cholecalciferol (vitamin D3) 1,250 50,000 unit PO WEEKLY #12 tabs 05/11/21 01/30/22 Rx mcg (50,000 unit) tablet metformin 500 mg tablet 500 mg PO BID 08/30/21 01/30/22 History mirabegron 25 mg tablet,extended 50 mg PO QAM 08/30/21 01/30/22 History release 24 hr (Myrbetriq) estradiol 1 mg tablet 1.5 mg PO DAILY #135 tabs 11/08/21 01/30/22 Rx estradiol 0.01% (0.1 mg/gram) 1 g vaginal .COMPLEX 01/30/22 01/30/22 History vaginal cream (Estrace) semaglutide (weight loss) 2.4 2.4 mg subcut Q7D 01/30/22 01/30/22 History mg/0.75 mL subcutaneous pen injector (Wegovy) levothyroxine 125 mcg capsule 125 mcg PO DAILY #90 caps 02/08/22 Rx (Tirosint) Allergies Allergy/AdvReac Type Severity Reaction Status Date / Time thyroid, pork Allergy Intermediate nausea, Verified 01/30/22 07:36 [From [place] Thyroid] palpitations doxycycline Allergy Mild RASH Verified 01/30/22 07:36 NSAIDS (Non-Steroidal Allergy Unknown TOLD NOT Verified 01/30/22 07:36 Anti-Inflamma TAKE D/T GASTRIC BYPASS Past Med/Surg History Medical History Asthma seasonal, well controlled > rare inh use Herniated cervical disc no ROM limitations History of anemia History of COVID-10 October 2019 History of dumping syndrome History of urinary frequency + incontinence Hypothyroidism Insomnia Leukocytosis suspected CLL, follows with Maria Elena annually, under surveillance/no treatment indicated at this time Multiple thyroid nodules Obesity Osteoarthritis Overactive bladder Peptic ulcer disease hx Pneumonia due to human metapneumovirus (hMPV) resolved Rheumatoid arthritis Seasonal allergies Vitamin D deficiency Surgical History H/O bladder repair surgery X 3 H/O endoscopic sinus surgery H/O exploratory laparotomy H/O foot surgery RIGHT FOOT OPEN BUNIONECTOMY X2 /DIGIT STRAIGHTENING 03/11/18 H/O: hysterectomy History of colonoscopy History of dilatation and curettage History of esophagogastroduodenoscopy (EGD) History of gastric bypass History of laparoscopy History of open reduction and internal fixation (ORIF) procedure RT ANKLE > with bone marrow taken from right hip History of tonsillectomy History of tooth extraction with dental implants History of total knee replacement bilat Hx of LASIK Hx of repair of right rotator cuff S/P bunionectomy left foot Family History Father Family history of diabetes mellitus Anxiety Lung cancer Asthma Grandmother (Paternal) Family history of diabetes mellitus Aunt Family history of diabetes mellitus Breast cancer maternal Brother Brain cancer Other Hypertension No family history of adverse response to anesthesia No family history of bleeding disorder Denies family history of Ovarian cancer Colorectal cancer Social History Smoking Status: Never smoker Second Hand Exposure: No; Hx Alcohol Use: Yes Alcohol type: beer Hx Substance Use: No Preferred Language: Tamazight Communication Ability: Effective Collections Agent Required: No Beliefs That Will Affect Care: None marital status: Current Living Situation: Spouse current occupational status: employed 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 Feels Safe at Home: Yes Assistive Devices: None Review of Systems A total of 10 systems reviewed and were otherwise negative Physical Exam Vital Signs Vital Signs - 24 hr 02/22/22 03:59 Temperature 36.5 C Temperature Source Temporal Artery Scan Pulse Rate 67 Respiratory Rate 16 Respiratory Effort / Characteristics Non-Labored Spontaneous Respiratory Depth Normal Blood Pressure 140/79 Blood Pressure Mean 99 Blood Pressure Position Sitting Pulse Oximetry 100 Oxygen Delivery Method Room Air Sepsis Recent Fever Within 48 Hours No Sepsis New/Unexplained Change in Mental Status N/A Sepsis Action Taken by Nursing No Action Required VITALS: Vitals are noted on the nurse's note and reviewed by myself. Vital signs stable. GENERAL: Pleasant female, in no acute distress, nondiaphoretic, well-developed well-nourished. SKIN: Right hand middle finger erythematous and edematous with lymphadenitis to the palm of the hand concerning for tendon infection, the rest of the skin was without rashes, erythema, edema, or bruising. There is no tenting of the skin. Capillary reflex less than 2 seconds. HEAD: Normocephalic atraumatic. EARS: External auditory canals clear, EYES: Pupils equal round and reactive to light and accommodation. Conjunctivae without injection, sclerae without icterus. Extraocular movements intact. NOSE: Patent, turbinates without inflammation or discharge. MOUTH: Mucous membranes moist. Pharynx without erythema or exudate. Uvula midline. Airway patent. Tongue does not deviate. NECK: Supple without nuchal rigidity. No lymphadenopathy. No thyromegaly. Cervical spine is nontender. No JVD. HEART: Regular rate and rhythm LUNGS: Clear to auscultation bilaterally without wheezes, rales or rhonchi. No retractions or accessory muscle use. ABDOMEN: Positive bowel sounds x 4. Normal tympanic percussion. Soft, nontender, without masses or organomegaly. Sandhu sign negative. No guarding or rebound tenderness. No CVA tenderness MUSCULOSKELETAL: No muscle atrophy, erythema, or edema noted. Right hand middle finger tender to palpation unable to fully extend the finger or flex the finger with lymphadenitis to the palm of the hand concerning for tendon infection. All other fingers full range of motion. NEURO: Patient was alert and oriented to person place and time. Normal sensation to light and sharp touch. No focal neurological deficits. Course Administered Medications Discontinued Medications Ceftriaxone Sodium (Rocephin) 2,000 mg in 70 mls @ 140 mls/hr IV NOW STA Stop: 02/22/22 04:39 Last Admin: 02/22/22 05:58 Dose: 140 mls/hr Documented By: LUL Sodium Chloride (Nss 1000ml) 1,000 mls @ 999 mls/hr IV .Q1H1M ONE Stop: 02/22/22 05:10 Last Admin: 02/22/22 04:35 Dose: 999 mls/hr Documented By: BS Morphine Sulfate (Morphine Sulfate 4 Mg/Ml 1 Ml Carp\Vial) 4 mg IV NOW STA Stop: 02/22/22 04:14 Last Admin: 02/22/22 04:35 Dose: 4 mg Documented By: BS Ondansetron HCl (Ondansetron Inj 2 Mg/Ml 2 Ml Vial) 4 mg IV NOW STA Stop: 02/22/22 04:14 Last Admin: 02/22/22 04:35 Dose: 4 mg Documented By: LUL Medical Decision Making Medical Records Attestation: I reviewed the patient's medical records. Home Medications Current Medication List: was personally reviewed by me Laboratory Data Attestation: I reviewed the patient's lab results. Result diagrams: 02/22/22 04:15 02/22/22 04:15 Lab Results 02/22/22 02/22/22 02/22/22 Range/Units 04:15 04:15 04:15 WBC 26.91 H (4.8-10.8) K/ul RBC 4.46 (3.93-5.22) M/uL Hgb 13.2 (12.0-16.0) g/dl Hct 39.8 (34.1-44.9) % MCV 89.2 (80.0-100.0) fL MCH 29.6 (25.0-34.0) pg MCHC 33.2 (32.0-36.0) g/dL RDW Std Deviation 41.4 (36.4-46.3) fL RDW Coeff of Akilah 12.6 (11.5-14.5) % Plt Count 234 (130-400) K/uL MPV 9.7 (9.4-12.3) fL Immature Gran % (Auto) 0.1 % Neut % (Auto) 15.7 % Lymph % (Auto) 79.9 % Alcorn % (Auto) 2.8 % Eos % (Auto) 1.3 % Baso % (Auto) 0.2 % Neut # (Auto) 4.22 (1.4-6.5) K/uL Lymph # (Auto) 21.49 H (1.2-3.4) K/uL Alcorn # (Auto) 0.75 (0.24-0.82) K/uL Eos # (Auto) 0.35 (0-0.50) K/uL Baso # (Auto) 0.06 (0-0.2) K/uL Immature Gran # (Auto) 0.04 H (0.00-0.02) K/uL ESR 9 (0-30) mm/hr Sodium 140 (136-145) mmol/L Potassium 4.1 (3.5-5.1) mmol/L Chloride 106 (98-107) mmol/L Carbon Dioxide 28 (21-32) mmol/L Anion Gap 6 (3-11) BUN 10 (6-23) mg/dl Creatinine 0.72 (0.6-1.2) mg/dl Est Cr Clr Drug Dosing 90.6 ml/min Est GFR ( Amer) 106.2 ml/min Est GFR (Non-Af Amer) 91.7 ml/min BUN/Creatinine Ratio 13.9 (10-20) Glucose 86 (70-99(Fasting)) mg/dl Lactate (0.4-2.0) mmol/L Calcium 9.3 (8.5-10.1) mg/dl Total Bilirubin 0.6 (0.2-1.0) mg/dl AST 22 (13-39) U/L ALT 18 (7-52) U/L Alkaline Phosphatase 80 (34-104) U/L C-Reactive Protein 1.92 H (0-0.5) mg/dl Total Protein 6.5 (6.0-8.3) gm/dl Albumin 4.0 (3.4-5.0) gm/dl Globulin 2.5 (2.5-4.0) gm/dl Albumin/Globulin Ratio 1.6 (0.9-2) SARS-CoV-2, RNA, NAAT (NEGATIVE) 02/22/22 02/22/22 Range/Units 04:15 04:15 WBC (4.8-10.8) K/ul RBC (3.93-5.22) M/uL Hgb (12.0-16.0) g/dl Hct (34.1-44.9) % MCV (80.0-100.0) fL MCH (25.0-34.0) pg MCHC (32.0-36.0) g/dL RDW Std Deviation (36.4-46.3) fL RDW Coeff of Akilah (11.5-14.5) % Plt Count (130-400) K/uL MPV (9.4-12.3) fL Immature Gran % (Auto) % Neut % (Auto) % Lymph % (Auto) % Alcorn % (Auto) % Eos % (Auto) % Baso % (Auto) % Neut # (Auto) (1.4-6.5) K/uL Lymph # (Auto) (1.2-3.4) K/uL Alcorn # (Auto) (0.24-0.82) K/uL Eos # (Auto) (0-0.50) K/uL Baso # (Auto) (0-0.2) K/uL Immature Gran # (Auto) (0.00-0.02) K/uL ESR (0-30) mm/hr Sodium (136-145) mmol/L Potassium (3.5-5.1) mmol/L Chloride (98-107) mmol/L Carbon Dioxide (21-32) mmol/L Anion Gap (3-11) BUN (6-23) mg/dl Creatinine (0.6-1.2) mg/dl Est Cr Clr Drug Dosing ml/min Est GFR ( Amer) ml/min Est GFR (Non-Af Amer) ml/min BUN/Creatinine Ratio (10-20) Glucose (70-99(Fasting)) mg/dl Lactate 1.0 (0.4-2.0) mmol/L Calcium (8.5-10.1) mg/dl Total Bilirubin (0.2-1.0) mg/dl AST (13-39) U/L ALT (7-52) U/L Alkaline Phosphatase (34-104) U/L C-Reactive Protein (0-0.5) mg/dl Total Protein (6.0-8.3) gm/dl Albumin (3.4-5.0) gm/dl Globulin (2.5-4.0) gm/dl Albumin/Globulin Ratio (0.9-2) SARS-CoV-2, RNA, NAAT NEGATIVE (NEGATIVE) Imaging Data Attestation: I personally reviewed and interpreted this imaging study as follows: [facility] Narrative Prior records reviewed and summarized as above. Triage Nursing notes reviewed. Additional history obtained from nursing. The patient's history was concerning for swelling and redness of the skin. Differential diagnosis: Etiologies such as cellulitis, abscess, MRSA infection, DVT, necrotizing fasciitis, dermatitis, drug eruption, as well as others were entertained.. Physical examination: As above ER treatment provided: Vancomycin, Rocephin, morphine, Zofran On reassessment the patient felt better. Diagnostics interpreted by me: The labs revealed leukocytosis, negative lactic Imaging studies: Head x-ray with no acute fracture dislocation or foreign body, soft tissue s welling to the middle finger per my interpretation. Consultation: A consultation was placed with the hospitalist. The case was discussed and diagnostics were reviewed. The patient was evaluated in the ER for further treatment. This appears to be and an finger cellulitis concerning for tendon infection. Patient was unable to fully extend or flex the finger. The finger is quite swollen. She was started on IV antibiotics. Medicine is consulted. She will be evaluated for possible admission. By the evaluation outlined above emergent etiologies such as abscess, necrotizing fasciitis, DVT, as well as others were deemed relatively unlikely. The pt informed about the findings as listed above. All questions were answered and pleased with the treatment. Impression & Plan Cellulitis of hand, right Discharge Plan Visit Data Chief Complaint: Hand Injury/Pain Stated Complaint: HAND PAIN AND SWELLING ED Provider: Conchis Sanches ED Midlevel Provider: Inez Chávez Discharge Problem: Cellulitis of hand, right Patient Disposition: Admitted As Inpatient Condition: Good Forms Stand Alone Forms: My [facility] [employer] Prescriptions Prescriptions: No Action fluticasone propionate 50 mcg/actuation spray,suspension 2 sprays intranasal DAILY PRN (Reason: Congestion) Qty: 0 (DME) lancets [Accu-Chek Fastclix Lancet Drum] Misc See Dose Instructions .ROUTE .MEDSUPPLY Qty: 600 3RF Dose Instruction: As directed Rx Instructions: use 5-6 daily to test blood sugars (DME) blood sugar diagnostic [Accu-Chek Guide test strips] Strip See Rx Instructions .ROUTE .MEDSUPPLY Qty: 600 3RF Rx Instructions: use 5-6 strips daily to test blood sugars cholecalciferol (vitamin D3) 1,250 mcg (50,000 unit) tablet 50,000 unit PO WEEKLY Qty: 12 3RF Rx Instructions: mondays estradiol 1 mg tablet 1.5 mg PO DAILY Qty: 135 4RF levothyroxine [Tirosint] 125 mcg capsule 125 mcg PO DAILY Qty: 90 3RF amitriptyline 25 mg tablet 25 mg PO HS PRN (Reason: Pain) mecobalamin (vitamin B12) See Rx Instructions IM .COMPLEX Rx Instructions: IM every 3 months; estradiol [Estrace] 0.01 % (0.1 mg/gram) cream 1 g vaginal .COMPLEX Rx Instructions: 1 g vaginal; 2 times per week Wegovy 2.4 mg/0.75 mL pen injector 2.4 mg subcut Q7D Myrbetriq 25 mg tablet extended release 24 hr 50 mg PO QAM metformin 500 mg tablet 500 mg PO BID calcium carbonate [Calcium 500] 500 mg calcium (1,250 mg) Tablet 1,000 mg PO QAM cranberry 400 mg Capsule 400 mg PO QAM Flintstones Tab Chew 100 mcg Tablet,Chewable 200 mcg PO BID Zyrtec 10 mg Capsule 10 mg PO QAM acetaminophen [Tylenol Extra Strength] 500 mg Tablet 1,000 mg PO Q6H PRN (Reason: Pain) (DME) Spacer for Inhaler Misc See Rx Instructions .ROUTE .MEDSUPPLY Qty: 1 0RF Rx Instructions: As directed albuterol sulfate [ProAir HFA] 90 mcg/actuation HFA aerosol inhaler 2 puff INHALATION Q4H PRN (Reason: Shortness Of Breath) Qty: 6.7 0RF Victoza 2-Milo 0.6 mg/0.1 mL (18 mg/3 mL) pen injector 1.8 mg SUBCUT QAM Referrals Referrals: Beth Keith CRNP [Primary Care Provider] -
[2022-02-22 05:25] LABS: Albumin Globulin Ratio 1.6 (0.9-2); BUN Creatinine Ratio 13.9 (10-20); Bilirubin,Total 0.6 mg/dl (0.2-1.0); C Reactive Protein 1.92 mg/dl (0-0.5); Calcium 9.3 mg/dl (8.5-10.1); Creatinine Clr Calc Pharmacy 90.6 ml/min; Est GFR (African American) 106.2 ml/min; Est GFR (Non-African American) 91.7 ml/min; Globulin 2.5 gm/dl (2.5-4.0); Potassium 4.1 mmol/L (3.5-5.1); Total Protein 6.5 gm/dl (6.0-8.3)
--- NOTE | 2022-02-22 06:03 | History & Physical Report ---
Date of Service February 22, 2022 Assessment & Plan (1) Cellulitis of hand, right: Plan: 61yo right-hand dominant female with acute onset pain and swelling in her right middle finger, inability to fully straighten finger. No trauma, no history of prior. She is afebrile, HD stable, NAD. WBC=26.91. 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 She is unable to fully flex or extend the finger. No history of trauma. She denies fever, chills, nausea, malaise. No additional complaints. No history of prior. In the ER she is afebrile, HD stable, NAD ER Course: Vancomycin Ceftriaxone Morphine Zofran NSS Allergies Allergy/AdvReac Type Severity Reaction Status Date / Time thyroid, pork Allergy Intermediate nausea, Verified 01/30/22 07:36 [From [place] Thyroid] palpitations doxycycline Allergy Mild RASH Verified 01/30/22 07:36 NSAIDS (Non-Steroidal Allergy Unknown TOLD NOT Verified 01/30/22 07:36 Anti-Inflamma TAKE D/T GASTRIC BYPASS Home Medications Medication Instructions Recorded Confirmed Type fluticasone propionate 50 2 sprays intranasal DAILY PRN 10/20/18 01/30/22 History mcg/actuation nasal Congestion #0 grams spray,suspension amitriptyline 25 mg tablet 25 mg PO HS PRN Pain 04/10/19 01/30/22 History Spacer for Inhaler #1 ea 06/09/19 01/30/22 Rx albuterol sulfate 90 mcg/actuation 2 puff inhalation Q4H PRN 06/09/19 01/30/22 Rx aerosol inhaler (ProAir HFA) Shortness Of Breath #6.7 grams calcium carbonate 500 mg calcium 1,000 mg PO QAM 07/12/19 01/30/22 History (1,250 mg) tablet (Calcium 500) cetirizine 10 mg capsule (Zyrtec) 10 mg PO QAM 07/12/19 01/30/22 History cranberry 400 mg capsule 400 mg PO QAM 07/12/19 01/30/22 History pediatric multivitamin no.7-folic 200 mcg PO BID 07/12/19 01/30/22 History acid 100 mcg chewable tablet (Flintstones Tab Chew) acetaminophen 500 mg tablet 1,000 mg PO Q6H PRN Pain 08/19/19 01/30/22 History (Tylenol Extra Strength) Accu-Chek Fastclix Lancet Drum #600 ea 11/03/19 01/30/22 Rx (lancets) blood sugar diagnostic (Accu-Chek #600 ea 11/03/19 01/30/22 Rx Guide test strips) liraglutide 0.6 mg/0.1 mL (18 mg/3 1.8 mg subcut QAM 01/11/21 01/30/22 History mL) subcutaneous pen injector (Testttoza 2-Milo) mecobalamin (vitamin B12) See Rx Instructions IM .COMPLEX 01/11/21 01/30/22 History cholecalciferol (vitamin D3) 1,250 50,000 unit PO WEEKLY #12 tabs 05/11/21 01/30/22 Rx mcg (50,000 unit) tablet metformin 500 mg tablet 500 mg PO BID 08/30/21 01/30/22 History mirabegron 25 mg tablet,extended 50 mg PO QAM 08/30/21 01/30/22 History release 24 hr (Myrbetriq) estradiol 1 mg tablet 1.5 mg PO DAILY #135 tabs 11/08/21 01/30/22 Rx estradiol 0.01% (0.1 mg/gram) 1 g vaginal .COMPLEX 01/30/22 01/30/22 History vaginal cream (Estrace) semaglutide (weight loss) 2.4 2.4 mg subcut Q7D 01/30/22 01/30/22 History mg/0.75 mL subcutaneous pen injector (Wegovy) levothyroxine 125 mcg capsule 125 mcg PO DAILY #90 caps 02/08/22 Rx (Tirosint) Past Med/Surg History Medical History Asthma seasonal, well controlled > rare inh use Herniated cervical disc no ROM limitations History of anemia History of COVID-10 October 2019 History of dumping syndrome History of urinary frequency + incontinence Hypothyroidism Insomnia Leukocytosis suspected CLL, follows with [facility] annually, under surveillance/no treatment indicated at this time Multiple thyroid nodules Obesity Osteoarthritis Overactive bladder Peptic ulcer disease hx Pneumonia due to human metapneumovirus (hMPV) resolved Rheumatoid arthritis Seasonal allergies Vitamin D deficiency Surgical History H/O bladder repair surgery X 3 H/O endoscopic sinus surgery H/O exploratory laparotomy H/O foot surgery RIGHT FOOT OPEN BUNIONECTOMY X2 /DIGIT STRAIGHTENING 03/11/18 H/O: hysterectomy History of colonoscopy History of dilatation and curettage History of esophagogastroduodenoscopy (EGD) History of gastric bypass History of laparoscopy History of open reduction and internal fixation (ORIF) procedure RT ANKLE > with bone marrow taken from right hip History of tonsillectomy History of tooth extraction with dental implants History of total knee replacement bilat Hx of LASIK Hx of repair of right rotator cuff S/P bunionectomy left foot Family History Father Family history of diabetes mellitus Anxiety Lung cancer Asthma Grandmother (Paternal) Family history of diabetes mellitus Aunt Family history of diabetes mellitus Breast cancer maternal Brother Brain cancer Other Hypertension No family history of adverse response to anesthesia No family history of bleeding disorder Denies family history of Ovarian cancer Colorectal cancer Social History Smoking Status: Never smoker Second Hand Exposure: No; Hx Alcohol Use: Yes Alcohol type: beer Hx Substance Use: No Preferred Language: Belarusian Communication Ability: Effective Rn Plastic Surgery Required: No Beliefs That Will Affect Care: None marital status: Current Living Situation: Spouse current occupational status: employed current occupation: [employer] Feels Safe at Home: Yes Assistive Devices: None Review of Systems Review of Systems: All systems reviewed & are unremarkable except as noted in HPI & below Physical Exam Physical Exam: General: patient resting comfortably, NAD, non-toxic in appearance, AA&O x 4 Skin: warm, dry, intact, no rashes or lesions HEENT: NC/AT, PERRL, EOMI, anicteric sclera, conjunctiva without injection, external ear normal to inspection and nontender, nares patent, moist mucus membranes, dentition intact, no oropharyngeal lesions, neck supple, trachea midline, no LAD, no thyromegaly, no JVD Heart: +S1/S2, regular, no m/r/g Lungs: equal air entry bilaterally, no rales/rhonchi/wheezes Abd: +BS, soft, NT/ND, no masses/organomegaly/ascites Ext: warm, 2+ pulses in UE/LE bilaterally, no clubbing/cyanosis or edema, right middle finger swollen, tender, partially flexed with inability to fully straighten, no redness, area is cool to touch Neuro: nonfocal, patient AA&O x 4, speech intact, no facial droop, moving all extremities on command with equal strength 5/5 Results & Data Results & Data ([facility]) Vital Signs (Past 12 Hours) Vital Signs Temp Pulse Resp BP Pulse Ox O2 Del Method 02/22/22 03:59 36.5 C 67 16 140/79 100 Room Air Laboratory Results Laboratory Results WBC 26.91 K/ul (4.8-10.8) H 02/22/22 04:15 RBC 4.46 M/uL (3.93-5.22) 02/22/22 04:15 Hgb 13.2 g/dl (12.0-16.0) 02/22/22 04:15 Hct 39.8 % (34.1-44.9) 02/22/22 04:15 MCV 89.2 fL (80.0-100.0) 02/22/22 04:15 MCH 29.6 pg (25.0-34.0) 02/22/22 04:15 MCHC 33.2 g/dL (32.0-36.0) 02/22/22 04:15 RDW Std Deviation 41.4 fL (36.4-46.3) 02/22/22 04:15 RDW Coeff of Akilah 12.6 % (11.5-14.5) 02/22/22 04:15 Plt Count 234 K/uL (130-400) 02/22/22 04:15 MPV 9.7 fL (9.4-12.3) 02/22/22 04:15 Immature Gran % (Auto) 0.1 % 02/22/22 04:15 Neut % (Auto) 15.7 % 02/22/22 04:15 Lymph % (Auto) 79.9 % 02/22/22 04:15 [place] % (Auto) 2.8 % 02/22/22 04:15 Eos % (Auto) 1.3 % 02/22/22 04:15 Baso % (Auto) 0.2 % 02/22/22 04:15 Neut # (Auto) 4.22 K/uL (1.4-6.5) 02/22/22 04:15 Lymph # (Auto) 21.49 K/uL (1.2-3.4) H 02/22/22 04:15 [place] # (Auto) 0.75 K/uL (0.24-0.82) 02/22/22 04:15 Eos # (Auto) 0.35 K/uL (0-0.50) 02/22/22 04:15 Baso # (Auto) 0.06 K/uL (0-0.2) 02/22/22 04:15 Immature Gran # (Auto) 0.04 K/uL (0.00-0.02) H 02/22/22 04:15 ESR 9 mm/hr (0-30) 02/22/22 04:15 Sodium 140 mmol/L (136-145) 02/22/22 04:15 Potassium 4.1 mmol/L (3.5-5.1) 02/22/22 04:15 Chloride 106 mmol/L (98-107) 02/22/22 04:15 Carbon Dioxide 28 mmol/L (21-32) 02/22/22 04:15 Anion Gap 6 (3-11) 02/22/22 04:15 BUN 10 mg/dl (6-23) 02/22/22 04:15 Creatinine 0.72 mg/dl (0.6-1.2) 02/22/22 04:15 Est Cr Clr Drug Dosing 90.6 ml/min 02/22/22 04:15 Est GFR ( Amer) 106.2 ml/min 02/22/22 04:15 Est GFR (Non-Af Amer) 91.7 ml/min 02/22/22 04:15 BUN/Creatinine Ratio 13.9 (10-20) 02/22/22 04:15 Glucose 86 mg/dl (70-99(Fasting)) 02/22/22 04:15 Lactate 1.0 mmol/L (0.4-2.0) 02/22/22 04:15 Calcium 9.3 mg/dl (8.5-10.1) 02/22/22 04:15 Total Bilirubin 0.6 mg/dl (0.2-1.0) 02/22/22 04:15 AST 22 U/L (13-39) 02/22/22 04:15 ALT 18 U/L (7-52) 02/22/22 04:15 Alkaline Phosphatase 80 U/L (34-104) 02/22/22 04:15 C-Reactive Protein 1.92 mg/dl (0-0.5) H 02/22/22 04:15 Total Protein 6.5 gm/dl (6.0-8.3) 02/22/22 04:15 Albumin 4.0 gm/dl (3.4-5.0) 02/22/22 04:15 Globulin 2.5 gm/dl (2.5-4.0) 02/22/22 04:15 Albumin/Globulin Ratio 1.6 (0.9-2) 02/22/22 04:15 SARS-CoV-2, RNA, NAAT NEGATIVE (NEGATIVE) 02/22/22 04:15 PG Care Time/CCT Total # of Minutes Spent Total Time Spent with Patient: Total time spent is greater than 50% in coordination of care (as documented) at patient's floor/unit and/or counseling patient: Coding Level of Care Code INT OBSERVATION CARE 50M LVL 2 Diagnoses Cellulitis of hand, right L03.113 Central hypothyroidism E03.8
[2022-02-22 06:12] LABS: Basophils # (auto) 0.06 K/uL (0-0.2); Basophils % (auto) 0.2 %; Eosinophils # (auto) 0.35 K/uL (0-0.50); Eosinophils % (auto) 1.3 %; Hematocrit (blood only) 39.8 % (34.1-44.9); Hemoglobin 13.2 g/dl (12.0-16.0); Immature Granulocytes # (auto) 0.04 K/uL (0.00-0.02); Immature Granulocytes % (auto) 0.1 %; Lymphocytes # (auto) 21.49 K/uL (1.2-3.4); Lymphocytes % (auto) 79.9 %; Mean Corpuscular Hemoglobin 29.6 pg (25.0-34.0); Mean Corpuscular Hgb Conc 33.2 g/dL (32.0-36.0); Mean Corpuscular Volume 89.2 fL (80.0-100.0); Mean Platelet Volume 9.7 fL (9.4-12.3); Monocytes # (auto) 0.75 K/uL (0.24-0.82); Monocytes % (auto) 2.8 %; Neutrophils # (auto) 4.22 K/uL (1.4-6.5); Neutrophils % (auto) 15.7 %; Platelet Count 234 K/uL (130-400); RDW Coefficient of Variation 12.6 % (11.5-14.5); RDW Standard Deviation 41.4 fL (36.4-46.3); Red Blood Count 4.46 M/uL (3.93-5.22); White Blood Count 26.91 K/ul (4.8-10.8)
--- NOTE | 2022-02-22 06:56 | XRay Report ---
XR hand RT min 3V routine CLINICAL HISTORY: Middle finger infection. COMPARISON: Right fourth finger radiographs February 21, 2012 FINDINGS: Alignment of the right hand is anatomic. No acute fracture. No evidence for acute osteomye litis is noted. There is third finger soft tissue swelling. Moderate joint space narrowing with osteo phytosis is noted within multiple articulations of the right hand and wrist. IMPRESSION: 1. No acute fracture. No radiographic evidence for acute osteomyelitis. 2. 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 3. Right third finger soft tissue swelling. ACT 112: Negative or not required by law. Electronically signed by: Cash Mccormack M.D. 02/22/2022 6:54 AM
[2022-02-22] MEDS ORDERED: AMITRIPTYLINE HCL 25 MG TAB PO PRN (07:58)
[2022-02-22] MEDS ORDERED: MoRPHine SULFATE 4 MG/ML 1 ML CARP\\VIAL IV PRN (07:58)
[2022-02-22] MEDS ORDERED: VANCOMYCIN HCL 1,000 MG in SODIUM CHLORIDE 0.9% 250 ML IV SCH (07:58)
[2022-02-22] MEDS ORDERED: LACTATED RINGER'S 1,000 ML IV SCH (07:58)
[2022-02-22] MEDS ORDERED: GLUCOSE 10 TAB/TUBE PO PRN (07:58)
[2022-02-22] MEDS ORDERED: DEXTROSE 50% 50 ML SYRINGE IV PRN (07:58)
[2022-02-22] MEDS ORDERED: CARBOHYDRATES FOR HYPOGLYCEMIA PO PRN (07:58)
[2022-02-22] MEDS ORDERED: GLUCAGON FOR INJ 1 MG VIAL SQ PRN (07:58)
[2022-02-22] MEDS ORDERED: GLUCOSE 40% GEL 15 GM TUBE PO PRN (07:58)
[2022-02-22] MEDS ORDERED: ONDANSETRON INJ 2 MG/ML 2 ML VIAL IV PRN (07:58)
[2022-02-22] MEDS: ACETAMINOPHEN 325 MG TAB PO PRN ×2 (08:59→21:27)
[2022-02-22] MEDS: MIRABEGRON ER 25 MG TAB PO SCH (09:00)
--- NOTE | 2022-02-22 09:08 | Pharmacy Report ---
Pharmacy PK ABX Note - Date of Service February 22, 2022 - Assessment and Plan Assessment 61 year old F receiving Rocephin and IV Vancomycin for treatment of Cellulitis of the right middle finger. Renal function is good (Scr 0.72 and Crcl 90.6 ml/min) Pertinent microbiologic data includes:Blood culture pending. Day # 1 of antimicrobial therapy. Plan Vancomycin * Started maintenance dose: 1000 mg IV every 12 hours * Regimen is predicted to achieve target AUC/MATILDA of 400-600 mg/L.hr * Monitor renal function * Check Random level in 24 - 48 hrs Pharmacy will continue to follow and will adjust dose/frequency as necessary. Thank you. Pharmacy has transitioned to AUC monitoring for vancomycin. AUC/MATIDLA is the preferred PK/PD target and is associated with decreased risk of nephrotoxicity compared to traditional trough targets.
--- NOTE | 2022-02-22 09:18 | Hospitalist Progress Note ---
Date of Service February 22, 2022 Assessment & Plan (1) Cellulitis of hand, right: Plan: 61yo right-hand dominant female with acute onset pain and swelling in her right middle finger, inability to fully straighten finger. No trauma, no history of prior. She is afebrile, HD stable, NAD. WBC=26.91. Elevated CRP 1.92 (of note, likely underlying CLL- see below) Continue Ceftriaxone/Vancomycin Obtained CT hand w/ contrast this morning to eval for any flexor tenosynovitis given history - Right third finger subcutaneous stranding and fluid. Given the clinical history, this may reflect cellulitis. No abscess. - Findings suggestive of tenosynovitis of the flexor tendon sheath of the right third finger. This finding is nonspecific and infectious tenosynovitis cannot be excluded. Orthopedics consulted -- continued abx, Dr Huff will be by this afternoon, empirically on schedule for tomorrow LR @ 100cc/hr, can stop as keeping up w/ PO intake/no surgery for today/dehydration on labs Pain control/antiemetics prn --> Toradol x 1, cautious use with history of gastric bypass, tylenol/morphine prn. Placed on empiric PPI for ulcer proph. Hx of such, but has tolerated ibuprofen occasionally without issues for quite some time Monitor progress on abx/possible OR for tomorrow. NPO at midnight (2) Flexor tenosynovitis of finger: Plan: suspected, CT obtained as above, Orthopedics on consult, continuing abx as outlined monitor response to treatment (3) Central hypothyroidism: Plan: Stable on medications, follows with Dr verma. Suspected likelihoof of autoimmune thyroid disease and presumably autoimmune central hypothyroidism. Had been switched to Tirosint in 2018 to acheive more consistent absorption, given hx gastric bypass surgery. Had tried armour thyroid but at 150mcg and developed symptoms of hyperthyroidism and decided not to try at a lower dose. Since 2019 has been on Tirosint. 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 Reportedly follows with [facility], suspected underlying CLL, but no treatment/undergoing surveillance Afebrile Monitor Seasonal Allergies -- continue zyrtec Overactive Bladder -- resume Myrbetriq 50mg daily DVT prophylaxis -- Added SCDs, no chemical proph for possible surgical intervention . depending on length of stay, may add Plan continued inpatient stay Dr Huff to eval this afternoon, NPO after midnight for possible OR Admission and Anticipated Discharge Date Admission Date: February 22, 2022 Supervising Physician Co-Signing Physician Notes PA Supervision Note: I DID NOT personally see or examine the patient. I verified all reese points and agree with JANKI Ruffin with the following exceptions and/or additions: none, continue Abx, possible I+D tomorrow. Subjective eval this morning, doing alright pain controlled with tylenol this moring but wasn't sure if they were going to release her or not. Discussed toradol x 1. Does have hx gastric bypass, hx ulcers but not had issues in many years. Has tolerated ibuprofen on occassion but that she is cautious with use. Will put on PPI prophylactically. Discussed likely need surgical intervention but may have presented early enough, currently on IV abx and to be seen by Dr Huff this afternoon for further discussion. R hand dominent, no trauma. No recent meds (except liraglutide as put on end of summer/early fall for weight loss by [facility] english teacher for bariatric care. Numbness/tingling, but can feel pressure to her third digit, swollen into her hand. Sensation to light touch is diminshed compared to other digits on her hands. Does follow with cancer center for likely underlying CLL, under surveillance. Follows with Dr Kirby for central hypothryoidism, on 125mcg liquid due to absoption issues w/ hx gastric bypass. Hx bunyon surgery, deformities of toes, has bunyon on the left foot, nail removed in November when tea pot from cupboard fell on her. No fever/chills, chest pain, shortness of breath. Questions/concerns addressed at this time. Review of Systems Review of Systems: All systems reviewed & are unremarkable except as noted in HPI & below Physical Exam Physical Exam: General: WD/WN female sitting up in bed, RUE elevated on pillow, NAD HEENT: head normocephalic, atraumatic, mmm, trachea midline without deviation Resp: CTAB, no w/c/r, on room air CV: bradycardic (rate 58bpm), regular, no m/r/g, trace LE edema GI: +BS, soft/NT : no stein MSK/Neuro: moves all extremities, no focal deficits, strength equal b/l LE/UE, RUE with increased edema/erythema to third finger, tense/swollen with inability to flex numbness across dorsal aspect of finger with increased pain to volar aspect to light touch, pressure sensation intact pulses palpable unable to make a first, or fully extend third digit L foot w/ bunion, 1st nail removed Skin: warm, perfused Results & Data Results & Data ([facility]) Vital Signs (Past 12 Hours) Vital Signs Temp Pulse Pulse Resp BP BP Pulse Ox 02/22/22 05:57 58 L 18 129/85 98 02/22/22 03:59 36.5 C 67 16 140/79 100 O2 Del Method 02/22/22 05:57 Room Air 02/22/22 03:59 Room Air Laboratory Results 02/22/22 02/22/22 02/22/22 Range/Units 11:59 09:45 09:05 WBC (4.8-10.8) K/ul RBC (3.93-5.22) M/uL Hgb (12.0-16.0) g/dl Hct (34.1-44.9) % MCV (80.0-100.0) fL MCH (25.0-34.0) pg MCHC (32.0-36.0) g/dL RDW Std Deviation (36.4-46.3) fL RDW Coeff of Akilah (11.5-14.5) % Plt Count (130-400) K/uL MPV (9.4-12.3) fL Immature Gran % (Auto) % Neut % (Auto) % Lymph % (Auto) % [place] % (Auto) % Eos % (Auto) % Baso % (Auto) % Neut # (Auto) (1.4-6.5) K/uL Lymph # (Auto) (1.2-3.4) K/uL [place] # (Auto) (0.24-0.82) K/uL Eos # (Auto) (0-0.50) K/uL Baso # (Auto) (0-0.2) K/uL Immature Gran # (Auto) (0.00-0.02) K/uL ESR (0-30) mm/hr Sodium (136-145) mmol/L Potassium (3.5-5.1) mmol/L Chloride (98-107) mmol/L Carbon Dioxide (21-32) mmol/L Anion Gap (3-11) BUN (6-23) mg/dl Creatinine (0.6-1.2) mg/dl Est Cr Clr Drug Dosing ml/min Est GFR ( Amer) ml/min Est GFR (Non-Af Amer) ml/min BUN/Creatinine Ratio (10-20) Glucose (70-99(Fasting)) mg/dl POC Glucose 70 64 L* 60 L* (70-99) mg/dl Lactate (0.4-2.0) mmol/L Calcium (8.5-10.1) mg/dl Total Bilirubin (0.2-1.0) mg/dl AST (13-39) U/L ALT (7-52) U/L Alkaline Phosphatase (34-104) U/L C-Reactive Protein (0-0.5) mg/dl Total Protein (6.0-8.3) gm/dl Albumin (3.4-5.0) gm/dl Globulin (2.5-4.0) gm/dl Albumin/Globulin Ratio (0.9-2) SARS-CoV-2, RNA, NAAT (NEGATIVE) 02/22/22 02/22/22 02/22/22 Range/Units 04:15 04:15 04:15 WBC (4.8-10.8) K/ul RBC (3.93-5.22) M/uL Hgb (12.0-16.0) g/dl Hct (34.1-44.9) % MCV (80.0-100.0) fL MCH (25.0-34.0) pg MCHC (32.0-36.0) g/dL RDW Std Deviation (36.4-46.3) fL RDW Coeff of [place]il[place] (11.5-14.5) % Plt Count (130-400) K/uL MPV (9.4-12.3) fL Immature Gran % (Auto) % Neut % (Auto) % Lymph % (Auto) % [place] % (Auto) % Eos % (Auto) % Baso % (Auto) % Neut # (Auto) (1.4-6.5) K/uL Lymph # (Auto) (1.2-3.4) K/uL [place] # (Auto) (0.24-0.82) K/uL Eos # (Auto) (0-0.50) K/uL Baso # (Auto) (0-0.2) K/uL Immature Gran # (Auto) (0.00-0.02) K/uL ESR 9 (0-30) mm/hr Sodium (136-145) mmol/L Potassium (3.5-5.1) mmol/L Chloride (98-107) mmol/L Carbon Dioxide (21-32) mmol/L Anion Gap (3-11) BUN (6-23) mg/dl Creatinine (0.6-1.2) mg/dl Est Cr Clr Drug Dosing ml/min Est GFR ( Amer) ml/min Est GFR (Non-Af Amer) ml/min BUN/Creatinine Ratio (10-20) Glucose (70-99(Fasting)) mg/dl POC Glucose (70-99) mg/dl Lactate 1.0 (0.4-2.0) mmol/L Calcium (8.5-10.1) mg/dl Total Bilirubin (0.2-1.0) mg/dl AST (13-39) U/L ALT (7-52) U/L Alkaline Phosphatase (34-104) U/L C-Reactive Protein (0-0.5) mg/dl Total Protein (6.0-8.3) gm/dl Albumin (3.4-5.0) gm/dl Globulin (2.5-4.0) gm/dl Albumin/Globulin Ratio (0.9-2) SARS-CoV-2, RNA, NAAT NEGATIVE (NEGATIVE) 02/22/22 02/22/22 Range/Units 04:15 04:15 WBC 26.91 H (4.8-10.8) K/ul RBC 4.46 (3.93-5.22) M/uL Hgb 13.2 (12.0-16.0) g/dl Hct 39.8 (34.1-44.9) % MCV 89.2 (80.0-100.0) fL MCH 29.6 (25.0-34.0) pg MCHC 33.2 (32.0-36.0) g/dL RDW Std Deviation 41.4 (36.4-46.3) fL RDW Coeff of [place] 12.6 (11.5-14.5) % Plt Count 234 (130-400) K/uL MPV 9.7 (9.4-12.3) fL Immature Gran % (Auto) 0.1 % Neut % (Auto) 15.7 % Lymph % (Auto) 79.9 % [place] % (Auto) 2.8 % Eos % (Auto) 1.3 % Baso % (Auto) 0.2 % Neut # (Auto) 4.22 (1.4-6.5) K/uL Lymph # (Auto) 21.49 H (1.2-3.4) K/uL [place] # (Auto) 0.75 (0.24-0.82) K/uL Eos # (Auto) 0.35 (0-0.50) K/uL Baso # (Auto) 0.06 (0-0.2) K/uL Immature Gran # (Auto) 0.04 H (0.00-0.02) K/uL ESR (0-30) mm/hr Sodium 140 (136-145) mmol/L Potassium 4.1 (3.5-5.1) mmol/L Chloride 106 (98-107) mmol/L Carbon Dioxide 28 (21-32) mmol/L Anion Gap 6 (3-11) BUN 10 (6-23) mg/dl Creatinine 0.72 (0.6-1.2) mg/dl Est Cr Clr Drug Dosing 90.6 ml/min Est GFR ( Amer) 106.2 ml/min Est GFR (Non-Af Amer) 91.7 ml/min BUN/Creatinine Ratio 13.9 (10-20) Glucose 86 (70-99(Fasting)) mg/dl POC Glucose (70-99) mg/dl Lactate (0.4-2.0) mmol/L Calcium 9.3 (8.5-10.1) mg/dl Total Bilirubin 0.6 (0.2-1.0) mg/dl AST 22 (13-39) U/L ALT 18 (7-52) U/L Alkaline Phosphatase 80 (34-104) U/L C-Reactive Protein 1.92 H (0-0.5) mg/dl Total Protein 6.5 (6.0-8.3) gm/dl Albumin 4.0 (3.4-5.0) gm/dl Globulin 2.5 (2.5-4.0) gm/dl Albumin/Globulin Ratio 1.6 (0.9-2) SARS-CoV-2, RNA, NAAT (NEGATIVE) Diagnostic Findings Hand X-Ray 02/22/22 04:10 XR hand RT min 3V routine CLINICAL HISTORY: Middle finger infection. COMPARISON: Right fourth finger radiographs February 21, 2012 FINDINGS: Alignment of the right hand is anatomic. No acute fracture. No evidence for acute osteomyelitis is noted. There is third finger soft tissue swelling. Moderate joint space narrowing with osteophytosis is noted within multiple articulations of the right hand and wrist. IMPRESSION: 1. No acute fracture. No radiographic evidence for acute osteomyelitis. 2. 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 3. Right third finger soft tissue swelling. ACT 112: Negative or not required by law. Electronically signed by: Cash Mccormack M.D. 02/22/2022 6:[address] 02/22/22 09:03 CT OF THE RIGHT HAND WITH CONTRAST CLINICAL HISTORY: Right hand cellulitis, inability to move right middle finger. COMPARISON STUDY: Right hand radiographs performed earlier today. TECHNIQUE: Axial images of the right hand were obtained following intravenous injection of 86 cc of Optiray 350 IV. Sagittal and coronal reconstructions were viewed. Automated exposure control was utilized for the study. A dose lowering technique was utilized adhering to the principles of ALARA. FINDINGS: Alignment of the right hand is anatomic. There is no acute fracture. There is no CT evidence for acute osteomyelitis within the right hand or wrist. Moderate osteoarthritis is noted within multiple articulations of the right wrist and hand with joint space narrowing and osteophytosis. Subcutaneous stranding and fluid within the right third finger may reflect sinusitis. There is no fluid collection to suggest an abscess. There is no soft tissue gas. In addition, there is apparent increased fluid within the flexor tendon sheath of the third finger with prominent enhancement of the tendon sheath. This favors tenosynovitis. Otherwise, tendon sheaths appear unremarkable. IMPRESSION: 1. No acute fracture within the right third finger. No CT evidence for acute osteomyelitis. 2. Right third finger subcutaneous stranding and fluid. Given the clinical history, this may reflect cellulitis. No abscess. 3. Findings suggestive of tenosynovitis of the flexor tendon sheath of the right third finger. This finding is nonspecific and infectious tenosynovitis cannot be excluded. 4. 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 ACT 112: Negative or not required by law. Electronically signed by: Cash Mccormack M.D. 02/22/2022 10:11 AM PG Care Time/CCT Total # of Minutes Spent Total Time Spent with Patient: Total time spent is greater than 50% in coordination of care (as documented) at patient's floor/unit and/or counseling patient: Coding Level of Care Code None Diagnoses Cellulitis of hand, right L03.113 Flexor tenosynovitis of finger M65.9 Central hypothyroidism E03.8 Diabetes E11.9
--- NOTE | 2022-02-22 10:13 | CT Scan Report ---
CT OF THE RIGHT HAND WITH CONTRAST CLINICAL HISTORY: Right hand cellulitis, inability to move right middle finger. COMPARISON STUDY: Right hand radiographs performed earlier today. TECHNIQUE: Axial images of the right hand were obtained following intravenous injection of 86 cc of O ptiray 350 IV. Sagittal and coronal reconstructions were viewed. Automated exposure control was utili zed for the study. A dose lowering technique was utilized adhering to the principles of ALARA. FINDINGS: Alignment of the right hand is anatomic. There is no acute fracture. There is no CT evidenc e for acute osteomyelitis within the right hand or wrist. Moderate osteoarthritis is noted within mul tiple articulations of the right wrist and hand with joint space narrowing and osteophytosis. Subcuta neous stranding and fluid within the right third finger may reflect sinusitis. There is no fluid emma ection to suggest an abscess. There is no soft tissue gas. In addition, there is apparent increased f luid within the flexor tendon sheath of the third finger with prominent enhancement of the tendon she ath. This favors tenosynovitis. Otherwise, tendon sheaths appear unremarkable. IMPRESSION: 1. No acute fracture within the right third finger. No CT evidence for acute osteomyelitis. 2. Right third finger subcutaneous stranding and fluid. Given the clinical history, this may reflect cellulitis. No abscess. 3. Findings suggestive of tenosynovitis of the flexor tendon sheath of the right third finger. This f inding is nonspecific and infectious tenosynovitis cannot be excluded. 4. 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 ACT 112: Negative or not required by law. Electronically signed by: Cash Mccormack M.D. 02/22/2022 10:11 AM
--- NOTE | 2022-02-22 11:23 | Orthopedic Consultation ---
Date of Consultation February 22, 2022 Assessment & Plan (1) Cellulitis of hand, right: 61-year-old white female with cellulitis of her right third finger with possible tenosynovitis. WBC 26, ESR normal, CRP 1.92. Patient currently on ceftriaxone and vancomycin started by hospitalist service. Continue elevation of the right upper extremity. Currently on morphine for pain control. Can add oxycodone. I have spoken briefly to Dr. Huff. He will be happy to take care of this patient. Plan for reevaluation after close to 24 hours of IV antibiotics. CT scan results noted. Possible need for open irrigation debridement. We will tentatively add on to the OR schedule if needed. Dr. Huff to make final decision for possible debridement. History of Present Illness Reason for Consultation: Right third finger infection Attending Physician: Corin Mcnamara, DO History of Present Illness 61-year-old female who comes to the emergency room early this morning complaining of right third finger pain. Patient denies any type of injury, scratches, bites to the hand or finger. She states that she began having pain yesterday evening and continued to progressively worsen. She began having swelling in the finger and was to the point where the pain was throbbing and she was unable to bend her finger. She was examined after coming into the emergency room by the staff. It was felt that she had an early stages of tenosynovitis and medicine service was consulted to see her. She was thusly admitted for observation with IV antibiotics and we have been asked to see her for her right finger pain/infection. Allergies Allergy/AdvReac Type Severity Reaction Status Date / Time thyroid, pork Allergy Intermediate nausea, Verified 01/30/22 07:36 [From [place] Thyroid] palpitations doxycycline Allergy Mild RASH Verified 01/30/22 07:36 NSAIDS (Non-Steroidal Allergy Unknown TOLD NOT Verified 01/30/22 07:36 Anti-Inflamma TAKE D/T GASTRIC BYPASS Home Medications Medication Instructions Recorded Confirmed Type fluticasone propionate 50 2 sprays intranasal DAILY PRN 10/20/18 02/22/22 History mcg/actuation nasal Congestion #0 grams spray,suspension Spacer for Inhaler #1 ea 06/09/19 02/22/22 Rx cetirizine 10 mg capsule (Zyrtec) 10 mg PO QAM 07/12/19 02/22/22 History cranberry 400 mg capsule 400 mg PO QAM 07/12/19 02/22/22 History pediatric multivitamin no.7-folic 200 mcg PO BID 07/12/19 02/22/22 History acid 100 mcg chewable tablet (Flintstones Tab Chew) acetaminophen 500 mg tablet 1,000 mg PO Q6H PRN Pain 08/19/19 02/22/22 History (Tylenol Extra Strength) Accu-Chek Fastclix Lancet Drum #600 ea 11/03/19 02/22/22 Rx (lancets) blood sugar diagnostic (Accu-Chek #600 ea 11/03/19 02/22/22 Rx Guide test strips) cholecalciferol (vitamin D3) 1,250 50,000 unit PO WEEKLY #12 tabs 05/11/21 02/22/22 Rx mcg (50,000 unit) tablet metformin 500 mg tablet 500 mg PO BID 08/30/21 02/22/22 History estradiol 1 mg tablet 1.5 mg PO DAILY #135 tabs 11/08/21 02/22/22 Rx estradiol 0.01% (0.1 mg/gram) 1 g vaginal .COMPLEX 01/30/22 02/22/22 History vaginal cream (Estrace) semaglutide (weight loss) 2.4 2.4 mg subcut Q7D 01/30/22 02/22/22 History mg/0.75 mL subcutaneous pen injector (Wegovy) levothyroxine 125 mcg capsule 125 mcg PO DAILY #90 caps 02/08/22 02/22/22 Rx (Tirosint) albuterol sulfate 90 mcg/actuation 2 puff inhalation QID PRN Wheezing 02/22/22 02/22/22 History aerosol inhaler calcium carbonate 500 mg calcium 1,000 mg PO DAILY 02/22/22 02/22/22 History (1,250 mg) chewable tablet cyanocobalamin (vitamin B-12) 1,000 mcg IM .EVERY 3 MONTHS 02/22/22 02/22/22 History 1,000 mcg/mL injection solution mirabegron 50 mg tablet,extended 50 mg PO QAM 02/22/22 02/22/22 History release 24 hr (Myrbetriq) amoxicillin 875 mg-potassium 1 tab PO BID 11 days #22 tabs 02/25/22 Rx clavulanate 125 mg tablet doxycycline hyclate 100 mg capsule 100 mg PO BID 11 days #22 caps 02/25/22 Rx pantoprazole 40 mg tablet,delayed 40 mg PO QAM #30 tabs 02/25/22 Rx release polyethylene glycol 3350 17 gram 17 g PO DAILY #14 ea 02/25/22 Rx oral powder packet (Miralax) sennosides 8.6 mg-docusate sodium 1 tab PO QAM #30 tabs 02/25/22 Rx 50 mg tablet (Senokot-S) Patient History Medical History Asthma seasonal, well controlled > rare inh use Herniated cervical disc no ROM limitations History of anemia History of COVID-10 October 2019 History of dumping syndrome History of urinary frequency + incontinence Hypothyroidism Insomnia Leukocytosis suspected CLL, follows with Maria Elena annually, under surveillance/no treatment indicated at this time Multiple thyroid nodules Obesity Osteoarthritis Overactive bladder Peptic ulcer disease hx Pneumonia due to human metapneumovirus (hMPV) resolved Rheumatoid arthritis Seasonal allergies Vitamin D deficiency Surgical History H/O bladder repair surgery X 3 H/O endoscopic sinus surgery H/O exploratory laparotomy H/O foot surgery RIGHT FOOT OPEN BUNIONECTOMY X2 /DIGIT STRAIGHTENING 03/11/18 H/O: hysterectomy History of colonoscopy History of dilatation and curettage History of esophagogastroduodenoscopy (EGD) History of gastric bypass History of laparoscopy History of open reduction and internal fixation (ORIF) procedure RT ANKLE > with bone marrow taken from right hip History of tonsillectomy History of tooth extraction with dental implants History of total knee replacement bilat Hx of LASIK Hx of repair of right rotator cuff S/P bunionectomy left foot Family History Father Family history of diabetes mellitus Anxiety Lung cancer Asthma Grandmother (Paternal) Family history of diabetes mellitus Aunt Family history of diabetes mellitus Breast cancer maternal Brother Brain cancer Other Hypertension No family history of adverse response to anesthesia No family history of bleeding disorder Denies family history of Ovarian cancer Colorectal cancer Social History Smoking Status: Never smoker Second Hand Exposure: No; Hx Alcohol Use: Yes Alcohol type: beer Hx Substance Use: No Preferred Language: Afghan Communication Ability: Effective Mobile Application Tester Required: No Beliefs That Will Affect Care: None marital status: Current Living Situation: Spouse current occupational status: employed 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 No acute distress, pleasant cooperative, alert and oriented x3. On examination the patient's right hand, she has noted cellulitis of her middle finger. She has also noted swelling that is fairly tense of the middle finger. On palpation, she has numbness across the dorsal surface of the finger and increased pain on the volar aspect closer to the MP joint. She is unable to straighten the finger secondary to pain. She is able to actively flex the finger marginally before she has to stop secondary to pain at the third MP joint. There is pain on palpation over the third MP joint on the volar aspect more so than the dorsal aspect. The area of tenderness fans out between the second and fourth fingers at the MP joints but is mostly intense over the third. The tenderness goes about usp into the palm itself. She has no pain with range of motion of her wrist in extension and flexion. She has good flexion and extension of her first and fifth fingers she has some mild pain with passive extension of the second and fourth fingers but is able to bend them better than the third. Capillary refill of the fingers at this time is less than 2 seconds. I can passively flex the third finger to proximally where she can actively flex it as well before she has moderate pain. Even slight passive extension of the finger causes her exquisite tenderness. Results & Data ([facility]) Vital Signs (Past 12 Hours) Vital Signs Temp Pulse Pulse Resp BP BP Pulse Ox 02/22/22 09:00 57 L 18 122/80 100 02/22/22 08:30 57 L 18 122/75 100 02/22/22 08:00 55 L 17 127/76 100 02/22/22 05:57 58 L 18 129/85 98 02/22/22 03:59 36.5 C 67 16 140/79 100 O2 Del Method 02/22/22 09:00 Room Air 02/22/22 08:30 Room Air 02/22/22 08:00 Room Air 02/22/22 05:57 Room Air 02/22/22 03:59 Room Air Laboratory Results Laboratory Results WBC 26.91 K/ul (4.8-10.8) H 02/22/22 04:15 RBC 4.46 M/uL (3.93-5.22) 02/22/22 04:15 Hgb 13.2 g/dl (12.0-16.0) 02/22/22 04:15 Hct 39.8 % (34.1-44.9) 02/22/22 04:15 MCV 89.2 fL (80.0-100.0) 02/22/22 04:15 MCH 29.6 pg (25.0-34.0) 02/22/22 04:15 MCHC 33.2 g/dL (32.0-36.0) 02/22/22 04:15 RDW Std Deviation 41.4 fL (36.4-46.3) 02/22/22 04:15 RDW Coeff of [place] 12.6 % (11.5-14.5) 02/22/22 04:15 Plt Count 234 K/uL (130-400) 02/22/22 04:15 MPV 9.7 fL (9.4-12.3) 02/22/22 04:15 Immature Gran % (Auto) 0.1 % 02/22/22 04:15 Neut % (Auto) 15.7 % 02/22/22 04:15 Lymph % (Auto) 79.9 % 02/22/22 04:15 Wake % (Auto) 2.8 % 02/22/22 04:15 Eos % (Auto) 1.3 % 02/22/22 04:15 Baso % (Auto) 0.2 % 02/22/22 04:15 Neut # (Auto) 4.22 K/uL (1.4-6.5) 02/22/22 04:15 Lymph # (Auto) 21.49 K/uL (1.2-3.4) H 02/22/22 04:15 Wake # (Auto) 0.75 K/uL (0.24-0.82) 02/22/22 04:15 Eos # (Auto) 0.35 K/uL (0-0.50) 02/22/22 04:15 Baso # (Auto) 0.06 K/uL (0-0.2) 02/22/22 04:15 Immature Gran # (Auto) 0.04 K/uL (0.00-0.02) H 02/22/22 04:15 ESR 9 mm/hr (0-30) 02/22/22 04:15 Sodium 140 mmol/L (136-145) 02/22/22 04:15 Potassium 4.1 mmol/L (3.5-5.1) 02/22/22 04:15 Chloride 106 mmol/L (98-107) 02/22/22 04:15 Carbon Dioxide 28 mmol/L (21-32) 02/22/22 04:15 Anion Gap 6 (3-11) 02/22/22 04:15 BUN 10 mg/dl (6-23) 02/22/22 04:15 Creatinine 0.72 mg/dl (0.6-1.2) 02/22/22 04:15 Est Cr Clr Drug Dosing 90.6 ml/min 02/22/22 04:15 Est GFR ( Amer) 106.2 ml/min 02/22/22 04:15 Est GFR (Non-Af Amer) 91.7 ml/min 02/22/22 04:15 BUN/Creatinine Ratio 13.9 (10-20) 02/22/22 04:15 Glucose 86 mg/dl (70-99(Fasting)) 02/22/22 04:15 POC Glucose 64 mg/dl (70-99) L* 02/22/22 09:45 Lactate 1.0 mmol/L (0.4-2.0) 02/22/22 04:15 Calcium 9.3 mg/dl (8.5-10.1) 02/22/22 04:15 Total Bilirubin 0.6 mg/dl (0.2-1.0) 02/22/22 04:15 AST 22 U/L (13-39) 02/22/22 04:15 ALT 18 U/L (7-52) 02/22/22 04:15 Alkaline Phosphatase 80 U/L (34-104) 02/22/22 04:15 C-Reactive Protein 1.92 mg/dl (0-0.5) H 02/22/22 04:15 Total Protein 6.5 gm/dl (6.0-8.3) 02/22/22 04:15 Albumin 4.0 gm/dl (3.4-5.0) 02/22/22 04:15 Globulin 2.5 gm/dl (2.5-4.0) 02/22/22 04:15 Albumin/Globulin Ratio 1.6 (0.9-2) 02/22/22 04:15 SARS-CoV-2, RNA, NAAT NEGATIVE (NEGATIVE) 02/22/22 04:15 Impressions Hand X-Ray 02/22/22 04:10 XR hand RT min 3V routine CLINICAL HISTORY: Middle finger infection. COMPARISON: Right fourth finger radiographs February 21, 2012 FINDINGS: Alignment of the right hand is anatomic. No acute fracture. No evidence for acute osteomyelitis is noted. There is third finger soft tissue swelling. Moderate joint space narrowing with osteophytosis is noted within multiple articulations of the right hand and wrist. IMPRESSION: 1. No acute fracture. No radiographic evidence for acute osteomyelitis. 2. 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 3. Right third finger soft tissue swelling. ACT 112: Negative or not required by law. Electronically signed by: Cash Mccormack M.D. 02/22/2022 6:[address] 02/22/22 09:03 CT OF THE RIGHT HAND WITH CONTRAST CLINICAL HISTORY: Right hand cellulitis, inability to move right middle finger. COMPARISON STUDY: Right hand radiographs performed earlier today. TECHNIQUE: Axial images of the right hand were obtained following intravenous injection of 86 cc of Optiray 350 IV. Sagittal and coronal reconstructions were viewed. Automated exposure control was utilized for the study. A dose lowering technique was utilized adhering to the principles of ALARA. FINDINGS: Alignment of the right hand is anatomic. There is no acute fracture. There is no CT evidence for acute osteomyelitis within the right hand or wrist. Moderate osteoarthritis is noted within multiple articulations of the right wrist and hand with joint space narrowing and osteophytosis. Subcutaneous stranding and fluid within the right third finger may reflect sinusitis. There is no fluid collection to suggest an abscess. There is no soft tissue gas. In addition, there is apparent increased fluid within the flexor tendon sheath of the third finger with prominent enhancement of the tendon sheath. This favors tenosynovitis. Otherwise, tendon sheaths appear unremarkable. IMPRESSION: 1. No acute fracture within the right third finger. No CT evidence for acute osteomyelitis. 2. Right third finger subcutaneous stranding and fluid. Given the clinical history, this may reflect cellulitis. No abscess. 3. Findings suggestive of tenosynovitis of the flexor tendon sheath of the right third finger. This finding is nonspecific and infectious tenosynovitis cannot be excluded. 4. 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 ACT 112: Negative or not required by law. Electronically signed by: Cash Mccormack M.D. 02/22/2022 10:11 AM
[2022-02-22] MEDS ORDERED: oxyCODONE HCL IR 5 MG TAB (IMMEDIATE RELEASE) PO PRN (11:53)
[2022-02-22] MEDS ORDERED: KETOROLAC TROMETHAMINE 15 MG/ML VIAL IV ONE (12:01)
[2022-02-22] MEDS: PANTOprazole 40 MG TAB PO SCH (12:21)
[2022-02-22] MEDS: VANCOMYCIN HCL 1,000 MG in SODIUM CHLORIDE 0.9% 250 ML IV SCH ×2 (12:25→23:33)
[2022-02-22] MEDS ORDERED: CETIRIZINE HCL 10 MG TABLET PO ONE (15:45)
[2022-02-22] MEDS: estradioL 1 MG TAB PO SCH (19:50)
[2022-02-22] MEDS: oxyCODONE HCL IR 5 MG TAB (IMMEDIATE RELEASE) PO PRN (23:43)
[2022-02-23] MEDS: oxyCODONE HCL IR 5 MG TAB (IMMEDIATE RELEASE) PO PRN ×3 (04:27→21:35)
[2022-02-23] MEDS: LEVOTHYROXINE SODIUM 125 MCG TABLET PO SCH (04:28)
[2022-02-23] MEDS: cefTRIAXone SODIUM 2,000 MG in DEXTROSE 5% 50 ML IV SCH (04:33)
[2022-02-23] MEDS: MoRPHine SULFATE 2 MG/ML CARP IV PRN ×2 (06:28→23:12)
[2022-02-23 06:43] LABS: Hemoglobin 11.8 g/dl (12.0-16.0); Mean Corpuscular Hemoglobin 30.2 pg (25.0-34.0); Mean Corpuscular Hgb Conc 33.7 g/dL (32.0-36.0); Mean Corpuscular Volume 89.5 fL (80.0-100.0); Mean Platelet Volume 9.8 fL (9.4-12.3); Nucleated RBC # (auto) 0.03 K/uL (0-0); Nucleated RBC % (auto) 0.2 %; Platelet Count 202 K/uL (130-400); RDW Coefficient of Variation 12.7 % (11.5-14.5); RDW Standard Deviation 41.8 fL (36.4-46.3); Red Blood Count 3.91 M/uL (3.93-5.22); White Blood Count 19.18 K/ul (4.8-10.8)
[2022-02-23 07:14] LABS: BUN Creatinine Ratio 10.3 (10-20); Calcium 8.3 mg/dl (8.5-10.1); Creatinine Clr Calc Pharmacy 110.4 ml/min; Est GFR (Non-African American) 95.7 ml/min; Potassium 4.4 mmol/L (3.5-5.1)
--- NOTE | 2022-02-23 07:17 | Anesthesiology Consultation ---
Date of Service February 23, 2022 Assessment & Plan Chart Review Chart Review: Acceptable Risk for Surgery and Patient NOT seen in Pre Admission Testing Consults Requested none ASA ASA3 Proposed Anesthesia Anesthesia Type: General History Surgery Operation Date: 02/23/22 07:30 Proposed Procedures p Right 3rd Finger Incision and Drainage - Miguel Huff MD Height/Weight Height: 5 ft 11 in Weight: 89.99 kg Allergies Allergy/AdvReac Type Severity Reaction Status Date / Time thyroid, pork Allergy Intermediate nausea, Verified 01/30/22 07:36 [From [place] Thyroid] palpitations doxycycline Allergy Mild RASH Verified 01/30/22 07:36 NSAIDS (Non-Steroidal Allergy Unknown TOLD NOT Verified 01/30/22 07:36 Anti-Inflamma TAKE D/T GASTRIC BYPASS Medications Home Medications Medication Instructions Recorded Confirmed Last Taken fluticasone propionate 50 2 sprays intranasal DAILY PRN 10/20/18 02/22/22 08/16/20 mcg/actuation nasal Congestion #0 grams spray,suspension Spacer for Inhaler #1 ea 06/09/19 02/22/22 09/03/19 08:00 cetirizine 10 mg capsule (Zyrtec) 10 mg PO QAM 07/12/19 02/22/22 08/16/20 cranberry 400 mg capsule 400 mg PO QAM 07/12/19 02/22/22 09/03/19 08:00 pediatric multivitamin no.7-folic 200 mcg PO BID 07/12/19 02/22/22 08/16/20 acid 100 mcg chewable tablet (Flintstones Tab Chew) acetaminophen 500 mg tablet 1,000 mg PO Q6H PRN Pain 08/19/19 02/22/22 09/03/19 08:00 (Tylenol Extra Strength) Accu-Chek Fastclix Lancet Drum #600 ea 11/03/19 02/22/22 Unknown (lancets) blood sugar diagnostic (Accu-Chek #600 ea 11/03/19 02/22/22 Unknown Guide test strips) liraglutide 0.6 mg/0.1 mL (18 mg/3 1.8 mg subcut QAM 01/11/21 02/22/22 Unknown mL) subcutaneous pen injector (Power Assuretoza 2-Milo) cholecalciferol (vitamin D3) 1,250 50,000 unit PO WEEKLY #12 tabs 05/11/21 02/22/22 Unknown mcg (50,000 unit) tablet metformin 500 mg tablet 500 mg PO BID 08/30/21 02/22/22 Unknown estradiol 1 mg tablet 1.5 mg PO DAILY #135 tabs 11/08/21 02/22/22 Unknown estradiol 0.01% (0.1 mg/gram) 1 g vaginal .COMPLEX 01/30/22 02/22/22 Unknown vaginal cream (Estrace) semaglutide (weight loss) 2.4 2.4 mg subcut Q7D 01/30/22 02/22/22 Unknown mg/0.75 mL subcutaneous pen injector (Wegovy) levothyroxine 125 mcg capsule 125 mcg PO DAILY #90 caps 02/08/22 02/22/22 Unknown (Tirosint) albuterol sulfate 90 mcg/actuation 2 puff inhalation QID PRN Wheezing 02/22/22 02/22/22 Unknown aerosol inhaler calcium carbonate 500 mg calcium 1,000 mg PO DAILY 02/22/22 02/22/22 Unknown (1,250 mg) chewable tablet cyanocobalamin (vitamin B-12) 1,000 mcg IM .EVERY 3 MONTHS 02/22/22 02/22/22 Unknown 1,000 mcg/mL injection solution mirabegron 50 mg tablet,extended 50 mg PO QAM 02/22/22 02/22/22 Unknown release 24 hr (Myrbetriq) Active Medications Generic Name Dose Route Start Last Admin Trade Name Freq PRN Reason Stop Dose Admin Acetaminophen 650 mg 02/22/22 07:58 02/22/22 21:27 Acetaminophen 325 Mg Tab PO 03/24/22 07:57 650 mg Q4H PRN Administration pain/fever Estradiol 1.5 mg 02/22/22 18:40 02/22/22 19:50 Estradiol 1 Mg Tab PO 03/24/22 18:39 1.5 mg QAM DWAYNE Administration Ceftriaxone Sodium 2,000 mg/ 70 mls @ 100 mls/hr 02/23/22 06:00 02/23/22 05:20 Dextrose IV 03/01/22 05:59 Infused Q24H DWAYNE Infusion Protocol Vancomycin HCl 1,000 mg/ 270 mls @ 200 mls/hr 02/22/22 12:00 02/23/22 01:00 Sodium Chloride IV 03/01/22 11:59 Infused Q12H DWAYNE Infusion Protocol Levothyroxine Sodium 125 mcg 02/23/22 06:30 02/23/22 04:28 Levothyroxine Sodium 125 Mcg Tablet PO 03/25/22 06:29 125 mcg DAILYBB DWAYNE Administration Mirabegron 50 mg 02/22/22 09:00 02/22/22 09:00 Mirabegron Er 25 Mg Tab PO 03/24/22 08:59 50 mg QAM DWAYNE Administration Morphine Sulfate 2 mg 02/22/22 07:58 02/23/22 06:28 Morphine Sulfate 2 Mg/Ml Carp IV 03/08/22 07:57 2 mg Q3H PRN Administration Pain (1,2,3,4,5) & Pre PT Oxycodone HCl 5 - 10 mg 02/22/22 17:58 02/23/22 04:27 Oxycodone Hcl Ir 5 Mg Tab (Immediate Release) PO 03/08/22 17:57 10 mg Q4H PRN Administration Pain Pantoprazole Sodium 40 mg 02/22/22 12:15 02/22/22 12:21 Pantoprazole 40 Mg Tab PO 03/24/22 12:14 40 mg QAM DWAYNE Administration Past Medical History Medical History Asthma seasonal, well controlled > rare inh use Herniated cervical disc no ROM limitations History of anemia History of COVID-10 October 2019 History of dumping syndrome History of urinary frequency + incontinence Hypothyroidism Insomnia Leukocytosis suspected CLL, follows with Maria Elena annually, under surveillance/no treatment indicated at this time Multiple thyroid nodules Obesity Osteoarthritis Overactive bladder Peptic ulcer disease hx Pneumonia due to human metapneumovirus (hMPV) resolved Rheumatoid arthritis Seasonal allergies Vitamin D deficiency Exercise / Class Metabolic Activity III < 4 Walking/Shop/Light housework Past Family History Family History Father Family history of diabetes mellitus Anxiety Lung cancer Asthma Grandmother (Paternal) Family history of diabetes mellitus Aunt Family history of diabetes mellitus Breast cancer maternal Brother Brain cancer Other Hypertension No family history of adverse response to anesthesia No family history of bleeding disorder Denies family history of Ovarian cancer Colorectal cancer Past Surgical History Surgical History H/O bladder repair surgery X 3 H/O endoscopic sinus surgery H/O exploratory laparotomy H/O foot surgery RIGHT FOOT OPEN BUNIONECTOMY X2 /DIGIT STRAIGHTENING 03/11/18 H/O: hysterectomy History of colonoscopy History of dilatation and curettage History of esophagogastroduodenoscopy (EGD) History of gastric bypass History of laparoscopy History of open reduction and internal fixation (ORIF) procedure RT ANKLE > with bone marrow taken from right hip History of tonsillectomy History of tooth extraction with dental implants History of total knee replacement bilat Hx of LASIK Hx of repair of right rotator cuff S/P bunionectomy left foot Past Anesthesia History No Hx of Anesthesia Complications and No Family Hx of Anesthesia Complications History of PONV No Hx of PONV and No Hx of Motion Sickness Social History Smoking Status: Never smoker Do You Dip or Chew Tobacco: No Hx Alcohol Use: Yes Alcohol type: beer alcohol intake frequency: holidays/special occasions only Hx Substance Use: No substance use type: does not use Physical Exam Vital Signs Last Vital Signs Temp 36.8 C 02/22/22 22:19 Pulse 61 02/22/22 22:19 Resp 18 02/22/22 22:19 BP 116/67 02/22/22 22:19 Pulse Ox 97 02/22/22 22:19 O2 Del Method 02/22/22 22:19 Testing Laboratory Results 02/23/22 06:12 02/23/22 06:12 02/22/22 04:15 Aerobic Blood Culture - Preliminary Blood No growth in Aerobic bottle after 24 hours. Anaerobic Blood Culture - Preliminary No growth in Anaerobic bottle after 24 hours. 02/22/22 05:30 Aerobic Blood Culture - Preliminary Blood No growth in Aerobic bottle after 24 hours. Anaerobic Blood Culture - Preliminary No growth in Anaerobic bottle after 24 hours. Electrocardiogram Date: 07/25/20 Findings: + NSR @ (@ 70) Echocardiogram Date: 08/14/17 EF: 65% LV Function: normal RWMA: + none Valvular Disease: + no significant valvular disease
[2022-02-23] MEDS ORDERED: PROPOFOL IV EMULSION 10 MG/ML 20 ML VIAL IV ONE (07:18)
[2022-02-23] MEDS ORDERED: fentaNYL citrate 100 MCG/2 ML VIAL ONE (07:18)
[2022-02-23] MEDS ORDERED: LIDOCAINE 2% MPF LOCAL 5 ML VIAL INFIL ONE (07:18)
[2022-02-23] MEDS ORDERED: MIDAZOLAM HCL 1 MG/ML 2ML VIAL ONE (07:18)
[2022-02-23] MEDS ORDERED: ONDANSETRON INJ 2 MG/ML 2 ML VIAL ONE (07:18)
[2022-02-23] MEDS ORDERED: BUPIVACAINE 0.5 % 5 MG/1 ML MPF 30ML VIAL ONE (07:48)
[2022-02-23] MEDS ORDERED: NALOXONE HCL 0.4 MG/1 ML VIAL/CARP IV PRN (07:50)
[2022-02-23] MEDS ORDERED: ATROPINE SULFATE 0.1 MG/ML 10ML SYR IV PRN (07:50)
[2022-02-23] MEDS ORDERED: PROMETHAZINE HCL 12.5 MG in SODIUM CHLORIDE 0.9% 50 ML IV PRN (07:50)
[2022-02-23] MEDS ORDERED: HYDROmorphone INJ 1 MG/ML SYRINGE IV PRN (07:50)
[2022-02-23] MEDS ORDERED: LABETALOL HCL IV 5 MG/ML 20ML IV PRN (07:50)
[2022-02-23] MEDS ORDERED: FLUMAZENIL 0.1 MG/1 ML 10 ML VIAL IV PRN (07:50)
[2022-02-23] MEDS ORDERED: ONDANSETRON INJ 2 MG/ML 2 ML VIAL IV PRN (07:50)
--- NOTE | 2022-02-23 07:58 | History & Physical Bridge Note ---
Date of Service February 23, 2022 History & Physical Bridge Note I have examined the patient, reviewed the History & Physical and in the interval since the performance of the History & Physical I have noted the following changes of clinical significance: no changes noted I saw Gerda in the preoperative holding area we discussed risk benefits reasonable outcomes and expectations for right irrigation and debridement of septic flexor tenosynovitis
[2022-02-23] MEDS ORDERED: ceFAZolin 330 MG/ML 1 GM VIAL ONE (08:30)
--- NOTE | 2022-02-23 08:44 | Hospitalist Progress Note ---
Date of Service February 23, 2022 Assessment & Plan (1) Flexor tenosynovitis of finger: Plan: 61yo right-hand dominant female with acute onset pain and swelling in her right middle finger, inability to fully straighten finger. No trauma, no history of prior. She is afebrile, HD stable, NAD. WBC=26.91. Elevated CRP 1.92 (of note, likely underlying CLL- see below) Ceftriaxone/Vancomycin CT hand w/ contrast for eval for any flexor tenosynovitis given history/exam Impression: * Right third finger subcutaneous stranding and fluid. Given the clinical history, this may reflect cellulitis. No abscess. * Findings suggestive of tenosynovitis of the flexor tendon sheath of the right third finger. This finding is nonspecific and infectious tenosynovitis cannot be excluded. LR @ 75cc/hr x 1 L Orthopedics consulted, Dr Huff s/p Right Middle Flexor Tenosynvitis Incision and Drainage(Right) - Miguel Huff MD. EBL 5 Full report not in, however findings consistent with septic flexor tenosynovitis Cultures pending but expect continued abx at d/c, will alert CM. Will at least continue IV abx through weekend/monitor cultures. Possible PO at d/c vs continued IV. Consider reaching out to ID pending culture OR culture pending -- monitor WBC 26.9--> 19k, afebrile Blood cultures NGTD after 24 hours Elevate hand Pain control/antiemetics prn -Noted hx gastric bypass. Given toradol 10mg IV x 1 (tolerates occ ibuprofen outpatient) -Will provide additional 10mg IV x 1, monitor response. Consider small doses. 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 Suspected likelihoof of autoimmune thyroid disease and presumably autoimmune central hypothyroidism. Had been switched to Tirosint in 2018 to acheive more consistent absorption, given hx gastric bypass surgery. Had tried armour thyroid but at 150mcg and developed symptoms of hyperthyroidism and decided not to try at a lower dose. Since 2019 has been on Tirosint. 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 Reportedly follows with Maria Elena, suspected underlying CLL, but no treatment/undergoing surveillance Afebrile, WBC improved on repeat Monitor Seasonal Allergies -- continue zyrtec Overactive Bladder -- Myrbetriq 50mg daily DVT prophylaxis -- SCDs, ambulation Plan continued inpatient stay continue abx, monitor cultures pain control change to full admit Admission and Anticipated Discharge Date Admission Date: February 22, 2022 Supervising Physician Co-Signing Physician Notes PA Supervision Note: I did not personally see or examine the patient today, but I verified all reese points of JANKI Ruffin's assessment and plan with the following exceptions/additions: None Subjective eval this morning after sugery having a little more pain in hand, discussed ordering additional dose iv toradol x1 and monitor does have a little bit of a headache, typically does drink tea in AM, currently with diet coke at bedside. Discussed to alert of any worsening. Did notice increased swelling to her volar aspect of hand last evening, still with numbness to distal aspect of finger but can feel pressure. fingers mobile except third digit. IV abx continued She notes getting UTIs on abx (?yeast infection) and discussed to alert nursing if any increased frequency/burning and will monitor. at bedside, updated. NO fevr/chills, chest pain, shortness of breath. Review of Systems Review of Systems: All systems reviewed & are unremarkable except as noted in HPI & below Physical Exam Physical Exam: General: WD/WN female sitting up in bed, NAD but mildly uncomfortable appearing, at bedside HEENT: head normocephalic, atraumatic, mmm, trachea midline without deviation Resp: CTAB, no w/c/r, on room air CV: regular rate/rhythm, regular, no m/r/g, trace LE edema GI: +BS, soft/NT : no stein MSK/Neuro: moves all extremities, no focal deficits, strength equal RUE-- hand post-op dressing in place, sensation to pressure intact, decreased to light touch. +edema (about same as yesterday), erythema slightly decreased pulses palpable, other fingers mobile unable to make a first, or fully extend third digit L foot w/ bunion, 1st nail removed Skin: warm, perfused Results & Data Results & Data ([facility]) Vital Signs (Past 12 Hours) Vital Signs Temp Pulse Resp BP BP Pulse Ox O2 Del Method 02/23/22 07:26 37.0 C 64 16 149/85 H 98 Room Air 02/22/22 22:19 36.8 C 61 18 116/67 97 Room Air Laboratory Results 02/23/22 02/23/22 02/23/22 Range/Units 06:12 06:12 06:12 WBC (4.8-10.8) K/ul RBC (3.93-5.22) M/uL Hgb (12.0-16.0) g/dl Hct (34.1-44.9) % MCV (80.0-100.0) fL MCH (25.0-34.0) pg MCHC (32.0-36.0) g/dL RDW Std Deviation (36.4-46.3) fL RDW Coeff of Akilah (11.5-14.5) % Plt Count (130-400) K/uL MPV (9.4-12.3) fL Absolute Nucleated RBC (0-0) K/uL Nucleated RBC % (auto) % Sodium (136-145) mmol/L Potassium (3.5-5.1) mmol/L Chloride (98-107) mmol/L Carbon Dioxide (21-32) mmol/L Anion Gap (3-11) BUN (6-23) mg/dl Creatinine (0.6-1.2) mg/dl Est Cr Clr Drug Dosing ml/min Est GFR ( Amer) ml/min Est GFR (Non-Af Amer) ml/min BUN/Creatinine Ratio (10-20) Glucose (70-99(Fasting)) mg/dl POC Glucose (70-99) mg/dl Calcium (8.5-10.1) mg/dl TSH 0.372 (0.300-4.500) uIu/ml Random Vancomycin 13.5 (10-20) mcg/ml Hepatitis C Ab (EIA) Pending Hep C Ab Signal/Cutoff Pending 02/23/22 02/23/22 02/22/22 Range/Units 06:12 06:12 11:59 WBC 19.18 H (4.8-10.8) K/ul RBC 3.91 L (3.93-5.22) M/uL Hgb 11.8 L (12.0-16.0) g/dl Hct 35.0 (34.1-44.9) % MCV 89.5 (80.0-100.0) fL MCH 30.2 (25.0-34.0) pg MCHC 33.7 (32.0-36.0) g/dL RDW Std Deviation 41.8 (36.4-46.3) fL RDW Coeff of Akilah 12.7 (11.5-14.5) % Plt Count 202 (130-400) K/uL MPV 9.8 (9.4-12.3) fL Absolute Nucleated RBC 0.03 H (0-0) K/uL Nucleated RBC % (auto) 0.2 % Sodium 140 (136-145) mmol/L Potassium 4.4 (3.5-5.1) mmol/L Chloride 108 H (98-107) mmol/L Carbon Dioxide 30 (21-32) mmol/L Anion Gap 2 L (3-11) BUN 7 (6-23) mg/dl Creatinine 0.68 (0.6-1.2) mg/dl Est Cr Clr Drug Dosing 110.4 ml/min Est GFR ( Amer) 111.0 ml/min Est GFR (Non-Af Amer) 95.7 ml/min BUN/Creatinine Ratio 10.3 (10-20) Glucose 82 (70-99(Fasting)) mg/dl POC Glucose 70 (70-99) mg/dl Calcium 8.3 L (8.5-10.1) mg/dl TSH (0.300-4.500) uIu/ml Random Vancomycin (10-20) mcg/ml Hepatitis C Ab (EIA) Hep C Ab Signal/Cutoff 02/22/22 02/22/22 Range/Units 09:45 09:05 WBC (4.8-10.8) K/ul RBC (3.93-5.22) M/uL Hgb (12.0-16.0) g/dl Hct (34.1-44.9) % MCV (80.0-100.0) fL MCH (25.0-34.0) pg MCHC (32.0-36.0) g/dL RDW Std Deviation (36.4-46.3) fL RDW Coeff of Akilah (11.5-14.5) % Plt Count (130-400) K/uL MPV (9.4-12.3) fL Absolute Nucleated RBC (0-0) K/uL Nucleated RBC % (auto) % Sodium (136-145) mmol/L Potassium (3.5-5.1) mmol/L Chloride (98-107) mmol/L Carbon Dioxide (21-32) mmol/L Anion Gap (3-11) BUN (6-23) mg/dl Creatinine (0.6-1.2) mg/dl Est Cr Clr Drug Dosing ml/min Est GFR ( Amer) ml/min Est GFR (Non-Af Amer) ml/min BUN/Creatinine Ratio (10-20) Glucose (70-99(Fasting)) mg/dl POC Glucose 64 L* 60 L* (70-99) mg/dl Calcium (8.5-10.1) mg/dl TSH (0.300-4.500) uIu/ml Random Vancomycin (10-20) mcg/ml Hepatitis C Ab (EIA) Hep C Ab Signal/Cutoff Diagnostic Findings Hand CT 02/22/22 09:03 CT OF THE RIGHT HAND WITH CONTRAST CLINICAL HISTORY: Right hand cellulitis, inability to move right middle finger. COMPARISON STUDY: Right hand radiographs performed earlier today. TECHNIQUE: Axial images of the right hand were obtained following intravenous injection of 86 cc of Optiray 350 IV. Sagittal and coronal reconstructions were viewed. Automated exposure control was utilized for the study. A dose lowering technique was utilized adhering to the principles of ALARA. FINDINGS: Alignment of the right hand is anatomic. There is no acute fracture. There is no CT evidence for acute osteomyelitis within the right hand or wrist. Moderate osteoarthritis is noted within multiple articulations of the right wrist and hand with joint space narrowing and osteophytosis. Subcutaneous stranding and fluid within the right third finger may reflect sinusitis. There is no fluid collection to suggest an abscess. There is no soft tissue gas. In addition, there is apparent increased fluid within the flexor tendon sheath of the third finger with prominent enhancement of the tendon sheath. This favors tenosynovitis. Otherwise, tendon sheaths appear unremarkable. IMPRESSION: 1. No acute fracture within the right third finger. No CT evidence for acute osteomyelitis. 2. Right third finger subcutaneous stranding and fluid. Given the clinical history, this may reflect cellulitis. No abscess. 3. Findings suggestive of tenosynovitis of the flexor tendon sheath of the right third finger. This finding is nonspecific and infectious tenosynovitis cannot be excluded. 4. 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 ACT 112: Negative or not required by law. Electronically signed by: Cash Mccormack M.D. 02/22/2022 10:11 AM PG Care Time/CCT Total # of Minutes Spent Total Time Spent with Patient: Total time spent is greater than 50% in coordination of care (as documented) at patient's floor/unit and/or counseling patient: Coding Level of Care Code 32245 Subseq Hosp Care Lvl 3 Diagnoses Flexor tenosynovitis of finger M65.9 Cellulitis of hand, right L03.113 Central hypothyroidism E03.8 Diabetes E11.9
[2022-02-23] MEDS ORDERED: SODIUM CHLORIDE 0.9% 1000ML 1,000 ML IV SCH (08:45)
--- NOTE | 2022-02-23 08:45 | Post Operative Brief Note ---
Immediate Post Op Note v1 Date of Surgery February 23, 2022 Pre & Post Diagnosis Operation Date: 02/23/22 07:30 Pre-Op Diagnosis: Septic Tendon Right Middle Flexor Tenosynvitis Post-Op Diagnosis: Septic Tendon Right Middle Flexor Tenosynvitis I identified the patient and participated in the time-out.: Yes Procedure Operation Date: 02/23/22 07:30 Actual Procedures p Right Middle Flexor Tenosynvitis Incision and Drainage(Right) - Miguel Huff MD Surgeon Miguel Huff MD Antique Finisher Carlos Valles PA-C Estimated Blood Loss 5 Findings Consistent with Post-Op Diagnosis Serous fluid in the flexor tendon system consistent with septic flexor tenosynovitis
[2022-02-23] MEDS ORDERED: ePHEDrine sulfate 50 MG/ML AMP ONE (09:09)
[2022-02-23] MEDS ORDERED: ceFAZolin 2000MG 2,000 MG/15 ML SYR IV ONE (09:12)
[2022-02-23] MEDS: fentaNYL citrate 100 MCG/2 ML VIAL IV PRN ×4 (09:15→09:45)
--- NOTE | 2022-02-23 09:56 | Anesthesiology Progress Note ---
Date of Service February 23, 2022 Anesthesia Post Procedure Vital Signs Vital Signs: Temp Pulse Pulse Pulse Resp BP BP 02/23/22 09:35 67 12 134/85 02/23/22 09:25 64 12 128/81 02/23/22 09:45 36.2 C L 67 14 132/81 02/23/22 09:15 69 16 152/91 H 02/23/22 09:06 36.2 C L 77 16 116/78 02/23/22 07:26 37.0 C 64 16 149/85 H 02/22/22 22:19 36.8 C 61 18 02/22/22 16:47 36.4 C L 57 L 16 02/22/22 16:12 66 18 113/77 02/22/22 11:30 64 16 123/77 02/22/22 11:00 56 L 120/80 02/22/22 10:30 60 122/79 02/22/22 10:00 60 125/80 BP Pulse Ox O2 Del Method O2 Flow Rate 02/23/22 09:35 99 Room Air 02/23/22 09:25 100 Room Air 02/23/22 09:45 100 Room Air 02/23/22 09:15 100 Oxymask 4 02/23/22 09:06 100 Oxymask 6 02/23/22 07:26 98 Room Air 02/22/22 22:19 116/67 97 Room Air 02/22/22 16:47 136/82 100 Room Air 02/22/22 16:12 100 Room Air 02/22/22 11:30 96 Room Air 02/22/22 11:00 100 Room Air 02/22/22 10:30 100 Room Air 02/22/22 10:00 100 Room Air Pain Intensity Right 3rd Digit Finger: Pain Intensity: 5 Right Hand: Pain Intensity: 5 Transfer of Care Handoff Completed per policy Notes Mental Status: alert / awake / arousable Patient Amnestic to Procedure: Yes Nausea / Vomiting: adequately controlled Pain: adequately controlled Airway Patency, RR, SpO2: stable & adequate BP & HR: stable & adequate Hydration State: stable & adequate Anesthetic Complications: no major complications apparent
[2022-02-23] MEDS ORDERED: NON-FORMULARY MEDICATION (Mirabegron [Myrbetriq] 50 mg tablet extended release 24 hr) PO SCH (10:25)
[2022-02-23] MEDS: ACETAMINOPHEN 325 MG TAB PO PRN ×2 (10:38→14:36)
[2022-02-23] MEDS ORDERED: KETOROLAC TROMETHAMINE 15 MG/ML VIAL IV ONE (10:43)
--- NOTE | 2022-02-23 11:00 | Pharmacy Report ---
Pharmacy PK ABX Note - Date of Service February 23, 2022 - Assessment and Plan Assessment 61 yo F receiving IV Vancomycin and Ceftriaxone for cellulitis/tenosynovitis of right middle finger. * Undergoing I&D today. * Blood cultures pending. Finger cx from OR pending as well. * Afebrile. Leukocytosis of 19k. Renal fxn stable. Plan Vancomycin * Current regimen: 1000 mg IV every 12 hours * Random level obtained 02/23/22 resulted as 13.5 mcg/mL. This is subtherapeutic. * Change to 1250 mg IV every 12 hours. Predicted AUC at steady state: 496 mg/L.hr * Repeat random level ordered for: 02/25/22 Pharmacy will continue to follow and will adjust dose/frequency as necessary. Thank you. Pharmacy has transitioned to AUC monitoring for vancomycin. AUC/MATILDA is the preferred PK/PD target and is associated with decreased risk of nephrotoxicity compared to traditional trough targets.
[2022-02-23] MEDS: VANCOMYCIN HCL 1,250 MG in SODIUM CHLORIDE 0.9% 250 ML IV SCH ×2 (12:03→21:37)
[2022-02-23] MEDS: PANTOprazole 40 MG TAB PO SCH (14:34)
[2022-02-23] MEDS: MIRABEGRON ER 25 MG TAB PO SCH (14:34)
[2022-02-23] MEDS: estradioL 1 MG TAB PO SCH (14:35)
[2022-02-23] MEDS: CETIRIZINE HCL 10 MG TABLET PO SCH (14:35)
[2022-02-24] MEDS: oxyCODONE HCL IR 5 MG TAB (IMMEDIATE RELEASE) PO PRN ×2 (01:23→09:16)
[2022-02-24] MEDS: MoRPHine SULFATE 2 MG/ML CARP IV PRN (03:58)
[2022-02-24] MEDS: LEVOTHYROXINE SODIUM 125 MCG TABLET PO SCH (05:57)
[2022-02-24] MEDS: cefTRIAXone SODIUM 2,000 MG in DEXTROSE 5% 50 ML IV SCH (05:57)
[2022-02-24 08:12] LABS: Hematocrit (blood only) 33.7 % (34.1-44.9); Mean Corpuscular Hemoglobin 29.5 pg (25.0-34.0); Mean Corpuscular Hgb Conc 32.6 g/dL (32.0-36.0); Mean Corpuscular Volume 90.3 fL (80.0-100.0); Platelet Count 210 K/uL (130-400); RDW Coefficient of Variation 12.7 % (11.5-14.5); Red Blood Count 3.73 M/uL (3.93-5.22); White Blood Count 21.05 K/ul (4.8-10.8)
--- NOTE | 2022-02-24 08:18 | Hospitalist Progress Note ---
Date of Service February 24, 2022 Assessment & Plan (1) Flexor tenosynovitis of finger: Plan: 61yo right-hand dominant female with acute onset pain and swelling in her right middle finger, inability to fully straighten finger. No trauma, no history of prior. She is afebrile, HD stable, NAD. WBC=26.91. Elevated CRP 1.92 (of note, likely underlying CLL- see below) CT hand w/ contrast for eval for any flexor tenosynovitis given history/exam Impression: * Right third finger subcutaneous stranding and fluid. Given the clinical history, this may reflect cellulitis. No abscess. * Findings suggestive of tenosynovitis of the flexor tendon sheath of the right third finger. This finding is nonspecific and infectious tenosynovitis cannot be excluded. Orthopedics consulted, Dr Huff POD#1 s/p Right Middle Flexor Tenosynvitis Incision and Drainage(Right) - Miguel Huff MD. EBL 5 Findings consistent with septic flexor tenosynovitis Continue IV Ceftriaxone/Vancomycin Cx pending -- monitor BCx NGTD WBC trended down (chronic elevation), afebrile. Suspect slight bump from n/v w/ meat last night. does have dietary restrictions/tolerance asked organizational development consultant to see -- syed in to see as leaving room Elevate hand, ROM per Dr Huff, NWB RUE per Dr Maldonado today Pain control, antiemetics prn -Noted hx gastric bypass. Given toradol 10mg IV x 2 doses, pain controlled w/ oxy/morphine for now. 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 Suspected likelihoof of autoimmune thyroid disease and presumably autoimmune central hypothyroidism. Had been switched to Tirosint in 2018 to acheive more consistent absorption, given hx gastric bypass surgery. Had tried armour thyroid but at 150mcg and developed symptoms of hyperthyroidism and decided not to try at a lower dose. Since 2019 has been on Tirosint. 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 Reportedly follows with Maria Elena, suspected underlying CLL, but no treatment/undergoing surveillance Afebrile, WBC improved on repeat but slight bump from n/v w/ red meat last evening Monitor Seasonal Allergies -- continue zyrtec Overactive Bladder -- Myrbetriq 50mg daily DVT prophylaxis -- SCDs, ambulation Plan continued inpatient stay on IV abx, monitor cx from OR Check KUB to eval for constipation given n/v and reported not passing gas (although denied abd pain and issues w/ other dietary choices causing such in past). Physician Office Nurse also consulted to assist w/ diet Admission and Anticipated Discharge Date Admission Date: February 23, 2022 Supervising Physician Co-Signing Physician Notes PA Supervision Note: I did not personally see or examine the patient today, but I verified all reese p oints of JANKI Ruffin's assessment and plan with the following exceptions/additions: None Subjective patient evaluated this morning has eye cover and ear plugs in, poor sleep w/ noises from TV from roommate ate roast beef last night but had some nausea/vomiting has issues w/ dietary choices/red meat. asked organizational development consultant to see she does have boost/protein drinks at home, discussed did order these no fever/chills, chest pain, shortness of breath not moving her bowels but not having any pain currently. she states this is not abnormal for her. states ortho in this morning and changed her dressing. still has some numbness/tingling/decreased sensation to distal tip of third finger. waiting final cultures to determine abx therapy Review of Systems Review of Systems: All systems reviewed & are unremarkable except as noted in HPI & below Physical Exam Physical Exam: General: WD/WN female sleeping in bed with eye mask and ear plugs in, NAD HEENT: head normocephalic, atraumatic, mmm, trachea midline without deviation Resp: CTAB, no w/c/r, on room air CV: regular rate/rhythm, regular, no m/r/g, trace LE edema/no calf tenderness GI: +BS, soft/NT : no stein MSK/Neuro: moves all extremities, no focal deficits, strength equal RUE-- hand post-op dressing in place (changed this morning per orthopedics/patient), sensation to pressure intact, diminished to light touch third digit, pulses palpable, elevated RUE L foot w/ bunion, 1st nail removed Skin: warm, perfused Results & Data Results & Data ([facility]) Vital Signs (Past 12 Hours) Vital Signs Temp Pulse Resp BP Pulse Ox O2 Del Method 02/24/22 06:32 36.9 C 69 16 122/71 96 Room Air 02/24/22 03:18 36.9 C 64 16 122/72 94 Room Air 02/23/22 22:51 37.0 C 65 16 123/69 98 Room Air Laboratory Results 02/24/22 02/24/22 Range/Units 07:20 07:20 WBC 21.05 H (4.8-10.8) K/ul RBC 3.73 L (3.93-5.22) M/uL Hgb 11.0 L (12.0-16.0) g/dl Hct 33.7 L (34.1-44.9) % MCV 90.3 (80.0-100.0) fL MCH 29.5 (25.0-34.0) pg MCHC 32.6 (32.0-36.0) g/dL RDW Std Deviation 42.0 (36.4-46.3) fL RDW Coeff of Akilah 12.7 (11.5-14.5) % Plt Count 210 (130-400) K/uL MPV 10.0 (9.4-12.3) fL Sodium 139 (136-145) mmol/L Potassium 3.9 (3.5-5.1) mmol/L Chloride 107 (98-107) mmol/L Carbon Dioxide 27 (21-32) mmol/L Anion Gap 5 (3-11) BUN 7 (6-23) mg/dl Creatinine 0.69 (0.6-1.2) mg/dl Est Cr Clr Drug Dosing 108.8 ml/min Est GFR ( Amer) 110.4 ml/min Est GFR (Non-Af Amer) 95.3 ml/min BUN/Creatinine Ratio 10.1 (10-20) Glucose 108 H (70-99(Fasting)) mg/dl Calcium 8.2 L (8.5-10.1) mg/dl PG Care Time/CCT Total # of Minutes Spent Total Time Spent with Patient: Total time spent is greater than 50% in coordination of care (as documented) at patient's floor/unit and/or counseling patient: Coding Level of Care Code 47887 Subseq Hosp Care Lvl 3 Diagnoses Flexor tenosynovitis of finger M65.9 Cellulitis of hand, right L03.113 Central hypothyroidism E03.8 Diabetes E11.9
[2022-02-24] MEDS: estradioL 1 MG TAB PO SCH (08:36)
[2022-02-24] MEDS: MIRABEGRON ER 25 MG TAB PO SCH (08:37)
[2022-02-24] MEDS: PANTOprazole 40 MG TAB PO SCH (08:38)
[2022-02-24] MEDS: CETIRIZINE HCL 10 MG TABLET PO SCH (08:38)
[2022-02-24 09:24] LABS: BUN Creatinine Ratio 10.1 (10-20); Calcium 8.2 mg/dl (8.5-10.1); Creatinine Clr Calc Pharmacy 108.8 ml/min; Est GFR (African American) 110.4 ml/min; Est GFR (Non-African American) 95.3 ml/min; Potassium 3.9 mmol/L (3.5-5.1)
[2022-02-24] MEDS: POLYETHYLENE (MIRALAX) 17 GM PACK PO SCH (09:32)
--- NOTE | 2022-02-24 10:50 | Orthopedic Progress Note ---
Date of Service February 24, 2022 Assessment & Plan (1) Flexor tenosynovitis of finger: Plan: 61-year-old female status post right middle finger irrigation and debridement for flexor tenosynovitis postoperative day #1 -Pain control -IV antibiotics -Medical management -Trend labs and inflammatory markers -Nonweightbearing right upper extremity -Ice/elevate -DVT prophylaxis per primary team -Follow cultures and sensitivities -Dressing changed today and packing removed from palmar incision. New dressing placed -Recommend continuing IV antibiotics as well as pain control. We will follow clinically. Ultimately awaiting final cultures and sensitivities for appro priate antibiotic therapy. Admission and Anticipated Discharge Date Admission Date: February 23, 2022 Subjective Patient seen and examined, no acute events overnight. Pain controlled Physical Exam Constitutional: No acute distress, alert and oriented person place and time. Resting bed Musculoskeletal: Right upper extremity -Dressings clean dry and intact -Fires EDC/FDP of middle finger -Sensation grossly intact to light touch srad/med/uln, patient does note some chronic diminished sensation though -Palpable radial pulse Results & Data ([facility]) Vital Signs (Past 12 Hours) Vital Signs Temp Pulse Resp BP Pulse Ox O2 Del Method 02/24/22 06:32 36.9 C 69 16 122/71 96 Room Air 02/24/22 03:18 36.9 C 64 16 122/72 94 Room Air 02/23/22 22:51 37.0 C 65 16 123/69 98 Room Air
--- NOTE | 2022-02-24 12:25 | XRay Report ---
KUB HISTORY: eval constipation COMPARISON: Abdomen and pelvis CT 10/12/2020. Chest abdominal series 12/14/2008 FINDINGS: No dilated loops of bowel to suggest an obstruction. There is moderate well-formed stool se en within the colon. Suture material seen within the left side the abdomen consistent with prior bella curtis bypass. The lung bases are clear. Degenerative changes and mild scoliosis noted within the thorac olumbar spine. No renal calculi. No ureteral calculi. No pneumoperitoneum or pneumatosis. IMPRESSION: 1. Moderate fecal retention. 2. No evidence for bowel obstruction. ACT 112: Negative or not required by law. Electronically signed by: Parker Doan M.D. 02/24/2022 12:24 PM
[2022-02-24] MEDS: DOCUSATE SODIUM/SENNA 50/8.6MG TAB PO SCH (13:11)
[2022-02-24] MEDS: VANCOMYCIN HCL 1,250 MG in SODIUM CHLORIDE 0.9% 250 ML IV SCH ×2 (13:21→23:55)
[2022-02-24] MEDS ORDERED: MELATONIN 3 MG TAB PO PRN (22:07)
[2022-02-25] MEDS: ACETAMINOPHEN 325 MG TAB PO PRN
[2022-02-25] MEDS: cefTRIAXone SODIUM 2,000 MG in DEXTROSE 5% 50 ML IV SCH (05:39)
[2022-02-25] MEDS: LEVOTHYROXINE SODIUM 125 MCG TABLET PO SCH (05:40)
[2022-02-25 06:19] LABS: Hematocrit (blood only) 34.8 % (34.1-44.9); Hemoglobin 11.5 g/dl (12.0-16.0); Mean Corpuscular Hemoglobin 29.2 pg (25.0-34.0); Mean Corpuscular Volume 88.3 fL (80.0-100.0); Mean Platelet Volume 9.7 fL (9.4-12.3); Platelet Count 216 K/uL (130-400); RDW Coefficient of Variation 12.5 % (11.5-14.5); RDW Standard Deviation 40.7 fL (36.4-46.3); Red Blood Count 3.94 M/uL (3.93-5.22); White Blood Count 19.44 K/ul (4.8-10.8)
[2022-02-25 06:41] LABS: BUN Creatinine Ratio 10.5 (10-20); C Reactive Protein 2.92 mg/dl (0-0.5); Calcium 8.4 mg/dl (8.5-10.1); Creatinine Clr Calc Pharmacy 131.7 ml/min; Est GFR (African American) 117.6 ml/min; Est GFR (Non-African American) 101.5 ml/min; Potassium 4.1 mmol/L (3.5-5.1)
--- NOTE | 2022-02-25 08:00 | Operative Report (OR) ---
DATE OF SERVICE: 02/23/2022 PREOPERATIVE DIAGNOSIS: Right middle finger septic flexor tenosynovitis. POSTOPERATIVE DIAGNOSIS: Right middle finger septic flexor tenosynovitis. PROCEDURE: Right middle finger incision and drainage of septic flexor tenosynovitis. SURGEON: Miguel Huff MD BRASS PICKLER: Carlos Valles PA-C, who was necessary for prepping, draping, retraction, exposure, and clos ure. ANESTHESIA: General. INDICATIONS: This is a 61-year-old female with progressive insidious onset of pain and swelling in h is finger. I saw him in the preoperative holding area. We discussed risks, benefits, reasonable out comes, and expectations. Her exam shows all 4 positive Kanavel signs consistent with septic flexor t enosynovitis. She has severe excruciating pain with passive extension of the finger. Finger does sh ow a fusiform swelling. We discussed options of incision and drainage of septic flexor tenosynovitis . The risks and benefits have been discussed including, but not limited to, risk of infection, nerve in jury, stiffness, loss of motion, failure to improve, etc. Reasonable outcomes and options of treatmen t were discussed. An explanation of appropriate alternatives to the procedure that may be advantageou s were discussed and their risks and benefits, as well as the risks and benefits of not proceeding wi th treatment. I offered to answer any additional inquiries concerning the treatment involved. All the patients questions were answered. The patient is agreeable, understanding of the treatment plan and alternatives, and wishes to proceed with the treatment plan. DESCRIPTION OF PROCEDURE: I made a longitudinal incision over the A1 priyank. Dissection was carried down through the skin and subcutaneous tissue. Digital nerves were retracted and opened the A1 pull ey. I identified a moderate amount of serous fluid both proximal and distal to the A1 priyank. This d id appear to be in the tendon sheath. This was sent for culture. I debrided the flexor tendon syste m as there was moderate amount of tenosynovitis in the local area. I made a second longitudinal incision, made lateral over the A5 priyank and DIP joint. Dissection was carried down through the skin and subcutaneous tissues. I bluntly dissected to the flexor tendon sh eath and made an outflow tract for fluid. With 14-gauge Angiocath, I performed through and through irrigation from proximal to distal irrigatin g the flexor tendon sheath system until clear fluid was returned. Prior to irrigation, I also took s ome cultures of distal flexor tendon sheath as there was some serous fluid in that region as well. I additionally irrigated the A1 priyank incision with 1 liter of normal saline. Tourniquet was let do wn. Hemostasis was obtained with bipolar electrocautery. Skin was closed with 4-0 nylon in a runnin g fashion on the proximal incision. Distal incision was partially closed with a single stitch of 4-0 nylon. Packing was applied in the proximal incision. Patient was placed in soft dressing, sent to [facility] PACU in stable condition. POSTOPERATIVE PLAN: Will be to remove packing in 24-48 hours. We will monitor cultures and continue antibiotics for clinical septic flexor tenosynovitis. No further surgical treatment anticipated, [facility] we will follow the clinical course. Job ID: [id number]
--- NOTE | 2022-02-25 08:27 | Hospitalist Progress Note ---
Date of Service February 25, 2022 Assessment & Plan Admission and Anticipated Discharge Date Admission Date: February 23, 2022 Results & Data Results & Data ([facility]) Vital Signs (Past 12 Hours) Vital Signs Temp Pulse Resp BP Pulse Ox O2 Del Method 02/25/22 07:50 36.3 C L 64 18 146/88 H 99 Room Air 02/24/22 22:03 36.7 C 76 15 120/78 98 Room Air Laboratory Results 02/25/22 02/25/22 02/25/22 Range/Units 06:06 06:06 06:06 WBC 19.44 H (4.8-10.8) K/ul RBC 3.94 (3.93-5.22) M/uL Hgb 11.5 L (12.0-16.0) g/dl Hct 34.8 (34.1-44.9) % MCV 88.3 (80.0-100.0) fL MCH 29.2 (25.0-34.0) pg MCHC 33.0 (32.0-36.0) g/dL RDW Std Deviation 40.7 (36.4-46.3) fL RDW Coeff of Akilah 12.5 (11.5-14.5) % Plt Count 216 (130-400) K/uL MPV 9.7 (9.4-12.3) fL Sodium 140 (136-145) mmol/L Potassium 4.1 (3.5-5.1) mmol/L Chloride 108 H (98-107) mmol/L Carbon Dioxide 30 (21-32) mmol/L Anion Gap 2 L (3-11) BUN 6 (6-23) mg/dl Creatinine 0.57 L (0.6-1.2) mg/dl Est Cr Clr Drug Dosing 131.7 ml/min Est GFR ( Amer) 117.6 ml/min Est GFR (Non-Af Amer) 101.5 ml/min BUN/Creatinine Ratio 10.5 (10-20) Glucose 96 (70-99(Fasting)) mg/dl Calcium 8.4 L (8.5-10.1) mg/dl Magnesium (1.7-2.4) mg/dl C-Reactive Protein 2.92 H (0-0.5) mg/dl Random Vancomycin 19.1 (10-20) mcg/ml 02/24/22 02/24/22 Range/Units 07:20 07:20 WBC (4.8-10.8) K/ul RBC (3.93-5.22) M/uL Hgb (12.0-16.0) g/dl Hct (34.1-44.9) % MCV (80.0-100.0) fL MCH (25.0-34.0) pg MCHC (32.0-36.0) g/dL RDW Std Deviation (36.4-46.3) fL RDW Coeff of Akilah (11.5-14.5) % Plt Count (130-400) K/uL MPV (9.4-12.3) fL Sodium 139 (136-145) mmol/L Potassium 3.9 (3.5-5.1) mmol/L Chloride 107 (98-107) mmol/L Carbon Dioxide 27 (21-32) mmol/L Anion Gap 5 (3-11) BUN 7 (6-23) mg/dl Creatinine 0.69 (0.6-1.2) mg/dl Est Cr Clr Drug Dosing 108.8 ml/min Est GFR ( Amer) 110.4 ml/min Est GFR (Non-Af Amer) 95.3 ml/min BUN/Creatinine Ratio 10.1 (10-20) Glucose 108 H (70-99(Fasting)) mg/dl Calcium 8.2 L (8.5-10.1) mg/dl Magnesium 1.7 (1.7-2.4) mg/dl C-Reactive Protein (0-0.5) mg/dl Random Vancomycin (10-20) mcg/ml PG Care Time/CCT Total # of Minutes Spent Total Time Spent with Patient: Total time spent is greater than 50% in coordination of care (as documented) at patient's floor/unit and/or counseling patient: Coding
--- NOTE | 2022-02-25 08:31 | Orthopedic Progress Note ---
Date of Service February 25, 2022 Assessment & Plan (1) Flexor tenosynovitis of finger: Plan: 61 yo female stable POD #2 s/p I&D right middle finger flexor tenosynovitis 1. Med management- pt on IV Ceftriaxone and Vanco 2. DVT prophylaxis- SCDs 3. PT/OT 4. D/C planning- home, ortho to sign off, d/c per medicine with po abx, consider Bactrim DS Admission and Anticipated Discharge Date Admission Date: February 23, 2022 Subjective Pt walking halls, ready to get out of here Physical Exam Physical Exam: Dressing right hand changed, incisions look benign, mild serous drainage palmar incision Results & Data ([facility]) Vital Signs (Past 12 Hours) Vital Signs Temp Pulse Resp BP Pulse Ox O2 Del Method 02/25/22 07:50 36.3 C L 64 18 146/88 H 99 Room Air 02/24/22 22:03 36.7 C 76 15 120/78 98 Room Air Laboratory Results Microbiology 02/23/22 08:33 Gram Stain - Final Finger,Right Middle Aerobic and Anaerobic Culture - Preliminary No growth to date. 02/23/22 08:35 Gram Stain - Final Finger,Right Middle Aerobic and Anaerobic Culture - Preliminary No growth to date. 02/22/22 04:15 Aerobic Blood Culture - Preliminary Blood No growth in Aerobic bottle after 48 hours. Anaerobic Blood Culture - Preliminary No growth in Anaerobic bottle after 48 hours. 02/22/22 05:30 Aerobic Blood Culture - Preliminary Blood No growth in Aerobic bottle after 48 hours. Anaerobic Blood Culture - Preliminary No growth in Anaerobic bottle after 48 hours.
--- NOTE | 2022-02-25 08:31 | Pharmacy Report ---
Pharmacy PK ABX Note - Date of Service February 25, 2022 - Assessment and Plan Assessment 61 yo F receiving IV Vancomycin and Ceftriaxone for cellulitis/tenosynovitis of right middle finger. * POD #2 s/p right middle flexor tenosynovitis I&D * Blood cultures show no growth at 48 hours. Finger cultures also show no growth and no organisms seen on gram stain. * Afebrile. Leukocytosis of 19k. Renal fxn stable. Plan Vancomycin * Current regimen: 1250 mg IV every 12 hours * Random level obtained 02/25/22 resulted as 19.1 mcg/mL. This is predicted to achieve target AUC/MATILDA of 400-600 mg/L.hr * Predicted AUC at steady state: 415 mg/L.hr * Change to 1500 mg IV every 12 hours to allow for increased likelihood of AUC/MATILDA target attainment (58 vs. 90%) * Will repeat level in the next 48-72 hours if therapy is continued and/or change in patient clinical status Ceftriaxone * 2 g IV q24h - no change Pharmacy will continue to follow and will adjust dose/frequency as necessary. Thank you. Pharmacy has transitioned to AUC monitoring for vancomycin. AUC/MATILDA is the preferred PK/PD target and is associated with decreased risk of nephrotoxicity compared to traditional trough targets.
[2022-02-25] MEDS: DOCUSATE SODIUM/SENNA 50/8.6MG TAB PO SCH (08:41)
[2022-02-25] MEDS: CETIRIZINE HCL 10 MG TABLET PO SCH (08:42)
[2022-02-25] MEDS: estradioL 1 MG TAB PO SCH (08:42)
[2022-02-25] MEDS: MIRABEGRON ER 25 MG TAB PO SCH (08:42)
[2022-02-25] MEDS: PANTOprazole 40 MG TAB PO SCH (08:42)
[2022-02-25] MEDS: POLYETHYLENE (MIRALAX) 17 GM PACK PO SCH (08:43)
[2022-02-25] MEDS ORDERED: VANCOMYCIN HCL 1,500 MG in SODIUM CHLORIDE 0.9% 500 ML IV SCH (09:00)
--- NOTE | 2022-02-25 11:29 | Discharge Summary ---
Date of Service February 25, 2022 Admission HPI Per Admitting Provider 61yo female presenting with acute onset of pain and swelling of the middle digit of right hand. She is unable to fully flex or extend the finger. No history of trauma. She denies fever, chills, nausea, malaise. No additional complaints. No history of prior. In the ER she is afebrile, HD stable, NAD ER Course: Vancomycin Ceftriaxone Morphine Zofran NSS Admission Exam Per Admitting Provider General: patient resting comfortably, NAD, non-toxic in appearance, AA&O x 4 Skin: warm, dry, intact, no rashes or lesions HEENT: NC/AT, PERRL, EOMI, anicteric sclera, conjunctiva without injection, external ear normal to inspection and nontender, nares patent, moist mucus membranes, dentition intact, no oropharyngeal lesions, neck supple, trachea midline, no LAD, no thyromegaly, no JVD Heart: +S1/S2, regular, no m/r/g Lungs: equal air entry bilaterally, no rales/rhonchi/wheezes Abd: +BS, soft, NT/ND, no masses/organomegaly/ascites Ext: warm, 2+ pulses in UE/LE bilaterally, no clubbing/cyanosis or edema, right middle finger swollen, tender, partially flexed with inability to fully straighten, no redness, area is cool to touch Neuro: nonfocal, patient AA&O x 4, speech intact, no facial droop, moving all extremities on command with equal strength 5/5 Principal Diagnosis Septic Flexor Tenosynovitis Discharge Exam General: WD/WN sitting up in bed, much more comfortable appearing, NAD HEENT: head normocephalic, atraumatic, mmm, trachea midline without deviation Resp: CTAB, no w/c/r, on room air 99% CV: regular rate/rhythm, no significant m/r/g, trace LE edema/no calf tenderness GI: +BS, soft/NT : no stein MSK/Neuro: moves all extremities, no focal deficits RUE-- hand with dressing changed, wrapped with kerlix improvement in ROM with fingers however still with decreased flexion at PIP joint 3rd finger right hand improvement in decreased sensation to light touch decreased edema no spreading/worsening erythema, receded to the hand tender to palmar aspect at site of incision, suture intact, dressing covering distal suture to DIP pulse palpable L foot w/ bunion, 1st nail removed (recent trauma couple months ago) Skin: warm, perfused Discharge Data Allergies Allergy/AdvReac Type Severity Reaction Status Date / Time thyroid, pork Allergy Intermediate nausea, Verified 01/30/22 07:36 [From Reynolds Thyroid] palpitations doxycycline Allergy Mild RASH Verified 01/30/22 07:36 NSAIDS (Non-Steroidal Allergy Unknown TOLD NOT Verified 01/30/22 07:36 Anti-Inflamma TAKE D/T GASTRIC BYPASS Consultations 02/22/22 04:13 ED Decision to Admit Stat 02/22/22 06:47 Consult Orthopedic Surgery Routine Procedures Performed Operation Date: 02/23/22 07:30 Actual Procedures p Right Middle Flexor Tenosynvitis Incision and Drainage(Right) - Miguel Huff MD Ordered Studies Hand X-Ray 02/22/22 04:10 XR hand RT min 3V routine CLINICAL HISTORY: Middle finger infection. COMPARISON: Right fourth finger radiographs February 21, 2012 FINDINGS: Alignment of the right hand is anatomic. No acute fracture. No evidence for acute osteomyelitis is noted. There is third finger soft tissue swelling. Moderate joint space narrowing with osteophytosis is noted within multiple articulations of the right hand and wrist. IMPRESSION: 1. No acute fracture. No radiographic evidence for acute osteomyelitis. 2. 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 3. Right third finger soft tissue swelling. ACT 112: Negative or not required by law. Electronically signed by: Cash Mccormack M.D. 02/22/2022 6:[address] 02/22/22 09:03 CT OF THE RIGHT HAND WITH CONTRAST CLINICAL HISTORY: Right hand cellulitis, inability to move right middle finger. COMPARISON STUDY: Right hand radiographs performed earlier today. TECHNIQUE: Axial images of the right hand were obtained following intravenous injection of 86 cc of Optiray 350 IV. Sagittal and coronal reconstructions were viewed. Automated exposure control was utilized for the study. A dose lowering technique was utilized adhering to the principles of ALARA. FINDINGS: Alignment of the right hand is anatomic. There is no acute fracture. There is no CT evidence for acute osteomyelitis within the right hand or wrist. Moderate osteoarthritis is noted within multiple articulations of the right wrist and hand with joint space narrowing and osteophytosis. Subcutaneous stranding and fluid within the right third finger may reflect sinusitis. There is no fluid collection to suggest an abscess. There is no soft tissue gas. In addition, there is apparent increased fluid within the flexor tendon sheath of the third finger with prominent enhancement of the tendon sheath. This favors tenosynovitis. Otherwise, tendon sheaths appear unremarkable. IMPRESSION: 1. No acute fracture within the right third finger. No CT evidence for acute osteomyelitis. 2. Right third finger subcutaneous stranding and fluid. Given the clinical history, this may reflect cellulitis. No abscess. 3. Findings suggestive of tenosynovitis of the flexor tendon sheath of the right third finger. This finding is nonspecific and infectious tenosynovitis cannot be excluded. 4. 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 ACT 112: Negative or not required by law. Electronically signed by: Cash Mccormack M.D. 02/22/2022 10:11 AM KUB X-Ray 02/24/22 11:23 KUB HISTORY: eval constipation COMPARISON: Abdomen and pelvis CT 10/12/2020. Chest abdominal series 12/14/2008 FINDINGS: No dilated loops of bowel to suggest an obstruction. There is moderate well-formed stool seen within the colon. Suture material seen within the left side the abdomen consistent with prior gastric bypass. The lung bases are clear. Degenerative changes and mild scoliosis noted within the thoracolumbar spine. No renal calculi. No ureteral calculi. No pneumoperitoneum or pneumatosis. IMPRESSION: 1. Moderate fecal retention. 2. No evidence for bowel obstruction. ACT 112: Negative or not required by law. Electronically signed by: Parker Doan M.D. 02/24/2022 12:24 PM Hospital Course (1) Flexor tenosynovitis of finger: 61yo right-hand dominant female with acute onset pain and swelling in her right middle finger, inability to fully straighten finger. No trauma, no history of prior. She is afebrile, HD stable, NAD. WBC=26.91. Elevated CRP 1.92 (of note, likely underlying CLL- see below) CT hand w/ contrast for eval for any flexor tenosynovitis given history/exam--> Right third finger subcutaneous stranding and fluid. Given the clinical history, this may reflect cellulitis. No abscess. Findings suggestive of tenosynovitis of the flexor tendon sheath of the right third finger. This finding is nonspecific and infectious tenosynovitis cannot be excluded. Orthopedics consulted s/p Right Middle Flexor Tenosynitis Incision and Drainage(Right) - Miguel Huff MD. EBL 5 Findings consistent with septic flexor tenosynovitis Ceftriaxone/Vancomycin IV BCx NGTD after 48 hours Remained afebrile OR cx -- WBC, no orgnaisms on preliminary -- pending at discharge WBC improved PT/OT consulted Continued elevation/ROM to R hand, NWB F/u orthopedics in ~2 weeks Discussed with orthopedics, given cx without growth and prior recs for Bactrim, in patient immunocompromised, opted to continue PO Doxy BID and AUgmentin BID at discharge Listed allergy to doxy on medication list however patient stated she tolerated and got only a minimal rash to her chest. She was OK with plan to take this at d/c. instructed to take w/ full glass of water to prevent esophagitis Pain control/antiemetics prn Did get 2 doses of toradol, was placed on protonix for GI prophylaxis. 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 Suspected likelihood of autoimmune thyroid disease and presumably autoimmune central hypothyroidism. Had been switched to Tirosint in 2018 to acheive more consistent absorption, given hx gastric bypass surgery. Had tried Reynolds thyroid but at 150mcg and developed symptoms of hyperthyroidism and decided not to try at a lower dose. Since 2019 has been on Tirosint. Continued Synthroid at current dose, TSH wnl on repeat. Did convene w/ Dr Kibry and to continue current course, has routine f/u (4) Diabetes: also with hx gastric bypass, on B12 outpatient Last A1c 5.9 On semaglutide weekly, metformin 500mg BID. 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 Reportedly follows with Maria Elena, suspected underlying CLL, but no treatment/undergoing surveillance Afebrile, WBC improved Follow up for continued surveillance with heme/onc Seasonal Allergies -- continued Zyrtec Overactive Bladder -- Myrbetriq 50mg daily Constipation - KUB w/ mod stool burden, no abdominal pain reported. She reports it is normal for her to not move bowels for a couple of days. Not requiring opiates, however should consider bowel regimen at dc Is passing gas, again no pain on exam Total Time Total Time Spent Total Time Spent (In Minutes): 45 Discharge Plan Discharge Items Patient Disposition: Home - Self-Care Reason For Visit: HAND INFECTION Discharge Diagnosis: Septic Flexor Tenosynovitis of the RIGHT third finger Condition on Discharge: Good Goals: You have been hospitalized for an urgent problem which required surgery. During your stay at [facility], we have made an effort to correct the problem that brought you to the hospital while keeping you as comfortable as possible. Surgery and medications were used to bring your condition under control and your discharge instructions will include directions for any medications you should take after leaving the hospital. Please make sure to follow the advice of your surgeon regarding follow up with the surgeon and with your primary care provider. Activity: As commented below Activity Comment: range of motion as tolerated, NO WEIGHT BEARING Non-emergency contact: Primary Care Provider and Surgeon Call non-emergency contact if: you have any medication questions, your symptoms worsen, your pain is not controlled and you have a fever Follow-up/Referrals: Beth Keith CRNP [Primary Care Provider] - Carmen Hernandez [Physician] - 03/01/22 7:45 am Miguel Huff MD [Physician] - 03/05/22 9:40 am Diet: Heart Healthy Addtl Attending Provider Instructions: You have been hospitalized for infection of the right third finger Orthopedics was consulted for concern of a flexor tenosynovitis and this was confirmed by orthopedics on operative report. Your cultures were negative to date, and you were continued on IV antibiotics, but given immunocompromised state with underlying CLL, we have decided to continue broad spectrum antibioitics at discharge with Augmentin twice daily and Doxycycline twice daily. For pain control, you have been using tylenol, but have also been placed on Protonix to prevent any GI ulcers. Given occasional ibuprofen use at home, and discussion, we have sent a prescription for Protonix at discharge to take as needed when taking. You will need follow up with Dr Huff next week for follow up. You should continue range of motion as tolerated. You can wash the hand, but DO NOT SUBMERGE. Please follow up with primary care in the next 7-10 days to monitor your progress. Please return to the emergency department with any increased swelli ng/redness/uncontrolled pain/fever, or for any other symptoms concerning for you. It has been a pleasure being a part of the medical team providing for you while you have been in the hospital. Take care! Addtl Cvir Tech Provider Instructions: Maintain light dressing right hand as needed if wound drainage present, ok to keep open to air if wounds dry. Range of motion as tolerated. May wash hand, do not submerge. Follow-up with Dr Quintanilla team 03/05/22 in [facility], call [phone] for appt or with questions/concerns Pending Studies at Discharge: Yes Studies:: Blood culture -- no growth to date OR cultures -- preliminary no growth to date Stand-Alone Forms: [facility] Medications and DC Order Prescriptions: New polyethylene glycol 3350 [Miralax] 17 gram Powder In Packet 17 g PO DAILY Qty: 14 0RF pantoprazole 40 mg Tablet,Delayed Release (Dr/Ec) 40 mg PO QAM Qty: 30 0RF sennosides-docusate sodium [Senokot-S] 8.6-50 mg Tablet 1 tab PO QAM Qty: 30 0RF amoxicillin-pot clavulanate 875-125 mg tablet 1 tab PO BID 11 Days Qty: 22 0RF doxycycline hyclate 100 mg capsule 100 mg PO BID 11 Days Qty: 22 0RF Continued fluticasone propionate 50 mcg/actuation spray,suspension 2 sprays intranasal DAILY PRN (Reason: Congestion) Qty: 0 (DME) blood sugar diagnostic [Accu-Chek Guide test strips] Strip See Rx Instructions .ROUTE .MEDSUPPLY Qty: 600 3RF Rx Instructions: use 5-6 strips daily to test blood sugars cholecalciferol (vitamin D3) 1,250 mcg (50,000 unit) tablet 50,000 unit PO WEEKLY Qty: 12 3RF Rx Instructions: mondays estradiol 1 mg tablet 1.5 mg PO DAILY Qty: 135 4RF levothyroxine [Tirosint] 125 mcg capsule 125 mcg PO DAILY Qty: 90 3RF estradiol [Estrace] 0.01 % (0.1 mg/gram) cream 1 g vaginal .COMPLEX Rx Instructions: 1 g vaginal; 2 times per week Wegovy 2.4 mg/0.75 mL pen injector 2.4 mg subcut Q7D metformin 500 mg tablet 500 mg PO BID cranberry 400 mg Capsule 400 mg PO QAM Flintstones Tab Chew 100 mcg Tablet,Chewable 200 mcg PO BID Zyrtec 10 mg Capsule 10 mg PO QAM acetaminophen [Tylenol Extra Strength] 500 mg Tablet 1,000 mg PO Q6H PRN (Reason: Pain) (DME) Spacer for Inhaler Misc See Rx Instructions .ROUTE .MEDSUPPLY Qty: 1 0RF Rx Instructions: As directed albuterol sulfate 90 mcg/actuation HFA aerosol inhaler 2 puff INHALATION QID PRN (Reason: Wheezing) Myrbetriq 50 mg tablet extended release 24 hr 50 mg PO QAM calcium carbonate 500 mg calcium (1,250 mg) Tablet,Chewable 1,000 mg PO DAILY cyanocobalamin (vitamin B-12) 1,000 mcg/mL solution 1,000 mcg IM .EVERY 3 MONTHS Discontinued Victoza 2-Milo 0.6 mg/0.1 mL (18 mg/3 mL) pen injector 1.8 mg SUBCUT QAM No Action (DME) lancets [Accu-Chek Fastclix Lancet Drum] Misc See Dose Instructions .ROUTE .MEDSUPPLY Qty: 600 3RF Dose Instruction: As directed Rx Instructions: use 5-6 daily to test blood sugars Discharge Orders: Discharge Order (Routine); Ordered 02/25/22 Ordered By: Celina Ruffin Admission Data Admit Date/Time: 02/23/22 10:53 Attending Provider: Margaret Epperson Admit Provider: Rachele Abraham Primary Care Provider: Beth Keith Other Providers: Rachele Abraham ; Miguel Huff Other Interventions: Discharge Summary Assessment (RN) Last Done: 02/25/22 17:34 Supervising Physician Co-Signing Physician Notes PA Supervision Note: I personally saw and examined the patient. I verified all reese points and agree with JANKI Ruffin with the following exceptions and/or additions: S-Pt feelin gbetter, hand less swollen, ready to go home, pain controlled. O- Vitals reviewed Gen: [AAOx3, NAD] HEENT: [anicteric sclerae, EOMI] CV: [RRR no mgr nl S1S2] Pulm: [CTAB no wcr] Abd: [+BS soft NT ND no masses or hernias] Ext: [right hand with edema, incision palmar surface 3rd MC w/ sutures intact] Skin: [no rashes, warm/dry] Neuro: [full strength throughout] A/P-61 yo female here with right hand septic flexor tenosynovitis, now s/p I&D Cultures no growth, improving dc to home on broad spectrum abx AUgmentin and doxy, tolerates doxy but does get slight rash on chest but willing to take Coding Level of Care Code D/C DAY MANAGEMENT >30 MINS Diagnoses Flexor tenosynovitis of finger M65.9 Cellulitis of hand, right L03.113 Central hypothyroidism E03.8 Diabetes E11.9
== END 2022-02-25 17:52 | disposition home or self-care (01) | DRG 513 ==
LOC: EDINP 03:57 → ED 03:57 → SUATTDRO 05:57 → 3N 07:57